=== PATIENT | male | born 1945 | race Caucasian/White ===

== ENCOUNTER 2021-07-03 04:23 | Inpatient (IN) | payer MEDICARE ==
--- NOTE | 2021-07-03 04:38 | ED ---
SOB HPI - General Chief Complaint: Shortness of Breath Stated Complaint: SOB Time Seen by Provider: 07/03/21 04:25 Source: patient, EMS, RN notes reviewed, old records reviewed Mode of arrival: EMS Limitations: no limitations - History of Present Illness Initial Comments: This is a 76-year-old male presenting is a poor historian on BiPAP, CPAP during transfer by EMS for hypoxia. Difficulty breathing. Patient remains in severe us for a stress here in the ER. Patient is able to answer about denying any chest pain or recent fevers states his symptoms worsened over the last 3 days MD Complaint: shortness of breath, cough, anxiety -: hour(s), days(s) (3) Radiation: back Severity: moderate Severity scale (1-10): 7 Quality: dull Consistency: intermittent Improves With: nothing Worsens With: exertion, movement, coughing, inspiration Context: recent URI, anxiety, recent illness Associated Symptoms: chest pain, cough Treatments Prior to Arrival: none - Related Data Home Medications Medication Instructions Recorded Confirmed Allopurinol [Zyloprim] 300 mg PO DAILY 07/03/21 07/03/21 Apixaban [Eliquis] 5 mg PO BID 07/03/21 07/03/21 Atorvastatin [Lipitor] 40 mg PO DAILY 07/03/21 07/03/21 Cyclobenzaprine [Flexeril] 10 mg PO BID PRN 07/03/21 07/03/21 DULoxetine HCL [Cymbalta] 60 mg PO DAILY 07/03/21 07/03/21 Gabapentin 300 mg PO TID 07/03/21 07/03/21 Metoprolol Tartrate 25 mg PO BID 07/03/21 07/03/21 Nitroglycerin Sl Tabs [Nitrostat] 0.4 mg SUBLINGUAL Q5M PRN 07/03/21 07/03/21 Omeprazole 20 mg PO DAILY 07/03/21 07/03/21 traMADol HCL 50 mg PO BID PRN 07/03/21 07/03/21 traZODone HCL [Desyrel] 50 mg PO HS 07/03/21 07/03/21 Previous Rx's Medication Instructions Recorded Furosemide [Lasix] 20 mg PO BID@0900,1600 #60 tab 07/06/21 Nicotine 21Mg/24Hr Patch [Habitrol] 1 patch TRANSDERM DAILY #30 patch 07/06/21 Allergies Allergy/AdvReac Type Severity Reaction Status Date / Time No Known Allergies Allergy Verified 07/03/21 08:45 Review of Systems ROS Statement: Those systems with pertinent positive or pertinent negative responses have been documented in the HPI. ROS Other: All systems not noted in ROS Statement are negative. Past Medical History Past Medical History: Atrial Fibrillation, COPD, Hypertension Additional Past Medical History / Comment(s): Pace maker, History of Any Multi-Drug Resistant Organisms: None Reported Past Surgical History: Pacemaker Past Psychological History: No Psychological Hx Reported Smoking Status: Current every day smoker Past Alcohol Use History: Occasional - Past Family History Father History Unknown: Yes Mother History Unknown: Yes General Exam Limitations: no limitations General appearance: alert, in no apparent distress, anxious, in distress Head exam: Present: atraumatic, normocephalic, normal inspection Eye exam: Present: normal appearance, PERRL, EOMI. Absent: scleral icterus, conjunctival injection, periorbital swelling ENT exam: Present: normal exam, mucous membranes moist Neck exam: Present: normal inspection. Absent: tenderness, meningismus, lymphadenopathy Respiratory exam: Present: respiratory distress, wheezes, rhonchi, decreased breath sounds, prolonged expiratory. Absent: rales, stridor Cardiovascular Exam: Present: regular rate, normal rhythm, normal heart sounds. Absent: systolic murmur, diastolic murmur, rubs, gallop, clicks GI/Abdominal exam: Present: soft, normal bowel sounds. Absent: distended, tenderness, guarding, rebound, rigid Extremities exam: Present: normal inspection, full ROM, normal capillary refill. Absent: tenderness, pedal edema, joint swelling, calf tenderness Back exam: Present: normal inspection Neurological exam: Present: alert, oriented X3, CN II-XII intact Psychiatric exam: Present: normal affect, normal mood Skin exam: Present: warm, dry, intact, normal color. Absent: rash Course Vital Signs 07/03/21 07/03/21 07/03/21 04:28 04:30 05:09 Temperature 97.8 F Pulse Rate 70 70 Pulse Rate [ 75 Punch Card Operator ] Respiratory 26 H 24 Rate Blood Pressure 147/66 138/74 O2 Sat by Pulse 100 100 Oximetry 07/03/21 07/03/21 07/03/21 05:45 05:46 05:54 Temperature Pulse Rate 78 79 Pulse Rate [ Punch Card Operator ] Respiratory 18 Rate Blood Pressure O2 Sat by Pulse 91 L Oximetry 07/03/21 07/03/21 07/03/21 06:13 07:01 07:12 Temperature 98.0 F Pulse Rate 69 70 70 Pulse Rate [ Punch Card Operator ] Respiratory 18 18 18 Rate Blood Pressure 130/64 143/66 O2 Sat by Pulse 95 98 94 L Oximetry 07/03/21 07/03/21 07/03/21 07:27 08:39 09:00 Temperature 98 F Pulse Rate 70 70 70 Pulse Rate [ Punch Card Operator ] Respiratory 18 18 18 Rate Blood Pressure 141/70 O2 Sat by Pulse 100 97 Oximetry 07/03/21 07/03/21 07/03/21 10:00 10:32 10:42 Temperature Pulse Rate 71 70 71 Pulse Rate [ Punch Card Operator ] Respiratory 18 18 18 Rate Blood Pressure O2 Sat by Pulse 98 Oximetry 07/03/21 07/03/21 07/03/21 11:00 12:00 14:16 Temperature 98 F Pulse Rate 71 71 71 Pulse Rate [ Punch Card Operator ] Respiratory 18 18 18 Rate Blood Pressure 147/63 147/63 O2 Sat by Pulse 98 98 98 Oximetry - Reevaluation(s) Reevaluation #1: 07/03/21 06:36 Medical record is reviewed Reevaluation #2: 07/03/21 06:36 he is maintaining her story status on BiPAP Reevaluation #3: 07/03/21 06:36 She is informed of results and questions answered - Consultations Consultation #1: spoke w [facility], agreed admit the patient Medical Decision Making - Medical Decision Making 76-year-old male to ER for evaluation multifactorial respiratory failure with pneumonia hypoxia COPD. - Lab Data Result diagrams: 07/05/21 07:57 07/06/21 06:56 Lab Results 07/03/21 07/03/21 07/03/21 Range/Units 04:35 04:35 04:35 WBC 15.5 H (3.8-10.6) k/uL RBC 4.38 (4.30-5.90) m/uL Hgb 10.3 L (13.0-17.5) gm/dL Hct 35.3 L (39.0-53.0) % MCV 80.6 (80.0-100.0) fL MCH 23.6 L (25.0-35.0) pg MCHC 29.3 L (31.0-37.0) g/dL RDW 19.0 H (11.5-15.5) % Plt Count 395 (150-450) k/uL MPV 7.3 Neutrophils % 92 % Lymphocytes % 3 % Monocytes % 3 % Eosinophils % 0 % Basophils % 0 % Neutrophils # 14.3 H (1.3-7.7) k/uL Lymphocytes # 0.5 L (1.0-4.8) k/uL Monocytes # 0.4 (0-1.0) k/uL Eosinophils # 0.1 (0-0.7) k/uL Basophils # 0.0 (0-0.2) k/uL Hypochromasia Marked Poikilocytosis Slight Anisocytosis Slight Microcytosis Slight PT 11.6 (9.0-12.0) sec INR 1.1 (<1.2) APTT 20.0 L (22.0-30.0) sec Sodium 136 L (137-145) mmol/L Potassium 4.7 (3.5-5.1) mmol/L Chloride 100 (98-107) mmol/L Carbon Dioxide 25 (22-30) mmol/L Anion Gap 11 mmol/L BUN 14 (9-20) mg/dL Creatinine 0.69 (0.66-1.25) mg/dL Est GFR (CKD-EPI)AfAm >90 (>60 ml/min/1.73 sqM) Est GFR (CKD-EPI)NonAf >90 (>60 ml/min/1.73 sqM) Glucose 190 H (74-99) mg/dL Lactic Ac Sepsis Rflx Plasma Lactic Acid Corwin (0.7-2.0) mmol/L Calcium 8.6 (8.4-10.2) mg/dL Magnesium 1.9 (1.6-2.3) mg/dL Total Bilirubin 0.4 (0.2-1.3) mg/dL AST 29 (17-59) U/L ALT 16 (4-49) U/L Alkaline Phosphatase 170 H (38-126) U/L Troponin I (0.000-0.034) ng/mL NT-Pro-B Natriuret Pep pg/mL Total Protein 6.3 (6.3-8.2) g/dL Albumin 3.1 L (3.5-5.0) g/dL Procalcitonin (0.02-0.09) ng/mL Coronavirus (PCR) (Not Detectd) 07/03/21 07/03/21 07/03/21 Range/Units 04:35 04:35 04:35 WBC (3.8-10.6) k/uL RBC (4.30-5.90) m/uL Hgb (13.0-17.5) gm/dL Hct (39.0-53.0) % MCV (80.0-100.0) fL MCH (25.0-35.0) pg MCHC (31.0-37.0) g/dL RDW (11.5-15.5) % Plt Count (150-450) k/uL MPV Neutrophils % % Lymphocytes % % Monocytes % % Eosinophils % % Basophils % % Neutrophils # (1.3-7.7) k/uL Lymphocytes # (1.0-4.8) k/uL Monocytes # (0-1.0) k/uL Eosinophils # (0-0.7) k/uL Basophils # (0-0.2) k/uL Hypochromasia Poikilocytosis Anisocytosis Microcytosis PT (9.0-12.0) sec INR (<1.2) APTT (22.0-30.0) sec Sodium (137-145) mmol/L Potassium (3.5-5.1) mmol/L Chloride (98-107) mmol/L Carbon Dioxide (22-30) mmol/L Anion Gap mmol/L BUN (9-20) mg/dL Creatinine (0.66-1.25) mg/dL Est GFR (CKD-EPI)AfAm (>60 ml/min/1.73 sqM) Est GFR (CKD-EPI)NonAf (>60 ml/min/1.73 sqM) Glucose (74-99) mg/dL Lactic Ac Sepsis Rflx Plasma Lactic Acid Corwin 2.4 H* (0.7-2.0) mmol/L Calcium (8.4-10.2) mg/dL Magnesium (1.6-2.3) mg/dL Total Bilirubin (0.2-1.3) mg/dL AST (17-59) U/L ALT (4-49) U/L Alkaline Phosphatase (38-126) U/L Troponin I 0.021 (0.000-0.034) ng/mL NT-Pro-B Natriuret Pep 2640 pg/mL Total Protein (6.3-8.2) g/dL Albumin (3.5-5.0) g/dL Procalcitonin (0.02-0.09) ng/mL Coronavirus (PCR) (Not Detectd) 07/03/21 07/03/21 07/03/21 Range/Units 04:35 05:02 05:45 WBC (3.8-10.6) k/uL RBC (4.30-5.90) m/uL Hgb (13.0-17.5) gm/dL Hct (39.0-53.0) % MCV (80.0-100.0) fL MCH (25.0-35.0) pg MCHC (31.0-37.0) g/dL RDW (11.5-15.5) % Plt Count (150-450) k/uL MPV Neutrophils % % Lymphocytes % % Monocytes % % Eosinophils % % Basophils % % Neutrophils # (1.3-7.7) k/uL Lymphocytes # (1.0-4.8) k/uL Monocytes # (0-1.0) k/uL Eosinophils # (0-0.7) k/uL Basophils # (0-0.2) k/uL Hypochromasia Poikilocytosis Anisocytosis Microcytosis PT (9.0-12.0) sec INR (<1.2) APTT (22.0-30.0) sec Sodium (137-145) mmol/L Potassium (3.5-5.1) mmol/L Chloride (98-107) mmol/L Carbon Dioxide (22-30) mmol/L Anion Gap mmol/L BUN (9-20) mg/dL Creatinine (0.66-1.25) mg/dL Est GFR (CKD-EPI)AfAm (>60 ml/min/1.73 sqM) Est GFR (CKD-EPI)NonAf (>60 ml/min/1.73 sqM) Glucose (74-99) mg/dL Lactic Ac Sepsis Rflx Y Plasma Lactic Acid Corwin (0.7-2.0) mmol/L Calcium (8.4-10.2) mg/dL Magnesium (1.6-2.3) mg/dL Total Bilirubin (0.2-1.3) mg/dL AST (17-59) U/L ALT (4-49) U/L Alkaline Phosphatase (38-126) U/L Troponin I (0.000-0.034) ng/mL NT-Pro-B Natriuret Pep pg/mL Total Protein (6.3-8.2) g/dL Albumin (3.5-5.0) g/dL Procalcitonin 0.06 (0.02-0.09) ng/mL Coronavirus (PCR) Not Detected (Not Detectd) - EKG Data -: EKG Interpreted by Me (EKG is a paced rhythm 70 QRS 158 QTc 505) - Radiology Data Radiology results: report reviewed (Chest x-rays CHF with bilateral pneumonia), image reviewed Critical Care Time Critical Care Time: Yes Total Critical Care Time: 31 Disposition Clinical Impression: Community acquired pneumonia, Acute exacerbation of chronic obstructive pulmonary disease, Acute pulmonary edema, Congestive heart failure, Acute respiratory failure Disposition: ADMITTED IP TO THIS HOSP Condition: Fair Is patient prescribed a controlled substance at d/c from ED?: No
--- NOTE | 2021-07-03 04:46 | XR ---
EXAMINATION TYPE: XR chest 1V portable DATE OF EXAM: 07/03/2021 COMPARISON: NONE HISTORY: Short of breath TECHNIQUE: Single view FINDINGS: Heart is enlarged. There is some pulmonary vascular congestion. There is blunting right cos tophrenic angle. There is airspace infiltrate in both lower lobes and more on the right side. There i s extensive airspace infiltrate in the right lung. There is left axillary pacemaker. IMPRESSION: Congestive heart failure. Bilateral lower lobe pneumonia that is worse on the right side
[2021-07-03 04:47] LABS: Anisocytosis Slight; Basophils % (A) 0 %; Eosinophils # (A) 0.1 k/uL (0-0.7); Eosinophils % (A) 0 %; HCT 35.3 % (39.0-53.0); HGB 10.3 gm/dL (13.0-17.5); Hypochromasia Marked; Lymphocytes # (A) 0.5 k/uL (1.0-4.8); Lymphocytes % (A) 3 %; MCH 23.6 pg (25.0-35.0); MCHC 29.3 g/dL (31.0-37.0); MCV 80.6 fL (80.0-100.0); Mean Platelet Volume 7.3; Microcytosis Slight; Monocytes # (A) 0.4 k/uL (0-1.0); Monocytes % (A) 3 %; Neutrophils # (A) 14.3 k/uL (1.3-7.7); Neutrophils % (A) 92 %; Platelet Count 395 k/uL (150-450); Poikilocytosis Slight; RBC 4.38 m/uL (4.30-5.90); WBC 15.5 k/uL (3.8-10.6)
[2021-07-03 04:58] LABS: ALT 16 U/L (4-49); AST 29 U/L (17-59); African American GFR (CKD) >90 (>60 ml/min/1.73 sqM); Albumin 3.1 g/dL (3.5-5.0); Alkaline Phosphatase 170 U/L (38-126); Anion Gap 11 mmol/L; Blood Urea Nitrogen 14 mg/dL (9-20); Calcium 8.6 mg/dL (8.4-10.2); Carbon Dioxide 25 mmol/L (22-30); Chloride 100 mmol/L (98-107); Glucose 190 mg/dL (74-99); Magnesium 1.9 mg/dL (1.6-2.3); Non-African American GFR(CKD) >90 (>60 ml/min/1.73 sqM); Potassium 4.7 mmol/L (3.5-5.1); Sodium 136 mmol/L (137-145); Total Bilirubin 0.4 mg/dL (0.2-1.3); Total Protein 6.3 g/dL (6.3-8.2)
[2021-07-03 05:04] LABS: INR 1.1 (<1.2); Prothrombin Time 11.6 sec (9.0-12.0)
[2021-07-03] MEDS ORDERED: DEXAMETHASONE SOD PHOSPHATE 10 MG/ML 1 ML VIAL IV STA (05:32)
[2021-07-03] MEDS ORDERED: IPRATROPIUM-ALBUTEROL 3 ML NEB INHALATION STA (05:32)
[2021-07-03] MEDS ORDERED: PNEUMONIA PROTOCOL UTILIZED 1 EACH MISC PO PRN (06:32)
[2021-07-03] MEDS ORDERED: AZITHROMYCIN 500 MG in SODIUM CHLORIDE 0.9% 250 ML IVPB STA (06:32)
[2021-07-03] MEDS ORDERED: FUROSEMIDE 10 MG/ML 4 ML VIAL IV SCH (06:45)
[2021-07-03] MEDS ORDERED: IPRATROPIUM-ALBUTEROL 3 ML NEB INHALATION PRN (07:48)
[2021-07-03] MEDS ORDERED: ALBUTEROL NEBULIZED 2.5 MG/3 ML INHALATION SCH (08:00)
[2021-07-03] MEDS: IPRATROPIUM-ALBUTEROL 3 ML NEB INHALATION SCH ×4 (09:08→20:12)
--- NOTE | 2021-07-03 09:40 | P.CNPUL ---
History of Present Illness Consult date: 07/03/21 Requesting physician: Jessica Melendez Reason for consult: dyspnea, cough, COPD, hypoxemia, abnormal CXR/CT Chief complaint: Shortness of breath, respiratory failure. History of present illness: Pulmonary/critical care consultation dated 07/03/2021. 76-year-old male, who presents to the emergency department, with complaints of shortness of breath. Family members are at the bedside. The patient was seen and brought in by EMS. They apparently applied CPAP in transport. Seemed to make things better. Here in the emergency room, he was initially on BiPAP with settings of 12/6 and 50% FiO2. Currently, he is on 5 L nasal cannula in the emergency room. He does use oxygen at home at 2-1/2 L/m. His chest x-ray shows diffuse bilateral infiltrates, the right lung than on the left, suggesting either asymmetric pulmonary edema and/or pneumonia. He's not really having much in the way of pneumonic symptoms such as fever, chills, cough, or phlegm production. The patient is not receiving any IV fluids. He did apparently sustain a fracture to his right shoulder. White count 15.5, hemoglobin 10.3, hematocrit 35.3, and platelet count 395,000. PT INR normal. PTT is normal. Sodium 136, potassium 4.7, chlorides 100, CO2 25, anion gap 11, BUN 14, creatinine 0.69. Initial lactic acid 2.4, repeat 1.4. Coronavirus testing was negative. N-terminal proBNP is 2640. Troponin was 0.021 and 0.031. Procalcitonin has been ordered but is currently pending. As mentioned, chest x- ray shows bilateral right greater than left infiltrates. Again, this could be consistent with fluid overload/CHF, and or pneumonia. Review of Systems REVIEW OF SYSTEMS: CONSTITUTIONAL: [Negative.] NEUROLOGIC: [ Negative.] HEENT: [ Negative.] CARDIAC: [Negative.] PULMONARY: Shortness of breath. GI: [Negative.] : [Negative.] RHEUMATOLOGIC: [ Negative.] IMMUNOLOGIC: [ Negative.] ENDOCRINE: [Negative. ] DERMATOLOGIC: [Negative.] Past Medical History Past Medical History: Atrial Fibrillation, COPD, Hypertension Additional Past Medical History / Comment(s): Pace maker, History of Any Multi-Drug Resistant Organisms: None Reported Past Surgical History: Pacemaker Past Psychological History: No Psychological Hx Reported Smoking Status: Current every day smoker Past Alcohol Use History: Occasional Medications and Allergies Home Medications Medication Instructions Recorded Confirmed Type Allopurinol [Zyloprim] 300 mg PO DAILY 07/03/21 07/03/21 History Apixaban [Eliquis] 5 mg PO BID 07/03/21 07/03/21 History Atorvastatin [Lipitor] 40 mg PO DAILY 07/03/21 07/03/21 History Cyclobenzaprine [Flexeril] 10 mg PO BID PRN 07/03/21 07/03/21 History DULoxetine HCL [Cymbalta] 60 mg PO DAILY 07/03/21 07/03/21 History Gabapentin 300 mg PO TID 07/03/21 07/03/21 History Metoprolol Tartrate 25 mg PO BID 07/03/21 07/03/21 History Nitroglycerin Sl Tabs [Nitrostat] 0.4 mg SUBLINGUAL Q5M PRN 07/03/21 07/03/21 History Omeprazole 20 mg PO DAILY 07/03/21 07/03/21 History traMADol HCL 50 mg PO BID PRN 07/03/21 07/03/21 History traZODone HCL [Desyrel] 50 mg PO HS 07/03/21 07/03/21 History Allergies Allergy/AdvReac Type Severity Reaction Status Date / Time No Known Allergies Allergy Verified 07/03/21 08:45 Physical Exam Osteopathic Statement: *. No significant issues noted on an osteopathic structural exam other than those noted in the History and Physical/Consult. Vitals: Vital Signs Temp Pulse Pulse Resp BP Pulse Ox 07/03/21 08:39 98 F 70 18 141/70 100 07/03/21 07:27 70 18 07/03/21 07:12 70 18 94 L 07/03/21 07:01 98.0 F 70 18 143/66 98 07/03/21 06:13 69 18 130/64 95 07/03/21 05:54 79 07/03/21 05:46 18 91 L 07/03/21 05:45 78 07/03/21 05:09 70 24 138/74 100 07/03/21 04:30 75 07/03/21 04:28 97.8 F 70 26 H 147/66 100 Intake and Output 0807/03/21 07/03/21 22:59 06:59 14:59 Other: Weight 86.183 kg No acute distress, oriented 3. Currently, patient on 5 L nasal cannula. No audible wheezing, or use of accessory muscles. HEENT examination is grossly unremarkable. Neck supple. Full range of motion. No adenopathy thyromegaly or neck vein distention. Cardiovascular examination reveals regular rhythm rate. S1-S2 normal. No S3 or S4. No discernible murmur noted. Heart rate 70 bpm. Heart sounds are very distant. Lungs reveal diffuse bilateral rhonchi and expiratory wheezes. Bibasilar crackles are noted noted. Breath sounds are equal bilaterally but diminished throughout. Abdomen soft bowel sounds are heard. No masses or tenderness. Extremities are intact. No cyanosis or clubbing or significant edema. Skin reveals chronic venous stasis changes to the lower extremities. Neurologic examination is brief but nonfocal. Results - Laboratory Findings CBC and BMP: 07/03/21 04:35 07/03/21 04:35 PT/INR, D-dimer PT 11.6 sec (9.0-12.0) 07/03/21 04:35 INR 1.1 (<1.2) 07/03/21 04:35 Abnormal lab findings: Abnormal Labs 07/03/21 07/03/21 07/03/21 04:35 04:35 04:35 WBC 15.5 H Hgb 10.3 L Hct 35.3 L MCH 23.6 L MCHC 29.3 L RDW 19.0 H Neutrophils # 14.3 H Lymphocytes # 0.5 L APTT 20.0 L Sodium 136 L Glucose 190 H Plasma Lactic Acid Corwin Alkaline Phosphatase 170 H Albumin 3.1 L 07/03/21 04:35 WBC Hgb Hct MCH MCHC RDW Neutrophils # Lymphocytes # APTT Sodium Glucose Plasma Lactic Acid Corwin 2.4 H* Alkaline Phosphatase Albumin - Diagnostic Findings Chest x-ray: image reviewed Assessment and Plan Assessment: Acute on chronic hypoxemic respiratory failure, likely multifactorial, in part related to underlying CHF/fluid overload, and possible pneumonia. Chronic hypoxemic respiratory failure, with home O2 at 2.5 L/m. History of chronic atrial fibrillation. History of hypertension. Status post pacemaker insertion. Ongoing tobacco use with nicotine addiction. History of hyperlipidemia. History of gout. Plan: Plan dated 07/03/2021. Currently, the patient's been placed on azithromycin, and Rocephin for possible pneumonia. In addition, the patient's getting updrafts 4 times a day and when necessary with albuterol sulfate and ipratropium bromide. Also, the patient's getting Lasix 40 mg IV push every 12 hours. The patient is doing much better now than when he first came in. BiPAP really seem to help. We will continue to follow the patient and make recommendations where appropriate. The patient is strongly counseled about the importance of smoking cessation. I say that to the patient in front of the patient's daughter. Time with Patient: Greater than 30
[2021-07-03] MEDS ORDERED: NITROGLYCERIN SL TABS 0.4 MG TAB SUBLINGUAL PRN (10:26)
--- NOTE | 2021-07-03 10:27 | P.HPIM ---
<Matt Bhatt - Last Filed: 07/03/21 12:48> History of Present Illness H&P Date: 07/03/21 History of Presenting Illness: Patient is a 76-year-old male with a past medical history of CAD with previous stents and pacemaker placement, hypertension, hyperlipidemia, paroxysmal atrial fibrillation on Eliquis, chronic systolic heart failure, COPD home oxygen dependent on 2-3 L at all times, long-standing history of having current use of tobacco products reportedly continuing to smoke one pack of cigarettes daily, and obstructive sleep apnea CPAP dependent nightly. Patient presented to the emergency department on 07/03/21 with a chief complaint of shortness of breath. Patient reportedly arrived to the emergency department on BiPAP via EMS secondary to hypoxia after being found at home reportedly with SpO2 of 74% per family at bedside. Patient states he has had progressively worsening shortness of breath over the past 3-5 days but denies having any changes in his cough or phlegm production. He was seen and fully evaluated in the emergency department initially requiring BiPAP and being weaned down to 5 L O2 via nasal cannula. Patient had chest x-ray completed which reportedly showed vascular congestion indicated of CHF as well as bilateral lower lobe infiltrates worse on the right. EKG showing a ventricular paced rhythm at 70 bpm. Lab work drawn revealing leukocytosis with WBC count of 15.5 with left shift, initial lactate 2.4 with repeat lactate of 1.4, elevated troponins at 0.021/0.031/0.032, and pro-BNP of 2640. Covid 19 PCR negative. Patient was admitted for acute respiratory failure with hypoxia secondary to acute on chronic systolic congestive heart failure exacerbation, COPD exacerbation, and bilateral lower lobe pneumonia. Patient admitted under our services with consultation to cardiology and pulmonology. Upon physical exam, patient resting comfortably on 5 L O2 via nasal cannula. Family at bedside. Patient reports feeling significantly better than he felt upon arrival and states he feels that it is much easier to breathe at this time. Patient denies any recent fevers or illnesses, chills, diaphoresis, headache, lightheadedness, dizziness, chest pain or shortness of breath, increases in her changes in cough or congestion, experiencing any nausea, vomiting, changes in or difficulties with urinary or bowel function, or experiencing any swelling in his lower extremities. Review of systems: Pertinent positives and negatives as discussed in HPI, a complete review of systems was performed and all other systems are negative. Physical exam: Vital signs reviewed and stable. General: Nontoxic, no distress and appears stated age. Derm: Skin warm and dry, normal coloration for ethnicity. Multiple bruises in different stages of healing on upper extremities. Head: Atraumatic, normocephalic and symmetric. Eyes: EOMs intact, no lid lag, and anicteric sclera Mouth: no lip lesions, mucus membranes moist Cardiovascular: regular rate and rhythm with normal S1S2, distant heart sounds, positive posterior tibial pulses bilaterally, and cap refill < 2 seconds. Lungs: Respirations even, regular, and unlabored on 5 L O2 via nasal cannula. Lungs with diffuse expiratory wheezes bilaterally. No rhonchi or rales noted. Increased respiratory effort with no accessory muscle usage. Abdominal: soft, nontender to palpation, no guarding, no appreciable organomegaly Ext: ROM intact. No gross muscle atrophy, no edema. Right arm in sling from previous injury in which she reportedly sustained a fracture to his right shoulder. Neuro: Speech clear, face symmetrical and CN II-XII grossly intact with no noted focal neuro deficits Psych: Alert and oriented to person, place, time, and situation. Appropriate and pleasant affect. Assessment and Plan of Care: Acute on chronic respiratory failure with hypoxia Acute on chronic systolic congestive heart failure COPD exacerbation Bilateral lower lobe pneumonia -Chest x-ray reporting pulmonary vascular congestion indicated of congestive heart failure as well as bilateral lower lobe infiltrates worse on the right. -Echocardiogram revealing a mildly impaired EF of 45-50% with basal inferiolateral hypokinesis, moderate pulmonary hypertension and moderate tricuspid regurgitation. -BNP 2640 -Oxygenation to be administered and titrated as needed to maintain SPO2 equal to or greater than 90%, attempts at weaning back towards baseline oxygenation level of 2-3 L. -Telemetry monitoring. -Duonebs as needed for SOB and/or wheezing -Incentive Spirometry -Antibiotics: Azithromycin and Rocephin -Lasix 20 mg IVP every 8 hours with close monitoring of electrolyte levels, renal function and urinary output -Consult cardiology, appreciate additional recommendations. -Consult to pulmonary, appreciate additional recommendations. Elevated troponins with history of CAD with previous stents and pacemaker placement -Elevated troponins at 0.021/0.031/0.032 likely secondary to acute on chronic systolic congestive heart failure -BNP 2640 -EKG showing a ventricular paced rhythm at 70 bpm. -Echocardiogram revealing a mildly impaired EF of 45-50% with basal inferiolateral hypokinesis, moderate pulmonary hypertension and moderate tricuspid regurgitation. -Treatment of underlying acute on chronic CHF exacerbation with Lasix 20 mg IVP every 8 hours with close monitoring of electrolyte levels, renal function and urinary output -Cardiology following, appreciate further recommendations. Hypertension -Monitor vital signs and continue daily medication regimen with metoprolol. Hyperlipidemia -Continue daily medication regimen with atorvastatin 40 mg daily. -Heart healthy diet. Paroxysmal atrial fibrillation on Eliquis -Continue anticoagulation with Eliquis. Long-standing history of having current use of tobacco products reportedly continuing to smoke one pack of cigarettes daily Patient to continue to receive encouragement and education on the benefits of smoking cessation and the risks associated with continued use. Nicotine patch. Obstructive sleep apnea CPAP dependent nightly. -Continue use of nightly CPAP/BiPAP -Encourage incentive spirometry use The patient is admitted with an anticipated greater than 2 midnight stay for evaluation of acute on chronic respiratory failure with hypoxia. CODE STATUS: Full code DVT prophylaxis: Eliquis Discussed with: Patient, daughter at bedside, and RN Anticipated discharge date: Clinical course to determine Anticipated discharge place: Home A total of 45 minutes was spent on the care of this complex patient more than 50% of the time was spent in counseling and care coordination. Past Medical History Past Medical History: Atrial Fibrillation, COPD, Hypertension Additional Past Medical History / Comment(s): Pace maker, History of Any Multi-Drug Resistant Organisms: None Reported Past Surgical History: Pacemaker Past Psychological History: No Psychological Hx Reported Smoking Status: Current every day smoker Past Alcohol Use History: Occasional Medications and Allergies Home Medications Medication Instructions Recorded Confirmed Type Allopurinol [Zyloprim] 300 mg PO DAILY 07/03/21 07/03/21 History Apixaban [Eliquis] 5 mg PO BID 07/03/21 07/03/21 History Atorvastatin [Lipitor] 40 mg PO DAILY 07/03/21 07/03/21 History Cyclobenzaprine [Flexeril] 10 mg PO BID PRN 07/03/21 07/03/21 History DULoxetine HCL [Cymbalta] 60 mg PO DAILY 07/03/21 07/03/21 History Gabapentin 300 mg PO TID 07/03/21 07/03/21 History Metoprolol Tartrate 25 mg PO BID 07/03/21 07/03/21 History Nitroglycerin Sl Tabs [Nitrostat] 0.4 mg SUBLINGUAL Q5M PRN 07/03/21 07/03/21 History Omeprazole 20 mg PO DAILY 07/03/21 07/03/21 History traMADol HCL 50 mg PO BID PRN 07/03/21 07/03/21 History traZODone HCL [Desyrel] 50 mg PO HS 07/03/21 07/03/21 History Allergies Allergy/AdvReac Type Severity Reaction Status Date / Time No Known Allergies Allergy Verified 07/03/21 08:45 Physical Exam Vitals: Vital Signs Temp Pulse Pulse Resp BP Pulse Ox 07/03/21 08:39 98 F 70 18 141/70 100 07/03/21 07:27 70 18 07/03/21 07:12 70 18 94 L 07/03/21 07:01 98.0 F 70 18 143/66 98 07/03/21 06:13 69 18 130/64 95 07/03/21 05:54 79 07/03/21 05:46 18 91 L 07/03/21 05:45 78 07/03/21 05:09 70 24 138/74 100 07/03/21 04:30 75 07/03/21 04:28 97.8 F 70 26 H 147/66 100 Intake and Output 07/02/21 07/03/21 07/03/21 22:59 06:59 14:59 Other: Weight 86.183 kg Results CBC & Chem 7: 07/03/21 04:35 07/03/21 04:35 Labs: Abnormal Lab Results - Last 24 Hours (Table) 07/03/21 07/03/21 07/03/21 Range/Units 04:35 04:35 04:35 WBC 15.5 H (3.8-10.6) k/uL Hgb 10.3 L (13.0-17.5) gm/dL Hct 35.3 L (39.0-53.0) % MCH 23.6 L (25.0-35.0) pg MCHC 29.3 L (31.0-37.0) g/dL RDW 19.0 H (11.5-15.5) % Neutrophils # 14.3 H (1.3-7.7) k/uL Lymphocytes # 0.5 L (1.0-4.8) k/uL APTT 20.0 L (22.0-30.0) sec Sodium 136 L (137-145) mmol/L Glucose 190 H (74-99) mg/dL Plasma Lactic Acid Corwin (0.7-2.0) mmol/L Alkaline Phosphatase 170 H (38-126) U/L Albumin 3.1 L (3.5-5.0) g/dL 07/03/21 Range/Units 04:35 WBC (3.8-10.6) k/uL Hgb (13.0-17.5) gm/dL Hct (39.0-53.0) % MCH (25.0-35.0) pg MCHC (31.0-37.0) g/dL RDW (11.5-15.5) % Neutrophils # (1.3-7.7) k/uL Lymphocytes # (1.0-4.8) k/uL APTT (22.0-30.0) sec Sodium (137-145) mmol/L Glucose (74-99) mg/dL Plasma Lactic Acid Corwin 2.4 H* (0.7-2.0) mmol/L Alkaline Phosphatase (38-126) U/L Albumin (3.5-5.0) g/dL <Jannette Martin - Last Filed: 07/03/21 15:25> Physical Exam Vitals: Vital Signs Temp Pulse Pulse Resp BP BP Pulse Ox 07/03/21 15:00 97.9 F 70 16 158/76 98 07/03/21 14:16 98 F 71 18 147/63 98 07/03/21 12:00 71 18 147/63 98 07/03/21 11:00 71 18 98 07/03/21 10:42 71 18 07/03/21 10:32 70 18 07/03/21 10:00 71 18 98 07/03/21 09:00 70 18 97 07/03/21 08:39 98 F 70 18 141/70 100 07/03/21 07:27 70 18 07/03/21 07:12 70 18 94 L 07/03/21 07:01 98.0 F 70 18 143/66 98 07/03/21 06:13 69 18 130/64 95 07/03/21 05:54 79 07/03/21 05:46 18 91 L 07/03/21 05:45 78 07/03/21 05:09 70 24 138/74 100 07/03/21 04:30 75 07/03/21 04:28 97.8 F 70 26 H 147/66 100 Intake and Output 07/03/21 07/03/21 07/03/21 06:59 14:59 22:59 Other: Voiding Method Urinal Weight 86.183 kg 86.183 kg 86.183 kg Results CBC & Chem 7: 07/03/21 04:35 07/03/21 04:35 Labs: Abnormal Lab Results - Last 24 Hours (Table) 07/03/21 07/03/21 07/03/21 Range/Units 04:35 04:35 04:35 WBC 15.5 H (3.8-10.6) k/uL Hgb 10.3 L (13.0-17.5) gm/dL Hct 35.3 L (39.0-53.0) % MCH 23.6 L (25.0-35.0) pg MCHC 29.3 L (31.0-37.0) g/dL RDW 19.0 H (11.5-15.5) % Neutrophils # 14.3 H (1.3-7.7) k/uL Lymphocytes # 0.5 L (1.0-4.8) k/uL APTT 20.0 L (22.0-30.0) sec Sodium 136 L (137-145) mmol/L Glucose 190 H (74-99) mg/dL Plasma Lactic Acid Corwin (0.7-2.0) mmol/L Alkaline Phosphatase 170 H (38-126) U/L Albumin 3.1 L (3.5-5.0) g/dL 07/03/21 Range/Units 04:35 WBC (3.8-10.6) k/uL Hgb (13.0-17.5) gm/dL Hct (39.0-53.0) % MCH (25.0-35.0) pg MCHC (31.0-37.0) g/dL RDW (11.5-15.5) % Neutrophils # (1.3-7.7) k/uL Lymphocytes # (1.0-4.8) k/uL APTT (22.0-30.0) sec Sodium (137-145) mmol/L Glucose (74-99) mg/dL Plasma Lactic Acid Corwin 2.4 H* (0.7-2.0) mmol/L Alkaline Phosphatase (38-126) U/L Albumin (3.5-5.0) g/dL Assessment and Plan Assessment: Patient was seen, evaluated, and examined by me in his room. He is feeling significantly better compared to when he first came into the hospital. He reports significant improvement in his shortness of breath. Patient is a 76-year-old male with complex past medical history noted above who presented to the emergency room with worsening shortness of breath. Patient was evaluated in the ER and was found to have acute hypoxic respiratory failure requiring BiPAP for a brief period of time. He was then transitioned to nasal cannula currently on 4 L. Patient told me that he wear 3 L at home. X-ray showed evidence of vascular congestion with slightly elevated BNP. Patient was seen and evaluated by cardiology. Echocardiogram showed EF of 45%. Patient was started on IV diuresis. He was also started on antibiotic for suspected pneumonia ending pro calcitonin. Patient has end-expiratory wheezing on exam that might be secondary to pulmonary edema versus COPD exacerbation. I would avoid steroids at this time in the setting of underlying heart failure and would monitor clinical status with diuresis. If not improving may consider steroids tomorrow. Continue duo nebs otherwise.
--- NOTE | 2021-07-03 10:59 | P.CRDCN ---
History of Present Illness Consult date: 07/03/21 History of present illness: HISTORY OF PRESENT ILLNESS: This is a 76-year-old male with a past medical history significant for nicotine dependence, chronic atrial fibrillation, history of permanent pacemaker insertion, and hyperlipidemia. Patient states he follows with a Dr. Marroquin in [place], [place]. We have been asked to see the patient in consultation for congestive heart failure. Patient examined at the bedside. Patient is somewhat of a poor h istorian. Patient states he presented to the hospital for chief complaint of shortness of breath. He denies any chest pain or pressure. Blood pressure 141/70. Telemetry reveals heart rate in the 70s. He is afebrile. He is on 5 L nasal cannula with oxygen saturations greater then 92%. EKG reveals ventricular paced rhythm Chest xray congestive heart failure. Bilateral lower lobe pneumonia that is worse on the right side. Laboratory data: WBC 15.5. Hemoglobin 10.3. Platelet count 395. Sodium 136. Potassium 4.7. BUN 14. Creatinine 0.69. Lactic acid 2.4. Repeat 1.4. Troponin 0.021. 0.031. ProBNP 2640. Current home cardiac medications include metoprolol tartrate 25 mg BID, Lipitor 40 mg daily, Eliquis 5 mg twice a day REVIEW OF SYSTEMS: At the time of my exam: CONSTITUTIONAL: Denies fever or chills. HEENT: Denies blurred vision, vision changes, or eye pain. Denies hemoptysis CARDIOVASCULAR: Denies chest pain. Denies orthopnea. Denies PND. Denies palpitations RESPIRATORY: Reports shortness of breath. GASTROINTESTINAL: Denies abdominal pain. Denies nausea or vomiting. HEMATOLOGIC: Denies bleeding disorders. GENITOURINARY: Denies any blood in urine. SKIN: Denies pruitis. Denies rash. PHYSICAL EXAM: VITAL SIGNS: Reviewed. GENERAL: Well-developed in no acute distress. HEENT: Head is normocephalic. Pupils are equal, round. Sclerae anicteric. Mucous membranes of the mouth are moist. Neck supple. No JVD or thyromegaly LUNGS: Respirations even and unlabored. Lungs diminished bilaterally. HEART: Regular rate and rhythm. S1 and S2 heard. ABDOMEN: Soft. Nondistended. Nontender. EXTREMITIES: Normal range of motion. No clubbing or cyanosis. Peripheral pulses intact. Minimal lower extremity edema with chronic discoloration noted. NEUROLOGIC: Awake and alert. Oriented x 3. ASSESSMENT: Possible bilateral pneumonia Acute on chronic hypoxic respiratory failure, patient wears home O2 Chronic atrial fibrillation, anticoagulated with Eliquis Acute congestive heart failure, type unknown, echo pending History of permanent pacemaker insertion Hyperlipidemia Nicotine dependence PLAN: Obtain 2-D echo to assess cardiac structure and function Continue IV Lasix. Change dosing to 20 mg every 8 hours Daily weights Accurate I&O Monitor kidney function Resume home cardiac medications Continue anticoagulation with Eliquis Further recommendations pending patient's course Nurse practitioner note has been reviewed by physician. Signing provider agrees with the documented findings, assessment, and plan of care. Past Medical History Past Medical History: Atrial Fibrillation, COPD, Hypertension Additional Past Medical History / Comment(s): Pace maker, History of Any Multi-Drug Resistant Organisms: None Reported Past Surgical History: Pacemaker Past Psychological History: No Psychological Hx Reported Smoking Status: Current every day smoker Past Alcohol Use History: Occasional Medications and Allergies Home Medications Medication Instructions Recorded Confirmed Type Allopurinol [Zyloprim] 300 mg PO DAILY 07/03/21 07/03/21 History Apixaban [Eliquis] 5 mg PO BID 07/03/21 07/03/21 History Atorvastatin [Lipitor] 40 mg PO DAILY 07/03/21 07/03/21 History Cyclobenzaprine [Flexeril] 10 mg PO BID PRN 07/03/21 07/03/21 History DULoxetine HCL [Cymbalta] 60 mg PO DAILY 07/03/21 07/03/21 History Gabapentin 300 mg PO TID 07/03/21 07/03/21 History Metoprolol Tartrate 25 mg PO BID 07/03/21 07/03/21 History Nitroglycerin Sl Tabs [Nitrostat] 0.4 mg SUBLINGUAL Q5M PRN 07/03/21 07/03/21 History Omeprazole 20 mg PO DAILY 07/03/21 07/03/21 History traMADol HCL 50 mg PO BID PRN 07/03/21 07/03/21 History traZODone HCL [Desyrel] 50 mg PO HS 07/03/21 07/03/21 History Allergies Allergy/AdvReac Type Severity Reaction Status Date / Time No Known Allergies Allergy Verified 07/03/21 08:45 Physical Exam Vitals: Vital Signs Temp Pulse Pulse Resp BP Pulse Ox 07/03/21 10:32 70 18 07/03/21 08:39 98 F 70 18 141/70 100 07/03/21 07:27 70 18 07/03/21 07:12 70 18 94 L 07/03/21 07:01 98.0 F 70 18 143/66 98 07/03/21 06:13 69 18 130/64 95 07/03/21 05:54 79 07/03/21 05:46 18 91 L 07/03/21 05:45 78 07/03/21 05:09 70 24 138/74 100 07/03/21 04:30 75 07/03/21 04:28 97.8 F 70 26 H 147/66 100 Intake and Output 07/02/21 07/03/21 07/03/21 22:59 06:59 14:59 Other: Weight 86.183 kg Results 07/03/21 04:35 07/03/21 04:35 Cardiac Enzymes 07/03/21 07/03/21 07/03/21 Range/Units 04:35 04:35 07:36 AST 29 (17-59) U/L Troponin I 0.021 0.031 (0.000-0.034) ng/mL Coagulation 07/03/21 Range/Units 04:35 PT 11.6 (9.0-12.0) sec APTT 20.0 L (22.0-30.0) sec CBC 07/03/21 Range/Units 04:35 WBC 15.5 H (3.8-10.6) k/uL RBC 4.38 (4.30-5.90) m/uL Hgb 10.3 L (13.0-17.5) gm/dL Hct 35.3 L (39.0-53.0) % Plt Count 395 (150-450) k/uL Comprehensive Metabolic Panel 07/03/21 Range/Units 04:35 Sodium 136 L (137-145) mmol/L Potassium 4.7 (3.5-5.1) mmol/L Chloride 100 (98-107) mmol/L Carbon Dioxide 25 (22-30) mmol/L BUN 14 (9-20) mg/dL Creatinine 0.69 (0.66-1.25) mg/dL Glucose 190 H (74-99) mg/dL Calcium 8.6 (8.4-10.2) mg/dL AST 29 (17-59) U/L ALT 16 (4-49) U/L Alkaline Phosphatase 170 H (38-126) U/L Total Protein 6.3 (6.3-8.2) g/dL Albumin 3.1 L (3.5-5.0) g/dL Current Medications Generic Name Dose Route Start Last Admin Trade Name Freq PRN Reason Stop Dose Admin Albuterol/Ipratropium 3 ml 07/03/21 08:00 07/03/21 10:32 Ipratropium-Albuterol 3 Ml Neb INHALATION 3 ml RT-QID EZIO Administration Albuterol/Ipratropium 3 ml 07/03/21 07:48 Ipratropium-Albuterol 3 Ml Neb INHALATION RT-Q2H PRN Shortness Of Breath Or Wheezing Apixaban 5 mg 07/03/21 10:30 Apixaban 5 Mg Tab PO BID [facility] Protocol Atorvastatin Calcium 40 mg 07/03/21 10:30 Atorvastatin 40 Mg Tab PO DAILY [facility] Azithromycin 500 mg 07/04/21 09:00 Azithromycin 500 Mg Tab PO 07/06/21 09:01 DAILY [facility] Furosemide 20 mg 07/03/21 16:00 Furosemide 10 Mg/Ml 2 Ml Vial IV Q8HR [facility] Ceftriaxone Sodium 2 gm/ 50 mls @ 100 mls/hr 07/04/21 09:00 Sodium Chloride IVPB 07/08/21 09:01 Q24HR [facility] Metoprolol Tartrate 25 mg 07/03/21 10:30 Metoprolol Tartrate 25 Mg Tab PO BID [facility] Miscellaneous Information 1 each 07/03/21 06:32 Pneumonia Protocol Utilized 1 Each Misc PO ONCE PRN Per Protocol Nitroglycerin 0.4 mg 07/03/21 10:26 Nitroglycerin Sl Tabs 0.4 Mg Tab SUBLINGUAL Q5M PRN Chest Pain Intake and Output 07/02/21 07/03/21 07/03/21 22:59 06:59 14:59 Other: Weight 86.183 kg 07/03/21 04:35 07/03/21 04:35
--- NOTE | 2021-07-03 11:45 | ECHOF ---
Referral Reason:CHF, LV FUNCTION MEASUREMENTS -------- HEIGHT: 172.7 cm WEIGHT: 86.2 kg BP: RVIDd: 3.7 cm (< 3.3) IVSd: 1.4 cm (0.6 - 1.1) LVIDd: 4.0 cm (3.9 - 5.3) LVPWd: 1.5 cm (0.6 - 1.1) IVSs: 1.7 cm LVIDs: 2.1 cm LVPWs: 1.9 cm Ao Diam: 3.3 cm (2.0 - 3.7) AV Cusp: 2.1 cm (1.5 - 2.6) LA Diam: 3.3 cm (2.7 - 3.8) MV EXCURSION: 20.130 mm (> 18.000) MV EF SLOPE: 117 mm/s (70 - 150) EPSS: 0.5 cm MV E Hao: 1.06 m/s MV DecT: 227 ms MV A Hao: 0.45 m/s MV E/A Ratio: 2.38 AR PHT: 760 ms RAP: 5.00 mmHg RVSP: 50.27 mmHg FINDINGS -------- Pacerwire seen in RV and RA. This was a technically difficult study with suboptimal views. The left ventricular size is normal. There is moderate concentric left ventricular hypertrophy. O verall left ventricular systolic function is mildly impaired with, an EF between 45 - 50 %. Basal i nferolateral hypokinesis. The right ventricle is mildly enlarged. The left atrial size is normal. The right atrial size is normal. Lumason used The aortic valve is trileaflet and appears structurally normal. Trace amount of aortic regurgitatio n. The mitral valve is normal. Mild mitral regurgitation is present. The tricuspid valve appears structurally normal. Moderate tricuspid regurgitation present. There is moderate pulmonary hypertension. The right ventricular systolic pressure, as measured by Doppler , is 50.27mmHg. There is no pulmonic regurgitation present. The aortic root size is normal. There is no pericardial effusion. CONCLUSIONS -------- 1. Pacerwire seen in RV and RA. 2. The left ventricular size is normal. 3. There is moderate concentric left ventricular hypertrophy. 4. Overall left ventricular systolic function is mildly impaired with, an EF between 45 - 50 %. 5. Basal inferolateral hypokinesis. 6. The right ventricle is mildly enlarged. 7. Trace amount of aortic regurgitation. 8. Mild mitral regurgitation is present. 9. Moderate tricuspid regurgitation present. 10. There is moderate pulmonary hypertension. 11. The right ventricular systolic pressure, as measured by Doppler, is 50.27mmHg. 12. There is no pericardial effusion. [employer] ADMINISTRATOR: Rebecca Dominguez RDCS
[2021-07-03] MEDS: METOPROLOL TARTRATE 25 MG TAB PO SCH ×2 (12:35→21:57)
[2021-07-03] MEDS: ATORVASTATIN 40 MG TAB PO SCH (12:35)
[2021-07-03] MEDS: APIXABAN 5 MG TAB PO SCH ×2 (12:35→21:57)
[2021-07-03] MEDS ORDERED: traMADol 50 MG TAB PO PRN (12:49)
[2021-07-03] MEDS: NICOTINE 21MG/24HR PATCH TRANSDERM SCH (14:08)
[2021-07-03] MEDS ORDERED: LORazepam 2 MG/ML INJ IV PRN ×3 (14:45)
[2021-07-03] MEDS: GABAPENTIN 300 MG CAP PO SCH ×2 (14:48→21:57)
[2021-07-03] MEDS: FUROSEMIDE 10 MG/ML 2 ML VIAL IV SCH ×2 (14:48→23:29)
[2021-07-03 15:06] VITALS: BMI 28.8
[2021-07-03] MEDS: CYCLOBENZAPRINE 10 MG TAB PO PRN (19:01)
[2021-07-03] MEDS: traZODone HCL 50 MG TAB PO SCH (21:57)
[2021-07-03] MEDS: HYDROcodone/APAP 5-325MG 1 EACH TAB PO PRN (21:57)
[2021-07-04] MEDS: HYDROcodone/APAP 5-325MG 1 EACH TAB PO PRN ×3 (06:48→22:31)
[2021-07-04] MEDS: PANTOPRAZOLE 40 MG TABLET PO SCH (06:48)
[2021-07-04] MEDS: IPRATROPIUM-ALBUTEROL 3 ML NEB INHALATION SCH ×4 (08:21→20:08)
[2021-07-04 08:38] LABS: African American GFR (CKD) >90 (>60 ml/min/1.73 sqM); Anion Gap 7 mmol/L; Blood Urea Nitrogen 19 mg/dL (9-20); Calcium 8.7 mg/dL (8.4-10.2); Carbon Dioxide 32 mmol/L (22-30); Chloride 97 mmol/L (98-107); Glucose 125 mg/dL (74-99); Non-African American GFR(CKD) >90 (>60 ml/min/1.73 sqM); Potassium 4.5 mmol/L (3.5-5.1); Sodium 136 mmol/L (137-145)
[2021-07-04] MEDS: METOPROLOL TARTRATE 25 MG TAB PO SCH ×2 (08:48→22:30)
[2021-07-04] MEDS: GABAPENTIN 300 MG CAP PO SCH ×3 (08:48→22:30)
[2021-07-04] MEDS: ATORVASTATIN 40 MG TAB PO SCH (08:48)
[2021-07-04] MEDS: allopurinoL 300 MG TAB PO SCH (08:48)
[2021-07-04] MEDS: NICOTINE 21MG/24HR PATCH TRANSDERM SCH ×2 (08:48→08:49)
[2021-07-04] MEDS: APIXABAN 5 MG TAB PO SCH ×2 (08:48→22:30)
[2021-07-04] MEDS: DULoxetine HCL 60 MG CAPSULE.DR PO SCH (08:48)
[2021-07-04] MEDS: FUROSEMIDE 10 MG/ML 2 ML VIAL IV SCH ×2 (08:49→22:31)
[2021-07-04] MEDS ORDERED: BENZONATATE 100 MG CAP PO PRN (08:57)
[2021-07-04] MEDS: guaiFENesin 600 MG TABLET.ER PO SCH ×2 (09:00→22:31)
[2021-07-04] MEDS ORDERED: AZITHROMYCIN 500 MG TAB PO SCH (09:00)
--- NOTE | 2021-07-04 10:00 | XR ---
EXAMINATION TYPE: XR chest 1V portable DATE OF EXAM: 07/04/2021 COMPARISON: 07/03/2021 HISTORY: Shortness of breath TECHNIQUE: Single frontal view of the chest is obtained. FINDINGS: Heart is enlarged and there is a right-sided infiltrate and pleural effusion. Peripheral l eft-sided upper lobe infiltrate noted and there is a cardiac device. Underlying COPD and chronic inte rstitial lung disease suspected. No significant interval change. IMPRESSION: 1. Diffuse pleural-parenchymal changes correlate for CHF versus diffuse pneumonia. Findings stable.
--- NOTE | 2021-07-04 10:46 | P.PN ---
Subjective Progress Note Date: 07/04/21 Patient reported that he shortness of breath is about the same or even worse compared to yesterday. He is complaining of more cough today. No acute events overnight reported by nursing staff. Objective - Vital Signs Vital signs: Vital Signs Temp 97.5 F L 07/04/21 08:00 Pulse 111 H 07/04/21 08:31 Resp 22 07/04/21 08:31 BP 148/64 07/04/21 08:00 Pulse Ox 95 07/04/21 08:21 Intake & Output 07/03/21 07/04/21 07/04/21 18:59 06:59 18:59 Intake Total 240 10 240 Output Total 225 800 Balance 15 -790 240 Weight 86.183 kg 85 kg Intake: IV 10 Invasive Line 1 10 Oral 240 240 Output: Urine 225 800 Other: Voiding Method Urinal Urinal Urinal # Bowel Movements 1 1 - Exam General: The patient is awake and alert, in no distress Eye: there is normal conjunctiva bilaterally. Neck: The neck is supple, there is no JVD. Cardiovascular: Normal S1-S2, no S3-S4, no murmurs. Respiratory: Lungs with diffuse rhonchi Gastrointestinal: Abdomen is soft, nontender Musculoskeletal: There is no pedal edema. Neurological:. Speech is normal. Skin: Skin is warm and dry - Labs CBC & Chem 7: 07/03/21 04:35 07/04/21 07:39 Labs: Abnormal Lab Results - Last 24 Hours (Table) 07/04/21 Range/Units 07:39 Sodium 136 L (137-145) mmol/L Chloride 97 L (98-107) mmol/L Carbon Dioxide 32 H (22-30) mmol/L Glucose 125 H (74-99) mg/dL Microbiology - Last 24 Hours (Table) 07/03/21 06:51 Blood Culture - Preliminary Blood No Growth after 24 hours 07/03/21 06:35 Blood Culture - Preliminary Blood No Growth after 24 hours Assessment and Plan Assessment: Patient was seen, evaluated, and examined by me in his room. He is feeling significantly better compared to when he first came into the hospital. He reports significant improvement in his shortness of breath. Patient is a 76-year-old male with complex past medical history noted above who presented to the emergency room with worsening shortness of breath. Patient was evaluated in the ER and was found to have acute hypoxic respiratory failure requiring BiPAP for a brief period of time. He was then transitioned to nasal cannula currently on 4 L. Patient told me that he wear 3 L at home. X-ray showed evidence of vascular congestion with slightly elevated BNP. Patient was seen and evaluated by cardiology. Echocardiogram showed EF of 45%. Patient was started on IV diuresis. He was also started on antibiotic for suspected pneumonia ending pro calcitonin. Patient has end-expiratory wheezing on exam that might be secondary to pulmonary edema versus COPD exacerbation. I would avoid steroids at this time in the setting of underlying heart failure and would monitor clinical status with diuresis. If not improving may consider steroids tomorrow. Continue duo nebs otherwise. Patient is a 76-year-old male with a past medical history noted below who presented to the emergency department on 07/03/21 with a chief complaint of shortness of breath. Patient was evaluated in the ER and admitted to the hospital for further management of his medical problems noted below. Acute on chronic respiratory failure with hypoxia Acute on chronic systolic congestive heart failure COPD exacerbation Pneumonia ruled out as procalcitonin is normal -Echocardiogram revealing a mildly impaired EF of 45-50% with basal inferiolateral hypokinesis, moderate pulmonary hypertension and moderate tricuspid regurgitation. -Duonebs as needed for SOB and/or wheezing -Started on ceftriaxone and azithromycin day #2 -Incentive Spirometry -Antibiotics: Azithromycin and Rocephin -Lasix 20 mg IVP every 8 hours with close monitoring of electrolyte levels, renal function and urinary output -Consulted cardiology and pulmonary, appreciate additional recommendations. Hypertension -Blood pressure within acceptable range Hyperlipidemia -On Lipitor -Heart healthy diet. Paroxysmal atrial fibrillation on Eliquis Long-standing history of having current use of tobacco products reportedly continuing to smoke one pack of cigarettes daily Patient to continue to receive encouragement and education on the benefits of smoking cessation and the risks associated with continued use. Nicotine patch. Obstructive sleep apnea CPAP dependent nightly. -Continue use of nightly CPAP/BiPAP -Encourage incentive spirometry use Today, I reviewed his medication list and lab work results. Add Mucinex twice daily. Tessalon Perles as needed. I would finish 3 days of antibiotic. COVID- 19 screen negative
--- NOTE | 2021-07-04 13:44 | P.PN ---
Subjective Progress Note Date: 07/04/21 Principal diagnosis: COPD exacerbation 76-year-old male, who presents to the emergency department, with complaints of shortness of breath. Family members are at the bedside. The patient was seen and brought in by EMS. They apparently applied CPAP in transport. Seemed to make things better. Here in the emergency room, he was initially on BiPAP with settings of 12/6 and 50% FiO2. Currently, he is on 5 L nasal cannula in the emergency room. He does use oxygen at home at 2-1/2 L/m. His chest x-ray shows diffuse bilateral infiltrates, the right lung than on the left, suggesting either asymmetric pulmonary edema and/or pneumonia. He's not really having much in the way of pneumonic symptoms such as fever, chills, cough, or phlegm production. The patient is not receiving any IV fluids. He did apparently sustain a fracture to his right shoulder. White count 15.5, hemoglobin 10.3, hematocrit 35.3, and platelet count 395,000. PT INR normal. PTT is normal. Sodium 136, potassium 4.7, chlorides 100, CO2 25, anion gap 11, BUN 14, creatinine 0.69. Initial lactic acid 2.4, repeat 1.4. Coronavirus testing was negative. N-terminal proBNP is 2640. Troponin was 0.021 and 0.031. Procalcitonin has been ordered but is currently pending. As mentioned, chest x-ray shows bilateral right greater than left infiltrates. Again, this could be consistent with fluid overload/CHF, and or pneumonia. The patient is seen today 07/04/2021 in follow-up on the selective care unit. He is currently maintaining O2 saturations in the 90s on 6 L/m per nasal cannula. He's been off the BiPAP. Chest x-ray today reveals diffuse pleural parenchymal changes suggestive of congestive heart failure. Echocardiogram revealed mildly impaired left ventricle tumor systolic function with ejection fraction 45-50%. Moderate pulmonary hypertension. Blood culture reveals no growth. Pro-calcitonin 0.06. Sodium 136. Potassium 4.5. Creatinine 0.73. He remains on bronchodilators, Tessalon Perles, antibiotics in the form of ceftriaxone and azithromycin. Continue IV diuretics. NicoDerm patch in place. Objective - Vital Signs Vital signs: Vital Signs Temp 97.8 F 07/04/21 12:00 Pulse 70 07/04/21 12:00 Resp 18 07/04/21 12:00 BP 126/63 07/04/21 12:00 Pulse Ox 96 07/04/21 12:00 Intake & Output 07/03/21 07/04/21 07/04/21 18:59 06:59 18:59 Intake Total 240 10 240 Output Total 225 800 Balance 15 -790 240 Weight 86.183 kg 85 kg Intake: IV 10 Invasive Line 1 10 Oral 240 240 Output: Urine 225 800 Other: Voiding Method Urinal Urinal Urinal # Bowel Movements 1 1 - Exam GENERAL EXAM: Alert, pleasant 76-year-old gentleman, on 6 L nasal cannula, fairly comfortable in no apparent distress. HEAD: Normocephalic. EYES: Normal reaction of pupils, equal size. NOSE: Clear with pink turbinates. THROAT: No erythema or exudates. NECK: No masses, no JVD. CHEST: No chest wall deformity. LUNGS: Equal air entry with crackles in the posterior bases. CVS: S1 and S2 normal with no audible murmur, regular rhythm. ABDOMEN: No hepatosplenomegaly, normal bowel sounds, no guarding or rigidity. SPINE: No scoliosis or deformity SKIN: No rashes CENTRAL NERVOUS SYSTEM: No focal deficits, tone is normal in all 4 extremities. EXTREMITIES: There is trace peripheral edema. No clubbing, no cyanosis. Peripheral pulses are intact. - Labs CBC & Chem 7: 07/03/21 04:35 07/04/21 07:39 Labs: Abnormal Lab Results - Last 24 Hours (Table) 07/04/21 Range/Units 07:39 Sodium 136 L (137-145) mmol/L Chloride 97 L (98-107) mmol/L Carbon Dioxide 32 H (22-30) mmol/L Glucose 125 H (74-99) mg/dL Microbiology - Last 24 Hours (Table) 07/03/21 06:51 Blood Culture - Preliminary Blood No Growth after 24 hours 07/03/21 06:35 Blood Culture - Preliminary Blood No Growth after 24 hours Assessment and Plan Assessment: 1 Acute on chronic hypoxemic respiratory failure related to underlying CHF/fluid overload, impaired left ventricular systolic function with ejection fraction 45- 50%. Pulmonary hypertension. 2 Chronic hypoxemic respiratory failure secondary to COPD, with home O2 at 2.5 L/m. 3 History of chronic atrial fibrillation. 4 History of hypertension. 5 Status post pacemaker insertion. 6 Ongoing tobacco use with nicotine addiction. 7 History of hyperlipidemia. 8 History of gout. Plan: The patient was seen and evaluated by Dr. Dominguez Chest x-ray and labs reviewed Prognosis tone and 0.06 Discontinue antibiotics Continue diuretics Titrate down the FiO2 as tolerated We will continue to follow I, the cosigning physician, performed a history & physical examination of the patient. Lungs sounds crackles in the bilateral bases. Maintaining good O2 saturations in the 90s on 6 L high flow nasal cannula. I discussed the assessment and plan of care with my nurse practitioner, Eloina Hummel. I attest to the above note as dictated by her.
--- NOTE | 2021-07-04 13:54 | P.PN ---
Subjective Progress Note Date: 07/04/21 HISTORY OF PRESENT ILLNESS: This is a 76-year-old male with a past medical history significant for nicotine dependence, chronic atrial fibrillation, history of permanent pacemaker in [facility], and hyperlipidemia. Patient states he follows with a Dr. Marroquin in [place], [place]. We have been asked to see the patient in consultation for congestive heart failure. Patient examined at the bedside. Patient is somewhat of a poor historian. Patient states he presented to the hospital for chief complaint of shortness of breath. He denies any chest pain or pressure. Blood pressure 141/70. Telemetry reveals heart rate in the 70s. He is afebrile. He is on 5 L nasal cannula with oxygen saturations greater then 92%. EKG reveals ventricular paced rhythm Chest xray congestive heart failure. Bilateral lower lobe pneumonia that is worse on the right side. Laboratory data: WBC 15.5. Hemoglobin 10.3. Platelet count 395. Sodium 136. Potassium 4.7. BUN 14. Creatinine 0.69. Lactic acid 2.4. Repeat 1.4. Troponin 0.021. 0.031. ProBNP 2640. Current home cardiac medications include metoprolol tartrate 25 mg BID, Lipitor 40 mg daily, Eliquis 5 mg twice a day 07/04/2021 Patient examined this morning at the bedside. Patient denies chest pain or pressure. He reports mild shortness of breath. Echocardiogram completed revealing ejection fraction 45-50%. Basal inferior lateral hypokinesis. Mild mitral regurgitation. Moderate tricuspid regurgitation. Moderate pulmonary hypertension. Chest x-ray completed this morning reveals diffuse pleural parenchymal changes correlate for CHF versus diffuse pneumonia. PHYSICAL EXAM: VITAL SIGNS: Reviewed. GENERAL: Well-developed in no acute distress. HEENT: Head is normocephalic. Pupils are equal, round. Sclerae anicteric. Mucous membranes of the mouth are moist. Neck supple. No JVD or thyromegaly LUNGS: Respirations even and unlabored. Lungs diminished bilaterally with expiratory wheezing. HEART: Regular rate and rhythm. S1 and S2 heard. ABDOMEN: Soft. Nondistended. Nontender. EXTREMITIES: Normal range of motion. No clubbing or cyanosis. Peripheral pulses intact. 1-2+ lower extremity edema with chronic discoloration noted. NEUROLOGIC: Awake and alert. Oriented x 3. ASSESSMENT: Possible bilateral pneumonia Acute on chronic hypoxic respiratory failure, patient wears home O2 Chronic atrial fibrillation, anticoagulated with Eliquis Acute congestive heart failure, diastolic, EF 45-50 History of permanent pacemaker insertion Hyperlipidemia Nicotine dependence PLAN: Dr. Conklin reviewed CXR and feels patients issues are mostly likely pulmonary related rather than CHF. Pulmonary is following. Continue IV Lasix. Change decreased dosing to every 12 hours instead of every 8 hours Daily weights Accurate I&O Monitor kidney function Continue anticoagulation with Eliquis Continue additional cardiac medications Further recommendations pending patient's course Nurse practitioner note has been reviewed by physician. Signing provider agrees with the documented findings, assessment, and plan of care. Objective - Vital Signs Vital signs: Vital Signs Temp 97.8 F 07/04/21 12:00 Pulse 70 07/04/21 12:00 Resp 18 07/04/21 12:00 BP 126/63 07/04/21 12:00 Pulse Ox 96 07/04/21 12:00 Intake & Output 07/03/21 07/04/21 07/04/21 18:59 06:59 18:59 Intake Total 240 10 240 Output Total 225 800 Balance 15 -790 240 Weight 86.183 kg 85 kg Intake: IV 10 Invasive Line 1 10 Oral 240 240 Output: Urine 225 800 Other: Voiding Method Urinal Urinal Urinal # Bowel Movements 1 1 - Labs CBC & Chem 7: 07/03/21 04:35 07/04/21 07:39 Labs: Abnormal Lab Results - Last 24 Hours (Table) 07/04/21 Range/Units 07:39 Sodium 136 L (137-145) mmol/L Chloride 97 L (98-107) mmol/L Carbon Dioxide 32 H (22-30) mmol/L Glucose 125 H (74-99) mg/dL Microbiology - Last 24 Hours (Table) 07/03/21 06:51 Blood Culture - Preliminary Blood No Growth after 24 hours 07/03/21 06:35 Blood Culture - Preliminary Blood No Growth after 24 hours
[2021-07-04] MEDS: CYCLOBENZAPRINE 10 MG TAB PO PRN (22:30)
[2021-07-04] MEDS: traZODone HCL 50 MG TAB PO SCH (22:31)
[2021-07-05] MEDS: HYDROcodone/APAP 5-325MG 1 EACH TAB PO PRN ×3 (06:50→21:48)
[2021-07-05] MEDS: PANTOPRAZOLE 40 MG TABLET PO SCH (06:51)
[2021-07-05] MEDS: DULoxetine HCL 60 MG CAPSULE.DR PO SCH (08:19)
[2021-07-05] MEDS: GABAPENTIN 300 MG CAP PO SCH ×3 (08:19→21:45)
[2021-07-05] MEDS: ATORVASTATIN 40 MG TAB PO SCH (08:19)
[2021-07-05] MEDS: guaiFENesin 600 MG TABLET.ER PO SCH ×2 (08:19→21:45)
[2021-07-05] MEDS: METOPROLOL TARTRATE 25 MG TAB PO SCH ×2 (08:20→21:45)
[2021-07-05] MEDS: APIXABAN 5 MG TAB PO SCH ×2 (08:20→21:45)
[2021-07-05] MEDS: allopurinoL 300 MG TAB PO SCH (08:20)
[2021-07-05] MEDS: NICOTINE 21MG/24HR PATCH TRANSDERM SCH (08:20)
[2021-07-05] MEDS: FUROSEMIDE 10 MG/ML 2 ML VIAL IV SCH (08:20)
[2021-07-05 08:27] LABS: African American GFR (CKD) >90 (>60 ml/min/1.73 sqM); Anion Gap 5 mmol/L; Blood Urea Nitrogen 25 mg/dL (9-20); Calcium 8.9 mg/dL (8.4-10.2); Carbon Dioxide 35 mmol/L (22-30); Chloride 97 mmol/L (98-107); Glucose 101 mg/dL (74-99); Non-African American GFR(CKD) >90 (>60 ml/min/1.73 sqM); Potassium 4.4 mmol/L (3.5-5.1); Sodium 137 mmol/L (137-145)
[2021-07-05] MEDS: IPRATROPIUM-ALBUTEROL 3 ML NEB INHALATION SCH ×4 (08:27→20:45)
[2021-07-05 08:36] LABS: Anisocytosis Slight; Basophils % (A) 0 %; Eosinophils # (A) 0.1 k/uL (0-0.7); Eosinophils % (A) 1 %; HCT 31.9 % (39.0-53.0); HGB 9.5 gm/dL (13.0-17.5); Hypochromasia Marked; Lymphocytes # (A) 0.9 k/uL (1.0-4.8); Lymphocytes % (A) 7 %; MCH 23.4 pg (25.0-35.0); MCHC 29.9 g/dL (31.0-37.0); MCV 78.3 fL (80.0-100.0); Mean Platelet Volume 7.7; Microcytosis Slight; Monocytes # (A) 0.8 k/uL (0-1.0); Monocytes % (A) 6 %; Neutrophils # (A) 10.6 k/uL (1.3-7.7); Neutrophils % (A) 84 %; Platelet Count 361 k/uL (150-450); Poikilocytosis Slight; RBC 4.07 m/uL (4.30-5.90); RDW 18.8 % (11.5-15.5); WBC 12.7 k/uL (3.8-10.6)
--- NOTE | 2021-07-05 10:58 | P.PN ---
Subjective Progress Note Date: 07/05/21 Principal diagnosis: COPD exacerbation 76-year-old male, who presents to the emergency department, with complaints of shortness of breath. Family members are at the bedside. The patient was seen and brought in by EMS. They apparently applied CPAP in transport. Seemed to make things better. Here in the emergency room, he was initially on BiPAP with settings of 12/6 and 50% FiO2. Currently, he is on 5 L nasal cannula in the emergency room. He does use oxygen at home at 2-1/2 L/m. His chest x-ray shows diffuse bilateral infiltrates, the right lung than on the left, suggesting either asymmetric pulmonary edema and/or pneumonia. He's not really having much in the way of pneumonic symptoms such as fever, chills, cough, or phlegm production. The patient is not receiving any IV fluids. He did apparently sustain a fracture to his right shoulder. White count 15.5, hemoglobin 10.3, hematocrit 35.3, and platelet count 395,000. PT INR normal. PTT is normal. Sodium 136, potassium 4.7, chlorides 100, CO2 25, anion gap 11, BUN 14, creatinine 0.69. Initial lactic acid 2.4, repeat 1.4. Coronavirus testing was negative. N-terminal proBNP is 2640. Troponin was 0.021 and 0.031. Procalcitonin has been ordered but is currently pending. As mentioned, chest x-ray shows bilateral right greater than left infiltrates. Again, this could be consistent with fluid overload/CHF, and or pneumonia. The patient is seen today 07/04/2021 in follow-up on the selective care unit. He is currently maintaining O2 saturations in the 90s on 6 L/m per nasal cannula. He's been off the BiPAP. Chest x-ray today reveals diffuse pleural parenchymal changes suggestive of congestive heart failure. Echocardiogram revealed mildly impaired left ventricle tumor systolic function with ejection fraction 45-50%. Moderate pulmonary hypertension. Blood culture reveals no growth. Pro-calcitonin 0.06. Sodium 136. Potassium 4.5. Creatinine 0.73. He remains on bronchodilators, Tessalon Perles, antibiotics in the form of ceftriaxone and azithromycin. Continue IV diuretics. NicoDerm patch in place. The patient is seen today 07/05/2021 in follow-up on the selective care unit. He denies any worsening shortness of breath, cough or congestion. He is maintaining good O2 saturations in the mid 90s on 3 L/m per nasal cannula. He's been afebrile. Hemodynamically stable. Blood cultures reveal no growth to date. White count 12.7. Hemoglobin 9.5. Sodium 137. Potassium 4.4. Creatinine 0.72. He remains on bronchodilators, Tessalon Perles, Mucinex. IV diuretics. Anticoagulated with Eliquis. NicoDerm patch in place. Objective - Vital Signs Vital signs: Vital Signs Temp 98.4 F 07/05/21 08:00 Pulse 76 07/05/21 08:41 Resp 18 07/05/21 08:00 BP 137/57 07/05/21 08:00 Pulse Ox 96 07/05/21 08:30 Intake & Output 07/04/21 07/05/21 07/05/21 18:59 06:59 18:59 Intake Total 720 20 10 Output Total 2000 2320 Balance -1280 -2300 10 Weight 83 kg Intake: IV 20 10 Invasive Line 1 20 10 Oral 720 Output: Urine 1999 2320 Straight 700 Other: Voiding Method Urinal External Catheter External Catheter # Voids 3 - Exam GENERAL EXAM: Alert, pleasant 76-year-old male patient, on 3 L nasal cannula, fairly comfortable in no apparent distress. HEAD: Normocephalic. EYES: Normal reaction of pupils, equal size. NOSE: Clear with pink turbinates. THROAT: No erythema or exudates. NECK: No masses, no JVD. CHEST: No chest wall deformity. LUNGS: Equal air entry with crackles in the posterior bases. CVS: S1 and S2 normal with no audible murmur, regular rhythm. ABDOMEN: No hepatosplenomegaly, normal bowel sounds, no guarding or rigidity. SPINE: No scoliosis or deformity SKIN: No rashes CENTRAL NERVOUS SYSTEM: No focal deficits, tone is normal in all 4 extremities. EXTREMITIES: There is trace peripheral edema. No clubbing, no cyanosis. Peripheral pulses are intact. - Labs CBC & Chem 7: 07/05/21 07:57 07/05/21 07:57 Labs: Abnormal Lab Results - Last 24 Hours (Table) 07/05/21 07/05/21 Range/Units 07:57 07:57 WBC 12.7 H (3.8-10.6) k/uL RBC 4.07 L (4.30-5.90) m/uL Hgb 9.5 L (13.0-17.5) gm/dL Hct 31.9 L (39.0-53.0) % MCV 78.3 L (80.0-100.0) fL MCH 23.4 L (25.0-35.0) pg MCHC 29.9 L (31.0-37.0) g/dL RDW 18.8 H (11.5-15.5) % Neutrophils # 10.6 H (1.3-7.7) k/uL Lymphocytes # 0.9 L (1.0-4.8) k/uL Chloride 97 L (98-107) mmol/L Carbon Dioxide 35 H (22-30) mmol/L BUN 25 H (9-20) mg/dL Glucose 101 H (74-99) mg/dL Microbiology - Last 24 Hours (Table) 07/03/21 06:51 Blood Culture - Preliminary Blood No Growth after 48 hours 07/03/21 06:35 Blood Culture - Preliminary Blood No Growth after 48 hours Assessment and Plan Assessment: 1 Acute on chronic hypoxemic respiratory failure related to underlying CHF/fluid overload, impaired left ventricular systolic function with ejection fraction 45- 50%. Pulmonary hypertension. 2 Chronic hypoxemic respiratory failure secondary to COPD, with home O2 at 2.5 L/m. 3 History of chronic atrial fibrillation. 4 History of hypertension. 5 Status post pacemaker insertion. 6 Ongoing tobacco use with nicotine addiction. 7 History of hyperlipidemia. 8 History of gout. Plan: The patient was seen and evaluated by Dr. Dominguez He is improving down to 3 L nasal cannula Titrate down the FiO2 as tolerated Continue diuretics Again educated regarding the importance of complete smoking cessation We will continue to follow I, the cosigning physician, performed a history & physical examination of the patient. Lungs sounds crackles in the bilateral bases. Maintaining good O2 saturations in the 90s on 3 L nasal cannula. I discussed the assessment and plan of care with my nurse practitioner, Eloina Hummel. I attest to the above note as dictated by her.
--- NOTE | 2021-07-05 15:36 | PN ---
PROGRESS NOTE Mr. Velázquez is a 76-year-old male, known history of chronic tobacco use, chronic obstructive lung disease, chronic persistent atrial fibrillation, anticoagulated and permanent pacemaker implantation, who presented with symptoms of dyspnea. He is feeling better today. His breathing is better. He is lying supine. He has no peripheral edema. He denies any dizziness or palpitation. He had an echocardiogram that revealed a mildly impaired left ventricular systolic function with moderate tricuspid and mild mitral regurgitation. He continues to be in atrial fibrillation with controlled ventricular response and paced rhythm. He feels that his breathing is better and his cough is better. He denies any dizziness or palpitation. He continues to be on Zyloprim, Eliquis 5 mg twice a day, Lipitor 40 mg daily, IV Lasix 20 mg twice a day, metoprolol tartrate 25 mg twice a day, and nicotine patch. PHYSICAL EXAMINATION: 76-year-old male, alert, oriented, in no apparent distress. Blood pressure 137/60 with a heart rate in 70s. Lungs with bilateral wheezes. HEART: Irregular irregular, S1, S2. No S3. No rub. No gallop appreciated with a systolic murmur. ABDOMEN: Soft, nontender. EXTREMITIES: No edema. LAB DATA: BUN and creatinine 25 and 0.72, potassium 4.4, hemoglobin 9.5, white blood cell of 12.7. IMPRESSION: 1. Progressive dyspnea with exacerbation of chronic obstructive pulmonary disease in a patient with known history of chronic obstructive lung disease with mild element of heart failure with preserved systolic function. At this time I do not believe that the patient is fluid overload. 2. Chronic persistent atrial fibrillation, anticoagulated. 3. Permanent pacemaker implantation. 4. History of chronic tobacco use. 5. Hyperlipidemia. RECOMMENDATION: I will switch him to oral diuretic, increase his level of activity and depending on his progress further recommendation will be made. MMODL / IJN: [id number] /
--- NOTE | 2021-07-05 15:39 | P.PN ---
Subjective Progress Note Date: 07/05/21 Patient is feeling better today. He is back on his home oxygen requirement. Objective - Vital Signs Vital signs: Vital Signs Temp 97.5 F L 07/05/21 12:00 Pulse 70 07/05/21 14:00 Resp 18 07/05/21 14:00 BP 147/72 07/05/21 12:00 Pulse Ox 97 07/05/21 12:00 Intake & Output 07/04/21 07/05/21 07/05/21 18:59 06:59 18:59 Intake Total 720 20 260 Output Total 1999 2320 Balance -1280 -2300 260 Weight 83 kg Intake: IV 20 20 Invasive Line 1 20 20 Oral 720 240 Output: Urine 19990 Straight 700 Other: Voiding Method Urinal External Catheter External Catheter # Voids 3 - Exam General: The patient is awake and alert, in no distress Eye: there is normal conjunctiva bilaterally. Neck: The neck is supple, there is no JVD. Cardiovascular: Normal S1-S2, no S3-S4, no murmurs. Respiratory: Lungs with diffuse rhonchi Gastrointestinal: Abdomen is soft, nontender Musculoskeletal: There is no pedal edema. Neurological:. Speech is normal. Skin: Skin is warm and dry - Labs CBC & Chem 7: 07/05/21 07:57 07/05/21 07:57 Labs: Abnormal Lab Results - Last 24 Hours (Table) 07/05/21 07/05/21 Range/Units 07:57 07:57 WBC 12.7 H (3.8-10.6) k/uL RBC 4.07 L (4.30-5.90) m/uL Hgb 9.5 L (13.0-17.5) gm/dL Hct 31.9 L (39.0-53.0) % MCV 78.3 L (80.0-100.0) fL MCH 23.4 L (25.0-35.0) pg MCHC 29.9 L (31.0-37.0) g/dL RDW 18.8 H (11.5-15.5) % Neutrophils # 10.6 H (1.3-7.7) k/uL Lymphocytes # 0.9 L (1.0-4.8) k/uL Chloride 97 L (98-107) mmol/L Carbon Dioxide 35 H (22-30) mmol/L BUN 25 H (9-20) mg/dL Glucose 101 H (74-99) mg/dL Microbiology - Last 24 Hours (Table) 07/03/21 06:51 Blood Culture - Preliminary Blood No Growth after 48 hours 07/03/21 06:35 Blood Culture - Preliminary Blood No Growth after 48 hours Assessment and Plan Assessment: Patient was seen, evaluated, and examined by me in his room. He is feeling significantly better compared to when he first came into the hospital. He reports significant improvement in his shortness of breath. Patient is a 76-year-old male with complex past medical history noted above who presented to the emergency room with worsening shortness of breath. Patient was evaluated in the ER and was found to have acute hypoxic respiratory failure requiring BiPAP for a brief period of time. He was then transitioned to nasal cannula currently on 4 L. Patient told me that he wear 3 L at home. X-ray showed evidence of vascular congestion with slightly elevated BNP. Patient was seen and evaluated by cardiology. Echocardiogram showed EF of 45%. Patient was started on IV diuresis. He was also started on antibiotic for suspected pneumonia ending pro calcitonin. Patient has end-expiratory wheezing on exam that might be secondary to pulmonary edema versus COPD exacerbation. I would avoid steroids at this time in the setting of underlying heart failure and would monitor clinical status with diuresis. If not improving may consider steroids tomorrow. Continue duo nebs otherwise. Patient is a 76-year-old male with a past medical history noted below who presented to the emergency department on 07/03/21 with a chief complaint of shortness of breath. Patient was evaluated in the ER and admitted to the hospital for further management of his medical problems noted below. Acute on chronic respiratory failure with hypoxia Acute on chronic systolic congestive heart failure COPD exacerbation Pneumonia ruled out as procalcitonin is normal -Echocardiogram revealing a mildly impaired EF of 45-50% with basal inferiolateral hypokinesis, moderate pulmonary hypertension and moderate tricuspid regurgitation. -Duonebs as needed for SOB and/or wheezing -Started on ceftriaxone and azithromycin day #3 of antibiotic discontinued as pro calcitonin is normal -Incentive Spirometry -Improved with IV Lasix now transitioned to oral -Consulted cardiology and pulmonary, appreciate additional recommendations. Hypertension -Blood pressure within acceptable range Hyperlipidemia -On Lipitor -Heart healthy diet. Paroxysmal atrial fibrillation on Eliquis Long-standing history of having current use of tobacco products reportedly continuing to smoke one pack of cigarettes daily Patient to continue to receive encouragement and education on the benefits of smoking cessation and the risks associated with continued use. Nicotine patch. Obstructive sleep apnea CPAP dependent nightly. -Continue use of nightly CPAP/BiPAP -Encourage incentive spirometry use Today, I reviewed his medication list and lab work results. COVID-19 screen negative Discharge planning possibly tomorrow
[2021-07-05] MEDS: FUROSEMIDE 20 MG TAB PO SCH (16:00)
[2021-07-05] MEDS: traZODone HCL 50 MG TAB PO SCH (21:45)
[2021-07-06] MEDS: HYDROcodone/APAP 5-325MG 1 EACH TAB PO PRN ×3 (04:34→13:25)
[2021-07-06] MEDS: PANTOPRAZOLE 40 MG TABLET PO SCH (06:52)
[2021-07-06 07:21] LABS: African American GFR (CKD) >90 (>60 ml/min/1.73 sqM); Anion Gap 4 mmol/L; Blood Urea Nitrogen 25 mg/dL (9-20); Calcium 8.7 mg/dL (8.4-10.2); Carbon Dioxide 35 mmol/L (22-30); Chloride 94 mmol/L (98-107); Glucose 104 mg/dL (74-99); Non-African American GFR(CKD) 86 (>60 ml/min/1.73 sqM); Potassium 4.4 mmol/L (3.5-5.1); Sodium 133 mmol/L (137-145)
[2021-07-06] MEDS: IPRATROPIUM-ALBUTEROL 3 ML NEB INHALATION SCH ×3 (08:23→16:28)
[2021-07-06 09:00] VITALS: TEMP 98
[2021-07-06] MEDS: guaiFENesin 600 MG TABLET.ER PO SCH (09:01)
[2021-07-06] MEDS: APIXABAN 5 MG TAB PO SCH (09:02)
[2021-07-06] MEDS: allopurinoL 300 MG TAB PO SCH (09:02)
[2021-07-06] MEDS: DULoxetine HCL 60 MG CAPSULE.DR PO SCH (09:02)
[2021-07-06] MEDS: GABAPENTIN 300 MG CAP PO SCH (09:02)
[2021-07-06] MEDS: METOPROLOL TARTRATE 25 MG TAB PO SCH (09:02)
[2021-07-06] MEDS: FUROSEMIDE 20 MG TAB PO SCH (09:02)
--- NOTE | 2021-07-06 11:41 | P.PN ---
Subjective Progress Note Date: 07/06/21 Principal diagnosis: COPD exacerbation 76-year-old male, who presents to the emergency department, with complaints of shortness of breath. Family members are at the bedside. The patient was seen and brought in by EMS. They apparently applied CPAP in transport. Seemed to make things better. Here in the emergency room, he was initially on BiPAP with settings of 12/6 and 50% FiO2. Currently, he is on 5 L nasal cannula in the emergency room. He does use oxygen at home at 2-1/2 L/m. His chest x-ray shows diffuse bilateral infiltrates, the right lung than on the left, suggesting either asymmetric pulmonary edema and/or pneumonia. He's not really having much in the way of pneumonic symptoms such as fever, chills, cough, or phlegm production. The patient is not receiving any IV fluids. He did apparently sustain a fracture to his right shoulder. White count 15.5, hemoglobin 10.3, hematocrit 35.3, and platelet count 395,000. PT INR normal. PTT is normal. Sodium 136, potassium 4.7, chlorides 100, CO2 25, anion gap 11, BUN 14, creatinine 0.69. Initial lactic acid 2.4, repeat 1.4. Coronavirus testing was negative. N-terminal proBNP is 2640. Troponin was 0.021 and 0.031. Procalcitonin has been ordered but is currently pending. As mentioned, chest x-ray shows bilateral right greater than left infiltrates. Again, this could be consistent with fluid overload/CHF, and or pneumonia. The patient is seen today 07/04/2021 in follow-up on the selective care unit. He is currently maintaining O2 saturations in the 90s on 6 L/m per nasal cannula. He's been off the BiPAP. Chest x-ray today reveals diffuse pleural parenchymal changes suggestive of congestive heart failure. Echocardiogram revealed mildly impaired left ventricle tumor systolic function with ejection fraction 45-50%. Moderate pulmonary hypertension. Blood culture reveals no growth. Pro-calcitonin 0.06. Sodium 136. Potassium 4.5. Creatinine 0.73. He remains on bronchodilators, Tessalon Perles, antibiotics in the form of ceftriaxone and azithromycin. Continue IV diuretics. NicoDerm patch in place. The patient is seen today 07/05/2021 in follow-up on the selective care unit. He denies any worsening shortness of breath, cough or congestion. He is maintaining good O2 saturations in the mid 90s on 3 L/m per nasal cannula. He's been afebrile. Hemodynamically stable. Blood cultures reveal no growth to date. White count 12.7. Hemoglobin 9.5. Sodium 137. Potassium 4.4. Creatinine 0.72. He remains on bronchodilators, Tessalon Perles, Mucinex. IV diuretics. Anticoagulated with Eliquis. NicoDerm patch in place. The patient is seen today 07/06/2021 in follow-up on the selective care unit. He is currently sitting up in bed. Awake and alert in no acute distress. Denies any worsening shortness of breath, cough or congestion. He is obtaining good O2 saturations in the upper 90s on 3 L/m per nasal cannula. Afebrile. Hemodynamically stable. Sodium 133. Potassium 4.4. Creatinine 0.84. Glucose 104. ProBNP 1520. He remains on DuoNeb inhalations, Mucinex, Tessalon Perles, NicoDerm patch. Transitioned to oral diuretics. Anticoagulated with Eliquis. Objective - Vital Signs Vital signs: Vital Signs Temp 98 F 07/06/21 08:10 Pulse 72 07/06/21 08:35 Resp 20 07/06/21 08:10 BP 125/51 07/06/21 08:10 Pulse Ox 97 07/06/21 08:10 Intake & Output 07/05/21 07/06/21 07/06/21 18:59 06:59 18:59 Intake Total 1040 600 Output Total 400 1845 300 Balance 640 -1845 300 Weight 83.5 kg Intake: IV 20 Invasive Line 1 20 Oral 1020 600 Output: Urine 400 1845 300 Other: Voiding Method External Catheter Urinal # Voids 2 1 # Bowel Movements 1 1 - Exam GENERAL EXAM: Alert, pleasant 76-year-old male patient, on 3 L nasal cannula, fairly comfortable in no apparent distress. HEAD: Normocephalic. EYES: Normal reaction of pupils, equal size. NOSE: Clear with pink turbinates. THROAT: No erythema or exudates. NECK: No masses, no JVD. CHEST: No chest wall deformity. LUNGS: Equal air entry with crackles in the posterior bases. CVS: S1 and S2 normal with no audible murmur, regular rhythm. ABDOMEN: No hepatosplenomegaly, normal bowel sounds, no guarding or rigidity. SPINE: No scoliosis or deformity SKIN: No rashes CENTRAL NERVOUS SYSTEM: No focal deficits, tone is normal in all 4 extremities. EXTREMITIES: There is trace peripheral edema. No clubbing, no cyanosis. P eripheral pulses are intact. - Labs CBC & Chem 7: 07/05/21 07:57 07/06/21 06:56 Labs: Abnormal Lab Results - Last 24 Hours (Table) 07/06/21 Range/Units 06:56 Sodium 133 L (137-145) mmol/L Chloride 94 L (98-107) mmol/L Carbon Dioxide 35 H (22-30) mmol/L BUN 25 H (9-20) mg/dL Glucose 104 H (74-99) mg/dL Microbiology - Last 24 Hours (Table) 07/03/21 06:51 Blood Culture - Preliminary Blood No Growth after 72 hours 07/03/21 06:35 Blood Culture - Preliminary Blood No Growth after 72 hours Assessment and Plan Assessment: 1 Acute on chronic hypoxemic respiratory failure related to underlying CHF/fluid overload, impaired left ventricular systolic function with ejection fraction 45- 50%. Pulmonary hypertension. 2 Chronic hypoxemic respiratory failure secondary to COPD, with home O2 at 2.5 L/m. 3 History of chronic atrial fibrillation. 4 History of hypertension. 5 Status post pacemaker insertion. 6 Ongoing tobacco use with nicotine addiction. 7 History of hyperlipidemia. 8 History of gout. Plan: The patient was seen and evaluated by Dr. Angelica Neves for discharge from the pulmonary standpoint Again educated regarding the importance of complete smoking cessation I, the cosigning physician, performed a history & physical examination of the patient. Lungs sounds crackles in the bilateral bases. Maintaining good O2 saturations in the 90s on 3 L nasal cannula. I discussed the assessment and plan of care with my nurse practitioner, Eloina Hummel. I attest to the above note as dictated by her.
[2021-07-06 12:20] VITALS: BP 127/66; PULSE 67; RESP 18
--- NOTE | 2021-07-06 12:58 | PN ---
PROGRESS NOTE Mr. Velázquez is a 76-year-old male who presented with symptoms of progressive dyspnea. He has a history of chronic tobacco use, history of permanent pacemaker implantation, chronic persistent atrial fibrillation. He is feeling better today. He is continuing to have wheezing. He had an echocardiogram that revealed mildly impaired systolic function with moderate tricuspid and mild mitral regurgitation. On the monitor, his rate is controlled. He denies any dizziness. No palpitation. No chest pain. His cough is better. His energy is better. He continues to be at this time on Eliquis 5 mg twice a day, Lipitor 40 mg daily, furosemide 20 mg twice a day, metoprolol tartrate 25 mg twice a day, Protonix. PHYSICAL EXAMINATION: Blood pressure 125/50 with a heart rate in the 70s. LUNGS: Scattered end-expiratory wheezes bilaterally. HEART: Irregularly irregular. S1, S2. No S3, with systolic murmur. No diastolic murmur. ABDOMEN: Soft, nontender. EXTREMITIES: No edema. LAB DATA: Lab data revealed BUN and creatinine of 25 and 0.84, potassium 4.4, hemoglobin of 9.5. His NT-proBNP is 1520. IMPRESSION: 1. Symptoms of progressive dyspnea on exertion, probably combination of exacerbation of chronic obstructive pulmonary disease and congestive heart failure with preserved systolic function. 2. Chronic persistent atrial fibrillation, anticoagulated. 3. Permanent pacemaker implantation. 4. Chronic tobacco use. 5. Hyperlipidemia. RECOMMENDATIONS: From the cardiac standpoint, he is stable. I would expect he should be able to be discharged home soon and follow up with his primary animal cruelty investigator. MMODL / IJN: [id number] /
--- NOTE | 2021-07-06 12:59 | P.DS ---
Providers Date of admission: 07/03/21 06:35 Expected date of discharge: 07/06/21 Attending physician: Jannette Martin Consults: 07/03/21 06:32 Consult Physician Routine Consulting Provider: Bunny Rhodes Consult Reason/Comments: copd Do you want consulting provider notified?: Yes Consult Physician Routine Consulting Provider: Tamanna Jorgensen Consult Reason/Comments: chf Do you want consulting provider notified?: Yes Primary care physician: [facility] Course: Patient is a 76-year-old male with a past medical history noted below who presented to the emergency department on 07/03/21 with a chief complaint of shortness of breath. Patient was evaluated in the ER and admitted to the hospital for further management of his medical problems noted below. Acute on chronic respiratory failure with hypoxia Acute on chronic systolic congestive heart failure COPD exacerbation Pneumonia ruled out as procalcitonin is normal -Echocardiogram revealing a mildly impaired EF of 45-50% with basal inferiolateral hypokinesis, moderate pulmonary hypertension and moderate tricuspid regurgitation. -Started on ceftriaxone and azithromycin day #3 of antibiotic discontinued as pro calcitonin is normal -Incentive Spirometry -Improved with IV Lasix now transitioned to oral 20 mg twice daily -Consulted cardiology and pulmonary, appreciate additional recommendations. Hypertension -Blood pressure within acceptable range Hyperlipidemia -On Lipitor -Heart healthy diet. Paroxysmal atrial fibrillation on Eliquis Long-standing history of having current use of tobacco products reportedly continuing to smoke one pack of cigarettes daily Patient to continue to receive encouragement and education on the benefits of smoking cessation and the risks associated with continued use. Nicotine patch. Obstructive sleep apnea CPAP dependent nightly. -Continue use of nightly CPAP/BiPAP -Encourage incentive spirometry use Patient was seen and evaluated by me on the day of discharge. He was counseled extensively regarding tobacco cessation. Prescription for nicotine patch sent to his pharmacy. He was seen by PT/OT as well. He would be discharged home with home care. His daughter was updated by nursing staff. Patient Condition at Discharge: Fair Plan - Discharge Summary Discharge Rx Participant: No New Discharge Prescriptions: New Nicotine 21Mg/24Hr Patch [Habitrol] 1 patch TRANSDERM DAILY #30 patch Furosemide [Lasix] 20 mg PO BID@0900,1600 #60 tab Continue Allopurinol [Zyloprim] 300 mg PO DAILY Apixaban [Eliquis] 5 mg PO BID Atorvastatin [Lipitor] 40 mg PO DAILY traMADol HCL 50 mg PO BID PRN PRN Reason: Pain Cyclobenzaprine [Flexeril] 10 mg PO BID PRN PRN Reason: Muscle Spasm DULoxetine HCL [Cymbalta] 60 mg PO DAILY Gabapentin 300 mg PO TID Metoprolol Tartrate 25 mg PO BID Nitroglycerin Sl Tabs [Nitrostat] 0.4 mg SUBLINGUAL Q5M PRN PRN Reason: Chest Pain Omeprazole 20 mg PO DAILY traZODone HCL [Desyrel] 50 mg PO HS Discharge Medication List Allopurinol [Zyloprim] 300 mg PO DAILY 07/03/21 [History] Apixaban [Eliquis] 5 mg PO BID 07/03/21 [History] Atorvastatin [Lipitor] 40 mg PO DAILY 07/03/21 [History] Cyclobenzaprine [Flexeril] 10 mg PO BID PRN 07/03/21 [History] DULoxetine HCL [Cymbalta] 60 mg PO DAILY 07/03/21 [History] Gabapentin 300 mg PO TID 07/03/21 [History] Metoprolol Tartrate 25 mg PO BID 07/03/21 [History] Nitroglycerin Sl Tabs [Nitrostat] 0.4 mg SUBLINGUAL Q5M PRN 07/03/21 [History] Omeprazole 20 mg PO DAILY 07/03/21 [History] traMADol HCL 50 mg PO BID PRN 07/03/21 [History] traZODone HCL [Desyrel] 50 mg PO HS 07/03/21 [History] Furosemide [Lasix] 20 mg PO BID@0900,1600 #60 tab 07/06/21 [Rx] Nicotine 21Mg/24Hr Patch [Habitrol] 1 patch TRANSDERM DAILY #30 patch 07/06/21 [Rx] Follow up Appointment(s)/Referral(s): Catalino Yanes MD [Primary Care Provider] - 1-2 days [facility], [NON-STAFF] - Discharge Disposition: HOME WITH HOME HEALTH SERVICES
== END 2021-07-06 16:30 | disposition home health service (06) | DRG 291 ==
LOC: EC 04:23 → 3SCARD 06:35
PROVIDERS: ADMIT Internal Medicine; ATTEND Internal Medicine
DX: I11.0 Hypertensive heart disease with heart failure (principal); J96.21 Acute and chronic respiratory failure with hypoxia; I48.19 Other persistent atrial fibrillation; J44.1 Chronic obstructive pulmonary disease with (acute) exacerbation; J44.0 Chronic obstructive pulmonary disease with (acute) lower respiratory infection; I50.23 Acute on chronic systolic (congestive) heart failure; F17.210 Nicotine dependence, cigarettes, uncomplicated; Z20.822 Contact with and (suspected) exposure to COVID-19; E78.5 Hyperlipidemia, unspecified; Z79.01 Long term (current) use of anticoagulants; Z99.81 Dependence on supplemental oxygen; I27.20 Pulmonary hypertension, unspecified; M10.9 Gout, unspecified; Z95.0 Presence of cardiac pacemaker; G47.33 Obstructive sleep apnea (adult) (pediatric); I08.1 Rheumatic disorders of both mitral and tricuspid valves; Z95.5 Presence of coronary angioplasty implant and graft; Z79.899 Other long term (current) drug therapy; I25.10 Atherosclerotic heart disease of native coronary artery without angina pectoris; F41.9 Anxiety disorder, unspecified
CPT/HCPCS: 36415; 71045; 80048; 80053; 83605; 83735; 83880; 84145; 84484; 85025; 85610; 85730; 87040; 87635; 93005; 93306; 94640; 94660; 94760; 96374; 99291

== ENCOUNTER 2021-08-12 15:22 | Inpatient (IN) | payer MEDICARE ==
--- NOTE | 2021-08-12 15:56 | ED ---
General Adult HPI - General Chief complaint: Extremity Problem,Nontraumatic Stated complaint: toe infection Time Seen by Provider: 08/12/21 15:55 Source: patient, family Mode of arrival: ambulatory Limitations: no limitations - History of Present Illness Initial comments: Patient presents to the ED with his daughter for evaluation. Per daughter, the patient has had discoloration of his right first toe for the past month or so, and it has been worsening. Daughter also states that the patient has developed discoloration and pain to his right third toe over the past week or so, and it has also been worsening. Daughter states that the patient was referred to see a vascular surgeon, but his appointment is not until next week. Daughter states that the patient has had a right leg vascular bypass surgery performed in the past. Patient is currently only complaining of having right third toe pain. Patient denies any known trauma or injury, fever or chills, headache, chest pain, dyspnea, dizziness, abdominal pain, nausea or vomiting, thigh or calf pain, or any other symptoms or complaints. - Related Data Home Medications Medication Instructions Recorded Confirmed Allopurinol [Zyloprim] 300 mg PO DAILY 07/03/21 08/12/21 Apixaban [Eliquis] 5 mg PO BID 07/03/21 08/12/21 Atorvastatin [Lipitor] 40 mg PO DAILY 07/03/21 08/12/21 Cyclobenzaprine [Flexeril] 10 mg PO BID PRN 07/03/21 08/12/21 DULoxetine HCL [Cymbalta] 60 mg PO DAILY 07/03/21 08/12/21 Gabapentin 300 mg PO TID 07/03/21 08/12/21 Metoprolol Tartrate 25 mg PO BID 07/03/21 08/12/21 Nitroglycerin Sl Tabs [Nitrostat] 0.4 mg SL Q5M PRN 07/03/21 08/12/21 Omeprazole 20 mg PO DAILY 07/03/21 08/12/21 traMADol HCL 50 mg PO BID PRN 07/03/21 08/12/21 traZODone HCL [Desyrel] 50 mg PO HS 07/03/21 08/12/21 Albuterol Nebulized [Ventolin 2.5 mg INHALATION RT-QID PRN 08/12/21 08/12/21 Nebulized] Furosemide [Lasix] 20 mg PO BID PRN 08/12/21 08/12/21 HYDROcodone/APAP 5-325MG [[place] 1 tab PO QID PRN 08/12/21 08/12/21 5-325] Allergies Allergy/AdvReac Type Severity Reaction Status Date / Time iron Allergy Rash/Hives Verified 08/12/21 18:04 varenicline [From Chantix] Allergy Hallucinati Verified 08/12/21 18:04 ons Review of Systems ROS Statement: Those systems with pertinent positive or pertinent negative responses have been documented in the HPI. ROS Other: All systems not noted in ROS Statement are negative. Past Medical History Past Medical History: Atrial Fibrillation, COPD, Hypertension Additional Past Medical History / Comment(s): Pace maker, History of Any Multi-Drug Resistant Organisms: None Reported Past Surgical History: Pacemaker Additional Past Surgical History / Comment(s): FEM POP, ORTHO SURGERY ON ANKLE, EYE SURGERY Past Anesthesia/Blood Transfusion Reactions: No Reported Reaction Type of Cardiac Device: Permanent Pacemaker Device Placement Date:: UNK Past Psychological History: No Psychological Hx Reported Smoking Status: Current every day smoker Past Alcohol Use History: Daily Past Drug Use History: None Reported - Past Family History Father History Unknown: Yes Mother History Unknown: Yes General Exam Limitations: no limitations General appearance: alert, in no apparent distress Head exam: Present: atraumatic, normocephalic Eye exam: Present: normal appearance, EOMI ENT exam: Present: mucous membranes moist Neck exam: Present: other (Trachea is in midline) Respiratory exam: Present: normal lung sounds bilaterally. Absent: respiratory distress, wheezes, rales, rhonchi, stridor Cardiovascular Exam: Present: regular rate, normal rhythm, normal heart sounds, other (Weak but palpable right dorsalis pedis pulse) GI/Abdominal exam: Present: soft. Absent: distended, tenderness, guarding Extremities exam: Present: other (Purpleish discoloration is noted to the patient's right first toe without any tenderness appreciated; purpleish discoloration is also noted the patient's right middle toe with ventral skin desquamation and mild bleeding noted distally; right third toe is tender with palpation). Absent: pedal edema, calf tenderness Neurological exam: Present: alert, oriented X3. Absent: motor sensory deficit Psychiatric exam: Present: normal affect, normal mood Skin exam: Present: warm, dry Course Vital Signs 08/12/21 08/12/21 15:38 18:47 Temperature 97.7 F Pulse Rate 70 70 Respiratory 20 18 Rate Blood Pressure 131/73 145/70 O2 Sat by Pulse 97 93 L Oximetry - Reevaluation(s) Reevaluation #1: 08/12/21 19:12 Case, H&P, test results thus far and ED management thus far were discussed with Dr. Reyes. She accepts hospital admission. She agrees with vascular surgery consultation. She has no further recommendations at this time. EKG Findings - EKG Comments: EKG Findings:: Ventricular paced rhythm, ventricular rate of 70 bpm, QRS durat ion of 166 ms Medical Decision Making - Lab Data Result diagrams: 08/12/21 16:36 08/12/21 16:36 Lab Results 08/12/21 08/12/21 08/12/21 Range/Units 16:36 16:36 16:36 WBC 10.2 (3.8-10.6) k/uL RBC 4.44 (4.30-5.90) m/uL Hgb 10.4 L (13.0-17.5) gm/dL Hct 34.2 L (39.0-53.0) % MCV 77.1 L (80.0-100.0) fL MCH 23.5 L (25.0-35.0) pg MCHC 30.5 L (31.0-37.0) g/dL RDW 18.3 H (11.5-15.5) % Plt Count 347 (150-450) k/uL MPV 7.7 Neutrophils % 80 % Lymphocytes % 8 % Monocytes % 7 % Eosinophils % 1 % Basophils % 0 % Neutrophils # 8.1 H (1.3-7.7) k/uL Lymphocytes # 0.8 L (1.0-4.8) k/uL Monocytes # 0.8 (0-1.0) k/uL Eosinophils # 0.1 (0-0.7) k/uL Basophils # 0.0 (0-0.2) k/uL Hypochromasia Marked Poikilocytosis Slight Anisocytosis Slight Microcytosis Slight PT 12.0 (9.0-12.0) sec INR 1.1 (<1.2) APTT 26.1 (22.0-30.0) sec Sodium 133 L (137-145) mmol/L Potassium 4.4 (3.5-5.1) mmol/L Chloride 101 (98-107) mmol/L Carbon Dioxide 27 (22-30) mmol/L Anion Gap 5 mmol/L BUN 12 (9-20) mg/dL Creatinine 0.68 (0.66-1.25) mg/dL Est GFR (CKD-EPI)AfAm >90 (>60 ml/min/1.73 sqM) Est GFR (CKD-EPI)NonAf >90 (>60 ml/min/1.73 sqM) Glucose 96 (74-99) mg/dL Plasma Lactic Acid [place] (0.7-2.0) mmol/L Calcium 8.7 (8.4-10.2) mg/dL Total Bilirubin 0.6 (0.2-1.3) mg/dL AST 20 (17-59) U/L ALT 8 (4-49) U/L Alkaline Phosphatase 155 H (38-126) U/L Total Protein 6.1 L (6.3-8.2) g/dL Albumin 3.2 L (3.5-5.0) g/dL 08/12/21 Range/Units 16:36 WBC (3.8-10.6) k/uL RBC (4.30-5.90) m/uL Hgb (13.0-17.5) gm/dL Hct (39.0-53.0) % MCV (80.0-100.0) fL MCH (25.0-35.0) pg MCHC (31.0-37.0) g/dL RDW (11.5-15.5) % Plt Count (150-450) k/uL MPV Neutrophils % % Lymphocytes % % Monocytes % % Eosinophils % % Basophils % % Neutrophils # (1.3-7.7) k/uL Lymphocytes # (1.0-4.8) k/uL Monocytes # (0-1.0) k/uL Eosinophils # (0-0.7) k/uL Basophils # (0-0.2) k/uL Hypochromasia Poikilocytosis Anisocytosis Microcytosis PT (9.0-12.0) sec INR (<1.2) APTT (22.0-30.0) sec Sodium (137-145) mmol/L Potassium (3.5-5.1) mmol/L Chloride (98-107) mmol/L Carbon Dioxide (22-30) mmol/L Anion Gap mmol/L BUN (9-20) mg/dL Creatinine (0.66-1.25) mg/dL Est GFR (CKD-EPI)AfAm (>60 ml/min/1.73 sqM) Est GFR (CKD-EPI)NonAf (>60 ml/min/1.73 sqM) Glucose (74-99) mg/dL Plasma Lactic Acid [place] 1.4 (0.7-2.0) mmol/L Calcium (8.4-10.2) mg/dL Total Bilirubin (0.2-1.3) mg/dL AST (17-59) U/L ALT (4-49) U/L Alkaline Phosphatase (38-126) U/L Total Protein (6.3-8.2) g/dL Albumin (3.5-5.0) g/dL - Radiology Data Radiology results: report reviewed (Right foot x-ray: Old healed fractures. No evidence of osteomyelitis. The third toe shows no definite destruction.) Disposition Clinical Impression: Cellulitis of third toe, right Disposition: ADMITTED IP TO THIS [facility] Condition: Stable Is patient prescribed a controlled substance at d/c from ED?: No Time of Disposition: 19:12
[2021-08-12] MEDS ORDERED: RX INFO: IV CONTRAST WAS GIVEN 1 EACH MISC MISCELLANE PRN (16:03)
[2021-08-12] MEDS ORDERED: SODIUM CHLORIDE 0.9% 500 ML 500 ML IV ONE (16:06)
[2021-08-12] MEDS ORDERED: VANCOMYCIN IV PER PHARMACY 1 EACH MISC MISCELLANE PRN (16:10)
[2021-08-12] MEDS ORDERED: MORPHINE SULFATE 4 MG/ML SYRINGE IVP STA (16:10)
[2021-08-12] MEDS ORDERED: VANCOMYCIN 1,500 MG in SODIUM CHLORIDE 0.9% 250 ML IVPB ONE (16:45)
[2021-08-12 16:46] LABS: Anisocytosis Slight; Basophils % (A) 0 %; Eosinophils # (A) 0.1 k/uL (0-0.7); Eosinophils % (A) 1 %; HCT 34.2 % (39.0-53.0); HGB 10.4 gm/dL (13.0-17.5); Hypochromasia Marked; Lymphocytes # (A) 0.8 k/uL (1.0-4.8); Lymphocytes % (A) 8 %; MCH 23.5 pg (25.0-35.0); MCHC 30.5 g/dL (31.0-37.0); MCV 77.1 fL (80.0-100.0); Mean Platelet Volume 7.7; Microcytosis Slight; Monocytes # (A) 0.8 k/uL (0-1.0); Monocytes % (A) 7 %; Neutrophils # (A) 8.1 k/uL (1.3-7.7); Neutrophils % (A) 80 %; Platelet Count 347 k/uL (150-450); Poikilocytosis Slight; RBC 4.44 m/uL (4.30-5.90); RDW 18.3 % (11.5-15.5); WBC 10.2 k/uL (3.8-10.6)
[2021-08-12 17:06] LABS: ALT 8 U/L (4-49); AST 20 U/L (17-59); African American GFR (CKD) >90 (>60 ml/min/1.73 sqM); Albumin 3.2 g/dL (3.5-5.0); Alkaline Phosphatase 155 U/L (38-126); Anion Gap 5 mmol/L; Blood Urea Nitrogen 12 mg/dL (9-20); Calcium 8.7 mg/dL (8.4-10.2); Carbon Dioxide 27 mmol/L (22-30); Chloride 101 mmol/L (98-107); Glucose 96 mg/dL (74-99); Non-African American GFR(CKD) >90 (>60 ml/min/1.73 sqM); Potassium 4.4 mmol/L (3.5-5.1); Sodium 133 mmol/L (137-145); Total Bilirubin 0.6 mg/dL (0.2-1.3); Total Protein 6.1 g/dL (6.3-8.2)
[2021-08-12 17:07] LABS: INR 1.1 (<1.2); Partial Thromboplastin Time 26.1 sec (22.0-30.0)
--- NOTE | 2021-08-12 17:32 | XR ---
EXAMINATION TYPE: XR foot complete RT DATE OF EXAM: 08/12/2021 COMPARISON: NONE HISTORY: Infection right foot TECHNIQUE: 3 views FINDINGS: There is evidence of old fracture of the distal fifth metatarsal. There is thickening of th e mid shaft second metatarsal consistent with old healed fracture. I see no acute fracture nor disloc ation. There is no evidence of focal bone destruction. The toes appear intact. IMPRESSION: Old healed fractures. No evidence of osteomyelitis. The third toe shows no definite destr uction.
[2021-08-12] MEDS ORDERED: FUROSEMIDE 20 MG TAB PO PRN (19:27)
[2021-08-12] MEDS ORDERED: HYDROcodone/APAP 5-325MG 1 EACH TAB PO PRN (20:11)
[2021-08-12] MEDS ORDERED: ALPRAZolam 0.25 MG TAB PO PRN (20:11)
[2021-08-12] MEDS ORDERED: LORazepam 2 MG/ML INJ IV PRN ×3 (20:11)
[2021-08-12] MEDS ORDERED: THIAMINE 100 MG/ML 2 ML VIAL IM STA (20:11)
[2021-08-12] MEDS ORDERED: CYCLOBENZAPRINE 10 MG TAB PO PRN (20:12)
[2021-08-12] MEDS ORDERED: traMADol 50 MG TAB PO PRN (20:12)
--- NOTE | 2021-08-12 21:11 | CT ---
EXAMINATION TYPE: CT angio lower extremity RT DATE OF EXAM: 08/12/2021 COMPARISON: None HISTORY: right foot infection CT DLP: 1571 mGycm Automated exposure control for dose reduction was used. CONTRAST: Performed with IV Contrast, patient injected with 100 mL of Isovue 370. Images obtained from the level of the heart to the bottom of the right foot with IV contrast. There a re 3-D post processed images. There is some right pleural effusion with patchy infiltrate at both lung bases and more on the right side. Heart appears slightly enlarged. There is no pericardial effusion. There is contrast opacificat ion of the abdominal aorta. There is arterial flow in the celiac artery and superior mesenteric arter y. There is arterial flow in both renal arteries. There is variable plaque formation and up to 50% st enosis of the branches of the abdominal aorta. There is arterial flow in the iliac and femoral arteri es. There is probably more than 50% stenosis in the external iliac arteries bilaterally. There is fem oral popliteal bypass graft on the right side noted. There is arterial flow in the graft. There is th rombosis of the right jamul femoral artery. There is arterial flow in the popliteal artery and the tibial artery. There is patency of the tibial artery trifurcation. There is multisegmental stenosis of the right posterior tibial artery in the mid calf. There appears to be complete occlusion at the ankle. There is arterial flow in the anterior tib ial artery and the dorsalis pedis artery. There is opacification of the arcuate arteries of the foref oot. There is poorly marginated 2 cm hypodense area in the inferior right lobe of the liver. Spleen is int act. Stomach is intact. There is no pancreatic mass. Gallbladder appears normal. The bile ducts are n ot dilated. Kidneys show satisfactory contrast opacification. There is no hydronephrosis. There is br oad-based large abdominal ventral hernia containing bowel. Bladder distends smoothly. There is no franco e fluid in the pelvis. Lumbar spine is intact. Bony pelvis appears intact. Sacroiliac joints are inta ct. IMPRESSION: Atherosclerotic vascular disease. There is patency of the femoral popliteal bypass graft of the right leg. There is occlusion of the right posterior tibial artery. There is diminished arterial opacifica tion of the anterior tibial artery at the foot consistent with occlusive disease. There is no complet e thrombosis. There is also significant variable stenosis of the left posterior tibial artery and the lower leg. There is evidence for hemodynamic stenosis of the external iliac arteries bilaterally pro bably more than 70% narrowing. Right pleural effusion and patchy lower lobe pneumonia that is more on the right side.
[2021-08-12] MEDS: METOPROLOL TARTRATE 25 MG TAB PO SCH (21:13)
[2021-08-12] MEDS: GABAPENTIN 300 MG CAP PO SCH (21:13)
[2021-08-12] MEDS: traZODone HCL 50 MG TAB PO SCH (21:14)
[2021-08-12] MEDS: APIXABAN 5 MG TAB PO SCH (21:14)
[2021-08-12] MEDS: NICOTINE 14MG/24HR PATCH TRANSDERM SCH (21:14)
[2021-08-12] MEDS: MORPHINE SULFATE 4 MG/ML SYRINGE IV PRN (21:18)
--- NOTE | 2021-08-12 21:57 | HP ---
HISTORY AND PHYSICAL DATE OF SERVICE: 08/12/2021 CHIEF COMPLAINTS: Significant cellulitis of the right foot and right toe. HISTORY OF PRESENT ILLNESS: This 76-year-old gentleman with a past medical history of atrial fibrillation, COPD, hypertension, history of pacemaker, was noted to have pain and swelling of the right foot for the last several days. Patient has some discoloration also. The symptoms have been ongoing for a month or so. Because of increasing difficulties and pain and difficulty, the daughter was concerned and the patient was referred to a vascular surgeon, but the appointment is not until next week with Dr. Zee. Because of concerns, the patient had a right leg vascular surgery performed in the past, so the patient came to [facility] and was admitted for further evaluation. There is no history of fever, rigors, no history of headache loss of consciousness, seizures. PAST MEDICAL HISTORY: Atrial fibrillation, COPD, hypertension, pacemaker. MEDICATIONS: Home medications: Desyrel, Ultram, Nitrostat, [place]. Lasix, Flexeril, Ventolin, omeprazole, metoprolol, gabapentin, Cymbalta, Lipitor Eliquis, and Zyloprim. Doses are reviewed. ALLERGIES: IRON AND CHANTIX. FAMILY HISTORY: No history of heart disease or strokes in the family. SOCIAL HISTORY: History of smoking, continued smoking, history of 6 beers a day. REVIEW OF SYSTEMS: ENT: Diminished hearing, diminished vision. CARDIOVASCULAR: No angina, no palpitations. RESPIRATION: No cough, hemoptysis. GI no nausea or vomiting or diarrhea. : No dysuria. NERVOUS SYSTEM: No numbness, weakness. ALLERGY/IMMUNOLOGY: No asthma or hayfever. MUSCULOSKELETAL: As mentioned earlier. HEMATOLOGY/ONCOLOGY: No history of anemia. ENDOCRINE: As mentioned earlier. CONSTITUTIONAL: As mentioned earlier. DERMATOLOGY: Negative. RHEUMATOLOGY: Negative. PSYCHIATRY as mentioned earlier. PHYSICAL EXAMINATION: Alert and oriented x two. Pulse 70. Blood pressure 145/70, respiration 18, temperature 97.4, pulse ox 93% on room air. HEENT: Conjunctivae normal. Oral mucosa moist. NECK is no jugular venous distention. No carotid bruit. No lymph node enlargement. CARDIOVASCULAR systems: S1, S2 muffled. RESPIRATION: Breath sounds diminished in the bases. No rhonchi. No crackles. ABDOMEN: Soft, nontender. No mass palpable. LEGS: Right leg pulses diminished bilaterally and some discoloration bilateral, right more the left. Right third toe is tender, erythematous also. SKIN as mentioned earlier. JOINTS: No active deforming arthropathy. LYMPHATICS: No lymph nodes palpable in the neck, axillae or groin. NERVOUS SYSTEM: No focal motor or sensory deficits. LAB STUDIES: WBC 10.2, hemoglobin 10.2. ASSESSMENT: 1. Pain and swelling and cellulitis of the right 3rd foot. 2. Possible ischemic toe. 3. Hyponatremia. 4. Peripheral artery disease. 5. Anemia microcytic. 6. History atrial fibrillation. 7. On anticoagulation. 8. Chronic obstructive pulmonary disease. 9. Hypertension. 10.History of pacemaker. 11.History of femoral-popliteal surgery. 12.History of permanent pacemaker. 13.History of continued ongoing nicotine dependence. 14.History of ETOH. 15.FULL CODE. RECOMMENDATIONS AND DISCUSSION: This 76-year-old male presented with multiple complex medical issues, we will monitor the patient closely, continue the current management and symptomatic treatment. Otherwise, I would recommend empiric antibiotics. Vascular surgery consultation and I would also recommend resume the home medications and otherwise [place] protocol. Smoking cessation advised. Prognosis guarded because of multiple complex medical issues. Further recommendations to follow. MMODL / IJN: [id number] /
[2021-08-13] MEDS: VANCOMYCIN 1,500 MG in SODIUM CHLORIDE 0.9% 250 ML IVPB SCH ×2 (04:49→17:14)
[2021-08-13] MEDS: MORPHINE SULFATE 4 MG/ML SYRINGE IV PRN ×3 (04:57→20:28)
[2021-08-13] MEDS: NICOTINE 14MG/24HR PATCH TRANSDERM SCH (09:01)
[2021-08-13] MEDS: ATORVASTATIN 40 MG TAB PO SCH (09:11)
[2021-08-13] MEDS: PANTOPRAZOLE 40 MG TABLET PO SCH (09:11)
[2021-08-13] MEDS: allopurinoL 300 MG TAB PO SCH (09:11)
[2021-08-13] MEDS: METOPROLOL TARTRATE 25 MG TAB PO SCH ×2 (09:11→20:27)
[2021-08-13] MEDS: THIAMINE 100 MG TAB PO SCH ×2 (09:11→16:23)
[2021-08-13] MEDS: DULoxetine HCL 60 MG CAPSULE.DR PO SCH (09:11)
[2021-08-13] MEDS: GABAPENTIN 300 MG CAP PO SCH ×3 (09:11→22:53)
[2021-08-13] MEDS: APIXABAN 5 MG TAB PO SCH (09:11)
[2021-08-13 09:25] LABS: Basophils # (A) 0.06 X 10*3/uL (0.00-0.10); Basophils % (A) 0.7 %; Eosinophils # (A) 0.24 X 10*3/uL (0.04-0.35); Eosinophils % (A) 2.6 %; HCT 34.7 % (39.6-50.0); Lymphocytes # (A) 0.64 X 10*3/uL (0.90-5.00); MCH 22.3 pg (27.0-32.0); MCHC 28.8 g/dL (32.0-37.0); MCV 77.5 fL (80.0-97.0); Mean Platelet Volume 10.1 fL (9.5-12.2); Monocytes # (A) 0.89 X 10*3/uL (0.20-1.00); Monocytes % (A) 9.8 %; Platelet Count 323 X 10*3/uL (140-440); RBC 4.48 X 10*6/uL (4.40-5.60); RDW 19.8 % (11.5-14.5); WBC 9.11 X 10*3/uL (4.50-10.00)
[2021-08-13 09:42] LABS: African American GFR (CKD) 101.3 (60.0-200.0); Albumin 3.3 g/dL (3.80-4.90); Albumin/Globulin Ratio 1.38 (1.60-3.17); Anion Gap 6.2 mmol/L (4.00-12.00); BUN/Creat Ratio 12.5 Ratio (12.00-20.00); Calcium 8.1 mg/dL (8.7-10.3); Carbon Dioxide 29.8 mmol/L (21.6-31.8); Globulin 2.4 g/dL (1.6-3.3); Non-African American GFR(CKD) 87.4 (60.0-200.0); Total Bilirubin 0.3 mg/dL (0.3-1.2); Total Protein 5.7 g/dL (6.2-8.2)
[2021-08-13] MEDS: MULTIVITAMINS, THERA 1 EACH TAB PO SCH (12:23)
--- NOTE | 2021-08-13 14:07 | XR ---
EXAMINATION TYPE: XR chest 1V portable DATE OF EXAM: 08/13/2021 Comparison: 07/04/2021 Clinical History: 76-year-old male CHF and cough Findings: Left anterior chest wall pacemaker generator with right ventricular lead. Heart remains enlarged. Hyp erinflation with relative upper lung lucencies. Moderate right effusion with patchy right mid and low er lung opacity and diffuse interstitial density bilaterally. Overall appearance is relatively simila r, possibly slightly improved from 07/04/2021. Impression: 1. Continued cardiomegaly diffuse interstitial changes. Correlate for CHF with pulmonary vascular con gestion. 2. Continued small to moderate right pleural effusion with right mid and lower lung atelectasis and o r consolidation. 3. Overall findings are stable to slightly improved from 07/04/2021.
--- NOTE | 2021-08-13 15:50 | PN ---
PROGRESS NOTE DATE OF SERVICE: 08/13/2021 This 75-year-old gentleman admitted with cellulitis and some ischemic leg also has significant peripheral vascular disease. Vascular surgery following the patient closely. No chest pain. No palpitations. No fever. Pleural effusion was noted in the chest x-ray. PHYSICAL EXAMINATION: Alert and oriented times three. Pulse is 70. Blood pressure 150/73. Respirations 18. Temperature 97.9, pulse ox 88 percent on 2 L. HEENT: Conjunctivae normal. NECK: No JVD. CARDIOVASCULAR: S1, S2. RESPIRATIONS: Breath sounds diminished in the bases. A few scattered rhonchi. ABDOMEN: Soft, nontender. LEGS: Right toe 3rd toe ulcer and cellulitis. LABS: WBC 9, hemoglobin 10.1, alkaline phosphatase 145. ASSESSMENT: 1. Pain and swelling and cellulitis of the right 3rd toe, possibly ischemic ulcer. 2. Hyponatremia. 3. Peripheral artery disease. 4. Anemia, microcytic. 5. History of atrial fibrillation. 6. On anticoagulation. 7. Chronic obstructive pulmonary disease. 8. Hypertension. 9. History of pacemaker. 10.History of surgery history. 11.History of permanent pacemaker. 12.History of continued ongoing nicotine dependence. 13.History of EtOH. 14.FULL CODE. RECOMMENDATIONS AND DISCUSSION: Recommend to continue current medications, symptomatic treatment. Otherwise at this time I recommend continue with current medications. Continue the empiric antibiotics. Vascular Surgery evaluation. Guarded prognosis. Further recommendations to follow. MMBRADL / JAYLEENN: [id number] / MTDD
[2021-08-13] MEDS: traZODone HCL 50 MG TAB PO SCH (20:27)
[2021-08-14] MEDS: VANCOMYCIN 1,500 MG in SODIUM CHLORIDE 0.9% 250 ML IVPB SCH (05:16)
[2021-08-14] MEDS: MORPHINE SULFATE 4 MG/ML SYRINGE IV PRN ×4 (06:07→22:21)
[2021-08-14] MEDS: PANTOPRAZOLE 40 MG TABLET PO SCH (09:02)
[2021-08-14] MEDS: METOPROLOL TARTRATE 25 MG TAB PO SCH ×2 (09:02→21:09)
[2021-08-14] MEDS: allopurinoL 300 MG TAB PO SCH (09:02)
[2021-08-14] MEDS: DULoxetine HCL 60 MG CAPSULE.DR PO SCH (09:02)
[2021-08-14] MEDS: MULTIVITAMINS, THERA 1 EACH TAB PO SCH (09:03)
[2021-08-14] MEDS: ATORVASTATIN 40 MG TAB PO SCH (09:03)
[2021-08-14] MEDS: THIAMINE 100 MG TAB PO SCH ×2 (09:03→16:11)
[2021-08-14] MEDS: GABAPENTIN 300 MG CAP PO SCH ×3 (09:03→21:09)
[2021-08-14] MEDS: NICOTINE 14MG/24HR PATCH TRANSDERM SCH (09:03)
--- NOTE | 2021-08-14 09:08 | P.GSCN ---
History of Present Illness Consult date: 08/13/21 Reason for Consult: Right foot cellulitis, peripheral arterial disease History of present illness: This a 76-year-old male who presented to the emergency department yesterday with complaints of increased right foot pain and discoloration of his first and third toes. Patient states his right foot and toe had been sore for approximately one month but started turning black and discolored 1-2 weeks ago, then the right third toe opened up with drainage. He denies any fevers or chills. He does have shortness of breath but has a history of COPD and is a current one pack per day smoker of 60 years. He also has a past medical history of peripheral arterial disease with the previous right fem-pop bypass graft approximately 4-5 years ago, atrial fibrillation on Eliquis, COPD, hypertension, pacemaker and alcoholism. An x-ray of the right foot that showed old healed fracture, no osteomyelitis, third toe with no definite destruction. He did have a CT angiogram of the right lower extremity that showed patency of the right fem-pop bypass graft, occlusion of the right posterior tibial artery, stenosis of the left posterior tibial artery. Stenosis of external iliac arteries bilaterally likely greater than 70% narrowing. Review of Systems A 14 point review systems was completed and all pertinent positives and negatives as stated in HPI Past Medical History Past Medical History: Atrial Fibrillation, COPD, Hypertension Additional Past Medical History / Comment(s): Pace maker, History of Any Multi-Drug Resistant Organisms: None Reported Past Surgical History: Pacemaker Additional Past Surgical History / Comment(s): FEM POP, ORTHO SURGERY ON ANKLE, EYE SURGERY Past Anesthesia/Blood Transfusion Reactions: No Reported Reaction Type of Cardiac Device: Permanent Pacemaker Device Placement Date:: UNK Past Psychological History: No Psychological Hx Reported Smoking Status: Current every day smoker Past Alcohol Use History: Daily Additional Past Alcohol Use History / Comment(s): 6 BEERS A DAY Past Drug Use History: None Reported - Past Family History Father History Unknown: Yes Mother History Unknown: Yes Medications and Allergies Home Medications Medication Instructions Recorded Confirmed Type Allopurinol [Zyloprim] 300 mg PO DAILY 07/03/21 08/12/21 History Apixaban [Eliquis] 5 mg PO BID 07/03/21 08/12/21 History Atorvastatin [Lipitor] 40 mg PO DAILY 07/03/21 08/12/21 History Cyclobenzaprine [Flexeril] 10 mg PO BID PRN 07/03/21 08/12/21 History DULoxetine HCL [Cymbalta] 60 mg PO DAILY 07/03/21 08/12/21 History Gabapentin 300 mg PO TID 07/03/21 08/12/21 History Metoprolol Tartrate 25 mg PO BID 07/03/21 08/12/21 History Nitroglycerin Sl Tabs [Nitrostat] 0.4 mg SL Q5M PRN 07/03/21 08/12/21 History Omeprazole 20 mg PO DAILY 07/03/21 08/12/21 History traMADol HCL 50 mg PO BID PRN 07/03/21 08/12/21 History traZODone HCL [Desyrel] 50 mg PO HS 07/03/21 08/12/21 History Albuterol Nebulized [Ventolin 2.5 mg INHALATION RT-QID PRN 08/12/21 08/12/21 History Nebulized] Furosemide [Lasix] 20 mg PO BID PRN 08/12/21 08/12/21 History HYDROcodone/APAP 5-325MG [[place] 1 tab PO QID PRN 08/12/21 08/12/21 History 5-325] Allergies Allergy/AdvReac Type Severity Reaction Status Date / Time iron Allergy Rash/Hives Verified 08/12/21 18:04 varenicline [From Chantix] Allergy Hallucinati Verified 08/12/21 18:04 ons Surgical - Exam Vital Signs Temp Pulse Resp BP Pulse Ox 97.7 F 70 20 131/73 97 08/12/21 15:38 08/12/21 15:38 08/12/21 15:38 08/12/21 15:38 08/12/21 15:38 General appearance: The patient is alert, oriented, in no acute distress. HET: Head is normocephalic and atraumatic.. Neck: Supple without lymphadenopathy. Trachea midline. Heart: S1 S2. Regular rate and rhythm. Lungs: Bilateral rhonchi and wheezing. Abdomen: Soft, nontender, nondistended. Extremities: Right lower extremity with swelling and redness to dorsal aspect of foot, warm to the touch. Right great toe with discoloration at distal tip, right 3rd toe with necrosis and swelling to the distal tip. Right lower extremity with femoral, popliteal, PT and DP doppler signal. Left lower extremity with femoral, popliteal and DP doppler signal, no edema, cool to the touch. Neurological: No focal deficits. Strength and sensation are grossly intact. Results - Labs 08/13/21 05:25 08/13/21 05:25 Abnormal Lab Results - Last 24 Hours (Table) 08/12/21 08/12/21 Range/Units 16:36 16:36 Hgb 10.4 L (13.0-17.5) gm/dL Hct 34.2 L (39.0-53.0) % MCV 77.1 L (80.0-100.0) fL MCH 23.5 L (25.0-35.0) pg MCHC 30.5 L (31.0-37.0) g/dL RDW 18.3 H (11.5-15.5) % Neutrophils # 8.1 H (1.3-7.7) k/uL Lymphocytes # 0.8 L (1.0-4.8) k/uL Sodium 133 L (137-145) mmol/L Alkaline Phosphatase 155 H (38-126) U/L Total Protein 6.1 L (6.3-8.2) g/dL Albumin 3.2 L (3.5-5.0) g/dL Microbiology - Last 24 Hours (Table) 08/12/21 16:36 Wound Culture - Preliminary Toe - Right Third Diabetes panel 08/12/21 Range/Units 16:36 Sodium 133 L (137-145) mmol/L Potassium 4.4 (3.5-5.1) mmol/L Chloride 101 (98-107) mmol/L Carbon Dioxide 27 (22-30) mmol/L BUN 12 (9-20) mg/dL Creatinine 0.68 (0.66-1.25) mg/dL Glucose 96 (74-99) mg/dL Calcium 8.7 (8.4-10.2) mg/dL AST 20 (17-59) U/L ALT 8 (4-49) U/L Alkaline Phosphatase 155 H (38-126) U/L Total Protein 6.1 L (6.3-8.2) g/dL Albumin 3.2 L (3.5-5.0) g/dL Calcium panel 08/12/21 Range/Units 16:36 Calcium 8.7 (8.4-10.2) mg/dL Albumin 3.2 L (3.5-5.0) g/dL Pituitary panel 08/12/21 Range/Units 16:36 Sodium 133 L (137-145) mmol/L Potassium 4.4 (3.5-5.1) mmol/L Chloride 101 (98-107) mmol/L Carbon Dioxide 27 (22-30) mmol/L BUN 12 (9-20) mg/dL Creatinine 0.68 (0.66-1.25) mg/dL Glucose 96 (74-99) mg/dL Calcium 8.7 (8.4-10.2) mg/dL Adrenal panel 08/12/21 Range/Units 16:36 Sodium 133 L (137-145) mmol/L Potassium 4.4 (3.5-5.1) mmol/L Chloride 101 (98-107) mmol/L Carbon Dioxide 27 (22-30) mmol/L BUN 12 (9-20) mg/dL Creatinine 0.68 (0.66-1.25) mg/dL Glucose 96 (74-99) mg/dL Calcium 8.7 (8.4-10.2) mg/dL Total Bilirubin 0.6 (0.2-1.3) mg/dL AST 20 (17-59) U/L ALT 8 (4-49) U/L Alkaline Phosphatase 155 H (38-126) U/L Total Protein 6.1 L (6.3-8.2) g/dL Albumin 3.2 L (3.5-5.0) g/dL - Imaging Comments: CT angiogram of the right lower extremity shows arthrosclerotic vascular disease. There is patency of the femoral-popliteal bypass graft to the right leg. There is occlusion of the right posterior tibial artery. There is dim inished arterial opacification of the anterior tibial artery at the foot consistent with occlusive disease. There is no complete thrombosis. There is also significant. Bilateral stenosis of the left posterior tibial artery and the lower leg. There is evidence of hemodynamic stenosis of the external iliac arteries bilaterally probably more than 70% narrowing. Right pleural effusion and patchy lower lobe pneumonia that is more on the right side. Assessment and Plan Assessment: 1. History of peripheral arterial disease, status post right fem-pop bypass graft 2. Ischemia right first and third toe 3. Rest pain 4. History of atrial fibrillation on 5. History of COPD 6. History of Pacemaker 7. Tobacco abuse 8. Alcohol abuse Plan: 1. Arterial US of lower extremities ordered 2. CTA of right lower extremity reviewed 3. HOLD ELIQUIS 4. Patient scheduled for right lower extremity angiogram with possible athrectomy on Friday with Dr. Jaeger 5. Tobacco Cessation 6. Alcohol cessation Thank you for this consultation and allowing us take part in the plan of care of your patient during his hospital stay The impression and plan of care has been dictated as directed. Dr. Tolbert I performed a history and examination of this patient, discussed the same with the dictator. I agree with the dictator's note ,documented as a scribe. Any additional findings or plans will be noted.
--- NOTE | 2021-08-14 15:23 | P.PN ---
Subjective Progress Note Date: 08/14/21 She was seen and examined without any acute changes through the night. Still states he has some pain to the right lower extremity as well as the left. Arterial study of the lower extremity showed an SUZANNE on the right of 0.4 and left 0.48. Patient is scheduled for right lower extremity angiogram and possible atherectomy tomorrow with Dr. Jaeger. Chest x-ray yesterday showed continued cardiomegaly diffuse interstitial changes. Correlate for CHF with pulmonary vascular congestion. Continued small to moderate right pleural effusion with right mid and lower lung atelectasis and/or consolidation. Overall findings are stable to slightly improved from 07/04/2021. Objective - Vital Signs Vital signs: Vital Signs Temp 97.8 F 08/14/21 07:00 Pulse 69 08/14/21 07:00 Resp 18 08/14/21 07:00 BP 156/64 08/14/21 07:00 Pulse Ox 91 L 08/14/21 07:00 Intake & Output 08/13/21 08/14/21 08/14/21 18:59 06:59 18:59 Intake Total 100 180 Output Total 300 300 Balance -200 -300 180 Weight 86.183 kg Intake: Oral 100 180 Output: Urine 300 300 Other: Voiding Method Urinal # Voids 0 1 - Exam General appearance: The patient is alert, oriented, appears in no acute distress. HET: Head is normocephalic and atraumatic. . Neck: Supple without lymphadenopathy. Trachea midline. Heart: S1 S2. Regular rate and rhythm. Lungs: Diminished with scattered rhonchi. Extremities: Right lower extremity with ischemic changes to the right third toe as well as some discoloration to the distal aspect of the great toe. Mild erythema, swelling with Good capillary refill and warm to touch. Left lower extremity without any edema, slightly cool to the touch. Neurological: No focal deficits. Alert and oriented 3. - Labs CBC & Chem 7: 08/13/21 05:25 08/13/21 05:25 Labs: Abnormal Lab Results - Last 24 Hours (Table) 08/13/21 08/13/21 Range/Units 05:25 05:25 Hgb 10.0 L (13.0-17.0) g/dL Hct 34.7 L (39.6-50.0) % MCV 77.5 L (80.0-97.0) fL MCH 22.3 L (27.0-32.0) pg MCHC 28.8 L (32.0-37.0) g/dL RDW 19.8 H (11.5-14.5) % Immature Gran # 0.08 H (0.00-0.04) X 10*3/uL Lymphocytes # 0.64 L (0.90-5.00) X 10*3/uL Calcium 8.1 L (8.7-10.3) mg/dL ALT 9 L (10-49) U/L Alkaline Phosphatase 145 H (41-126) U/L Total Protein 5.7 L (6.2-8.2) g/dL Albumin 3.30 L (3.80-4.90) g/dL Albumin/Globulin Ratio 1.38 L (1.60-3.17) g/dL Microbiology - Last 24 Hours (Table) 08/12/21 16:36 Gram Stain - Preliminary Toe - Right Third Wound Culture - Preliminary Presumptive Staph aureus 08/12/21 16:15 Blood Culture - Preliminary Blood No Growth after 24 hours Assessment and Plan Assessment: 1. History of peripheral arterial disease, status post right fem-pop bypass graft 2. Ischemia right first and third toe 3. Rest pain 4. History of atrial fibrillation on Eliquis 5. History of COPD 6. History of Pacemaker 7. Tobacco abuse 8. Alcohol abuse Plan: 1. Arterial US of lower extremities ordered and reviewed 2. CTA of right lower extremity reviewed 3. HOLD ELIQUIS 4. Patient scheduled for right lower extremity angiogram with possible athrectomy on Friday with Dr. Jaeger 5. Tobacco Cessation 6. Alcohol cessation 7. Nothing by mouth after midnight Thank you for this consultation and allowing us take part in the plan of care of your patient during his hospital stay The impression and plan of care has been dictated as directed. Dr. Zee I performed a history and examination of this patient, discussed the same with the dictator. I agree with the dictator's note ,documented as a scribe. Any additional findings or plans will be noted.
[2021-08-14] MEDS: ALBUTEROL NEBULIZED 2.5 MG/3 ML INHALATION PRN ×2 (16:21→19:30)
--- NOTE | 2021-08-14 17:03 | PN ---
PROGRESS NOTE DATE OF SERVICE: 08/14/2021 This 76-year-old gentleman who was admitted with pain and swelling and cellulitis of the right third toe had a possibly ischemic toe ulcer. Vascular Surgery is following the patient closely. Right lower extremity angiogram and possible arthrectomy on Friday by Dr. Jaeger. No chest pain. No palpitations. No fever. PHYSICAL EXAMINATION: Alert and oriented x3. Pulse 72, blood pressure 119/64, respiration 18, temperature 98 degrees, pulse ox 93% on 5 L. HEENT: Conjunctivae normal. NECK: No jugular venous distention. CARDIOVASCULAR: S1, S2 muffled. RESPIRATION: Breath sounds diminished at the bases. A few scattered rhonchi. ABDOMEN: Soft, nontender. LEGS: Right leg third toe ulcer present. LABS: WBC 9.1, hemoglobin 10. The culture showed presumptive Staph aureus. ASSESSMENT: 1. Pain and swelling with acute cellulitis of the right third toe with possible ischemic ulcer with presumptive Staph. 2. Severe peripheral arterial disease. 3. Hyponatremia. 4. Anemia, microcytic. 5. History of atrial fibrillation, on anticoagulation. 6. Chronic obstructive pulmonary disease. 7. Hypertension. 8. History of pacemaker. 9. History of permanent pacemaker. 10.History of ongoing continued nicotine dependence. 11.History of ETOH. 12.FULL CODE. RECOMMENDATIONS AND DISCUSSION: I recommend to continue current medications, continue with symptomatic treatment. Otherwise at this time I recommend continued antibiotics. I would also recommend following with Vascular Surgery for possible angiogram runoff as well as arthrectomy. Prognosis guarded. Further recommendations to follow. MMODL / IJN: [id number] /
[2021-08-14] MEDS: traZODone HCL 50 MG TAB PO SCH (21:09)
[2021-08-15] MEDS: ALBUTEROL NEBULIZED 2.5 MG/3 ML INHALATION PRN ×3 (07:16→15:17)
[2021-08-15] MEDS: DULoxetine HCL 60 MG CAPSULE.DR PO SCH (07:56)
[2021-08-15] MEDS: GABAPENTIN 300 MG CAP PO SCH ×3 (07:56→20:18)
[2021-08-15] MEDS: MULTIVITAMINS, THERA 1 EACH TAB PO SCH (07:56)
[2021-08-15] MEDS: THIAMINE 100 MG TAB PO SCH ×2 (07:56→15:56)
[2021-08-15] MEDS: PANTOPRAZOLE 40 MG TABLET PO SCH (07:56)
[2021-08-15] MEDS: allopurinoL 300 MG TAB PO SCH (07:57)
[2021-08-15] MEDS: MORPHINE SULFATE 4 MG/ML SYRINGE IV PRN ×2 (07:57→15:56)
[2021-08-15] MEDS: ATORVASTATIN 40 MG TAB PO SCH (07:57)
[2021-08-15] MEDS: METOPROLOL TARTRATE 25 MG TAB PO SCH ×2 (07:57→20:18)
[2021-08-15] MEDS: NICOTINE 14MG/24HR PATCH TRANSDERM SCH (09:19)
--- NOTE | 2021-08-15 09:56 | P.ARTDOP ---
Arterial Doppler LOWER EXTREMITY ARTERIAL DOPPLER: DATE OF SERVICE: 08/13/2021 Reason for study: Ulcer right third toe and the left calf claudication. Doppler waveforms: Atypical bilaterally throughout except the right posterior tibial and both digitals which are monophasic. Pulse volume recording: []. Pressure gradients: Significant above the ankle gradients. Ankle-brachial indices: 0.4 on the right and 0.48 on the left. Toe brachial indices: [] on the right, [] on the left Impression: Moderate to severe bilateral femoral popliteal occlusive disease cannot rule out iliac component.
[2021-08-15] MEDS ORDERED: fentaNYL (PF) 50 MCG/ML 2 ML AMP ONE (12:30)
[2021-08-15] MEDS ORDERED: LIDOCAINE 1% INJ 10MG/ML (20 ML MDV) ONE (12:36)
[2021-08-15] MEDS: fentaNYL (PF) 50 MCG/ML 2 ML AMP IV ONE ×2 (12:40→13:19)
[2021-08-15] MEDS ORDERED: HEPARIN SODIUM 1,000 UN/ML (10ML VL) ONE (12:41)
[2021-08-15] MEDS ORDERED: LIDOCAINE 1% INJ 10MG/ML (20 ML MDV) SQ ONE (12:45)
[2021-08-15] MEDS ORDERED: IV FLUID CONTINUATION 800 ML IV ONE (12:50)
[2021-08-15] MEDS ORDERED: IOPAMIDOL-250 100ML BTL INTRAARTER ONE ×2 (13:36→13:37)
--- NOTE | 2021-08-15 14:34 | P.OP ---
Date of Procedure: 08/15/21 Description of Procedure: Preoperative diagnosis: [Right toe wound, peripheral arterial disease, abnormal ABIs Postoperative diagnosis: Same left external iliac artery occlusion. Diffuse atherosclerotic disease Procedure: [#1 ultrasound guided left common femoral artery access #2 left iliofemoral angiogram #3 aortogram with runoffs #4 left external iliac artery percutaneous transluminal balloon angioplasty 5 x 60, 6 x 60 balloon #5 moderate sedation 52 minutes] Surgeon: Bria Jaeger D.O. EBL: [Less than 10 mL] IV fluids: [See records] Urine output: [See records] Drains: [None] Complications: [None immediately apparent] Condition: [Stable to recovery] Operative indication and findings: [Patient is a 76-year-old male with ischemic changes to his right toe. ABIs are performed and found to be 0.4 bilaterally with infrapopliteal disease. Risks and benefits of going forward with an angiogram were discussed. He seemingly understood and was willing to proceed as such] Procedure in detail: [The patient was taken to the special suite and placed in supine position. The bilateral groins are prepped and draped in usual sterile fashion. A preprocedure timeout was performed, all parties were in agreement. The ultrasound was utilized in the left common femoral artery was identified. The skin overlying was anesthetized with 1% lidocaine plain. Using a micropuncture needle the artery was accessed. 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 Wires were placed and a 6-Moroccan sheath was placed. Catheters and wires then used to cross the area of occlusion. A catheter was then placed into the aorta and an aortogram performed. Is brought down to the level of bifurcation and lower extremity stations were performed. Upon removal of the catheter and wire the left exter nal iliac artery was balloon angioplastied with a 5 x 60 and 6 x 60 balloon improving the area of stenosis approximately 50% from 100%. Patient transferred to recovery in stable condition after the sheath was held and hemostasis was adequate. There is significant atherosclerotic diffuse disease with calcium lining the aorta and iliacs. No obvious areas of stenosis. On the right side there is t ortuosity the common, external and internal iliac arteries appear relatively patent with areas of diffuse disease. The valenzuela of the bypass graft appears patent the profunda is patent. Flow clears the iliac and femoral system well. The course of the graft appears patent. There is good flow into the popliteal artery. The anterior tibial appears patent with diffuse disease. There is a very long appearance the TP trunk with bifurcation at the mid calf however there is a more medial structures that is occluded looks like calcific in nature, question of the proper posterior tibial artery. Regardless it is occluded at its takeoff. This is as far distal as the image would allow given the patient height and table therefore no good visualization at the proper ankle mortise or foot. On the left initially there is no significant disease to the common or internal iliac arteries. The external iliac was occluded but then balloon angioplastied to allow for approximately 50-60% residual stenosis. The common femoral, superficial femoral and profunda appeared patent without significant disease. There is diffuse calcific disease throughout without any overt flow-limiting stenosis. The popliteal artery appears patent there is visualization of the anterior tibial and TP trunk below the knee. Due to motion artifact further visualization below the knee is unreliable on that side]
[2021-08-15] MEDS: traZODone HCL 50 MG TAB PO SCH (20:18)
[2021-08-16] MEDS: MORPHINE SULFATE 4 MG/ML SYRINGE IV PRN ×3 (01:14→20:14)
--- NOTE | 2021-08-16 03:34 | P.PN ---
Subjective Progress Note Date: 08/15/21 This is a 76-year-old male who was recently admitted with pain and swelling and found to have surrounding cellulitis of the right third toe and possible ischemic toe ulcer. Vascular surgery following and plans are for angiogram with the possibility of arterectomy with Dr. Jaeger. Will await report. Patient has history of COPD with some occasional mild shortness of breath although denies any worsening at this time. Patient denies any chest pain. Eliquis on hold for the procedure. Review of systems: Constitutional: No reports of fatigue, fever, or chills Cardiovascular: No reports of chest pain or palpitations Respiratory: No reports of shortness of breath or cough GI: No reports of nausea, vomiting, or diarrhea : No reports of dysuria or retention Neurovascular: No reports of weakness or numbness All medications have been reviewed Active Medications Hydrocodone Bitart/Acetaminophen (Hydrocodone/Apap 5-325mg 1 Each Tab) 1 each PO Q6HR PRN PRN Reason: Pain Albuterol Sulfate (Albuterol Nebulized 2.5 Mg/3 Ml) 2.5 mg INHALATION RT-QID PRN PRN Reason: Shortness Of Breath Last Admin: 08/15/21 15:17 Dose: 2.5 mg Documented by: Allopurinol (Allopurinol 300 Mg Tab) 300 mg PO DAILY [facility] Last Admin: 08/15/21 07:57 Dose: 300 mg Documented by: Alprazolam (Alprazolam 0.25 Mg Tab) 0.25 mg PO TID PRN PRN Reason: Anxiety Atorvastatin Calcium (Atorvastatin 40 Mg Tab) 40 mg PO DAILY [facility] Last Admin: 08/15/21 07:57 Dose: 40 mg Documented by: Cyclobenzaprine HCl (Cyclobenzaprine 10 Mg Tab) 10 mg PO BID PRN PRN Reason: Muscle Spasm Duloxetine HCl (Duloxetine Hcl 60 Mg Capsule.Dr) 60 mg PO DAILY [facility] Last Admin: 08/15/21 07:56 Dose: 60 mg Documented by: Furosemide (Furosemide 20 Mg Tab) 20 mg PO BID PRN PRN Reason: Edema Last Admin: 08/14/21 16:19 Dose: 20 mg Documented by: Gabapentin (Gabapentin 300 Mg Cap) 300 mg PO TID [facility] Last Admin: 08/15/21 15:56 Dose: 300 mg Documented by: Cefazolin Sodium 2 gm/ Sodium (Chloride) 50 mls @ 100 mls/hr IVPB Q8HR [facility] Last Admin: 08/15/21 09:19 Dose: 100 mls/hr Documented by: Lorazepam (Lorazepam 2 Mg/Ml Inj) 1 mg IV Q2HR PRN PRN Reason: CIWA 8 or 9 Lorazepam (Lorazepam 2 Mg/Ml Inj) 1 mg IV Q1HR PRN PRN Reason: CIWA 10 to 15 Metoprolol Tartrate (Metoprolol Tartrate 25 Mg Tab) 25 mg PO BID [facility] Last Admin: 08/15/21 07:57 Dose: 25 mg Documented by: Morphine Sulfate (Morphine Sulfate 4 Mg/Ml Syringe) 4 mg IV Q4HR PRN PRN Reason: Severe Pain Last Admin: 08/15/21 15:56 Dose: 4 mg Documented by: Multivitamins (Multivitamins, Thera 1 Each Tab) 1 each PO DAILY@1200 [facility] Last Admin: 08/15/21 07:56 Dose: 1 each Documented by: Nicotine (Nicotine 14mg/24hr Patch) 1 patch TRANSDERM DAILY [facility] Last Admin: 08/15/21 09:19 Dose: Not Given Documented by: Pantoprazole Sodium (Pantoprazole 40 Mg Tablet) 40 mg PO AC-BRKFST [facility] Last Admin: 08/15/21 07:56 Dose: 40 mg Documented by: Thiamine HCl (Thiamine 100 Mg Tab) 100 mg PO BID-W/MEALS [facility] Last Admin: 08/15/21 15:56 Dose: 100 mg Documented by: Tramadol HCl (Tramadol 50 Mg Tab) 50 mg PO BID PRN PRN Reason: Pain Trazodone HCl (Trazodone Hcl 50 Mg Tab) 50 mg PO HS [facility] Last Admin: 08/14/21 21:09 Dose: 50 mg Documented by: Physical exam: Gen: This is a 76-year-old male awake, alert and oriented 3, well-developed, well-nourished. HEENT: Head is atraumatic, normocephalic. Pupils equal, round. Sclerae is anicteric. NECK: Supple. No JVD. No lymphadenopathy. No thyromegaly. LUNGS: diminished breath sounds bilaterally with some scattered rhonchi noted. No intercostal retractions. HEART: Regular rate and rhythm. No murmur. ABDOMEN: Soft. Bowel sounds are present. No masses. No tenderness. EXTREMITIES: No pedal edema. No calf tenderness. NEUROLOGICAL: Patient is awake, alert and oriented x3. Cranial nerves 2 through 12 are grossly intact. SKIN: right foot third toe with discoloration and drainage noted and extremely tender Assessment: Pain and swelling with acute cellulitis of the right third toe with possible ischemic ulcer with presumptive staph Severe peripheral artery disease Hyponatremia Anemia, microcytic History of atrial fibrillation on anticoagulation Chronic obstructive pulmonary disease, not in acute exacerbation Hypertension History of ongoing nicotine dependence next line history of EtOH Full code Plan: Recommend to continue with current medications and pain management. Patient is on 3 L of oxygen via NC with history of COPD and states he does not normally w ear oxygen but has breathing treatments at home. Will repeat chest xray in the am. Patient denies any worsening shortness of breath. Continue IV antibiotics. Patient has lasix oral as needed and will give a dose of IV lasix and wean FI02 as tolerated. Will order incentive spirometer. Will discuss with vascular when appropriate to resume Eliquis. Repeat am labs. Objective - Vital Signs Vital signs: Vital Signs Temp 98.1 F 08/15/21 07:00 Pulse 70 08/15/21 07:30 Resp 16 08/15/21 07:00 BP 149/75 08/15/21 07:00 Pulse Ox 86 L 08/15/21 07:00 Intake & Output 08/14/21 08/15/21 08/15/21 18:59 06:59 18:59 Intake Total 960 Output Total 650 1000 Balance 310 -1000 Intake: Oral 960 Output: Urine 650 1000 Other: Voiding Method Urinal Urinal # Voids 1 3 - Labs CBC & Chem 7: 08/13/21 05:25 08/13/21 05:25 Labs: Microbiology - Last 24 Hours (Table) 08/12/21 16:36 Gram Stain - Final Toe - Right Third Wound Culture - Final Staphylococcus aureus 08/12/21 16:15 Blood Culture - Preliminary Blood No Growth after 48 hours
--- NOTE | 2021-08-16 06:35 | XR ---
EXAMINATION TYPE: XR chest 1V portable DATE OF EXAM: 08/16/2021 COMPARISON: 08/13/2021 HISTORY: Short of breath TECHNIQUE: FINDINGS: There is extensive airspace consolidation in the right lung. Heart and mediastinum are jaja ated to the right side. Heart is enlarged. There is some mild pulmonary vascular congestion. There is left axillary pacemaker. There is minimal infiltrate in the left lung. IMPRESSION: There is increased pulmonary consolidation and atelectasis in the right lung compared to recent exam. No obvious heart failure.
[2021-08-16 06:52] LABS: Anisocytosis Slight; Basophils % (A) 0 %; Eosinophils # (A) 0.2 k/uL (0-0.7); Eosinophils % (A) 2 %; HCT 34.3 % (39.0-53.0); HGB 9.8 gm/dL (13.0-17.5); Hypochromasia Marked; Lymphocytes # (A) 0.6 k/uL (1.0-4.8); Lymphocytes % (A) 6 %; MCH 22.7 pg (25.0-35.0); MCHC 28.5 g/dL (31.0-37.0); MCV 79.7 fL (80.0-100.0); Mean Platelet Volume 7.6; Microcytosis Slight; Monocytes # (A) 0.6 k/uL (0-1.0); Monocytes % (A) 7 %; Neutrophils # (A) 7.3 k/uL (1.3-7.7); Neutrophils % (A) 81 %; Platelet Count 298 k/uL (150-450); Poikilocytosis Slight; RDW 17.9 % (11.5-15.5); WBC 9.1 k/uL (3.8-10.6)
[2021-08-16 06:59] LABS: African American GFR (CKD) >90 (>60 ml/min/1.73 sqM); Anion Gap 5 mmol/L; Blood Urea Nitrogen 14 mg/dL (9-20); Calcium 8.4 mg/dL (8.4-10.2); Carbon Dioxide 30 mmol/L (22-30); Chloride 99 mmol/L (98-107); Glucose 124 mg/dL (74-99); Non-African American GFR(CKD) 89 (>60 ml/min/1.73 sqM); Potassium 4.2 mmol/L (3.5-5.1); Sodium 134 mmol/L (137-145)
[2021-08-16] MEDS: allopurinoL 300 MG TAB PO SCH (08:17)
[2021-08-16] MEDS: PANTOPRAZOLE 40 MG TABLET PO SCH (08:17)
[2021-08-16] MEDS: THIAMINE 100 MG TAB PO SCH ×2 (08:17→16:42)
[2021-08-16] MEDS: ATORVASTATIN 40 MG TAB PO SCH (08:18)
[2021-08-16] MEDS: METOPROLOL TARTRATE 25 MG TAB PO SCH ×2 (08:18→20:06)
[2021-08-16] MEDS: GABAPENTIN 300 MG CAP PO SCH ×3 (08:18→20:06)
[2021-08-16] MEDS: DULoxetine HCL 60 MG CAPSULE.DR PO SCH (08:18)
[2021-08-16] MEDS: NICOTINE 14MG/24HR PATCH TRANSDERM SCH (08:22)
[2021-08-16] MEDS ORDERED: FUROSEMIDE 10 MG/ML 4 ML VIAL IV STA (08:42)
[2021-08-16] MEDS: ALBUTEROL NEBULIZED 2.5 MG/3 ML INHALATION PRN (11:22)
[2021-08-16] MEDS: MULTIVITAMINS, THERA 1 EACH TAB PO SCH (11:47)
[2021-08-16] MEDS: APIXABAN 5 MG TAB PO SCH ×2 (11:47→20:06)
--- NOTE | 2021-08-16 14:27 | P.PN ---
Subjective Progress Note Date: 08/16/21 This is a 76-year-old male who was recently admitted with pain and swelling and found to have surrounding cellulitis of the right third toe and possible ischemic toe ulcer. Vascular surgery following and plans are for angiogram with the possibility of arterectomy with Dr. Jaeger. Will await report. Patient has history of COPD with some occasional mild shortness of breath although denies any worsening at this time. Patient denies any chest pain. Eliquis on hold for the procedure. 08/16/2021 Patient is seen and evaluated and follow-up status post angiogram with angioplasty to the left common femoral artery as there was found to be external iliac artery occlusion as there was found to be significant stenosis. Right third toe continues to be red and extremely painful with no drainage noted. Pa shaunna is maintained on IV cefazolin as well as wound cultures finalized showing Staphylococcus aureus and blood cultures remain negative. Patient continues on 3 L via nasal cannula which he states he wears at night and as needed with shortness of breath secondary to his COPD. Clinically patient is most likely experiencing acute exacerbation of COPD and will continue on breathing inhalational treatments and was given a dose of IV Lasix and will continue with his oral dose scheduled. Discussed with vascular surgery about resuming Eliquis and will resume today. Will discuss with Dr. Jaeger about treatment plans moving forward and any other possible surgical interventions and close outpatient follow-up. White blood count is normal at 9.1 and hemoglobin is 9.8, sodium is 134 with a potassium of 4.2 and current creatinine is 0.76. Patient denies any worsening shortness of breath or chest pains. Review of systems: Constitutional: No reports of fatigue, fever, or chills Cardiovascular: No reports of chest pain or palpitations Respiratory: No reports of shortness of breath or cough GI: No reports of nausea, vomiting, or diarrhea : No reports of dysuria or retention Neurovascular: No reports of weakness or numbness All medications have been reviewed Active Medications Hydrocodone Bitart/Acetaminophen (Hydrocodone/Apap 5-325mg 1 Each Tab) 1 each PO Q6HR PRN PRN Reason: Pain Albuterol Sulfate (Albuterol Nebulized 2.5 Mg/3 Ml) 2.5 mg INHALATION RT-QID PRN PRN Reason: Shortness Of Breath Last Admin: 08/16/21 11:22 Dose: 2.5 mg Documented by: Allopurinol (Allopurinol 300 Mg Tab) 300 mg PO DAILY [facility] Last Admin: 08/16/21 08:17 Dose: 300 mg Documented by: Alprazolam (Alprazolam 0.25 Mg Tab) 0.25 mg PO TID PRN PRN Reason: Anxiety Apixaban (Apixaban 5 Mg Tab) 5 mg PO BID [facility]; Protocol Last Admin: 08/16/21 11:47 Dose: 5 mg Documented by: Atorvastatin Calcium (Atorvastatin 40 Mg Tab) 40 mg PO DAILY [facility] Last Admin: 08/16/21 08:18 Dose: 40 mg Documented by: Cyclobenzaprine HCl (Cyclobenzaprine 10 Mg Tab) 10 mg PO BID PRN PRN Reason: Muscle Spasm Duloxetine HCl (Duloxetine Hcl 60 Mg Capsule.Dr) 60 mg PO DAILY [facility] Last Admin: 08/16/21 08:18 Dose: 60 mg Documented by: Furosemide (Furosemide 20 Mg Tab) 20 mg PO BID PRN PRN Reason: Edema Last Admin: 08/14/21 16:19 Dose: 20 mg Documented by: Gabapentin (Gabapentin 300 Mg Cap) 300 mg PO TID [facility] Last Admin: 08/16/21 08:18 Dose: 300 mg Documented by: Cefazolin Sodium 2 gm/ Sodium (Chloride) 50 mls @ 100 mls/hr IVPB Q8HR [facility] Last Admin: 08/16/21 08:55 Dose: 100 mls/hr Documented by: Lorazepam (Lorazepam 2 Mg/Ml Inj) 1 mg IV Q2HR PRN PRN Reason: CIWA 8 or 9 Lorazepam (Lorazepam 2 Mg/Ml Inj) 1 mg IV Q1HR PRN PRN Reason: CIWA 10 to 15 Metoprolol Tartrate (Metoprolol Tartrate 25 Mg Tab) 25 mg PO BID [facility] Last Admin: 08/16/21 08:18 Dose: 25 mg Documented by: Morphine Sulfate (Morphine Sulfate 4 Mg/Ml Syringe) 4 mg IV Q4HR PRN PRN Reason: Severe Pain Last Admin: 08/16/21 08:27 Dose: 4 mg Documented by: Multivitamins (Multivitamins, Thera 1 Each Tab) 1 each PO DAILY@1200 [facility] Last Admin: 08/16/21 11:47 Dose: 1 each Documented by: Nicotine (Nicotine 14mg/24hr Patch) 1 patch TRANSDERM DAILY [facility] Last Admin: 08/16/21 08:22 Dose: Not Given Documented by: Pantoprazole Sodium (Pantoprazole 40 Mg Tablet) 40 mg PO AC-BRKFST [facility] Last Admin: 08/16/21 08:17 Dose: 40 mg Documented by: Thiamine HCl (Thiamine 100 Mg Tab) 100 mg PO BID-W/MEALS [facility] Last Admin: 08/16/21 08:17 Dose: 100 mg Documented by: Tramadol HCl (Tramadol 50 Mg Tab) 50 mg PO BID PRN PRN Reason: Pain Trazodone HCl (Trazodone Hcl 50 Mg Tab) 50 mg PO HS [facility] Last Admin: 08/15/21 20:18 Dose: 50 mg Documented by: Physical exam: Gen: This is a 76-year-old male awake, alert and oriented 3, well-developed, well-nourished. HEENT: Head is atraumatic, normocephalic. Pupils equal, round. Sclerae is anicteric. NECK: Supple. No JVD. No lymphadenopathy. No thyromegaly. LUNGS: diminished breath sounds bilaterally with some scattered rhonchi noted. No wheezing noted. No intercostal retractions. HEART: Regular rate and rhythm. No murmur. ABDOMEN: Soft. Bowel sounds are present. No masses. No tenderness. EXTREMITIES: No pedal edema. No calf tenderness. NEUROLOGICAL: Patient is awake, alert and oriented x3. Cranial nerves 2 through 12 are grossly intact. SKIN: right foot third toe with discoloration and surrounding redness noted Assessment: Pain and swelling with acute cellulitis of the right third toe with possible ischemic ulcer With staphylococcus aureus Severe peripheral artery disease Hyponatremia Anemia, microcytic History of atrial fibrillation on anticoagulation Chronic obstructive pulmonary disease, acute exacerbation Hypertension History of ongoing nicotine dependence history of EtOH Full code Plan: Recommend to continue with current medications and pain management. Monitor closely for any signs of alcohol withdrawal and may continue CIWA protocol as needed. Patient is on 3 L of oxygen via [place] with history of COPD and states he does have oxygen as needed at night for shortness of breath. repeat chest xray reviewed and shows increased pulmonary consolidation and atelectasis in the right lung compared to recent exam with no overt heart failure noted. Patient denies any worsening shortness of breath. Patient was given a dose of IV Lasix this morning and will continue with Lasix 20 mg twice daily and he was using this as needed in the outpatient setting and will have it scheduled for now. Will also continue with albuterol treatments scheduled and as needed. Continue IV antibiotics. Patient being resumed on Eliquis after discussing with vascular surgery and will discuss further about treatment plan and any other further interventions and possible close outpatient follow-up. Ordered incentive spirom eter and instructed the patient to use at least 10 times every hour while awake and continuing with coughing and deep breathing. Encouraged increased activity as tolerated. Objective - Vital Signs Vital signs: Vital Signs Temp 98.7 F 08/16/21 07:36 Pulse 70 08/16/21 07:36 Resp 20 08/16/21 07:36 BP 116/54 08/16/21 07:36 Pulse Ox 91 L 08/16/21 07:36 Intake & Output 08/15/21 08/16/21 08/16/21 18:59 06:59 18:59 Intake Total 200 Output Total 850 1000 Balance -650 -1000 Intake: IV 200 Output: Urine 850 1000 Other: Voiding Method Urinal External Catheter - Labs CBC & Chem 7: 08/16/21 06:22 08/16/21 06:22 Labs: Abnormal Lab Results - Last 24 Hours (Table) 08/16/21 08/16/21 Range/Units 06:22 06:22 Hgb 9.8 L (13.0-17.5) gm/dL Hct 34.3 L (39.0-53.0) % MCV 79.7 L (80.0-100.0) fL MCH 22.7 L (25.0-35.0) pg MCHC 28.5 L (31.0-37.0) g/dL RDW 17.9 H (11.5-15.5) % Lymphocytes # 0.6 L (1.0-4.8) k/uL Sodium 134 L (137-145) mmol/L Glucose 124 H (74-99) mg/dL Microbiology - Last 24 Hours (Table) 08/12/21 16:15 Blood Culture - Preliminary Blood No Growth after 72 hours
[2021-08-16] MEDS: ALBUTEROL NEBULIZED 2.5 MG/3 ML INHALATION SCH ×2 (16:29→20:10)
[2021-08-16] MEDS: traZODone HCL 50 MG TAB PO SCH (20:06)
[2021-08-16] MEDS: FUROSEMIDE 20 MG TAB PO SCH (20:07)
[2021-08-17] MEDS: MORPHINE SULFATE 4 MG/ML SYRINGE IV PRN (05:39)
[2021-08-17] MEDS: PANTOPRAZOLE 40 MG TABLET PO SCH (07:28)
[2021-08-17] MEDS: allopurinoL 300 MG TAB PO SCH (07:28)
[2021-08-17] MEDS: ATORVASTATIN 40 MG TAB PO SCH (07:29)
[2021-08-17] MEDS: FUROSEMIDE 20 MG TAB PO SCH (07:29)
[2021-08-17] MEDS: GABAPENTIN 300 MG CAP PO SCH (07:29)
[2021-08-17] MEDS: METOPROLOL TARTRATE 25 MG TAB PO SCH (07:29)
[2021-08-17] MEDS: APIXABAN 5 MG TAB PO SCH (07:29)
[2021-08-17] MEDS: THIAMINE 100 MG TAB PO SCH (07:29)
[2021-08-17] MEDS: DULoxetine HCL 60 MG CAPSULE.DR PO SCH (07:29)
[2021-08-17] MEDS: ALBUTEROL NEBULIZED 2.5 MG/3 ML INHALATION SCH ×2 (07:33→11:20)
--- NOTE | 2021-08-17 08:08 | P.PN ---
Subjective Progress Note Date: 08/16/21 She was seen and examined without any acute changes through the night. Still states he has some pain to the right lower extremity as well as the left. Arterial study of the lower extremity showed an SUZANNE on the right of 0.4 and left 0.48. Patient underwent angiogram with aortogram with runoff yesterday with left external iliac artery angioplasty. Patient is seen and examined lying in bed. He states that pain has improved in his left lower extremity. Still has some pain in the right lower extremity. Denies any bleeding from puncture site. No acute changes through the night. He has been afebrile. Objective - Vital Signs Vital signs: Vital Signs Temp 98.7 F 08/16/21 07:36 Pulse 70 08/16/21 07:36 Resp 20 08/16/21 07:36 BP 116/54 08/16/21 07:36 Pulse Ox 91 L 08/16/21 07:36 Intake & Output 08/15/21 08/16/21 08/16/21 18:59 06:59 18:59 Intake Total 200 180 Output Total 850 1000 Balance -650 -1000 180 Intake: IV 200 Oral 180 Output: Urine 850 1000 Other: Voiding Method Urinal External Catheter External Catheter - Exam General appearance: The patient is alert, oriented, appears in no acute distress. HET: Head is normocephalic and atraumatic. . Neck: Supple without lymphadenopathy. Trachea midline. Heart: S1 S2. Regular rate and rhythm. Lungs: Diminished with scattered rhonchi. Extremities: Right lower extremity with ischemic changes to the right third toe as well as some discoloration to the distal aspect of the great toe. Mild erythema, swelling with Good capillary refill and warm to touch. Left lower extremity without any edema, warm to the touch with good capillary refill. Patient has positive bilateral femoral, popliteal, posterior tibialis, and dorsalis pedis Doppler signals. Neurological: No focal deficits. Alert and oriented 3. - Labs CBC & Chem 7: 08/16/21 06:22 08/16/21 06:22 Labs: Abnormal Lab Results - Last 24 Hours (Table) 08/16/21 08/16/21 Range/Units 06:22 06:22 Hgb 9.8 L (13.0-17.5) gm/dL Hct 34.3 L (39.0-53.0) % MCV 79.7 L (80.0-100.0) fL MCH 22.7 L (25.0-35.0) pg MCHC 28.5 L (31.0-37.0) g/dL RDW 17.9 H (11.5-15.5) % Lymphocytes # 0.6 L (1.0-4.8) k/uL Sodium 134 L (137-145) mmol/L Glucose 124 H (74-99) mg/dL Microbiology - Last 24 Hours (Table) 08/12/21 16:15 Blood Culture - Preliminary Blood No Growth after 72 hours Assessment and Plan Assessment: 1. History of peripheral arterial disease, status post right fem-pop bypass graft 2. Right toe wound 3. Rest pain 4. 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 History of atrial fibrillation on Eliquis 6. History of COPD 7. History of Pacemaker 8. Tobacco abuse 9. Alcohol abuse Plan: 1. Diet as tolerated 2. Patient is status post angiogram, aortogram with runoff and left external iliac artery angioplasty 3. Patient may resume Eliquis 4. Tobacco Cessation 5. Alcohol cessation 6. Will allow for further demarcation of the right third toe, patient to follow up outpatient with vascular surgery. Patient is clear from vascular surgery for discharge once otherwise medically stable. Thank you for this consultation and allowing us take part in the plan of care of your patient during his hospital stay The impression and plan of care has been dictated as directed. Dr. Jaeger I performed a history and examination of this patient, discussed the same with the dictator. I agree with the dictator's note ,documented as a scribe. Any additional findings or plans will be noted.
[2021-08-17 08:30] VITALS: BP 137/65; RESP 21; TEMP 98
[2021-08-17] MEDS: NICOTINE 14MG/24HR PATCH TRANSDERM SCH (08:40)
--- NOTE | 2021-08-17 09:06 | IR ---
Fluoroscopy HISTORY: Pain in right foot 9.7 minutes fluoroscopy time supplied to the referring clinician. 428 intraoperative C-arm images do cument the procedure. See dictated report from vascular surgery.
[2021-08-17 09:13] VITALS: BMI 28.8
[2021-08-17] MEDS ORDERED: ASPIRIN 81 MG PO SCH (09:15)
--- NOTE | 2021-08-17 10:50 | P.PN ---
Subjective Progress Note Date: 08/17/21 She was seen and examined without any acute changes through the night. Still states he has some pain to the right lower extremity as well as the left. Arterial study of the lower extremity showed an SUZANNE on the right of 0.4 and left 0.48. Patient underwent angiogram with aortogram with runoff yesterday with left external iliac artery angioplasty. Patient is seen and examined lying in bed. He states that pain has improved in his left lower extremity. Still has some pain in the right lower extremity. No acute changes through the night. He has been afebrile. Objective - Vital Signs Vital signs: Vital Signs Temp 98.0 F 08/17/21 08:00 Pulse 65 08/17/21 08:00 Resp 21 08/17/21 08:00 BP 137/65 08/17/21 08:00 Pulse Ox 98 08/17/21 08:00 Intake & Output 08/16/21 08/17/21 08/17/21 18:59 06:59 18:59 Intake Total 420 240 Output Total 2000 1200 Balance -1580 -1200 240 Intake: Oral 420 240 Output: Urine 1999 1200 Other: Voiding Method External Catheter External Catheter External Catheter # Voids 1 - Exam General appearance: The patient is alert, oriented, appears in no acute distress. HET: Head is normocephalic and atraumatic. . Neck: Supple without lymphadenopathy. Trachea midline. Heart: S1 S2. Regular rate and rhythm. Lungs: Diminished with scattered rhonchi. Extremities: Right lower extremity with ischemic changes to the right third toe as well as some discoloration to the distal aspect of the great toe. Mild erythema, swelling with Good capillary refill and warm to touch. Left lower extremity without any edema, warm to the touch with good capillary refill. Patient has positive bilateral femoral, popliteal, posterior tibialis, and dorsalis pedis Doppler signals. Neurological: No focal deficits. Alert and oriented 3. - Labs CBC & Chem 7: 08/16/21 06:22 08/16/21 06:22 Labs: Microbiology - Last 24 Hours (Table) 08/12/21 16:15 Blood Culture - Preliminary Blood No Growth after 96 hours Assessment and Plan Assessment: 1. History of peripheral arterial disease, status post right fem-pop bypass graft 2. Right toe wound 3. Rest pain 4. 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 History of atrial fibrillation on Eliquis 6. History of COPD 7. History of Pacemaker 8. Tobacco abuse 9. Alcohol abuse Plan: 1. Diet as tolerated 2. Patient is status post angiogram, aortogram with runoff and left external iliac artery angioplasty 3. Patient may resume Eliquis 4. Tobacco Cessation 5. Alcohol cessation 6. Will allow for further demarcation of the right third toe, patient to follow up outpatient with vascular surgery. Patient is clear from vascular surgery for discharge once otherwise medically stable. Thank you for this consultation and allowing us take part in the plan of care of your patient during his hospital stay The impression and plan of care has been dictated as directed. Dr. Zee I performed a history and examination of this patient, discussed the same with the dictator. I agree with the dictator's note ,documented as a scribe. Any additional findings or plans will be noted.
[2021-08-17 11:22] VITALS: PULSE 68
[2021-08-17] MEDS: MULTIVITAMINS, THERA 1 EACH TAB PO SCH (12:32)
--- NOTE | 2021-08-20 14:48 | CDI ---
Documentation Clarification Form Date: 08/20/2021 01:23:11 PM From: Todd Bell Admit Date: 08/14/2021 01:40:00 PM Patient Name: Stas Velázquez Visit Number: [id number] Discharge Date: 08/17/2021 01:38:00 PM ATTENTION: The Clinical Documentation Specialists (CDI) and [facility] Coding Staff appreciate your assistance in clarifying documentation. Please respond to the clarification below the line at the bottom and electronically sign. The CDI & [facility] Coding staff will review the response and follow-up if needed. Please note: Queries are made part of the Legal Health Record. If you have any questions, please contact the author of this message via ITS. Dr. Jessica Melendez Pneumonia is documented in the consult 08/13 and in the ED notes. PNA is not mentioned in the progress notes. [place] to determine if [place] ruled [place] [place] History/Risk Factors: Clinical Indicators: WBC/Left shift: X-ray: RLL PNA Treatment: Antibiotics: IV Vancomycin Please clarify the status of the pneumonia: [ ] POA.Pneumonia [ ] Pneumonia not POA [ ] Pneumonia ruled out [ ] Other, please specify [ ] Unable to determine POA.Pneumonia MTDD
--- NOTE | 2021-08-21 09:48 | P.DS ---
Providers Date of admission: 08/14/21 13:40 Expected date of discharge: 08/17/21 Attending physician: Lew Reyes MD Consults: 08/12/21 19:25 Consult Physician Urgent Consulting Provider: Bria Jaeger Consult Reason/Comments: Right foot cellulitis; right leg vascular evaluation Do you want consulting provider notified?: Yes Primary care physician: Catalino Trinh Hospital Course: Final diagnosis Pain and swelling with acute cellulitis of the right third toe with possible ischemic ulcer With staphylococcus aureus Severe peripheral artery disease Right lower lobe pneumonia ruled out Hyponatremia Anemia, microcytic History of atrial fibrillation on anticoagulation Chronic obstructive pulmonary disease, acute exacerbation Hypertension History of ongoing nicotine dependence history of EtOH Full code Discharge disposition Patient is being discharged in a stable condition with guarded prognosis to home. Patient will follow-up with Dr. Catalino trihn in the outpatient setting upon discharge. Patient is to continue with Eliquis which has been resumed and aspirin as scheduled. Patient will follow-up with Dr. Jaeger in the outpatient setting in 1 week. Total time taken is greater than 35 minutes. Hospital course This is a 76-year-old male who was recently admitted with pain and swelling and found to have surrounding cellulitis of the right third toe and possible ischemic toe ulcer. Vascular surgery following and plans are for angiogram with the possibility of arterectomy with Dr. Jaeger. Will await report. Patient has history of COPD with some occasional mild shortness of breath although denies any worsening at this time. Patient denies any chest pain. Eliquis on hold for the procedure. 08/16/2021 Patient is seen and evaluated and follow-up status post angiogram with angioplasty to the left common femoral artery as there was found to be external iliac artery occlusion as there was found to be significant stenosis. Right third toe continues to be red and extremely painful with no drainage noted. Patient is maintained on IV cefazolin as well as wound cultures finalized showing Staphylococcus aureus and blood cultures remain negative. Patient continues on 3 L via nasal cannula which he states he wears at night and as needed with shortness of breath secondary to his COPD. Clinically patient is most likely experiencing acute exacerbation of COPD and will continue on breathing inhalational treatments and was given a dose of IV Lasix and will continue with his oral dose scheduled. Discussed with vascular surgery about resuming Eliquis and will resume today. Will discuss with Dr. Jaeger about treatment plans moving forward and any other possible surgical interventions and close outpatient follow-up. White blood count is normal at 9.1 and hemoglobin is 9.8, sodium is 134 with a potassium of 4.2 and current creatinine is 0.76. Patient denies any worsening shortness of breath or chest pains. 08/17/2021 Patient has been seen and evaluated by vascular surgery recommending continuing anticoagulant and aspirin and close outpatient follow-up in one week with Dr. Jaeger. Patient encouraged to use incentive spirometer and continue coughing and deep breathing and use as needed oxygen and continued inhalers. Patient will continue on oral Keflex 500 mg 4 times daily to complete the course and recommend outpatient follow-up with primary care provider on discharge. Patient encouraged to avoid tobacco and alcohol use. Patient was evaluated by physical therapy and states he already has physical therapy and home care in the home setting and lives with his daughter. Patient is asking when he can go home. Currently no reports of chest pain, shortness of breath, or palpitations. Patient is afebrile. No reports of nausea or vomiting and patient is tolerating diet. Patient will be discharged home today. Gen: This is a 76-year-old male awake, alert and oriented 3, well-developed, well-nourished. HEENT: Head is atraumatic, normocephalic. Pupils equal, round. Sclerae is anicteric. NECK: Supple. No JVD. No lymphadenopathy. No thyromegaly. LUNGS: diminished breath sounds bilaterally with some scattered rhonchi noted. No wheezing noted. No intercostal retractions. HEART: Regular rate and rhythm. No murmur. ABDOMEN: Soft. Bowel sounds are present. No masses. No tenderness. EXTREMITIES: No pedal edema. No calf tenderness. NEUROLOGICAL: Patient is awake, alert and oriented x3. Cranial nerves 2 through 12 are grossly intact. SKIN: right foot third toe with discoloration and surrounding redness noted Please refer to medication reconciliation sheet for a list of medications. Patient Condition at Discharge: Stable Plan - Discharge Summary Discharge Rx Participant: No New Discharge Prescriptions: New Aspirin 81 mg PO DAILY 30 Days #30 tab Nicotine 14Mg/24Hr Patch [Habitrol] 1 patch TRANSDERM DAILY #30 patch Multivitamins, Thera [Multivitamin (formulary)] 1 each PO DAILY@1200 #30 tab Thiamine [Vitamin B-1] 100 mg PO BID-W/MEALS #60 tab Cephalexin [Keflex] 500 mg PO Q6HR 10 Days #40 cap Continue Allopurinol [Zyloprim] 300 mg PO DAILY Apixaban [Eliquis] 5 mg PO BID Atorvastatin [Lipitor] 40 mg PO DAILY traMADol HCL 50 mg PO BID PRN PRN Reason: Pain Albuterol Nebulized [Ventolin Nebulized] 2.5 mg INHALATION RT-QID PRN PRN Reason: Shortness Of Breath Furosemide [Lasix] 20 mg PO BID PRN PRN Reason: Edema Cyclobenzaprine [Flexeril] 10 mg PO BID PRN PRN Reason: Muscle Spasm DULoxetine HCL [Cymbalta] 60 mg PO DAILY Gabapentin 300 mg PO TID Metoprolol Tartrate 25 mg PO BID Nitroglycerin Sl Tabs [Nitrostat] 0.4 mg SL Q5M PRN PRN Reason: Chest Pain Omeprazole 20 mg PO DAILY traZODone HCL [Desyrel] 50 mg PO HS HYDROcodone/APAP 5-325MG [[place] 5-325] 1 tab PO QID PRN #12 tab PRN Reason: Pain Discharge Medication List Allopurinol [Zyloprim] 300 mg PO DAILY 07/03/21 [History] Apixaban [Eliquis] 5 mg PO BID 07/03/21 [History] Atorvastatin [Lipitor] 40 mg PO DAILY 07/03/21 [History] Cyclobenzaprine [Flexeril] 10 mg PO BID PRN 07/03/21 [History] DULoxetine HCL [Cymbalta] 60 mg PO DAILY 07/03/21 [History] Gabapentin 300 mg PO TID 07/03/21 [History] Metoprolol Tartrate 25 mg PO BID 07/03/21 [History] Nitroglycerin Sl Tabs [Nitrostat] 0.4 mg SL Q5M PRN 07/03/21 [History] Omeprazole 20 mg PO DAILY 07/03/21 [History] traMADol HCL 50 mg PO BID PRN 07/03/21 [History] traZODone HCL [Desyrel] 50 mg PO HS 07/03/21 [History] Albuterol Nebulized [Ventolin Nebulized] 2.5 mg INHALATION RT-QID PRN 08/12/21 [History] Furosemide [Lasix] 20 mg PO BID PRN 08/12/21 [History] Aspirin 81 mg PO DAILY 30 Days #30 tab 08/17/21 [Rx] Cephalexin [Keflex] 500 mg PO Q6HR 10 Days #40 cap 08/17/21 [Rx] HYDROcodone/APAP 5-325MG [[place] 5-325] 1 tab PO QID PRN #12 tab 08/17/21 [Rx] Multivitamins, Thera [Multivitamin (formulary)] 1 each PO DAILY@1200 #30 tab 08/17/21 [Rx] Nicotine 14Mg/24Hr Patch [Habitrol] 1 patch TRANSDERM DAILY #30 patch 08/17/21 [Rx] Thiamine [Vitamin B-1] 100 mg PO BID-W/MEALS #60 tab 08/17/21 [Rx] Follow up Appointment(s)/Referral(s): Catalino Trinh MD [Primary Care Provider] - 1-2 days Bria Jaeger DO [STAFF PHYSICIAN] - 1 Week Patient Instructions/Handouts: Community Acquired Pneumonia (DC) Activity/Diet/Wound Care/Special Instructions: Activity Limited until follow-up Take medications as prescribed Continue with antibiotics for 10 days until finished Follow-up with primary care provider on discharge Follow-up with vascular surgery outpatient in one week Continue using incentive spirometer at least 10 times every hour while awake Avoid tobacco use and alcohol use Discharge Disposition: HOME WITH HOME HEALTH SERVICES
== END 2021-08-17 13:38 | disposition home health service (06) | DRG 252 ==
LOC: EC 15:22 → 6NMEDSUR 19:24 → OBSVTOIN 08-14 13:40
PROVIDERS: ADMIT Internal Medicine; ATTEND Internal Medicine
PROC: 047J3ZZ Dilation of Left External Iliac Artery, Percutaneous Approach (ICD-10-PCS; principal; 2021-08-15 12:30)
PROC: B41G1ZZ Fluoroscopy of Left Lower Extremity Arteries using Low Osmolar Contrast (ICD-10-PCS; 2021-08-15 12:30)
PROC: B4101ZZ Fluoroscopy of Abdominal Aorta using Low Osmolar Contrast (ICD-10-PCS; 2021-08-15 12:30)
DX: I74.5 Embolism and thrombosis of iliac artery (principal); J18.9 Pneumonia, unspecified organism; E87.1 Hypo-osmolality and hyponatremia; J44.1 Chronic obstructive pulmonary disease with (acute) exacerbation; L03.115 Cellulitis of right lower limb; L03.031 Cellulitis of right toe; D50.9 Iron deficiency anemia, unspecified; F10.10 Alcohol abuse, uncomplicated; F17.210 Nicotine dependence, cigarettes, uncomplicated; I48.91 Unspecified atrial fibrillation; I70.203 Unspecified atherosclerosis of native arteries of extremities, bilateral legs; Z79.01 Long term (current) use of anticoagulants; Z79.899 Other long term (current) drug therapy; Z95.0 Presence of cardiac pacemaker; I11.9 Hypertensive heart disease without heart failure; Z20.822 Contact with and (suspected) exposure to COVID-19
CPT/HCPCS: 36415; 37220; 71045; 75625; 75716; 80048; 80053; 83605; 85025; 85610; 85730; 87040; 87070; 87077; 87186; 87205; 87635; 93005; 93923; 94640; 96365; 96366; 96375; 99284

== ENCOUNTER 2021-08-28 10:34 | Day surgery (SDC) | payer MEDICARE ==
[2021-08-27 10:48] VITALS: BMI 29.0
[~2021-08-28 10:34] MED LIST: ALPRAZolam 0.25 MG TAB PO PRN; ASPIRIN 325 MG TAB PO PRN; SODIUM CHLORIDE 0.9% 1,000 ML in EMPTY BAG 1 BAG IV ONE
[2021-08-28] MEDS ORDERED: SODIUM CHLORIDE 0.9% 1,000 ML IV ONE (10:58)
[2021-08-28 11:16] VITALS: TEMP 98.2
[2021-08-28] MEDS: MIDAZOLAM 2 MG/2 ML VIAL IV ONE ×2 (11:56→12:05)
[2021-08-28] MEDS ORDERED: LIDOCAINE 1% INJ 10MG/ML (20 ML MDV) ONE (11:58)
[2021-08-28] MEDS ORDERED: fentaNYL (PF) 50 MCG/ML 2 ML AMP IV ONE (11:59)
[2021-08-28] MEDS ORDERED: fentaNYL (PF) 50 MCG/ML 2 ML AMP ONE (12:00)
[2021-08-28] MEDS ORDERED: LIDOCAINE 1% INJ 10MG/ML (20 ML MDV) SQ ONE (12:02)
[2021-08-28] MEDS ORDERED: HEPARIN SODIUM 1,000 UN/ML (10ML VL) ONE (12:16)
[2021-08-28] MEDS ORDERED: IOPAMIDOL-250 100ML BTL INTRAARTER ONE (13:00)
--- NOTE | 2021-08-28 13:32 | P.OP ---
Date of Procedure: 08/28/21 Description of Procedure: Preoperative diagnosis: Left hip claudication, right second toe distal chronic wound, [place] classification 5 Postop diagnosis: Same, left external iliac artery stenosis greater than 60%, right anterior tibial artery occlusion just proximal to the ankle with reconstitution at the ankle Procedure: Selective right lower extremity angiogram third order. Ultrasound- guided access of the left common femoral artery. Percutaneous transluminal balloon angioplasty of the left external iliac artery. Percutaneous stenting of the external iliac artery. Surgeon: Yayo Anesthesia: Moderate sedation times 66 minutes Estimated blood loss: 5 mL Complications: None Condition: Stable Findings: 60% stenosis of the left external iliac artery at previous site of balloon angioplasty and occlusion. Iliacs, femoral and tibial vessels demonstrates significant calcific disease atherosclerotic disease with without significant stenosis at the iliac, femoral, popliteal arteries. There is occlusion noted at the right anterior tibial artery just proximal to the ankle with reconstitution distally filling of the foot. Operative narrative: After written informed consent was obtained the patient all risks benefits competitions were described the patient is brought to the Claim Adjuster and laid in a supine position. The area of the left groin was prepped and draped in the usual sterile fashion. Local anesthesia with moderate sedation was performed with continuous pulse ox monitoring and EKG monitoring. Utilizing ultrasound the left common femoral artery was visualized and shown to be patent without any significant plaque. Utilizing a multipurpose needle under ultrasound guidance the artery was accessed. Guidewire was placed followed by 6-[place] sheath. Patient was administered heparin. Retrograde angiogram was then obtained demonstrating significant stenosis of the external iliac artery just after the bifurcation. 035 Glidewire was then placed followed by an RBI catheter and attempt to go up and over was performed. Wire was able to be placed into the common femoral artery on the right but the catheter was unable to be passed. Attempt to pass a quick cross catheter was also performed and due to the angle was unable to be passed across this area. Attempt at balloon angioplasty of the right common iliac artery was performed with a 5 x 40 mm balloon but the balloon was unable to cross into the external iliac artery. At that time 018 wire was then placed down in the common femoral bypass followed by an 018 crossing catheter. Selective angiograms of the right lower extremity were then obtained demonstrating brisk flow through the bypass without any significant stenosis at the anastomosis distally or proximally. There was three-vessel takeoff anterior tibial posterior tibial and peroneal artery but the anterior tibial artery occluded just proximal to the ankle. There was reconstitution and filling of the foot. There was some filling of the toes but this was not brisk. Attention was then placed back to the left external iliac artery. 035 wire was then placed across the lesion and balloon angioplasty was performed with a 5 x 40 mm balloon followed by a 8 x 80 mm ever Flex self- expanding stent. Postdilatation was then performed with 5 x 40 mm balloon. Retrograde angiogram was obtained demonstrating brisk flow through the area with complete resolution of the stenosis. All guidewires and catheters were removed and left common femoral artery was closed with a Vascade device. Patient tolerated procedure well was sent to PACU for recovery. Patient will likely require a distal amputation of the second toe which would likely heal due to the blood flow visualized in the foot. If this does not heal he may need a retrograde or antegrade access to treat the anterior tibial artery occlusion. Plan - Discharge Summary Discharge Rx Participant: No New Discharge Prescriptions: No Action Allopurinol [Zyloprim] 300 mg PO DAILY Apixaban [Eliquis] 5 mg PO BID Atorvastatin [Lipitor] 40 mg PO DAILY traMADol HCL 50 mg PO BID PRN PRN Reason: Pain Albuterol Nebulized [Ventolin Nebulized] 2.5 mg INHALATION RT-QID PRN PRN Reason: Shortness Of Breath Furosemide [Lasix] 20 mg PO BID Aspirin 81 mg PO DAILY 30 Days #30 tab Multivitamins, Thera [Multivitamin (formulary)] 1 each PO DAILY@1200 #30 tab Cyclobenzaprine [Flexeril] 10 mg PO BID PRN PRN Reason: Muscle Spasm DULoxetine HCL [Cymbalta] 60 mg PO DAILY Gabapentin 300 mg PO TID Metoprolol Tartrate 25 mg PO BID Nitroglycerin Sl Tabs [Nitrostat] 0.4 mg SL Q5M PRN PRN Reason: Chest Pain Omeprazole 20 mg PO DAILY traZODone HCL [Desyrel] 50 mg PO HS Thiamine [Vitamin B-1] 100 mg PO BID-W/MEALS #60 tab HYDROcodone/APAP 5-325MG [[place] 5-325] 1 tab PO QID PRN #12 tab PRN Reason: Pain Cephalexin [Keflex] 500 mg PO Q6HR 10 Days #40 cap Discharge Medication List Allopurinol [Zyloprim] 300 mg PO DAILY 07/03/21 [History] Apixaban [Eliquis] 5 mg PO BID 07/03/21 [History] Atorvastatin [Lipitor] 40 mg PO DAILY 07/03/21 [History] Cyclobenzaprine [Flexeril] 10 mg PO BID PRN 07/03/21 [History] DULoxetine HCL [Cymbalta] 60 mg PO DAILY 07/03/21 [History] Gabapentin 300 mg PO TID 07/03/21 [History] Metoprolol Tartrate 25 mg PO BID 07/03/21 [History] Nitroglycerin Sl Tabs [Nitrostat] 0.4 mg SL Q5M PRN 07/03/21 [History] Omeprazole 20 mg PO DAILY 07/03/21 [History] traMADol HCL 50 mg PO BID PRN 07/03/21 [History] traZODone HCL [Desyrel] 50 mg PO HS 07/03/21 [History] Albuterol Nebulized [Ventolin Nebulized] 2.5 mg INHALATION RT-QID PRN 08/12/21 [History] Furosemide [Lasix] 20 mg PO BID 08/12/21 [History] Aspirin 81 mg PO DAILY 30 Days #30 tab 08/17/21 [Rx] Cephalexin [Keflex] 500 mg PO Q6HR 10 Days #40 cap 08/17/21 [Rx] HYDROcodone/APAP 5-325MG [[place] 5-325] 1 tab PO QID PRN #12 tab 08/17/21 [Rx] Multivitamins, Thera [Multivitamin (formulary)] 1 each PO DAILY@1200 #30 tab 08/17/21 [Rx] Thiamine [Vitamin B-1] 100 mg PO BID-W/MEALS #60 tab 08/17/21 [Rx] Follow up Appointment(s)/Referral(s): Suleman Zee DO [STAFF PHYSICIAN] - 1 Week (Sep 04 at 2:45 PM is follo w up appt.) Patient Instructions/Handouts: Angiogram (GEN), Procedural Sedation (ED) Activity/Diet/Wound Care/Special Instructions: no driving for two days.
--- NOTE | 2021-08-28 15:03 | IR ---
Fluoroscopy HISTORY: Pain in bilateral feet 18.1 minutes fluoroscopy time supplied to the referring clinician. 164 intraoperative C-arm images d ocument the procedure. See dictated report from vascular surgery.
[2021-08-28 17:08] VITALS: PULSE 69; RESP 18
[2021-08-28 17:45] VITALS: BP 160/75
== END 2021-08-28 18:49 | disposition home or self-care (01) ==
LOC: CATHCVL 10:34
PROVIDERS: ATTEND Surgery
DX: T82.858A Stenosis of other vascular prosthetic devices, implants and grafts, initial encounter (principal); Z79.01 Long term (current) use of anticoagulants; Z79.82 Long term (current) use of aspirin; Z79.899 Other long term (current) drug therapy
CPT/HCPCS: 37221; 75710; 87635; C1769 ×5; C1894; C1725; C1887; C1876; C1760; J2250; J2001; J3010; J1644; Q9966

== ENCOUNTER 2021-09-12 09:00 | Day surgery (SDC) | payer MEDICARE ==
[2021-09-10 16:18] VITALS: BMI 26.6
[~2021-09-12 09:00] MED LIST changes: -ALPRAZolam 0.25 MG TAB PO PRN; -ASPIRIN 325 MG TAB PO PRN; +LACTATED RINGERS 1,000 ML IV SCH; +LIDOCAINE 1% (10MG/ML) FOR IV START INTRADERMA PRN; -SODIUM CHLORIDE 0.9% 1,000 ML in EMPTY BAG 1 BAG IV ONE
[2021-09-12 09:54] VITALS: TEMP 96.8
[2021-09-12] MEDS ORDERED: ONDANSETRON 4 MG/2 ML VIAL ONE (09:59)
[2021-09-12] MEDS ORDERED: KETAMINE 10 MG/ML 20 ML VIAL ONE (10:14)
[2021-09-12] MEDS ORDERED: MIDAZOLAM 2 MG/2 ML VIAL ONE (10:14)
[2021-09-12] MEDS ORDERED: PROPOFOL 10 MG/ML 20 ML VIAL IV ONE (10:14)
[2021-09-12] MEDS ORDERED: fentaNYL (PF) 50 MCG/ML 2 ML AMP ONE (10:14)
[2021-09-12] MEDS ORDERED: PHENYLEPHRINE-0.9% NACL SYG 1,000 MCG/10 ML SYRINGE ONE (10:14)
[2021-09-12] MEDS ORDERED: LIDOCAINE 1% INJ 10MG/ML (20 ML MDV) SQ ONE (10:37)
--- NOTE | 2021-09-12 10:56 | P.OP ---
Date of Procedure: 09/12/21 Preoperative Diagnosis: Gangrene third toe right foot Postoperative Diagnosis: Same. Procedure(s) Performed: Amputation third toe right foot first tarsal level Implants: None. Anesthesia: MAC (With 1% Xylocaine for local anesthesia.) Surgeon: Stas Tolbert Estimated Blood Loss (ml): 1 Urine output (ml): 0 Pathology: other (Dictated portion third toe right foot) Condition: stable Disposition: PACU Indications for Procedure: Patient is a 76-year-old male with history of gangrenous changes of the tip of the right foot. This is associated with pain. Because the gangrenous changes the patient is offered toe amputation. The amputation wound is expected to heal as the patient has relatively normal perfusion of the right foot. Description of Procedure: Patient was brought the upper and placed in the supine position and attended anesthesia delivered by the department anesthesiology. The patient received 2 g of Ancef intravenously in the perioperative phase for prophylactic antibiotic t herapy. The right foot was sterilely prepped and draped in usual manner. A circular type incision was made proximal to the gangrenous changes at a healthy tissue level. Incision was deepened through the subcutaneous tissues. Tendons were transected. The bone was transected with a bone cutter and the specimen sent to pathology. A bone rongeur was utilized to take the bone back first laryngeal level. The wound was irrigated. The wound was then closed with 4-0 nylon suture. Proper dressing was applied. Patient tolerated the procedure well and was taken to the recovery area in satisfactory and stable condition.
[2021-09-12 11:37] LABS: Glucose,Whole Blood 98 mg/dL (75-99)
[2021-09-12 12:09] VITALS: RESP 16
[2021-09-12 13:00] VITALS: BP 123/64; PULSE 70
--- NOTE | 2021-09-17 09:00 | CDI ---
Outpatient Documentation Clarification Form Date: 09/17/21 CDS/Head Baker Name: Alize Serna Phone: If any questions, call Tika Lopez Parts Classifier at [phone] Patient Name: Stas Velázquez Admit Date: 09/12/21 Discharge Date: 09/12/21 ATTENTION: The [facility] Coding Staff appreciate your assistance in clarifying documentation. Please respond to the clarification below the line at the bottom and electronically sign. The [facility] Coding staff will review the response and follow-up if needed. Please note: Queries are made part of the Legal Health Record. If you have any questions, please contact the Parts Classifier. Dear Dr. Tolbert, Please provide clarification as to the exact point of amputation. In order to support medical necessity, the greatest specificity is needed. Please provide how much of the toe was amputated. Please specify the bone level that was included in the specimen. Metatarsal Tarsal. metatarsal MTDD
== END 2021-09-12 13:21 | disposition home or self-care (01) ==
LOC: OR 09:00
PROVIDERS: ATTEND Surgery
DX: L97.516 Non-pressure chronic ulcer of other part of right foot with bone involvement without evidence of necrosis (principal); I77.1 Stricture of artery; Z95.820 Peripheral vascular angioplasty status with implants and grafts; I48.91 Unspecified atrial fibrillation; I25.10 Atherosclerotic heart disease of native coronary artery without angina pectoris; J44.9 Chronic obstructive pulmonary disease, unspecified; I82.409 Acute embolism and thrombosis of unspecified deep veins of unspecified lower extremity; I10 Essential (primary) hypertension; N40.0 Benign prostatic hyperplasia without lower urinary tract symptoms; E11.40 Type 2 diabetes mellitus with diabetic neuropathy, unspecified; I27.20 Pulmonary hypertension, unspecified; G47.30 Sleep apnea, unspecified; Z95.0 Presence of cardiac pacemaker; Z97.2 Presence of dental prosthetic device (complete) (partial); F17.200 Nicotine dependence, unspecified, uncomplicated; Z85.118 Personal history of other malignant neoplasm of bronchus and lung; I25.2 Old myocardial infarction; Z99.81 Dependence on supplemental oxygen; E78.5 Hyperlipidemia, unspecified; Z79.02 Long term (current) use of antithrombotics/antiplatelets; Z79.891 Long term (current) use of opiate analgesic; Z79.01 Long term (current) use of anticoagulants; Z79.899 Other long term (current) drug therapy; Z88.1 Allergy status to other antibiotic agents; Z91.048 Other nonmedicinal substance allergy status
CPT/HCPCS: 88305; 88311; 28810; J2250; J0690; J2405; J2001; J3010; J2370; J2704

== ENCOUNTER 2021-12-14 11:59 | Inpatient (IN) | payer MEDICARE ==
--- NOTE | 2021-12-14 12:12 | ED ---
SOB HPI - General Stated Complaint: Altered Mental Time Seen by Provider: 12/14/21 12:03 - History of Present Illness Initial Comments: Patient presents with shortness of breath for a few days. His symptoms are worse with exertion. He has no chest pain or pressure or tightness. He has no nausea or vomiting. He is tolerating oral intake. He has no back pain. He has generalized weakness which is nonfocal and nonradiating. He has no paresthesias. He has no lightheadedness or dizziness. - Related Data Home Medications Medication Instructions Recorded Confirmed Allopurinol [Zyloprim] 300 mg PO HS 07/03/21 12/14/21 Apixaban [Eliquis] 5 mg PO BID 07/03/21 12/14/21 Atorvastatin [Lipitor] 40 mg PO HS 07/03/21 12/14/21 Cyclobenzaprine [Flexeril] 10 mg PO BID PRN 07/03/21 12/14/21 DULoxetine HCL [Cymbalta] 60 mg PO DAILY@1200 07/03/21 12/14/21 Gabapentin 300 mg PO TID 07/03/21 12/14/21 Metoprolol Tartrate 25 mg PO BID 07/03/21 12/14/21 Nitroglycerin Sl Tabs [Nitrostat] 0.4 mg SL Q5M PRN 07/03/21 12/14/21 Omeprazole 20 mg PO DAILY@1200 07/03/21 12/14/21 traMADol HCL 50 mg PO BID PRN 07/03/21 12/14/21 traZODone HCL [Desyrel] 50 mg PO HS 07/03/21 12/14/21 Albuterol Nebulized [Ventolin 2.5 mg INHALATION RT-QID PRN 08/12/21 12/14/21 Nebulized] Furosemide [Lasix] 20 mg PO DAILY 08/12/21 12/14/21 Ipratropium/Albuterol Sulfate 1 puff INHALATION RT-QID 12/14/21 12/14/21 [Combivent Respimat Inhaler] lisinopriL [Zestril] 5 mg PO DAILY 12/14/21 12/14/21 predniSONE 50 mg PO DAILY@1200 12/14/21 12/14/21 Allergies Allergy/AdvReac Type Severity Reaction Status Date / Time iron Allergy Rash/Hives Verified 12/14/21 12:04 varenicline [From Chantix] Allergy Hallucinati Verified 12/14/21 12:04 ons Review of Systems ROS Statement: Those systems with pertinent positive or pertinent negative responses have been documented in the HPI. ROS Other: All systems not noted in ROS Statement are negative. Past Medical History Past Medical History: Atrial Fibrillation, Cancer, COPD, Hypertension, Myocardial Infarction ([place]), Prostate Disorder, Vascular Disorder Additional Past Medical History / Comment(s): Varicose veins. Pacemaker. Hx lung cancer approx 2007. PAD. Enlarged Prostate. 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 Still healing from broken right shoulder(May 2021), limited mobility. Uses O2 @ 3L most of the time. Last Myocardial Infarction Date:: 2005 History of Any Multi-Drug Resistant Organisms: None Reported Past Surgical History: Bowel Resection, Orthopedic Surgery, Pacemaker Additional Past Surgical History / Comment(s): Femoral Popliteal Procedure, ankle surgery, bilateral cataract surgery, lobectomy, colostomy with reversal. Left upper leg stent 08/27/21. Past Anesthesia/Blood Transfusion Reactions: No Reported Reaction Additional Past Anesthesia/Blood Transfusion Reaction / Comment(s): Received blood without reaction X1. Vertigo. Type of Cardiac Device: Permanent Pacemaker Device Placement Date:: UNK Past Psychological History: No Psychological Hx Reported Smoking Status: Current every day smoker Past Alcohol Use History: Daily Additional Past Alcohol Use History / Comment(s): "Has been smoking most of his life, 1/2 -1 PPD". 6 BEERS A DAY. Past Drug Use History: None Reported - Past Family History Father History Unknown: Yes Family Medical History: Unable to Obtain Mother History Unknown: Yes Family Medical History: Unable to Obtain Sister(s) History Unknown: Yes Family Medical History: Unable to Obtain Brother(s) History Unknown: Yes Family Medical History: Unable to Obtain General Exam General appearance: alert, in no apparent distress Head exam: Present: atraumatic, normocephalic, normal inspection Eye exam: Present: normal appearance, PERRL, EOMI. Absent: scleral icterus, conjunctival injection, periorbital swelling ENT exam: Present: normal exam, mucous membranes moist Neck exam: Present: normal inspection. Absent: tenderness, meningismus, lymphadenopathy Respiratory exam: Present: rales, rhonchi. Absent: wheezes, stridor Cardiovascular Exam: Present: regular rate, normal rhythm, normal heart sounds. Absent: systolic murmur, diastolic murmur, rubs, gallop, clicks GI/Abdominal exam: Present: soft, normal bowel sounds. Absent: distended, tenderness, guarding, rebound, rigid Extremities exam: Present: normal inspection, full ROM, normal capillary refill. Absent: tenderness, pedal edema, joint swelling, calf tenderness Back exam: Present: normal inspection Neurological exam: Present: alert, oriented X3, CN II-XII intact Psychiatric exam: Present: normal affect, normal mood Skin exam: Present: warm, dry, intact, normal color. Absent: rash Course Vital Signs 12/14/21 12/14/21 12/14/21 12:01 13:39 14:15 Temperature 98.7 F Pulse Rate 70 70 Respiratory Rate Blood Pressure 104/61 109/54 O2 Sat by Pulse 93 L 98 Oximetry Medical Decision Making - Medical Decision Making Patient presents with shortness of breath. He hasn't elevated white count, elevated lactate, slight increase in the troponin. Chest x-ray is very concerning for pneumonia. I ordered blood cultures and antibiotics for healthcare associated pneumonia. I consult the pulmonology and cardiology as well. Patient will be admitted to the hospital. - Lab Data Result diagrams: 12/14/21 12:52 12/14/21 12:52 Lab Results 12/14/21 12/14/21 12/14/21 Range/Units 12:19 12:52 12:52 WBC 18.2 H (3.8-10.6) k/uL RBC 4.52 (4.30-5.90) m/uL Hgb 9.8 L (13.0-17.5) gm/dL Hct 35.4 L (39.0-53.0) % MCV 78.4 L (80.0-100.0) fL MCH 21.6 L (25.0-35.0) pg MCHC 27.6 L (31.0-37.0) g/dL RDW 19.1 H (11.5-15.5) % Plt Count 431 (150-450) k/uL MPV 6.9 Neutrophils % 89 % Lymphocytes % 3 % Monocytes % 6 % Eosinophils % 0 % Basophils % 0 % Neutrophils # 16.2 H (1.3-7.7) k/uL Lymphocytes # 0.6 L (1.0-4.8) k/uL Monocytes # 1.0 (0-1.0) k/uL Eosinophils # 0.1 (0-0.7) k/uL Basophils # 0.0 (0-0.2) k/uL Hypochromasia Marked Poikilocytosis Slight Anisocytosis Slight Microcytosis Slight PT 12.4 H (9.0-12.0) sec INR 1.2 H (<1.2) APTT 23.3 (22.0-30.0) sec Sodium (137-145) mmol/L Potassium (3.5-5.1) mmol/L Chloride (98-107) mmol/L Carbon Dioxide (22-30) mmol/L Anion Gap mmol/L BUN (9-20) mg/dL Creatinine (0.66-1.25) mg/dL Est GFR (CKD-EPI)AfAm (>60 ml/min/1.73 sqM) Est GFR (CKD-EPI)NonAf (>60 ml/min/1.73 sqM) Glucose (74-99) mg/dL Plasma Lactic Acid Corwin (0.7-2.0) mmol/L Calcium (8.4-10.2) mg/dL Magnesium (1.6-2.3) mg/dL Total Bilirubin (0.2-1.3) mg/dL AST (17-59) U/L ALT (4-49) U/L Alkaline Phosphatase (38-126) U/L Troponin I (0.000-0.034) ng/mL NT-Pro-B Natriuret Pep pg/mL Total Protein (6.3-8.2) g/dL Albumin (3.5-5.0) g/dL Coronavirus (PCR) Not Detected (Not Detectd) 12/14/21 12/14/21 12/14/21 Range/Units 12:52 12:52 12:52 WBC (3.8-10.6) k/uL RBC (4.30-5.90) m/uL Hgb (13.0-17.5) gm/dL Hct (39.0-53.0) % MCV (80.0-100.0) fL MCH (25.0-35.0) pg MCHC (31.0-37.0) g/dL RDW (11.5-15.5) % Plt Count (150-450) k/uL MPV Neutrophils % % Lymphocytes % % Monocytes % % Eosinophils % % Basophils % % Neutrophils # (1.3-7.7) k/uL Lymphocytes # (1.0-4.8) k/uL Monocytes # (0-1.0) k/uL Eosinophils # (0-0.7) k/uL Basophils # (0-0.2) k/uL Hypochromasia Poikilocytosis Anisocytosis Microcytosis PT (9.0-12.0) sec INR (<1.2) APTT (22.0-30.0) sec Sodium 134 L (137-145) mmol/L Potassium 4.9 (3.5-5.1) mmol/L Chloride 95 L (98-107) mmol/L Carbon Dioxide 33 H (22-30) mmol/L Anion Gap 6 mmol/L BUN 43 H (9-20) mg/dL Creatinine 1.09 (0.66-1.25) mg/dL Est GFR (CKD-EPI)AfAm 76 (>60 ml/min/1.73 sqM) Est GFR (CKD-EPI)NonAf 66 (>60 ml/min/1.73 sqM) Glucose 87 (74-99) mg/dL Plasma Lactic Acid Corwin 3.1 H* (0.7-2.0) mmol/L Calcium 8.6 (8.4-10.2) mg/dL Magnesium 2.2 (1.6-2.3) mg/dL Total Bilirubin 0.7 (0.2-1.3) mg/dL AST 31 (17-59) U/L ALT 29 (4-49) U/L Alkaline Phosphatase 76 (38-126) U/L Troponin I 0.036 H* (0.000-0.034) ng/mL NT-Pro-B Natriuret Pep pg/mL Total Protein 6.3 (6.3-8.2) g/dL Albumin 3.1 L (3.5-5.0) g/dL Coronavirus (PCR) (Not Detectd) 12/14/21 Range/Units 12:52 WBC (3.8-10.6) k/uL RBC (4.30-5.90) m/uL Hgb (13.0-17.5) gm/dL Hct (39.0-53.0) % MCV (80.0-100.0) fL MCH (25.0-35.0) pg MCHC (31.0-37.0) g/dL RDW (11.5-15.5) % Plt Count (150-450) k/uL MPV Neutrophils % % Lymphocytes % % Monocytes % % Eosinophils % % Basophils % % Neutrophils # (1.3-7.7) k/uL Lymphocytes # (1.0-4.8) k/uL Monocytes # (0-1.0) k/uL Eosinophils # (0-0.7) k/uL Basophils # (0-0.2) k/uL Hypochromasia Poikilocytosis Anisocytosis Microcytosis PT (9.0-12.0) sec INR (<1.2) APTT (22.0-30.0) sec Sodium (137-145) mmol/L Potassium (3.5-5.1) mmol/L Chloride (98-107) mmol/L Carbon Dioxide (22-30) mmol/L Anion Gap mmol/L BUN (9-20) mg/dL Creatinine (0.66-1.25) mg/dL Est GFR (CKD-EPI)AfAm (>60 ml/min/1.73 sqM) Est GFR (CKD-EPI)NonAf (>60 ml/min/1.73 sqM) Glucose (74-99) mg/dL Plasma Lactic Acid Corwin (0.7-2.0) mmol/L Calcium (8.4-10.2) mg/dL Magnesium (1.6-2.3) mg/dL Total Bilirubin (0.2-1.3) mg/dL AST (17-59) U/L ALT (4-49) U/L Alkaline Phosphatase (38-126) U/L Troponin I (0.000-0.034) ng/mL NT-Pro-B Natriuret Pep 7560 pg/mL Total Protein (6.3-8.2) g/dL Albumin (3.5-5.0) g/dL Coronavirus (PCR) (Not Detectd) 12/14/21 15:48 Twelve-lead EKG shows ventricular rate 70 bpm, there are no P waves present, the QRS complexes are wide, there is no ST elevation or depression, interpreted by me as ventricular paced rhythm. Disposition Clinical Impression: Pneumonia Disposition: ADMITTED IP TO THIS HOSP Condition: Fair Is patient prescribed a controlled substance at d/c from ED?: No Referrals: Catalino Yanes MD [Primary Care Provider] - 1-2 days
[2021-12-14 13:33] LABS: Anisocytosis Slight; Basophils % (A) 0 %; Eosinophils # (A) 0.1 k/uL (0-0.7); Eosinophils % (A) 0 %; HCT 35.4 % (39.0-53.0); HGB 9.8 gm/dL (13.0-17.5); Hypochromasia Marked; Lymphocytes # (A) 0.6 k/uL (1.0-4.8); Lymphocytes % (A) 3 %; MCH 21.6 pg (25.0-35.0); MCHC 27.6 g/dL (31.0-37.0); MCV 78.4 fL (80.0-100.0); Mean Platelet Volume 6.9; Microcytosis Slight; Monocytes % (A) 6 %; Neutrophils # (A) 16.2 k/uL (1.3-7.7); Neutrophils % (A) 89 %; Platelet Count 431 k/uL (150-450); Poikilocytosis Slight; RBC 4.52 m/uL (4.30-5.90); RDW 19.1 % (11.5-15.5); WBC 18.2 k/uL (3.8-10.6)
[2021-12-14 13:44] LABS: Albumin 3.1 g/dL (3.5-5.0); Calcium 8.6 mg/dL (8.4-10.2); Magnesium 2.2 mg/dL (1.6-2.3); Potassium 4.9 mmol/L (3.5-5.1); Total Bilirubin 0.7 mg/dL (0.2-1.3); Total Protein 6.3 g/dL (6.3-8.2)
[2021-12-14 13:47] LABS: INR 1.2 (<1.2); Partial Thromboplastin Time 23.3 sec (22.0-30.0); Prothrombin Time 12.4 sec (9.0-12.0)
--- NOTE | 2021-12-14 14:13 | XR ---
EXAMINATION TYPE: XR chest 1V portable DATE OF EXAM: 12/14/2021 COMPARISON: Chest x-ray August 16, 2021 and older studies to July 03, 2021 HISTORY: Dyspnea. TECHNIQUE: Single frontal view of the chest is obtained. FINDINGS: The osseous structures remain demineralized. Persisting cardiomegaly with single lead pace maker and atherosclerotic thoracic aorta. Background chronic painful changes bilaterally redemonstrat ed. Persistent right hilar surgical clips with small to moderate right pleural effusion or fluid joanne ection extending to the right lung apex. There is right mid to lower lung opacity redemonstrated coul d reflect new acute infiltrate and/or atelectasis. IMPRESSION: Chronic changes and cardiomegaly with persistent [id number] right pleural effusio n and right mid to lower lung acute infiltrate and/or atelectasis. Findings are improved from most re cent chest x-ray, similar findings noted on the July 03, 2021 x-ray. Correlate clinically.
[2021-12-14] MEDS ORDERED: CEFEPIME 1 GM in SODIUM CHLORIDE 0.9% 50 ML IVPB STA (15:41)
[2021-12-14] MEDS ORDERED: VANCOMYCIN IV PER PHARMACY 1 EACH MISC MISCELLANE PRN ×2 (15:47→16:00)
[2021-12-14] MEDS ORDERED: VANCOMYCIN 1,500 MG in SODIUM CHLORIDE 0.9% 250 ML IVPB STA (15:47)
[2021-12-14] MEDS ORDERED: NALOXONE 0.4 MG/ML 1 ML VIAL IV PRN ×2 (15:51→15:58)
[2021-12-14] MEDS ORDERED: SODIUM CHLORIDE 0.9% 1,000 ML IV ONE (15:51)
[2021-12-14] MEDS ORDERED: MAG HYDROX/AL HYDROX/SIMETH 30 ML CUP PO PRN (15:51)
[2021-12-14] MEDS ORDERED: ONDANSETRON 4 MG/2 ML VIAL IVP PRN (15:51)
[2021-12-14] MEDS ORDERED: ALBUTEROL NEBULIZED 2.5 MG/3 ML INHALATION PRN (15:57)
[2021-12-14] MEDS ORDERED: LOPERAMIDE 2 MG CAP PO PRN (15:58)
[2021-12-14] MEDS ORDERED: IPRATROPIUM-ALBUTEROL 3 ML NEB INHALATION STA (16:04)
--- NOTE | 2021-12-14 16:09 | P.HPIM ---
History of Present Illness H&P Date: 12/14/21 77-year-old male with multiple medical problems including COPD likely chronic diastolic congestive heart failure hypertension likely at fibrillation admitted to the hospital for shortness of breath that has been going for the last few days has been getting worse and the patient has not been feeling well Is not complaining of chest pain at this time Review of systems and systems has been reviewed all negative and positive findings as per history of present illness Constitutional: No acute distress, conversant, pleasant Eyes: Anicteric sclerae, moist conjunctiva, no lid-lag PERRLA ENMT: NC/AT Oropharynx clear, no erythema, exudates Neck: Supple, FROM, no masses, or JVD No carotid bruits No thyromegaly Lungs: crackly Normal respiratory effort, no accessory muscle use Cardiovascular: Heart regular in rate and rhythm, No murmurs, gallops, or rubs No peripheral edema Abdominal: Soft Nontender, no guarding, rebound or rigidity Abdomen moving with respiration Normoactive bowel sounds No hepatomegaly, No splenomegaly No palpable mass No abdominal wall hernia noted Skin: Normal temperature, tone, texture, turgor No induration No subcutaneous nodules No rash, lesions No ulcers Extremities: No digital cyanosis No clubbing Pedal pulses intact and symmetrical Radial pulses intact and symmetrical Normal gait and station No calf tenderness Psychiatric:Alert and oriented to person, place and time Appropriate affect Intact judgement Neuro: Muscles Strength 5/5 in all 4 extremities Sensation to light touch grossly present throughout Cranial nerves II-XII grossly intact No focal sensory deficits Pneumonia we'll continue patient on vancomycin and cefepime likely hospital-a cquired we'll also consult pulmonology Pleural effusion will start the patient on IV Lasix and consult pulmonology Minimal elevation in troponins cardiology has been consulted COPD exacerbations of the patient on IV steroids A. fib resume eliquis Generalized weakness Multiple medical problems Past Medical History Past Medical History: Atrial Fibrillation, Cancer, COPD, Hypertension, Myocardial Infarction ([place]), Prostate Disorder, Vascular Disorder Additional Past Medical History / Comment(s): Varicose veins. Pacemaker. Hx lung cancer approx 2007. PAD. Enlarged Prostate. 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 Still healing from broken right shoulder(May 2021), limited mobility. Uses O2 @ 3L most of the time. Last Myocardial Infarction Date:: 2005 History of Any Multi-Drug Resistant Organisms: None Reported Past Surgical History: Bowel Resection, Orthopedic Surgery, Pacemaker Additional Past Surgical History / Comment(s): Femoral Popliteal Procedure, ankle surgery, bilateral cataract surgery, lobectomy, colostomy with reversal. Left upper leg stent 08/27/21. Past Anesthesia/Blood Transfusion Reactions: No Reported Reaction Additional Past Anesthesia/Blood Transfusion Reaction / Comment(s): Received blood without reaction X1. Vertigo. Type of Cardiac Device: Permanent Pacemaker Device Placement Date:: UNK Past Psychological History: No Psychological Hx Reported Smoking Status: Current every day smoker Past Alcohol Use History: Daily Additional Past Alcohol Use History / Comment(s): "Has been smoking most of his life, 1/2 - PPD". 6 BEERS A DAY. Past Drug Use History: None Reported - Past Family History Father History Unknown: Yes Family Medical History: Unable to Obtain Mother History Unknown: Yes Family Medical History: Unable to Obtain Sister(s) History Unknown: Yes Family Medical History: Unable to Obtain Brother(s) History Unknown: Yes Family Medical History: Unable to Obtain Medications and Allergies Home Medications Medication Instructions Recorded Confirmed Type Allopurinol [Zyloprim] 300 mg PO HS 07/03/21 12/14/21 History Apixaban [Eliquis] 5 mg PO BID 07/03/21 12/14/21 History Atorvastatin [Lipitor] 40 mg PO HS 07/03/21 12/14/21 History Cyclobenzaprine [Flexeril] 10 mg PO BID PRN 07/03/21 12/14/21 History DULoxetine HCL [Cymbalta] 60 mg PO DAILY@1200 07/03/21 12/14/21 History Gabapentin 300 mg PO TID 07/03/21 12/14/21 History Metoprolol Tartrate 25 mg PO BID 07/03/21 12/14/21 History Nitroglycerin Sl Tabs [Nitrostat] 0.4 mg SL Q5M PRN 07/03/21 12/14/21 History Omeprazole 20 mg PO DAILY@1200 07/03/21 12/14/21 History traMADol HCL 50 mg PO BID PRN 07/03/21 12/14/21 History traZODone HCL [Desyrel] 50 mg PO HS 07/03/21 12/14/21 History Albuterol Nebulized [Ventolin 2.5 mg INHALATION RT-QID PRN 08/12/21 12/14/21 History Nebulized] Furosemide [Lasix] 20 mg PO DAILY 08/12/21 12/14/21 History Ipratropium/Albuterol Sulfate 1 puff INHALATION RT-QID 12/14/21 12/14/21 History [Combivent Respimat Inhaler] lisinopriL [Zestril] 5 mg PO DAILY 12/14/21 12/14/21 History predniSONE 50 mg PO DAILY@1200 12/14/21 12/14/21 History Allergies Allergy/AdvReac Type Severity Reaction Status Date / Time iron Allergy Rash/Hives Verified 12/14/21 12:04 [email or web address] [From Chantix] Allergy Hallucinati Verified 12/14/21 12:04 ons Physical Exam Vitals: Vital Signs Temp Pulse Resp BP Pulse Ox 12/14/21 14:15 70 22 109/54 98 12/14/21 13:39 22 12/14/21 12:01 98.7 F 70 22 104/61 93 L Intake and Output 12/14/21 12/14/21 12/14/21 06:59 14:59 22:59 Other: Weight 81.647 kg Results CBC & Chem 7: 12/14/21 12:52 12/14/21 12:52 Labs: Abnormal Lab Results - Last 24 Hours (Table) 12/14/21 12/14/21 12/14/21 Range/Units 12:52 12:52 12:52 WBC 18.2 H (3.8-10.6) k/uL Hgb 9.8 L (13.0-17.5) gm/dL Hct 35.4 L (39.0-53.0) % MCV 78.4 L (80.0-100.0) fL MCH 21.6 L (25.0-35.0) pg MCHC 27.6 L (31.0-37.0) g/dL RDW 19.1 H (11.5-15.5) % Neutrophils # 16.2 H (1.3-7.7) k/uL Lymphocytes # 0.6 L (1.0-4.8) k/uL PT 12.4 H (9.0-12.0) sec INR 1.2 H (<1.2) Sodium 134 L (137-145) mmol/L Chloride 95 L (98-107) mmol/L Carbon Dioxide 33 H (22-30) mmol/L BUN 43 H (9-20) mg/dL Plasma Lactic Acid Corwin (0.7-2.0) mmol/L Troponin I (0.000-0.034) ng/mL Albumin 3.1 L (3.5-5.0) g/dL 12/14/21 12/14/21 Range/Units 12:52 12:52 WBC (3.8-10.6) k/uL Hgb (13.0-17.5) gm/dL Hct (39.0-53.0) % MCV (80.0-100.0) fL MCH (25.0-35.0) pg MCHC (31.0-37.0) g/dL RDW (11.5-15.5) % Neutrophils # (1.3-7.7) k/uL Lymphocytes # (1.0-4.8) k/uL PT (9.0-12.0) sec INR (<1.2) Sodium (137-145) mmol/L Chloride (98-107) mmol/L Carbon Dioxide (22-30) mmol/L BUN (9-20) mg/dL Plasma Lactic Acid Corwin 3.1 H* (0.7-2.0) mmol/L Troponin I 0.036 H* (0.000-0.034) ng/mL Albumin (3.5-5.0) g/dL
[2021-12-14] MEDS: GABAPENTIN 300 MG CAP PO SCH ×2 (17:52→21:23)
[2021-12-14] MEDS: methylPREDNISolone SOD SUCCI 40 MG/ML 1 ML VIAL IV SCH (17:52)
[2021-12-14] MEDS: CYCLOBENZAPRINE 10 MG TAB PO PRN (17:52)
[2021-12-14] MEDS: IPRATROPIUM-ALBUTEROL 3 ML NEB INHALATION SCH (20:58)
[2021-12-14] MEDS ORDERED: FUROSEMIDE 10 MG/ML 2 ML VIAL IV SCH (21:00)
[2021-12-14] MEDS: ATORVASTATIN 40 MG TAB PO SCH (21:23)
[2021-12-14] MEDS: APIXABAN 5 MG TAB PO SCH (21:23)
[2021-12-14] MEDS: METOPROLOL TARTRATE 25 MG TAB PO SCH (21:24)
[2021-12-14] MEDS: FUROSEMIDE 10 MG/ML 4 ML VIAL IV SCH (21:25)
[2021-12-14] MEDS: traMADol 50 MG TAB PO PRN (22:42)
[2021-12-14] MEDS: traZODone HCL 50 MG TAB PO SCH (22:42)
[2021-12-14] MEDS: CEFEPIME 1 GM in SODIUM CHLORIDE 0.9% 50 ML IVPB SCH (22:43)
[2021-12-14] MEDS: allopurinoL 300 MG TAB PO SCH (22:43)
[2021-12-15] MEDS ORDERED: CEFEPIME 1 GM in SODIUM CHLORIDE 0.9% 100 ML IVPB SCH ×2
[2021-12-15] MEDS: methylPREDNISolone SOD SUCCI 40 MG/ML 1 ML VIAL IV SCH ×3 (00:58→15:45)
[2021-12-15 02:24] LABS: Anisocytosis Slight; Basophils % (A) 0 %; Eosinophils % (A) 0 %; HCT 32.4 % (39.0-53.0); HGB 9.1 gm/dL (13.0-17.5); Hypochromasia Marked; Lymphocytes # (A) 0.2 k/uL (1.0-4.8); Lymphocytes % (A) 2 %; MCH 22.3 pg (25.0-35.0); MCV 79.9 fL (80.0-100.0); Mean Platelet Volume 7.5; Microcytosis Slight; Monocytes # (A) 0.3 k/uL (0-1.0); Monocytes % (A) 3 %; Neutrophils # (A) 10.2 k/uL (1.3-7.7); Neutrophils % (A) 95 %; Platelet Count 312 k/uL (150-450); Poikilocytosis Slight; RBC 4.06 m/uL (4.30-5.90); RDW 19.1 % (11.5-15.5); WBC 10.7 k/uL (3.8-10.6)
[2021-12-15 03:03] LABS: Albumin 2.9 g/dL (3.5-5.0); Calcium 8.2 mg/dL (8.4-10.2); Potassium 5.5 mmol/L (3.5-5.1); Total Bilirubin 0.7 mg/dL (0.2-1.3); Total Protein 5.8 g/dL (6.3-8.2)
[2021-12-15] MEDS: VANCOMYCIN 1,500 MG in SODIUM CHLORIDE 0.9% 250 ML IVPB SCH ×2 (06:12→17:47)
[2021-12-15] MEDS: IPRATROPIUM-ALBUTEROL 3 ML NEB INHALATION SCH ×4 (08:56→19:51)
--- NOTE | 2021-12-15 09:14 | P.PN ---
Subjective Progress Note Date: 12/15/21 Principal diagnosis: Patient appears to be more sleepy today 100% on her breather 77-year-old male with multiple medical problems including COPD likely chronic diastolic congestive heart failure hypertension likely at fibrillation admitted to the hospital for shortness of breath that has been going for the last few days has been getting worse and the patient has not been feeling well Is not complaining of chest pain at this time Review of systems and systems has been reviewed all negative and positive findings as per history of present illness Constitutional: No acute distress, conversant, pleasant Eyes: Anicteric sclerae, moist conjunctiva, no lid-lag PERRLA ENMT: NC/AT Oropharynx clear, no erythema, exudates Neck: Supple, FROM, no masses, or JVD No carotid bruits No thyromegaly Lungs: crackly Normal respiratory effort, no accessory muscle use Cardiovascular: Heart regular in rate and rhythm, No murmurs, gallops, or rubs No peripheral edema Abdominal: Soft Nontender, no guarding, rebound or rigidity Abdomen moving with respiration Normoactive bowel sounds No hepatomegaly, No splenomegaly No palpable mass No abdominal wall hernia noted Skin: Normal temperature, tone, texture, turgor No induration No subcutaneous nodules No rash, lesions No ulcers Extremities: No digital cyanosis No clubbing Pedal pulses intact and symmetrical Radial pulses intact and symmetrical Normal gait and station No calf tenderness Psychiatric:Alert and oriented to person, place and time Appropriate affect Intact judgement Neuro: Muscles Strength 5/5 in all 4 extremities Sensation to light touch grossly present throughout Cranial nerves II-XII grossly intact No focal sensory deficits Pneumonia we'll continue patient on vancomycin and cefepime likely hospital- acquired we'll also consult pulmonology Pleural effusion will start the patient on IV Lasix and consult pulmonology Minimal elevation in troponins cardiology has been consulted COPD exacerbations of the patient on IV steroids A. fib resume eliquis Generalized weakness Multiple medical problems We'll check ABGs on monitor closely consider starting the patient on BiPAP Objective - Vital Signs Vital signs: Vital Signs Temp 97 F L 12/15/21 08:58 Pulse 72 12/15/21 08:58 Resp 26 H 12/15/21 08:58 BP 134/53 12/15/21 08:58 Pulse Ox 97 12/15/21 08:58 Intake & Output 12/14/21 12/15/2112/15/22 18:59 06:59 18:59 Intake Total 1455 Balance 1455 Weight 81.647 kg 81.647 kg Intake: Oral 1455 Other: Voiding Method External Catheter - Labs CBC & Chem 7: 12/15/21 02:05 12/15/21 02:05 Labs: Abnormal Lab Results - Last 24 Hours (Table) 12/14/21 12/14/21 12/14/21 Range/Units 12:52 12:52 12:52 WBC 18.2 H (3.8-10.6) k/uL RBC (4.30-5.90) m/uL Hgb 9.8 L (13.0-17.5) gm/dL Hct 35.4 L (39.0-53.0) % MCV 78.4 L (80.0-100.0) fL MCH 21.6 L (25.0-35.0) pg MCHC 27.6 L (31.0-37.0) g/dL RDW 19.1 H (11.5-15.5) % Neutrophils # 16.2 H (1.3-7.7) k/uL Lymphocytes # 0.6 L (1.0-4.8) k/uL PT 12.4 H (9.0-12.0) sec INR 1.2 H (<1.2) Sodium 134 L (137-145) mmol/L Potassium (3.5-5.1) mmol/L Chloride 95 L (98-107) mmol/L Carbon Dioxide 33 H (22-30) mmol/L BUN 43 H (9-20) mg/dL Glucose (74-99) mg/dL Plasma Lactic Acid Corwin (0.7-2.0) mmol/L Calcium (8.4-10.2) mg/dL Troponin I (0.000-0.034) ng/mL Total Protein (6.3-8.2) g/dL Albumin 3.1 L (3.5-5.0) g/dL 12/14/21 12/14/21 12/14/21 Range/Units 12:52 12:52 16:29 WBC (3.8-10.6) k/uL RBC (4.30-5.90) m/uL Hgb (13.0-17.5) gm/dL Hct (39.0-53.0) % MCV (80.0-100.0) fL MCH (25.0-35.0) pg MCHC (31.0-37.0) g/dL RDW (11.5-15.5) % Neutrophils # (1.3-7.7) k/uL Lymphocytes # (1.0-4.8) k/uL PT (9.0-12.0) sec INR (<1.2) Sodium (137-145) mmol/L Potassium (3.5-5.1) mmol/L Chloride (98-107) mmol/L Carbon Dioxide (22-30) mmol/L BUN (9-20) mg/dL Glucose (74-99) mg/dL Plasma Lactic Acid Corwin 3.1 H* (0.7-2.0) mmol/L Calcium (8.4-10.2) mg/dL Troponin I 0.036 H* 0.042 H* (0.000-0.034) ng/mL Total Protein (6.3-8.2) g/dL Albumin (3.5-5.0) g/dL 12/14/21 12/14/21 12/14/21 Range/Units 16:29 19:42 19:42 WBC (3.8-10.6) k/uL RBC (4.30-5.90) m/uL Hgb (13.0-17.5) gm/dL Hct (39.0-53.0) % MCV (80.0-100.0) fL MCH (25.0-35.0) pg MCHC (31.0-37.0) g/dL RDW (11.5-15.5) % Neutrophils # (1.3-7.7) k/uL Lymphocytes # (1.0-4.8) k/uL PT (9.0-12.0) sec INR (<1.2) Sodium (137-145) mmol/L Potassium (3.5-5.1) mmol/L Chloride (98-107) mmol/L Carbon Dioxide (22-30) mmol/L BUN (9-20) mg/dL Glucose (74-99) mg/dL Plasma Lactic Acid Corwin 6.7 H* 3.0 H* (0.7-2.0) mmol/L Calcium (8.4-10.2) mg/dL Troponin I 0.038 H* (0.000-0.034) ng/mL Total Protein (6.3-8.2) g/dL Albumin (3.5-5.0) g/dL 12/14/21 12/15/21 12/15/21 Range/Units 22:54 02:05 02:05 WBC 10.7 H (3.8-10.6) k/uL RBC 4.06 L (4.30-5.90) m/uL Hgb 9.1 L (13.0-17.5) gm/dL Hct 32.4 L (39.0-53.0) % MCV 79.9 L (80.0-100.0) fL MCH 22.3 L (25.0-35.0) pg MCHC 28.0 L (31.0-37.0) g/dL RDW 19.1 H (11.5-15.5) % Neutrophils # 10.2 H (1.3-7.7) k/uL Lymphocytes # 0.2 L (1.0-4.8) k/uL PT (9.0-12.0) sec INR (<1.2) Sodium 131 L (137-145) mmol/L Potassium 5.5 H (3.5-5.1) mmol/L Chloride 93 L (98-107) mmol/L Carbon Dioxide 32 H (22-30) mmol/L BUN 47 H (9-20) mg/dL Glucose 163 H (74-99) mg/dL Plasma Lactic Acid Corwin 3.1 H* (0.7-2.0) mmol/L Calcium 8.2 L (8.4-10.2) mg/dL Troponin I (0.000-0.034) ng/mL Total Protein 5.8 L (6.3-8.2) g/dL Albumin 2.9 L (3.5-5.0) g/dL 12/15/21 12/15/21 Range/Units 02:05 05:47 WBC (3.8-10.6) k/uL RBC (4.30-5.90) m/uL Hgb (13.0-17.5) gm/dL Hct (39.0-53.0) % MCV (80.0-100.0) fL MCH (25.0-35.0) pg MCHC (31.0-37.0) g/dL RDW (11.5-15.5) % Neutrophils # (1.3-7.7) k/uL Lymphocytes # (1.0-4.8) k/uL PT (9.0-12.0) sec INR (<1.2) Sodium (137-145) mmol/L Potassium (3.5-5.1) mmol/L Chloride (98-107) mmol/L Carbon Dioxide (22-30) mmol/L BUN (9-20) mg/dL Glucose (74-99) mg/dL Plasma Lactic Acid [place] 3.9 H* 2.8 H* (0.7-2.0) mmol/L Calcium (8.4-10.2) mg/dL Troponin I (0.000-0.034) ng/mL Total Protein (6.3-8.2) g/dL Albumin (3.5-5.0) g/dL
[2021-12-15] MEDS: FUROSEMIDE 10 MG/ML 4 ML VIAL IV SCH ×2 (10:17→20:29)
--- NOTE | 2021-12-15 10:21 | P.CRDCN ---
History of Present Illness Consult date: 12/15/21 Reason for Consult (text): Elevated troponin Consult reason: non-Q-wave [place] History of present illness: Known case of COPD hypertension atrial fibrillation sick sinus syndrome status post permanent pacemaker presented to hospital with progressively worsening shortness of breath and developed severe hypoxemia and is currently on a nonrebreather. Ambien consulted because of elevated troponin. Patient appears confused and is not responding precautions. Patient has history of atrial fibrillation and has had a permanent pacemaker There is no prior history of coronary artery disease. It as a pressure with history of chronic diastolic heart failure. Review of Systems Unable to obtain from the patient was confused Significant for shortness of breath Past Medical History Past Medical History: Atrial Fibrillation, Cancer, COPD, Hypertension, [place] cardial Infarction ([place]), Prostate Disorder, Vascular Disorder Additional Past Medical History / Comment(s): Varicose veins. Pacemaker. Hx lung cancer approx 2007. PAD. Enlarged Prostate. 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 Still healing from broken right shoulder(May 2021), limited mobility. Uses O2 @ 3L most of the time. Last Myocardial Infarction Date:: 2005 History of Any Multi-Drug Resistant Organisms: None Reported Past Surgical History: Bowel Resection, Orthopedic Surgery, Pacemaker Additional Past Surgical History / Comment(s): Femoral Popliteal Procedure, ankle surgery, bilateral cataract surgery, lobectomy, colostomy with reversal. Left upper leg stent 08/27/21. Past Anesthesia/Blood Transfusion Reactions: No Reported Reaction Additional Past Anesthesia/Blood Transfusion Reaction / Comment(s): Received blood without reaction X1. Vertigo. Type of Cardiac Device: Permanent Pacemaker Device Placement Date:: UNK Past Psychological History: No Psychological Hx Reported Smoking Status: Smoker, current status unknown Past Alcohol Use History: Daily Additional Past Alcohol Use History / Comment(s): "Has been smoking most of his life, 1/2 -1 PPD". 6 BEERS A DAY. States he used to be a smoker; when questioned when he quit says a couple days ago Past Drug Use History: None Reported - Past Family History Father History Unknown: Yes Family Medical History: Unable to Obtain Mother History Unknown: Yes Family Medical History: Unable to Obtain Sister(s) History Unknown: Yes Family Medical History: Unable to Obtain Brother(s) History Unknown: Yes Family Medical History: Unable to Obtain Medications and Allergies Home Medications Medication Instructions Recorded Confirmed Type Allopurinol [Zyloprim] 300 mg PO HS 07/03/21 12/14/21 History Apixaban [Eliquis] 5 mg PO BID 07/03/21 12/14/21 History Atorvastatin [Lipitor] 40 mg PO HS 07/03/21 12/14/21 History Cyclobenzaprine [Flexeril] 10 mg PO BID PRN 07/03/21 12/14/21 History DULoxetine HCL [Cymbalta] 60 mg PO DAILY@1200 07/03/21 12/14/21 History Gabapentin 300 mg PO TID 07/03/21 12/14/21 History Metoprolol Tartrate 25 mg PO BID 07/03/21 12/14/21 History Nitroglycerin Sl Tabs [Nitrostat] 0.4 mg SL Q5M PRN 07/03/21 12/14/21 History Omeprazole 20 mg PO DAILY@1200 07/03/21 12/14/21 History traMADol HCL 50 mg PO BID PRN 07/03/21 12/14/21 History traZODone HCL [Desyrel] 50 mg PO HS 07/03/21 12/14/21 History Albuterol Nebulized [Ventolin 2.5 mg INHALATION RT-QID PRN 08/12/21 12/14/21 History Nebulized] Furosemide [Lasix] 20 mg PO DAILY 08/12/21 12/14/21 History Ipratropium/Albuterol Sulfate 1 puff INHALATION RT-QID 12/14/21 12/14/21 History [Combivent Respimat Inhaler] lisinopriL [Zestril] 5 mg PO DAILY 12/14/21 12/14/21 History predniSONE 50 mg PO DAILY@1200 12/14/21 12/14/21 History Allergies Allergy/AdvReac Type Severity Reaction Status Date / Time iron Allergy Rash/Hives Verified 12/14/21 12:04 [email or web address] [From Chantix] Allergy Hallucinati Verified 12/14/21 12:04 ons Physical Exam Vitals: Vital Signs Temp Pulse Pulse Resp BP BP Pulse Ox 12/15/21 08:58 97 F L 72 26 H 134/53 97 12/15/21 04:10 22 95 12/15/21 04:00 67 22 120/57 83 L 12/15/21 00:00 99 01/21/22 22:30 97.7 F 70 18 110/56 93 L 12/14/21 21:10 70 12/14/21 20:58 70 12/14/21 20:28 70 18 110/77 92 L 12/14/21 17:11 78 12/14/21 17:04 70 12/14/21 16:50 70 22 115/52 92 L 12/14/21 14:15 70 22 109/54 98 12/14/21 13:39 22 12/14/21 12:01 98.7 F 70 22 104/61 93 L Intake and Output 12/14/21 12/15/21 12/15/21 22:59 06:59 14:59 Intake Total 970 485 Balance 970 485 Intake: Oral 970 485 Other: Voiding Method External Catheter External Catheter Weight 81.647 kg General: The patient is awake and alert, in no distress, and does not appear acutely ill. Skin: Skin is warm and dry and no rashes or lesions are noted. Eye: Pupils are equal, round and reactive to light, extra-ocular movements are intact; there is normal conjunctiva bilaterally. Ears, nose, mouth and throat: There are moist mucous membranes and no oral lesions. Neck: The neck is supple, there is no tenderness or JVD. Cardiovascular: There is a regular rate and rhythm. No murmur, rub or gallop is appreciated. Respiratory: Decreased air entry bilaterally Gastrointestinal: Soft, non-distended, non-tender abdomen without masses or organomegaly noted. There is no rebound or guarding present. Bowel sounds are unremarkable. Back: There is no tenderness to palpation in the midline. There is no obvious deformity. Musculoskeletal: Normal ROM, no tenderness, There is no pedal edema. There is no calf tenderness or swelling. Extremities: Mild edema bilaterally Vascular: Femoral pulse is normal. Posterior tibial pulses are normal .Dorsalis pedis is palpable. Neurological: No focal neurological deficits the patient is confused Psychiatric: Confused Results 12/15/21 02:05 12/15/21 02:05 Cardiac Enzymes 12/14/21 12/14/21 12/14/21 Range/Units 12:52 12:52 16:29 AST 31 (17-59) U/L Troponin I 0.036 H* 0.042 H* (0.000-0.034) ng/mL 12/14/21 12/15/21 Range/Units 19:42 02:05 AST 33 (17-59) U/L Troponin I 0.038 H* (0.000-0.034) ng/mL Coagulation 12/14/21 Range/Units 12:52 PT 12.4 H (9.0-12.0) sec APTT 23.3 (22.0-30.0) sec CBC 12/14/21 12/15/21 Range/Units 12:52 02:05 WBC 18.2 H 10.7 H (3.8-10.6) k/uL RBC 4.52 4.06 L (4.30-5.90) m/uL Hgb 9.8 L 9.1 L (13.0-17.5) gm/dL Hct 35.4 L 32.4 L (39.0-53.0) % Plt Count 431 312 (150-450) k/uL Comprehensive Metabolic Panel 12/14/21 12/15/21 Range/Units 12:52 02:05 Sodium 134 L 131 L (137-145) mmol/L Potassium 4.9 5.5 H (3.5-5.1) mmol/L Chloride 95 L 93 L (98-107) mmol/L Carbon Dioxide 33 H 32 H (22-30) mmol/L BUN 43 H 47 H (9-20) mg/dL Creatinine 1.09 1.05 (0.66-1.25) mg/dL Glucose 87 163 H (74-99) mg/dL Calcium 8.6 8.2 L (8.4-10.2) mg/dL AST 31 33 (17-59) U/L ALT 29 27 (4-49) U/L Alkaline Phosphatase 76 65 (38-126) U/L Total Protein 6.3 5.8 L (6.3-8.2) g/dL Albumin 3.1 L 2.9 L (3.5-5.0) g/dL Current Medications Generic Name Dose Route Start Last Admin Trade Name Freq PRN Reason Stop Dose Admin Acetaminophen 650 mg 12/14/21 15:58 Acetaminophen Tab 325 Mg Tab PO Q6HR PRN Mild Pain or Fever > 100.5 Al Hydroxide/Mg Hydroxide 15 ml 12/14/21 15:51 Mag Hydrox/Al Hydrox/Simeth 30 Ml Cup PO Q6HR PRN Indigestion Albuterol Sulfate 2.5 mg 12/14/21 15:57 Albuterol Nebulized 2.5 Mg/3 Ml INHALATION RT-QID PRN Shortness Of Breath Albuterol/Ipratropium 3 ml 12/14/21 20:00 12/15/21 08:56 Ipratropium-Albuterol 3 Ml Neb INHALATION Not Given RT-QID EZIO Allopurinol 300 mg 12/14/21 21:00 12/14/21 22:43 Allopurinol 300 Mg Tab PO 300 mg HS EZIO Administration Apixaban 5 mg 12/14/21 21:00 12/14/21 21:23 Apixaban 5 Mg Tab PO 5 mg BID EZIO Administration Protocol Atorvastatin Calcium 40 mg 12/14/21 21:00 12/14/21 21:23 Atorvastatin 40 Mg Tab PO 40 mg HS EZIO Administration Cyclobenzaprine HCl 10 mg 12/14/21 16:06 12/14/21 17:52 Cyclobenzaprine 10 Mg Tab PO 10 mg BID PRN Administration Muscle Spasm Duloxetine HCl 60 mg 12/15/21 12:00 Duloxetine Hcl 60 Mg Capsule.Dr PO DAILY@1200 [facility] Furosemide 40 mg 12/14/21 21:00 12/14/21 21:25 Furosemide 10 Mg/Ml 4 Ml Vial IV Not Given BID EZIO Gabapentin 300 mg 12/14/21 16:00 12/14/21 21:23 Gabapentin 300 Mg Cap PO 300 mg TID EZIO Administration Vancomycin HCl 1,500 mg/ 250 mls @ 125 mls/hr 12/15/21 06:00 12/15/21 06:12 Sodium Chloride IVPB 125 mls/hr Q12H EZIO Administration Cefepime HCl 1 gm/ Sodium 50 mls @ 12.5 mls/hr 12/15/21 00:00 12/14/21 22:43 Chloride IVPB 12.5 mls/hr Q8HR EZIO Administration Lisinopril 5 mg 12/15/21 09:00 Lisinopril 5 Mg Tab PO DAILY EZIO Loperamide HCl 2 mg 12/14/21 15:58 Loperamide 2 Mg Cap PO Q2HR PRN Loose Stool Methylprednisolone Sodium Succinate 40 mg 12/14/21 17:15 12/15/21 00:58 Methylprednisolone Sod Succi 40 Mg/Ml 1 Ml Vial IV 40 mg Q8HR EZIO Administration Metoprolol Tartrate 25 mg 12/14/21 21:00 12/14/21 21:24 Metoprolol Tartrate 25 Mg Tab PO Not Given BID EZIO Naloxone HCl 0.2 mg 12/14/21 15:51 Naloxone 0.4 Mg/Ml 1 Ml Vial IV Q2M PRN Opioid Reversal Ondansetron HCl 4 mg 12/14/21 15:51 Ondansetron 4 Mg/2 Ml Vial IVP Q8HR PRN Nausea And Vomiting Pantoprazole Sodium 40 mg 12/15/21 12:00 Pantoprazole 40 Mg Tablet PO DAILY@1200 EZIO Tramadol HCl 50 mg 12/14/21 16:06 12/14/21 22:42 Tramadol 50 Mg Tab PO 50 mg BID PRN Administration Moderate Pain Trazodone HCl 50 mg 12/14/21 21:00 12/14/21 22:42 Trazodone Hcl 50 Mg Tab PO 50 mg HS EZIO Administration Intake and Output 12/14/21 12/15/21 12/15/21 22:59 06:59 14:59 Intake Total 970 485 Balance 970 485 Intake: Oral 970 485 Other: Voiding Method External Catheter External Catheter Weight 81.647 kg 12/15/21 02:05 12/15/21 02:05 EKG Interpretations (text) Paced rhythm with underlying atrial fibrillation Assessment and Plan Assessment: COPD exacerbation Respiratory failure Troponin elevation secondary to hypoxia supply demand mismatch type II myocardial infarction Permanent atrial fibrillation 6 sinus syndrome status post permanent pacemaker Plan: I will continue the patient on current medications obtain a 2-D echo to assess LV function patient's primary problem is COPD exacerbation possible pneumonia which is currently being managed by the admitting physician Does not need invasive procedures and is not a candidate for them at this time
[2021-12-15] MEDS: CEFEPIME 1 GM in SODIUM CHLORIDE 0.9% 50 ML IVPB SCH ×2 (10:27→15:45)
[2021-12-15] MEDS: PANTOPRAZOLE 40 MG TABLET PO SCH (10:30)
[2021-12-15] MEDS: lisinopriL 5 MG TAB PO SCH (10:30)
[2021-12-15] MEDS: DULoxetine HCL 60 MG CAPSULE.DR PO SCH (10:30)
[2021-12-15] MEDS: GABAPENTIN 300 MG CAP PO SCH ×3 (10:30→20:28)
[2021-12-15] MEDS: METOPROLOL TARTRATE 25 MG TAB PO SCH ×2 (10:31→20:28)
[2021-12-15 10:36] LABS: ABG Base Excess 7.6 mmol/L; ABG HCO3 33 mmol/L (21-25); ABG Oxygen Saturation 99.8 % (94-97); ABG PCO2 60 mmHg (35-45); ABG PH 7.35 (7.35-7.45); ABG PO2 276 mmHg (83-108); ABG TCO2 35 mmol/L (19-24); Allen Test Performed? Yes
[2021-12-15 11:42] LABS: Glucose,Whole Blood 125 mg/dL (75-99)
[2021-12-15 11:46] LABS: Albumin 3.1 g/dL (3.5-5.0); Calcium 8.6 mg/dL (8.4-10.2); Potassium 5.4 mmol/L (3.5-5.1); Total Bilirubin 0.7 mg/dL (0.2-1.3); Total Protein 6.3 g/dL (6.3-8.2)
--- NOTE | 2021-12-15 12:02 | US ---
EXAMINATION TYPE: US chest DATE OF EXAM: 12/15/2021 COMPARISON: None CLINICAL HISTORY: Pleural effusion. Patient unable to sit up by himself. Limited exam. TECHNIQUE: Targeted ultrasound of the posterior lower bilateral hemithoraces EXAM MEASUREMENTS: Right side NOT marked for possible thoracentesis outside the dept due to small fluid pocket visualize d. Left side NOT marked for possible thoracentesis outside the dept due to small fluid pocket visualized . Pulmonologists are able to review the images in the patient?s EMR. IMPRESSIONS: Small bilateral pleural effusions
[2021-12-15] MEDS: INSULIN ASPART (NovoLOG) 100 UNIT/ML VIAL SQ SCH ×3 (12:11→20:57)
--- NOTE | 2021-12-15 13:03 | P.CNPUL ---
History of Present Illness Consult date: 12/15/21 Requesting physician: Minnie Prater Reason for consult: dyspnea, pleural effusion, abnormal CXR/CT Chief complaint: Shortness of breath History of present illness: This is a 76-year-old male patient with a known history of chronic obstructive pulmonary disease, chronic congestive heart failure with an ejection fraction of 45-50%, hypertension, hyperlipidemia, atrial fibrillation anticoagulated with Eliquis, single-chamber pacemaker, depression. He presented here to the emergency room yesterday after developing a 2-3 day history of increasing shortness of breath. Chest x-ray reveals evidence of cardiac chronic changes with cardiomegaly and persistent small to moderate right-sided pleural effusion and right mid and lower lung acute infiltrate/atelectasis. The patient had a similar presentation back in June 2021. EKG reveals evidence of atrial fibrillation with ventricular pacing. White count 10.7. Hemoglobin 9.1. Platelets 312. INR 1.2. Sodium 134. Potassium 5.4. Chloride 94. I curb 31. Creatinine 1.11. Glucose 144. Lactic acid 3.5. Troponin 0.038. ProBNP 7560. Pro-calcitonin 0.07. Coronavirus by PCR not detected. He's been initiated and DuoNeb inhalations, IV Solu-Medrol, IV diuretics. He is seen today in consultation on the selective care unit. He has somewhat obtunded. Arousable. Able to state he is in the hospital. He is quite dyspneic with conversation. He has quickly progressed from 4 L to 15 L high flow nasal cannula. Stat blood gases revealed a pO2 of 276, pCO2 of 60 and a pH of 7.35. He was placed on BiPAP 12/6 and 40% FiO2. He was given IV Lasix. He is currently more comfortable. Ultrasound of the chest revealed no significant pleural effusions. He's been initiated on vancomycin and cefepime. Review of Systems REVIEW OF SYSTEMS: CONSTITUTIONAL: Denies any recent significant weight loss or weight gain. EYES: Denies change in vision. EARS, NOSE, MOUTH, THROAT: Denies headaches, denies sore throat. CARDIOVASCULAR: Denies chest pain, palpitations or syncopal episodes. RESPIRATORY: Positive for shortness of breath, cough, congestion no hemoptysis. GASTROINTESTINAL: Denies change in appetite, denies abdominal pain GENITOURINARY: Denies hematuria, denies infections. MUSKULOSKELETAL: Denies pain, denies swelling. INTEGUMENTARY: Denies rash, denies eczema. NEUROLOGICAL: Denies recent memory loss, no recent seizure activity. PSYCHIATRIC: Denies anxiety, denies depression. HEMATOLOGIC/LYMPHATIC: Denies anemia, denies enlarged lymph nodes. Past Medical History Past Medical History: Atrial Fibrillation, Cancer, COPD, Hypertension, Myocardial Infarction ([place]), Prostate Disorder, Vascular Disorder Additional Past Medical History / Comment(s): Varicose veins. Pacemaker. Hx lung cancer approx 2007. PAD. Enlarged Prostate. 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 Still healing from broken right shoulder(May 2021), limited mobility. Uses O2 @ 3L most of the time. Last Myocardial Infarction Date:: 2005 History of Any Multi-Drug Resistant Organisms: None Reported Past Surgical History: Bowel Resection, Orthopedic Surgery, Pacemaker Additional Past Surgical History / Comment(s): Femoral Popliteal Procedure, ankle surgery, bilateral cataract surgery, lobectomy, colostomy with reversal. Left upper leg stent 08/27/21. Past Anesthesia/Blood Transfusion Reactions: No Reported Reaction Additional Past Anesthesia/Blood Transfusion Reaction / Comment(s): Received blood without reaction X1. Vertigo. Type of Cardiac Device: Permanent Pacemaker Device Placement Date:: UNK Past Psychological History: No Psychological Hx Reported Smoking Status: Smoker, current status unknown Past Alcohol Use History: Daily Additional Past Alcohol Use History / Comment(s): "Has been smoking most of his life, 1/2 -1 PPD". 6 BEERS A DAY. States he used to be a smoker; when questioned when he quit says a couple days ago Past Drug Use History: None Reported - Past Family History Father History Unknown: Yes Family Medical History: Unable to Obtain Mother History Unknown: Yes Family Medical History: Unable to Obtain Sister(s) History Unknown: Yes Family Medical History: Unable to Obtain Brother(s) History Unknown: Yes Family Medical History: Unable to Obtain Medications and Allergies Home Medications Medication Instructions Recorded Confirmed Type Allopurinol [Zyloprim] 300 mg PO HS 07/03/21 12/14/21 History Apixaban [Eliquis] 5 mg PO BID 07/03/21 12/14/21 History Atorvastatin [Lipitor] 40 mg PO HS 07/03/21 12/14/21 History Cyclobenzaprine [Flexeril] 10 mg PO BID PRN 07/03/21 12/14/21 History DULoxetine HCL [Cymbalta] 60 mg PO DAILY@1200 07/03/21 12/14/21 History Gabapentin 300 mg PO TID 07/03/21 12/14/21 History Metoprolol Tartrate 25 mg PO BID 07/03/21 12/14/21 History Nitroglycerin Sl Tabs [Nitrostat] 0.4 mg SL Q5M PRN 07/03/21 12/14/21 History Omeprazole 20 mg PO DAILY@1200 07/03/21 12/14/21 History traMADol HCL 50 mg PO BID PRN 07/03/21 12/14/21 History traZODone HCL [Desyrel] 50 mg PO HS 07/03/21 12/14/21 History Albuterol Nebulized [Ventolin 2.5 mg INHALATION RT-QID PRN 08/12/21 12/14/21 History Nebulized] Furosemide [Lasix] 20 mg PO DAILY 08/12/21 12/14/21 History Ipratropium/Albuterol Sulfate 1 puff INHALATION RT-QID 12/14/21 12/14/21 History [Combivent Respimat Inhaler] lisinopriL [Zestril] 5 mg PO DAILY 12/14/21 12/14/21 History predniSONE 50 mg PO DAILY@1200 12/14/21 12/14/21 History Allergies Allergy/AdvReac Type Severity Reaction Status Date / Time iron Allergy Rash/Hives Verified 12/14/21 12:04 [email or web address] [From Chantix] Allergy Hallucinati Verified 12/14/21 12:04 ons Physical Exam Vitals: Vital Signs Temp Pulse Pulse Resp BP BP Pulse Ox 12/15/21 10:57 60 12/15/21 08:58 97 F L 72 26 H 134/53 97 12/15/21 04:10 22 95 12/15/21 04:00 67 22 120/57 83 L 12/15/21 00:00 99 12/14/21 22:30 97.7 F 70 18 110/56 93 L 12/14/21 21:10 70 12/14/21 20:58 70 12/14/21 20:28 70 18 110/77 92 L 12/14/21 17:11 78 12/14/21 17:04 70 12/14/21 16:50 70 22 115/52 92 L 12/14/21 14:15 70 22 109/54 98 12/14/21 13:39 22 Intake and Output 12/14/21 12/15/21 12/15/21 22:59 06:59 14:59 Intake Total 970 485 Balance 970 485 Intake: Oral 970 485 Other: Voiding Method External Catheter External Catheter External Catheter Weight 81.647 kg GENERAL EXAM: Arousable, somewhat obtunded, 76-year-old male patient, placed on BiPAP 12/6 and 40% FiO2, in mild respiratory distress . HEAD: Normocephalic. EYES: Normal reaction of pupils, equal size. NOSE: Clear with pink turbinates. THROAT: No erythema or exudates. NECK: No masses, no JVD. CHEST: No chest wall deformity. LUNGS: Equal air entry with bilateral crackles and diminished more so on the right lung. CVS: S1 and S2 normal with no audible murmur, regular rhythm. ABDOMEN: No hepatosplenomegaly, normal bowel sounds, no guarding or rigidity. SPINE: No scoliosis or deformity SKIN: No rashes CENTRAL NERVOUS SYSTEM: No focal deficits, tone is normal in all 4 extremities. EXTREMITIES: There is trace peripheral edema. No clubbing, no cyanosis. Peripheral pulses are intact. Results - Laboratory Findings CBC and BMP: 12/15/21 02:05 12/15/21 05:47 ABG ABG pH 7.35 (7.35-7.45) 12/15/21 10:34 ABG pCO2 60 mmHg (35-45) H 12/15/21 10:34 ABG pO2 276 mmHg (83-108) H 12/15/21 10:34 ABG O2 Saturation 99.8 % (94-97) H 12/15/21 10:34 PT/INR, D-dimer PT 12.4 sec (9.0-12.0) H 12/14/21 12:52 INR 1.2 (<1.2) H 12/14/21 12:52 Abnormal lab findings: Abnormal Labs 12/14/21 12/14/21 12/14/21 12:52 12:52 12:52 WBC 18.2 H RBC Hgb 9.8 L Hct 35.4 L MCV 78.4 L MCH 21.6 L MCHC 27.6 L RDW 19.1 H Neutrophils # 16.2 H Lymphocytes # 0.6 L PT 12.4 H INR 1.2 H ABG pCO2 ABG pO2 ABG HCO3 ABG Total CO2 ABG O2 Saturation Sodium 134 L Potassium Chloride 95 L Carbon Dioxide 33 H BUN 43 H Glucose POC Glucose (mg/dL) Plasma Lactic Acid [place] Calcium Troponin I Total Protein Albumin 3.1 L 12/14/21 12/14/21 12/14/21 12:52 12:52 16:29 WBC RBC Hgb Hct MCV MCH MCHC RDW Neutrophils # Lymphocytes # PT INR ABG pCO2 ABG pO2 ABG HCO3 ABG Total CO2 ABG O2 Saturation Sodium Potassium Chloride Carbon Dioxide BUN Glucose POC Glucose (mg/dL) Plasma Lactic Acid [place] 3.1 H* Calcium Troponin I 0.036 H* 0.042 H* Total Protein Albumin 12/14/21 12/14/21 12/14/21 16:29 19:42 19:42 WBC RBC Hgb Hct MCV MCH MCHC RDW Neutrophils # Lymphocytes # PT INR ABG pCO2 ABG pO2 ABG HCO3 ABG Total CO2 ABG O2 Saturation Sodium Potassium Chloride Carbon Dioxide BUN Glucose POC Glucose (mg/dL) Plasma Lactic Acid [place] 6.7 H* 3.0 H* Calcium Troponin I 0.038 H* Total Protein Albumin 12/14/21 12/15/21 12/15/21 22:54 02:05 02:05 WBC 10.7 H RBC 4.06 L Hgb 9.1 L Hct 32.4 L MCV 79.9 L MCH 22.3 L MCHC 28.0 L RDW 19.1 H Neutrophils # 10.2 H Lymphocytes # 0.2 L PT INR ABG pCO2 ABG pO2 ABG HCO3 ABG Total CO2 ABG O2 Saturation Sodium 131 L Potassium 5.5 H Chloride 93 L Carbon Dioxide 32 H BUN 47 H Glucose 163 H POC Glucose (mg/dL) Plasma Lactic Acid [place] 3.1 H* Calcium 8.2 L Troponin I Total Protein 5.8 L Albumin 2.9 L 12/15/21 12/15/21 12/15/21 02:05 05:47 05:47 WBC RBC Hgb Hct MCV MCH MCHC RDW Neutrophils # Lymphocytes # PT INR ABG pCO2 ABG pO2 ABG HCO3 ABG Total CO2 ABG O2 Saturation Sodium 134 L Potassium 5.4 H Chloride 94 L Carbon Dioxide 31 H BUN 43 H Glucose 144 H POC Glucose (mg/dL) Plasma Lactic Acid [place] 3.9 H* 2.8 H* Calcium Troponin I Total Protein Albumin 3.1 L 12/15/21 12/15/21 12/15/21 09:08 10:34 11:40 WBC RBC Hgb Hct MCV MCH MCHC RDW Neutrophils # Lymphocytes # PT INR ABG pCO2 60 H ABG pO2 276 H ABG HCO3 33 H ABG Total CO2 35 H ABG O2 Saturation 99.8 H Sodium Potassium Chloride Carbon Dioxide BUN Glucose POC Glucose (mg/dL) 125 H Plasma Lactic Acid [place] 3.5 H* Calcium Troponin I Total Protein Albumin - Diagnostic Findings Chest x-ray: image reviewed Assessment and Plan Assessment: 1 Acute on chronic hypoxemic respiratory failure secondary to suspected multilobar pneumonia, though pro calcitonin 0.07, ultrasound of the chest revealed minimal pleural effusion. Initiated on vancomycin and cefepime. 2 Lactic acidosis secondary to above, peak lactic acid 6.7 3 Acute exacerbation of systolic congestive heart failure 4 Acute exacerbation of chronic obstructive pulmonary disease, oxygen dependent 5 Chronic tobacco dependence 6 Chronic atrial fibrillation anticoagulated with Eliquis, status post permanent pacemaker implantation 7 Hypertension 8 Hyperlipidemia 9 History of gout Plan: The patient was seen and evaluated Chest x-ray, ultrasound of the chest and labs reviewed No significant effusion for thoracentesis Continue vancomycin and cefepime for now Continue IV diuretics Continue IV Solu-Medrol, bronchodilators Anticoagulated with Eliquis Titrate the FiO2 as tolerated Prognosis is guarded We will continue to follow and make further recommendations based on his clinical status I, the cosigning physician, performed a history & physical examination of the patient. Lungs sounds with bibasilar crackles more so on the right, diminished. Maintaining good O2 saturations in the 90s on BiPAP 12/6 and 40% FiO2. I discussed the assessment and plan of care with my nurse practitioner, Eloina Hummel. I attest to the above consultation as dictated by her. Time with Patient: Greater than 30
[2021-12-15] MEDS: APIXABAN 5 MG TAB PO SCH ×2 (13:06→20:28)
--- NOTE | 2021-12-15 14:00 | ECHOF ---
Referral Reason:nstemi MEASUREMENTS -------- HEIGHT: 175.3 cm WEIGHT: 86.2 kg BP: RVIDd: 3.3 cm (< 3.3) IVSd: 1.2 cm (0.6 - 1.1) LVIDd: 5.2 cm (3.9 - 5.3) LVPWd: 0.9 cm (0.6 - 1.1) IVSs: 1.6 cm LVIDs: 3.7 cm LVPWs: 1.5 cm Ao Diam: 3.0 cm (2.0 - 3.7) AV Cusp: 1.6 cm (1.5 - 2.6) LA Diam: 4.6 cm (2.7 - 3.8) MV EXCURSION: 18.742 mm (> 18.000) MV EF SLOPE: 148 mm/s (70 - 150) EPSS: 0.1 cm MV E Hao: 0.92 m/s MV DecT: 164 ms MV A Hao: 0.34 m/s MV E/A Ratio: 2.72 RAP: 5.00 mmHg RVSP: 48.01 mmHg FINDINGS -------- Undetermined rhythm. This was a technically good study. The left ventricular size is normal. There is mild concentric left ventricular hypertrophy. Overa ll left ventricular systolic function is mildly impaired with, an EF between 45 - 50 %. Basal infer ior LV wall motion is hypokinetic. The right ventricle is normal in size. The right atrial size is normal. There is mild aortic regurgitation. Can not exclude possible calcifaction vs vegetation/tumor of ao v. Moderate mitral regurgitation is present. Mild tricuspid regurgitation present. There is moderate pulmonary hypertension. The right ventric ular systolic pressure, as measured by Doppler, is 48.01mmHg. Trace/mild (physiologic) pulmonic regurgitation. Echo free space indicative of a pericardial fat pad. CONCLUSIONS -------- 1. The left ventricular size is normal. 2. There is mild concentric left ventricular hypertrophy. 3. Overall left ventricular systolic function is mildly impaired with, an EF between 45 - 50 %. 4. Basal inferior LV wall motion is hypokinetic. 5. The right ventricle is normal in size. 6. The right atrial size is normal. 7. There is mild aortic regurgitation. 8. Can not exclude possible calcifaction vs vegetation/tumor of aov. 9. Moderate mitral regurgitation is present. 10. Mild tricuspid regurgitation present. 11. There is moderate pulmonary hypertension. 12. The right ventricular systolic pressure, as measured by Doppler, is 48.01mmHg. 13. Trace/mild (physiologic) pulmonic regurgitation. 14. Echo free space indicative of a pericardial fat pad. EMBOSSER APPRENTICE: Karissa Philippe RDCS
[2021-12-15 16:57] LABS: Glucose,Whole Blood 153 mg/dL (75-99)
[2021-12-15] MEDS: allopurinoL 300 MG TAB PO SCH (20:28)
[2021-12-15] MEDS: traZODone HCL 50 MG TAB PO SCH (20:28)
[2021-12-15] MEDS: ATORVASTATIN 40 MG TAB PO SCH (20:28)
[2021-12-15 21:10] LABS: Glucose,Whole Blood 115 mg/dL (75-99)
[2021-12-15] MEDS: traMADol 50 MG TAB PO PRN (22:20)
[2021-12-16] MEDS: CEFEPIME 1 GM in SODIUM CHLORIDE 0.9% 50 ML IVPB SCH ×4 (00:30→23:51)
[2021-12-16] MEDS: methylPREDNISolone SOD SUCCI 40 MG/ML 1 ML VIAL IV SCH ×4 (00:30→23:52)
[2021-12-16] MEDS: INSULIN ASPART (NovoLOG) 100 UNIT/ML VIAL SQ SCH ×4 (06:26→20:58)
[2021-12-16] MEDS: VANCOMYCIN 1,500 MG in SODIUM CHLORIDE 0.9% 250 ML IVPB SCH ×2 (06:28→18:52)
[2021-12-16 06:48] LABS: Glucose,Whole Blood 113 mg/dL (75-99)
[2021-12-16] MEDS: IPRATROPIUM-ALBUTEROL 3 ML NEB INHALATION SCH ×5 (08:27→20:28)
[2021-12-16 08:37] LABS: Anisocytosis Slight; Basophils % (A) 0 %; Eosinophils % (A) 0 %; HCT 35.7 % (39.0-53.0); HGB 9.7 gm/dL (13.0-17.5); Hypochromasia Marked; Lymphocytes # (A) 0.3 k/uL (1.0-4.8); Lymphocytes % (A) 2 %; MCH 22.1 pg (25.0-35.0); MCHC 27.3 g/dL (31.0-37.0); MCV 80.9 fL (80.0-100.0); Mean Platelet Volume 7.8; Microcytosis Slight; Monocytes # (A) 0.4 k/uL (0-1.0); Monocytes % (A) 3 %; Neutrophils % (A) 94 %; Platelet Count 333 k/uL (150-450); Poikilocytosis Slight; RBC 4.42 m/uL (4.30-5.90); RDW 18.8 % (11.5-15.5); WBC 12.8 k/uL (3.8-10.6)
--- NOTE | 2021-12-16 08:38 | XR ---
EXAMINATION TYPE: XR chest 1V portable DATE OF EXAM: 12/16/2021 COMPARISON: Chest x-ray 12/14/2021, chest x-ray 07/03/2021 HISTORY: Pneumonia, congestive heart failure TECHNIQUE: Single frontal view of the chest is obtained. FINDINGS: Apical pleural thickening on the right is again seen. Generator in the left pectoral regio n with leads in the right ventricle is stable. Aorta is dense. There is no evident pneumothorax. Abno rmal attenuation spheres right hemidiaphragm, there is pleural thickening. Heart remains enlarged. Pa tient is rotated, there are overlying leads. IMPRESSION: Similar to prior exam. Cardiomegaly. Possible right pleural effusion and associated atel ectasis, correlate to exclude pneumonia, underlying mass, findings are chronic
[2021-12-16 09:07] LABS: Calcium 8.6 mg/dL (8.4-10.2); Magnesium 2.2 mg/dL (1.6-2.3); Potassium 5.3 mmol/L (3.5-5.1); Total Bilirubin 0.7 mg/dL (0.2-1.3); Total Protein 6.1 g/dL (6.3-8.2)
[2021-12-16] MEDS: PANTOPRAZOLE 40 MG TABLET PO SCH (10:07)
[2021-12-16] MEDS: APIXABAN 5 MG TAB PO SCH ×2 (10:07→21:07)
[2021-12-16] MEDS: FUROSEMIDE 10 MG/ML 4 ML VIAL IV SCH ×2 (10:07→23:52)
[2021-12-16] MEDS: GABAPENTIN 300 MG CAP PO SCH ×3 (10:08→21:07)
[2021-12-16] MEDS: traMADol 50 MG TAB PO PRN ×3 (10:08→21:07)
[2021-12-16] MEDS: METOPROLOL TARTRATE 25 MG TAB PO SCH ×2 (10:08→23:52)
[2021-12-16] MEDS: DULoxetine HCL 60 MG CAPSULE.DR PO SCH (10:08)
[2021-12-16] MEDS: CYCLOBENZAPRINE 10 MG TAB PO PRN ×2 (10:09→21:08)
[2021-12-16] MEDS: lisinopriL 5 MG TAB PO SCH (10:09)
[2021-12-16] MEDS ORDERED: IPRATROPIUM-ALBUTEROL 3 ML NEB INHALATION PRN (11:12)
--- NOTE | 2021-12-16 11:25 | P.PN ---
Subjective Progress Note Date: 12/16/21 This is a 76-year-old male patient with a known history of chronic obstructive pulmonary disease, chronic congestive heart failure with an ejection fraction of 45-50%, hypertension, hyperlipidemia, atrial fibrillation anticoagulated with Eliquis, single-chamber pacemaker, depression. He presented here to the emergency room yesterday after developing a 2-3 day history of increasing shortness of breath. Chest x-ray reveals evidence of cardiac chronic changes with cardiomegaly and persistent small to moderate right-sided pleural effusion and right mid and lower lung acute infiltrate/atelectasis. The patient had a similar presentation back in June 2021. EKG reveals evidence of atrial fibrillation with ventricular pacing. White count 10.7. Hemoglobin 9.1. Platelets 312. INR 1.2. Sodium 134. Potassium 5.4. Chloride 94. I curb 31. Creatinine 1.11. Glucose 144. Lactic acid 3.5. Troponin 0.038. ProBNP 7560. Pro-calcitonin 0.07. Coronavirus by PCR not detected. He's been initiated and DuoNeb inhalations, IV Solu-Medrol, IV diuretics. He is seen today in consultation on the selective care unit. He has somewhat obtunded. Arousable. Able to state he is in the hospital. He is quite dyspneic with conversation. He has quickly progressed from 4 L to 15 L high flow nasal cannula. Stat blood gases revealed a pO2 of 276, pCO2 of 60 and a pH of 7.35. He was placed on BiPAP 12/6 and 40% FiO2. He was given IV Lasix. He is currently more comfortable. Ultrasound of the chest revealed no significant pleural effusions. He's been initiated on vancomycin and cefepime. On 12/16/2021 patient is seen in follow-up on selective care unit, patient is awake and alert, in no acute distress, currently on 6 L of oxygen his pulse ox is 92%, she did wear BiPAP support overnight. He states his breathing more comfortably since admission, lung sounds reveal diffuse wheezes, and patient has been coughing and bringing up some whitish to yellowish colored phlegm, no hemoptysis. Patient is on a combination of cefepime and vancomycin for possibility of pneumonia, he is also on IV Lasix at 40 mg every 12 hours, he is down 2.6 kg since admission, clinically does not look fluid overloaded, however his elevated proBNP level and his chest x-ray findings were suggestive of acute exacerbation of CHF. His ultrasound and the chest did not find a sizable pocket for thoracentesis, patient continues on medical treatment, in addition his COPD is active, patient has chronic and ongoing history of smoking, currently smoking about a pack a day, he wears oxygen at home at 3 L. He remains on IV Solu- Medrol at 40 mg every 8 hours, clinically seems to be improving, follow-up chest x-ray today has been reviewed showing cardiomegaly, possible right pleural effusion and associated atelectasis. Objective - Vital Signs Vital signs: Vital Signs Temp 97.8 F 12/16/21 07:45 Pulse 70 12/16/21 07:45 Resp 16 12/16/21 07:45 BP 103/56 12/16/21 07:45 Pulse Ox 92 L 12/16/21 07:45 Intake & Output 12/15/21 12/16/21 12/16/21 18:59 06:59 18:59 Intake Total 1455 240 Output Total 600 800 Balance -600 655 240 Weight 79 kg Intake: Oral 1455 240 Output: Urine 600 800 Other: Voiding Method External Catheter External Catheter External Catheter - Exam GENERAL EXAM: Alert, very pleasant, 76-year-old white male on 6 L of oxygen wit h a pulse ox of 92% comfortable in no apparent distress. HEAD: Normocephalic/atraumatic. EYES: Normal reaction of pupils, equal size. Conjunctiva pink, sclera white. NOSE: Clear with pink turbinates. THROAT: No erythema or exudates. NECK: No masses, no JVD, no thyroid enlargement, no adenopathy. CHEST: No chest wall deformity. Symmetrical expansion. LUNGS: Equal air entry with diffuse wheezes, and rhonchi CVS: Regular rate and rhythm, normal S1 and S2, no gallops, no murmurs, no rubs ABDOMEN: Soft, nontender. No hepatosplenomegaly, normal bowel sounds, no guarding or rigidity. EXTREMITIES: No clubbing, no edema, no cyanosis, 2+ pulses and upper and lower extremities. MUSCULOSKELETAL: Muscle strength and tone normal. SPINE: No scoliosis or deformity SKIN: No rashes CENTRAL NERVOUS SYSTEM: Alert and oriented -3. No focal deficits, tone is normal in all 4 extremities. PSYCHIATRIC: Alert and oriented -3. Appropriate affect. Intact judgment and insight. - Labs CBC & Chem 7: 12/16/21 07:45 12/16/21 07:45 Labs: Abnormal Lab Results - Last 24 Hours (Table) 12/15/21 12/15/21 12/15/21 Range/Units 05:47 11:40 16:56 WBC (3.8-10.6) k/uL Hgb (13.0-17.5) gm/dL Hct (39.0-53.0) % MCH (25.0-35.0) pg MCHC (31.0-37.0) g/dL RDW (11.5-15.5) % Neutrophils # (1.3-7.7) k/uL Lymphocytes # (1.0-4.8) k/uL Sodium 134 L (137-145) mmol/L Potassium 5.4 H (3.5-5.1) mmol/L Chloride 94 L (98-107) mmol/L Carbon Dioxide 31 H (22-30) mmol/L BUN 43 H (9-20) mg/dL Creatinine (0.66-1.25) mg/dL Glucose 144 H (74-99) mg/dL POC Glucose (mg/dL) 125 H 153 H (75-99) mg/dL Total Protein (6.3-8.2) g/dL Albumin 3.1 L (3.5-5.0) g/dL 12/15/21 12/16/21 12/16/21 Range/Units 20:54 06:25 07:45 WBC 12.8 H (3.8-10.6) k/uL Hgb 9.7 L (13.0-17.5) gm/dL Hct 35.7 L (39.0-53.0) % MCH 22.1 L (25.0-35.0) pg MCHC 27.3 L (31.0-37.0) g/dL RDW 18.8 H (11.5-15.5) % Neutrophils # 12.0 H (1.3-7.7) k/uL Lymphocytes # 0.3 L (1.0-4.8) k/uL Sodium (137-145) mmol/L Potassium (3.5-5.1) mmol/L Chloride (98-107) mmol/L Carbon Dioxide (22-30) mmol/L BUN (9-20) mg/dL Creatinine (0.66-1.25) mg/dL Glucose (74-99) mg/dL POC Glucose (mg/dL) 115 H 113 H (75-99) mg/dL Total Protein (6.3-8.2) g/dL Albumin (3.5-5.0) g/dL 12/16/21 Range/Units 07:45 WBC (3.8-10.6) k/uL Hgb (13.0-17.5) gm/dL Hct (39.0-53.0) % MCH (25.0-35.0) pg MCHC (31.0-37.0) g/dL RDW (11.5-15.5) % Neutrophils # (1.3-7.7) k/uL Lymphocytes # (1.0-4.8) k/uL Sodium 136 L (137-145) mmol/L Potassium 5.3 H (3.5-5.1) mmol/L Chloride (98-107) mmol/L Carbon Dioxide (22-30) mmol/L BUN 54 H (9-20) mg/dL Creatinine 1.32 H (0.66-1.25) mg/dL Glucose (74-99) mg/dL POC Glucose (mg/dL) (75-99) mg/dL Total Protein 6.1 L (6.3-8.2) g/dL Albumin 3.0 L (3.5-5.0) g/dL Microbiology - Last 24 Hours (Table) 12/14/21 13:20 Blood Culture - Preliminary Blood No Growth after 24 hours 12/14/21 12:52 Blood Culture - Preliminary Blood No Growth after 24 hours Assessment and Plan Plan: Assessment: #1. Acute on chronic hypoxic respiratory failure related to acute exacerbation of CHF, with systolic dysfunction, acute exacerbation of COPD, chest x-ray findings were also suggestive of multilobar pneumonia Patient is Currently Covered with a Combination of Cefepime and Vancomycin. COVID-19 PCR was negative #2. Small bilateral pleural effusions, ultrasound of the chest did not show sizable pleural fluid pocket for thoracentesis #3. Acute exacerbation of COPD #4. Chronic COPD on home oxygen with chronic hypoxic respiratory failure patient normally wears 3 L of oxygen on a regular basis #5. Chronic and ongoing history of smoking, currently smokes one pack a day #6. Lactic acidosis possibly related to underlying pneumonia #7. Chronic A. fib on Eliquis, status post permanent pacemaker implantation #8. Hypertension #9. Hyperlipidemia #10. Gout Plan: Send a sputum culture Continue current antibiotics Patient is feeling better breathing easier Weaning FiO2 down to 3 L if possible to maintain O2 saturations at 88-90% BiPAP support as needed Continue IV Lasix Ultrasound of the chest did not show sizable pleural effusion pocket for d rainage We'll continue medical management Continue IV steroids and will add nebulized bronchodilators We'll continue to follow his clinical course I performed a history & physical examination of the patient and discussed their management with my nurse practitioner, Jennifer Tariq. I reviewed the nurse practitioner's note and agree with the documented findings and plan of care. Lung sounds are positive for dim breath sounds throughout the lung rm. The findings and the impression was discussed with the patient. I attest to the documentation by the nurse practitioner. Time with Patient: Less than 30
--- NOTE | 2021-12-16 11:34 | P.PN ---
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 Objective - Vital Signs Vital signs: Vital Signs Temp 97.8 F 12/16/21 07:45 Pulse 70 12/16/21 07:45 Resp 16 12/16/21 07:45 BP 103/56 12/16/21 07:45 Pulse Ox 92 L 12/16/21 07:45 Intake & Output 12/15/21 12/16/21 12/16/21 18:59 06:59 18:59 Intake Total 1455 240 Output Total 600 800 Balance -600 655 240 Weight 79 kg Intake: Oral 1455 240 Output: Urine 600 800 Other: Voiding Method External Catheter External Catheter External Catheter - Exam Gen: awake, alert HEENT: normocephalic, atraumatic, good hearing acuity, moist mucous membranes Resp: good air exchange, breathing comfortably with no accessory muscle use CVS: good distal perfusion x 4, GI: soft, NTTP, ND : no SPT, no CVAT, horn catheter is present MSK: no pitting edema, no clubbing, cyanotic right first toe, amputated right third toe Neuro: non-focal, moving all extremities Psych: cooperative, euthymic mood - Labs CBC & Chem 7: 12/16/21 07:45 12/16/21 07:45 Labs: Abnormal Lab Results - Last 24 Hours (Table) 12/15/21 12/15/21 12/15/21 Range/Units 05:47 11:40 16:56 WBC (3.8-10.6) k/uL Hgb (13.0-17.5) gm/dL Hct (39.0-53.0) % MCH (25.0-35.0) pg MCHC (31.0-37.0) g/dL RDW (11.5-15.5) % Neutrophils # (1.3-7.7) k/uL Lymphocytes # (1.0-4.8) k/uL Sodium 134 L (137-145) mmol/L Potassium 5.4 H (3.5-5.1) mmol/L Chloride 94 L (98-107) mmol/L Carbon Dioxide 31 H (22-30) mmol/L BUN 43 H (9-20) mg/dL Creatinine (0.66-1.25) mg/dL Glucose 144 H (74-99) mg/dL POC Glucose (mg/dL) 125 H 153 H (75-99) mg/dL Total Protein (6.3-8.2) g/dL Albumin 3.1 L (3.5-5.0) g/dL 12/15/21 12/16/21 12/16/21 Range/Units 20:54 06:25 07:45 WBC 12.8 H (3.8-10.6) k/uL Hgb 9.7 L (13.0-17.5) gm/dL Hct 35.7 L (39.0-53.0) % MCH 22.1 L (25.0-35.0) pg MCHC 27.3 L (31.0-37.0) g/dL RDW 18.8 H (11.5-15.5) % Neutrophils # 12.0 H (1.3-7.7) k/uL Lymphocytes # 0.3 L (1.0-4.8) k/uL Sodium (137-145) mmol/L Potassium (3.5-5.1) mmol/L Chloride (98-107) mmol/L Carbon Dioxide (22-30) mmol/L BUN (9-20) mg/dL Creatinine (0.66-1.25) mg/dL Glucose (74-99) mg/dL POC Glucose (mg/dL) 115 H 113 H (75-99) mg/dL Total Protein (6.3-8.2) g/dL Albumin (3.5-5.0) g/dL 12/16/21 Range/Units 07:45 WBC (3.8-10.6) k/uL Hgb (13.0-17.5) gm/dL Hct (39.0-53.0) % MCH (25.0-35.0) pg MCHC (31.0-37.0) g/dL RDW (11.5-15.5) % Neutrophils # (1.3-7.7) k/uL Lymphocytes # (1.0-4.8) k/uL Sodium 136 L (137-145) mmol/L Potassium 5.3 H (3.5-5.1) mmol/L Chloride (98-107) mmol/L Carbon Dioxide (22-30) mmol/L BUN 54 H (9-20) mg/dL Creatinine 1.32 H (0.66-1.25) mg/dL Glucose (74-99) mg/dL POC Glucose (mg/dL) (75-99) mg/dL Total Protein 6.1 L (6.3-8.2) g/dL Albumin 3.0 L (3.5-5.0) g/dL Microbiology - Last 24 Hours (Table) 12/14/21 13:20 Blood Culture - Preliminary Blood No Growth after 24 hours 12/14/21 12:52 Blood Culture - Preliminary Blood No Growth after 24 hours Assessment and Plan Assessment: Sepsis with Acute on chronic hypoxemic respiratory failure, home oxygen of 3 L Community acquired pneumonia COPD exacerbation Acute on chronic combined systolic and diastolic heart failure exacerbation, EF 45-50% -Admit to inpatient, telemetry -Pulmonary consult -Oxygen as needed -Vancomycin, cefepime -Follow up blood cultures -DuoNeb 4 times a day, and when necessary -Solu-Medrol 40 mg every 8 -Lasix 40 mg IV twice a day -Strict ins and outs, daily weights Chronic right lower extremity ischemia History of right fem-pop bypass Peripheral arterial disease -Vascular surgery consult -Patient does not appear to be on an antiplatelet here or at home, will address between cardiology and vascular surgery -Continue Lipitor -Continue gabapentin, Flexeril, Cymbalta, tramadol, Tylenol for pain History of atrial fibrillation on Apixiban History of sick sinus syndrome status post permanent pacemaker, V paced -Continue metoprolol -Monitor on telemetry -Continue Apixiban Coronary artery disease Hypertension Hyperlipidemia Gout -Home medications were reviewed and reconciled, changes noted above Patient is full code DVT prophylaxis is covered with Apixiban
[2021-12-16 11:42] LABS: Glucose,Whole Blood 172 mg/dL (75-99)
--- NOTE | 2021-12-16 15:21 | P.PN ---
Subjective Progress Note Date: 12/16/21 Known case of COPD hypertension atrial fibrillation sick sinus syndrome status post permanent pacemaker presented to hospital with progressively worsening shortness of breath and developed severe hypoxemia and is currently on a nonrebreather. We have been consulted for elevated troponin. Patient appears confused and is not responding precautions. Patient has history of atrial fibrillation and has had a permanent pacemaker There is no prior history of coronary artery disease. It as a pressure with h istory of chronic diastolic heart failure. Patient is doing much better today, sitting in bed alert and orientated able to answer questions. He denies chest pain palpitations dizziness dyspnea edema. Patient remains in atrial fibrillation sometimes he is V paced on the monitor. Continue with eliquis anticoagulation. Patient is on oxygen nasal cannula he does not wear oxygen at. Will continue on IV Lasix. Patient's echocardiogram showed normal LV function with an ejection fraction of 45-50% mild aortic regurgitation, mild mitral valve regurgitation and mild tricuspid regurgitation along with moderate pulmonary hypertension Objective - Vital Signs Vital signs: Vital Signs Temp 98 F 12/16/21 12:23 Pulse 84 12/16/21 12:23 Resp 16 12/16/21 12:23 BP 94/41 12/16/21 12:23 Pulse Ox 93 L 12/16/21 12:23 Intake & Output 12/15/21 12/16/21 12/16/21 18:59 06:59 18:59 Intake Total 1455 240 Output Total 600 800 600 Balance -600 655 -360 Weight 79 kg Intake: Oral 1455 240 Output: Urine 600 800 600 Other: Voiding Method External Catheter External Catheter External Catheter - Exam PHYSICAL EXAM: VITAL SIGNS: Reviewed. GENERAL: Well-developed in no acute distress. HEENT: Head is normocephalic. Pupils are equal, round. Sclerae anicteric. Mucous membranes of the mouth are moist. NECK: Supple. No JVD or thyromegaly RESPIRATORY: Respirations even and unlabored. Lungs diminished to auscultation bilaterally. CARDIO: IRRegular rate and rhythm. S1 and S2 heard. No or gallops. Ejection systolic murmur EXTREMITIES: Normal range of motion. No clubbing or cyanosis. Peripheral pulses intact. Negative for bilateral lower extremity edema NEURO: Orientated to person, time, mood is appropriate - Labs CBC & Chem 7: 12/16/21 07:45 12/16/21 07:45 Labs: Abnormal Lab Results - Last 24 Hours (Table) 12/15/21 12/15/21 12/16/21 Range/Units 16:56 20:54 06:25 WBC (3.8-10.6) k/uL Hgb (13.0-17.5) gm/dL Hct (39.0-53.0) % MCH (25.0-35.0) pg MCHC (31.0-37.0) g/dL RDW (11.5-15.5) % Neutrophils # (1.3-7.7) k/uL Lymphocytes # (1.0-4.8) k/uL Sodium (137-145) mmol/L Potassium (3.5-5.1) mmol/L BUN (9-20) mg/dL Creatinine (0.66-1.25) mg/dL POC Glucose (mg/dL) 153 H 115 H 113 H (75-99) mg/dL Total Protein (6.3-8.2) g/dL Albumin (3.5-5.0) g/dL 12/16/21 12/16/21 12/16/21 Range/Units 07:45 07:45 11:41 WBC 12.8 H (3.8-10.6) k/uL Hgb 9.7 L (13.0-17.5) gm/dL Hct 35.7 L (39.0-53.0) % MCH 22.1 L (25.0-35.0) pg MCHC 27.3 L (31.0-37.0) g/dL RDW 18.8 H (11.5-15.5) % Neutrophils # 12.0 H (1.3-7.7) k/uL Lymphocytes # 0.3 L (1.0-4.8) k/uL Sodium 136 L (137-145) mmol/L Potassium 5.3 H (3.5-5.1) mmol/L BUN 54 H (9-20) mg/dL Creatinine 1.32 H (0.66-1.25) mg/dL POC Glucose (mg/dL) 172 H (75-99) mg/dL Total Protein 6.1 L (6.3-8.2) g/dL Albumin 3.0 L (3.5-5.0) g/dL Microbiology - Last 24 Hours (Table) 12/14/21 13:20 Blood Culture - Preliminary Blood No Growth after 24 hours 12/14/21 12:52 Blood Culture - Preliminary Blood No Growth after 24 hours Assessment and Plan Assessment: COPD exacerbation Non-arrhythmic aortic insufficiency Respiratory failure Troponin elevation secondary to hypoxia supply demand mismatch type II myocardial infarction Permanent atrial fibrillation Sick sinus syndrome status post permanent pacemaker Plan: Continue with all current cardiac medications Continue with Eliquis Continue on IV Lasix
[2021-12-16 17:05] LABS: Glucose,Whole Blood 109 mg/dL (75-99)
[2021-12-16 20:55] LABS: Glucose,Whole Blood 117 mg/dL (75-99)
[2021-12-16] MEDS: ATORVASTATIN 40 MG TAB PO SCH (21:07)
[2021-12-16] MEDS: traZODone HCL 50 MG TAB PO SCH (21:08)
[2021-12-16] MEDS: allopurinoL 300 MG TAB PO SCH (21:08)
[2021-12-17] MEDS ORDERED: VANCOMYCIN TROUGH DUE 1 EACH MISC MISCELLANE ONE (05:00)
[2021-12-17] MEDS: traMADol 50 MG TAB PO PRN (06:03)
[2021-12-17 06:13] LABS: Glucose,Whole Blood 142 mg/dL (75-99)
[2021-12-17] MEDS: INSULIN ASPART (NovoLOG) 100 UNIT/ML VIAL SQ SCH ×4 (06:33→20:39)
[2021-12-17 07:28] LABS: Anisocytosis Slight; Basophils % (A) 0 %; Eosinophils % (A) 0 %; HCT 32.1 % (39.0-53.0); Hypochromasia Marked; Lymphocytes # (A) 0.2 k/uL (1.0-4.8); Lymphocytes % (A) 2 %; MCH 22.2 pg (25.0-35.0); MCHC 28.1 g/dL (31.0-37.0); MCV 79.2 fL (80.0-100.0); Mean Platelet Volume 7.9; Microcytosis Slight; Monocytes # (A) 0.4 k/uL (0-1.0); Monocytes % (A) 3 %; Neutrophils # (A) 11.2 k/uL (1.3-7.7); Neutrophils % (A) 95 %; Platelet Count 284 k/uL (150-450); Poikilocytosis Slight; RBC 4.06 m/uL (4.30-5.90); RDW 18.6 % (11.5-15.5); WBC 11.8 k/uL (3.8-10.6)
[2021-12-17 07:48] LABS: Calcium 8.3 mg/dL (8.4-10.2); Magnesium 2.1 mg/dL (1.6-2.3); Potassium 5.2 mmol/L (3.5-5.1)
[2021-12-17] MEDS: IPRATROPIUM-ALBUTEROL 3 ML NEB INHALATION SCH ×4 (08:51→20:48)
--- NOTE | 2021-12-17 09:46 | P.PN ---
Subjective Progress Note Date: 12/17/21 Pt has worsening hypoxia, kidney function is worse today. Vanc trough was 39. Vascular sx assessment pending. Objective - Vital Signs Vital signs: Vital Signs Temp 97.6 F 12/17/21 09:05 Pulse 71 12/17/21 09:05 Resp 21 12/17/21 09:05 BP 107/41 12/17/21 09:05 Pulse Ox 95 12/17/21 09:05 Intake & Output 12/16/21 12/17/21 12/17/21 18:59 06:59 18:59 Intake Total 240 Output Total 1050 600 Balance -810 -600 Intake: Oral 240 Output: Urine 1050 600 Other: Voiding Method External Catheter External Catheter External Catheter - Exam Gen: awake, alert HEENT: normocephalic, atraumatic, good hearing acuity, moist mucous membranes Resp: good air exchange, breathing comfortably with no accessory muscle use CVS: good distal perfusion x 4, GI: soft, NTTP, ND : no SPT, no CVAT, horn catheter is present MSK: no pitting edema, no clubbing, cyanotic right first toe, amputated right third toe Neuro: non-focal, moving all extremities Psych: cooperative, euthymic mood - Labs CBC & Chem 7: 12/17/21 06:36 12/17/21 06:36 Labs: Abnormal Lab Results - Last 24 Hours (Table) 12/16/21 12/16/21 12/16/21 Range/Units 11:41 17:04 20:25 WBC (3.8-10.6) k/uL RBC (4.30-5.90) m/uL Hgb (13.0-17.5) gm/dL Hct (39.0-53.0) % MCV (80.0-100.0) fL MCH (25.0-35.0) pg MCHC (31.0-37.0) g/dL RDW (11.5-15.5) % Neutrophils # (1.3-7.7) k/uL Lymphocytes # (1.0-4.8) k/uL Sodium (137-145) mmol/L Potassium (3.5-5.1) mmol/L Chloride (98-107) mmol/L BUN (9-20) mg/dL Creatinine (0.66-1.25) mg/dL Glucose (74-99) mg/dL POC Glucose (mg/dL) 172 H 109 H 117 H (75-99) mg/dL Calcium (8.4-10.2) mg/dL Vancomycin Trough ug/mL 12/17/21 12/17/21 12/17/21 Range/Units 05:22 06:36 06:36 WBC 11.8 H (3.8-10.6) k/uL RBC 4.06 L (4.30-5.90) m/uL Hgb 9.0 L (13.0-17.5) gm/dL Hct 32.1 L (39.0-53.0) % MCV 79.2 L (80.0-100.0) fL MCH 22.2 L (25.0-35.0) pg MCHC 28.1 L (31.0-37.0) g/dL RDW 18.6 H (11.5-15.5) % Neutrophils # 11.2 H (1.3-7.7) k/uL Lymphocytes # 0.2 L (1.0-4.8) k/uL Sodium (137-145) mmol/L Potassium (3.5-5.1) mmol/L Chloride (98-107) mmol/L BUN (9-20) mg/dL Creatinine (0.66-1.25) mg/dL Glucose (74-99) mg/dL POC Glucose (mg/dL) 142 H (75-99) mg/dL Calcium (8.4-10.2) mg/dL Vancomycin Trough 39.0 H* ug/mL 12/17/21 Range/Units 06:36 WBC (3.8-10.6) k/uL RBC (4.30-5.90) m/uL Hgb (13.0-17.5) gm/dL Hct (39.0-53.0) % MCV (80.0-100.0) fL MCH (25.0-35.0) pg MCHC (31.0-37.0) g/dL RDW (11.5-15.5) % Neutrophils # (1.3-7.7) k/uL Lymphocytes # (1.0-4.8) k/uL Sodium 133 L (137-145) mmol/L Potassium 5.2 H (3.5-5.1) mmol/L Chloride 97 L (98-107) mmol/L BUN 77 H (9-20) mg/dL Creatinine 1.91 H (0.66-1.25) mg/dL Glucose 126 H (74-99) mg/dL POC Glucose (mg/dL) (75-99) mg/dL Calcium 8.3 L (8.4-10.2) mg/dL Vancomycin Trough ug/mL Microbiology - Last 24 Hours (Table) 12/15/21 21:53 Blood Culture - Preliminary Blood No Growth after 24 hours 12/15/21 15:04 Blood Culture - Preliminary Blood No Growth after 24 hours 12/14/21 13:20 Blood Culture - Preliminary Blood No Growth after 48 hours 12/14/21 12:52 Blood Culture - Preliminary Blood No Growth after 48 hours Assessment and Plan Assessment: Sepsis with Acute on chronic hypoxemic respiratory failure, home oxygen of 3 L Community acquired pneumonia COPD exacerbation Acute on chronic combined systolic and diastolic heart failure exacerbation, EF 45-50% -Admit to inpatient, telemetry -Pulmonary consult -Oxygen as needed -cefepime continued, vancomycin discontinued 12/17, random vanc level tomorrow AM -Follow up blood cultures -DuoNeb 4 times a day, and when necessary -Solu-Medrol 40 mg every 8 -Lasix 40 mg IV twice a day, 12/17 PM dose to be held -Strict ins and outs, daily weights Acute Kidney Injury -daily BMP, Mg -avoid nephrotoxins as able, renally dose medications -lasix as above Chronic right lower extremity ischemia History of right fem-pop bypass Peripheral arterial disease -Vascular surgery consult -Patient does not appear to be on an antiplatelet here or at home, will address between cardiology and vascular surgery -will initiate plavix if no intervention planned by vascular surgery during this hospitalization -Continue Lipitor -Continue gabapentin, Flexeril, Cymbalta, tramadol, Tylenol for pain History of atrial fibrillation on Apixiban History of sick sinus syndrome status post permanent pacemaker, V paced -Continue metoprolol -Monitor on telemetry -Continue Apixiban Coronary artery disease Hypertension Hyperlipidemia Gout -Home medications were reviewed and reconciled, changes noted above Patient is full code DVT prophylaxis is covered with Apixiban
[2021-12-17] MEDS: CEFEPIME 1 GM in SODIUM CHLORIDE 0.9% 50 ML IVPB SCH ×2 (11:16→16:17)
[2021-12-17] MEDS: methylPREDNISolone SOD SUCCI 40 MG/ML 1 ML VIAL IV SCH ×2 (11:17→16:17)
[2021-12-17] MEDS: METOPROLOL TARTRATE 25 MG TAB PO SCH (11:18)
[2021-12-17] MEDS: PANTOPRAZOLE 40 MG TABLET PO SCH (11:18)
[2021-12-17] MEDS: APIXABAN 5 MG TAB PO SCH ×2 (11:18→21:46)
[2021-12-17] MEDS: FUROSEMIDE 10 MG/ML 4 ML VIAL IV SCH (11:18)
[2021-12-17] MEDS: DULoxetine HCL 60 MG CAPSULE.DR PO SCH (11:18)
[2021-12-17] MEDS: lisinopriL 5 MG TAB PO SCH (11:19)
[2021-12-17] MEDS: CYCLOBENZAPRINE 10 MG TAB PO PRN ×2 (11:19→21:47)
[2021-12-17] MEDS: GABAPENTIN 300 MG CAP PO SCH ×3 (11:19→21:12)
[2021-12-17] MEDS: VANCOMYCIN 1,500 MG in SODIUM CHLORIDE 0.9% 250 ML IVPB SCH (11:39)
[2021-12-17 11:52] LABS: Glucose,Whole Blood 206 mg/dL (75-99)
--- NOTE | 2021-12-17 12:18 | P.PN ---
Subjective Progress Note Date: 12/17/21 HISTORY OF PRESENT ILLNESS: 12/16/2021 Known case of COPD hypertension atrial fibrillation sick sinus syndrome status post permanent pacemaker presented to hospital with progressively worsening shortness of breath and developed severe hypoxemia and is currently on a nonrebreather. We have been consulted for elevated troponin. Patient appears confused and is not responding precautions. Patient has history of atrial fibrillation and has had a permanent pacemaker There is no prior history of coronary artery disease. It as a pressure with history of chronic diastolic heart failure. Patient is doing much better today, sitting in bed alert and orientated able to answer questions. He denies chest pain palpitations dizziness dyspnea edema. Patient remains in atrial fibrillation sometimes he is V paced on the monitor. Continue with eliquis anticoagulation. Patient is on oxygen nasal cannula he does not wear oxygen at. Will continue on IV Lasix. Patient's echocardiogram showed normal LV function with an ejection fraction of 45-50% mild aortic regurgitation, mild mitral valve regurgitation and mild tricuspid regurgitation along with moderate pulmonary hypertension 12/17/2021 Patient examined this morning at the bedside. Patient denies chest pain or press ure. He reports shortness of breath. He is on 6L NC with oxygen saturations greater than 92%. Patient is receiving IV lasix 40mg BID. Creatinine 1.91 today. Telemetry reveals paced rhythm with underlying atrial fibrillation. He remains on Eliquis. PHYSICAL EXAM: VITAL SIGNS: Reviewed. GENERAL: Well-developed in no acute distress. NECK: Supple. No JVD or thyromegaly LUNGS: Respirations even and unlabored. Lungs diminished to auscultation bilaterally. HEART: Irregular rate and rhythm. S1 and S2 heard. Systolic murmur. EXTREMITIES: Normal range of motion. Trace bilateral lower extremity edema ASSESSMENT: Sepsis Pneumonia COPD exacerbation Acute on chronic hypoxic respiratory failure Acute on chronic diastolic congestive heart failure, EF 45-50% Troponin elevation secondary to hypoxia supply demand mismatch type II myocardial infarction Chronic persistent atrial fibrillation Sick sinus syndrome status post permanent pacemaker Peripheral vascular disease with previous fem-pop bypass Hypertension Hyperlipidemia Acute kidney injury PLAN: Continue current cardiac medications Case discussed with Dr. Tinoco. Will hold tonights Lasix due to JULIANE. Repeat BMP in AM Pulmonary following. No plans for thoracentesis. Further recommendations pending patient course Nurse practitioner note has been reviewed by physician. Signing provider agrees with the documented findings, assessment, and plan of care. Objective - Vital Signs Vital signs: Vital Signs Temp 97.5 F L 12/17/21 12:09 Pulse 72 12/17/21 12:09 Resp 20 12/17/21 12:09 BP 94/50 12/17/21 12:09 Pulse Ox 98 12/17/21 12:09 Intake & Output 12/16/21 12/17/21 12/17/21 18:59 06:59 18:59 Intake Total 240 Output Total 1050 600 Balance -810 -600 Intake: Oral 240 Output: Urine 1050 600 Other: Voiding Method External Catheter External Catheter External Catheter - Labs CBC & Chem 7: 12/17/21 06:36 12/17/21 06:36 Labs: Abnormal Lab Results - Last 24 Hours (Table) 12/16/21 12/16/21 12/17/21 Range/Units 17:04 20:25 05:22 WBC (3.8-10.6) k/uL RBC (4.30-5.90) m/uL Hgb (13.0-17.5) gm/dL Hct (39.0-53.0) % MCV (80.0-100.0) fL MCH (25.0-35.0) pg MCHC (31.0-37.0) g/dL RDW (11.5-15.5) % Neutrophils # (1.3-7.7) k/uL Lymphocytes # (1.0-4.8) k/uL Sodium (137-145) mmol/L Potassium (3.5-5.1) mmol/L Chloride (98-107) mmol/L BUN (9-20) mg/dL Creatinine (0.66-1.25) mg/dL Glucose (74-99) mg/dL POC Glucose (mg/dL) 109 H 117 H 142 H (75-99) mg/dL Calcium (8.4-10.2) mg/dL Vancomycin Trough ug/mL 12/17/21 12/17/21 12/17/21 Range/Units 06:36 06:36 06:36 WBC 11.8 H (3.8-10.6) k/uL RBC 4.06 L (4.30-5.90) m/uL Hgb 9.0 L (13.0-17.5) gm/dL Hct 32.1 L (39.0-53.0) % MCV 79.2 L (80.0-100.0) fL MCH 22.2 L (25.0-35.0) pg MCHC 28.1 L (31.0-37.0) g/dL RDW 18.6 H (11.5-15.5) % Neutrophils # 11.2 H (1.3-7.7) k/uL Lymphocytes # 0.2 L (1.0-4.8) k/uL Sodium 133 L (137-145) mmol/L Potassium 5.2 H (3.5-5.1) mmol/L Chloride 97 L (98-107) mmol/L BUN 77 H (9-20) mg/dL Creatinine 1.91 H (0.66-1.25) mg/dL Glucose 126 H (74-99) mg/dL POC Glucose (mg/dL) (75-99) mg/dL Calcium 8.3 L (8.4-10.2) mg/dL Vancomycin Trough 39.0 H* ug/mL 12/17/21 Range/Units 11:50 WBC (3.8-10.6) k/uL RBC (4.30-5.90) m/uL Hgb (13.0-17.5) gm/dL Hct (39.0-53.0) % MCV (80.0-100.0) fL MCH (25.0-35.0) pg MCHC (31.0-37.0) g/dL RDW (11.5-15.5) % Neutrophils # (1.3-7.7) k/uL Lymphocytes # (1.0-4.8) k/uL Sodium (137-145) mmol/L Potassium (3.5-5.1) mmol/L Chloride (98-107) mmol/L BUN (9-20) mg/dL Creatinine (0.66-1.25) mg/dL Glucose (74-99) mg/dL POC Glucose (mg/dL) 206 H (75-99) mg/dL Calcium (8.4-10.2) mg/dL Vancomycin Trough ug/mL Microbiology - Last 24 Hours (Table) 12/15/21 21:53 Blood Culture - Preliminary Blood No Growth after 24 hours 12/15/21 15:04 Blood Culture - Preliminary Blood No Growth after 24 hours 12/14/21 13:20 Blood Culture - Preliminary Blood No Growth after 48 hours 12/14/21 12:52 Blood Culture - Preliminary Blood No Growth after 48 hours
--- NOTE | 2021-12-17 13:00 | P.GSCN ---
History of Present Illness Consult date: 12/17/21 Reason for Consult: Dusky toe Requesting physician: Albino Tinoco History of present illness: This is 76-year-old male with a past medical history of COPD, chronic congestive heart failure, hypertension, hyperlipidemia, atrial fibrillation on Eliquis coronary artery disease with pacemaker, and peripheral arterial disease. He presented to the emergency department 3 days ago with complaints of shortness of breath. Patient was diagnosed with pneumonia and is currently on IV antibiotics. As well as elevated troponins of being followed by cardiology for NSTEMI. Vascular surgery was consulted to evaluate patient for a right great toe with some dusky appearance. He has a history of peripheral arterial disease and was recently admitted to the hospital in July and August of this year. On 08/15/2021 he underwent left iliofemoral angiogram with aortogram with runoffs, left external iliac artery percutaneous transluminal balloon angioplasty. On 08/28/2021 he underwent selective right lower extremity angiogram third order with a percutaneous transluminal balloon angioplasty of the left external iliac artery. Percutaneous stenting of the external iliac artery by Dr. Zee. On 09/12/2021 patient had required a right third toe amputation which was done by Dr. Doyle. The amputation site has healed well. He does complain of pain down bilateral lower extremities she states is chronic. He currently denies any chest pain, shortness of breath has improved, no abdominal pain, nausea, or vomiting. 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 Pacemaker. Hx lung cancer approx 2007. PAD. Enlarged Prostate. 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 Still healing from broken right shoulder(May 2021), limited mobility. Uses O2 @ 3L most of the time. Last Myocardial Infarction Date:: 2005 History of Any Multi-Drug Resistant Organisms: None Reported Past Surgical History: Bowel Resection, Orthopedic Surgery, Pacemaker Additional Past Surgical History / Comment(s): Femoral Popliteal Procedure, ankle surgery, bilateral cataract surgery, lobectomy, colostomy with reversal. Left upper leg stent 08/27/21. Past Anesthesia/Blood Transfusion Reactions: No Reported Reaction Additional Past Anesthesia/Blood Transfusion Reaction / Comm: Received blood without reaction X1. Vertigo. Type of Cardiac Device: Permanent Pacemaker Device Placement Date:: UNK Past Psychological History: No Psychological Hx Reported Smoking Status: Smoker, current status unknown Past Alcohol Use History: Daily Additional Past Alcohol Use History / Comment(s): "Has been smoking most of his life, 1/2 -1 PPD". 6 BEERS A DAY. States he used to be a smoker; when questioned when he quit says a couple days ago Past Drug Use History: None Reported - Past Family History Father History Unknown: Yes Family Medical History: Unable to Obtain Mother History Unknown: Yes Family Medical History: Unable to Obtain Sister(s) History Unknown: Yes Family Medical History: Unable to Obtain Brother(s) History Unknown: Yes Family Medical History: Unable to Obtain Medications and Allergies Home Medications Medication Instructions Recorded Confirmed Type Allopurinol [Zyloprim] 300 mg PO HS 07/03/21 12/14/21 History Apixaban [Eliquis] 5 mg PO BID 07/03/21 12/14/21 History Atorvastatin [Lipitor] 40 mg PO HS 07/03/21 12/14/21 History Cyclobenzaprine [Flexeril] 10 mg PO BID PRN 07/03/21 12/14/21 History DULoxetine HCL [Cymbalta] 60 mg PO DAILY@1200 07/03/21 12/14/21 History Gabapentin 300 mg PO TID 07/03/21 12/14/21 History Metoprolol Tartrate 25 mg PO BID 07/03/21 12/14/21 History Nitroglycerin Sl Tabs [Nitrostat] 0.4 mg SL Q5M PRN 07/03/21 12/14/21 History Omeprazole 20 mg PO DAILY@1200 07/03/21 12/14/21 History traMADol HCL 50 mg PO BID PRN 07/03/21 12/14/21 History traZODone HCL [Desyrel] 50 mg PO HS 07/03/21 12/14/21 History Albuterol Nebulized [Ventolin 2.5 mg INHALATION RT-QID PRN 08/12/21 12/14/21 History Nebulized] Furosemide [Lasix] 20 mg PO DAILY 08/12/21 12/14/21 History Ipratropium/Albuterol Sulfate 1 puff INHALATION RT-QID 12/14/21 12/14/21 History [Combivent Respimat Inhaler] lisinopriL [Zestril] 5 mg PO DAILY 12/14/21 12/14/21 History predniSONE 50 mg PO DAILY@1200 12/14/21 12/14/21 History Aspirin 81 mg PO DAILY #30 tab 12/17/21 Rx Allergies Allergy/AdvReac Type Severity Reaction Status Date / Time iron Allergy Rash/Hives Verified 12/14/21 12:04 varenicline [From Chantix] Allergy Hallucinati Verified 12/14/21 12:04 ons Surgical - Exam Vital Signs Temp Pulse Resp BP Pulse Ox 98.7 F 70 22 104/61 93 L 12/14/21 12:01 12/14/21 12:01 12/14/21 12:01 12/14/21 12:01 12/14/21 12:01 General appearance: The patient is alert, oriented, appears in no acute distress. HET: Head is normocephalic and atraumatic. Neck: Supple without lymphadenopathy. Trachea midline. Heart: S1 S2. Regular rate and rhythm. Lungs: Bilateral wheezes and rhonchi. Abdomen: Soft, obese, nontender, nondistended. Extremities: No lower extremity edema. Nonpalpable pulses. Has multiphasic femoral, popliteal signal. Monophasic posterior tibialis signal and unable to obtain Doppler signal of the bilateral dorsalis pedis. Right third toe amputation site well healed. Right great toe distal aspect with some mild ischemic changes. Neurological: Alert and oriented 3. Results - Labs 12/17/21 06:36 12/17/21 06:36 Abnormal Lab Results - Last 24 Hours (Table) 12/16/21 12/16/21 12/16/21 Range/Units 07:45 11:41 17:04 WBC (3.8-10.6) k/uL RBC (4.30-5.90) m/uL Hgb (13.0-17.5) gm/dL Hct (39.0-53.0) % MCV (80.0-100.0) fL MCH (25.0-35.0) pg MCHC (31.0-37.0) g/dL RDW (11.5-15.5) % Neutrophils # (1.3-7.7) k/uL Lymphocytes # (1.0-4.8) k/uL Sodium 136 L (137-145) mmol/L Potassium 5.3 H (3.5-5.1) mmol/L Chloride (98-107) mmol/L BUN 54 H (9-20) mg/dL Creatinine 1.32 H (0.66-1.25) mg/dL Glucose (74-99) mg/dL POC Glucose (mg/dL) 172 H 109 H (75-99) mg/dL Calcium (8.4-10.2) mg/dL Total Protein 6.1 L (6.3-8.2) g/dL Albumin 3.0 L (3.5-5.0) g/dL 12/16/21 12/17/21 12/17/21 Range/Units 20:25 05:22 06:36 WBC 11.8 H (3.8-10.6) k/uL RBC 4.06 L (4.30-5.90) m/uL Hgb 9.0 L (13.0-17.5) gm/dL Hct 32.1 L (39.0-53.0) % MCV 79.2 L (80.0-100.0) fL MCH 22.2 L (25.0-35.0) pg MCHC 28.1 L (31.0-37.0) g/dL RDW 18.6 H (11.5-15.5) % Neutrophils # 11.2 H (1.3-7.7) k/uL Lymphocytes # 0.2 L (1.0-4.8) k/uL Sodium (137-145) mmol/L Potassium (3.5-5.1) mmol/L Chloride (98-107) mmol/L BUN (9-20) mg/dL Creatinine (0.66-1.25) mg/dL Glucose (74-99) mg/dL POC Glucose (mg/dL) 117 H 142 H (75-99) mg/dL Calcium (8.4-10.2) mg/dL Total Protein (6.3-8.2) g/dL Albumin (3.5-5.0) g/dL 12/17/21 Range/Units 06:36 WBC (3.8-10.6) k/uL RBC (4.30-5.90) m/uL Hgb (13.0-17.5) gm/dL Hct (39.0-53.0) % MCV (80.0-100.0) fL MCH (25.0-35.0) pg MCHC (31.0-37.0) g/dL RDW (11.5-15.5) % Neutrophils # (1.3-7.7) k/uL Lymphocytes # (1.0-4.8) k/uL Sodium 133 L (137-145) mmol/L Potassium 5.2 H (3.5-5.1) mmol/L Chloride 97 L (98-107) mmol/L BUN 77 H (9-20) mg/dL Creatinine 1.91 H (0.66-1.25) mg/dL Glucose 126 H (74-99) mg/dL POC Glucose (mg/dL) (75-99) mg/dL Calcium 8.3 L (8.4-10.2) mg/dL Total Protein (6.3-8.2) g/dL Albumin (3.5-5.0) g/dL Microbiology - Last 24 Hours (Table) 12/15/21 21:53 Blood Culture - Preliminary Blood No Growth after 24 hours 12/15/21 15:04 Blood Culture - Preliminary Blood No Growth after 24 hours 12/14/21 13:20 Blood Culture - Preliminary Blood No Growth after 48 hours 12/14/21 12:52 Blood Culture - Preliminary Blood No Growth after 48 hours Diabetes panel 12/16/21 12/17/21 Range/Units 07:45 06:36 Sodium 136 L 133 L (137-145) mmol/L Potassium 5.3 H 5.2 H (3.5-5.1) mmol/L Chloride 98 97 L (98-107) mmol/L Carbon Dioxide 28 30 (22-30) mmol/L BUN 54 H 77 H (9-20) mg/dL Creatinine 1.32 H 1.91 H (0.66-1.25) mg/dL Glucose 95 126 H (74-99) mg/dL Calcium 8.6 8.3 L (8.4-10.2) mg/dL AST 25 (17-59) U/L ALT 26 (4-49) U/L Alkaline Phosphatase 68 (38-126) U/L Total Protein 6.1 L (6.3-8.2) g/dL Albumin 3.0 L (3.5-5.0) g/dL Calcium panel 12/16/21 12/17/21 Range/Units 07:45 06:36 Calcium 8.6 8.3 L (8.4-10.2) mg/dL Albumin 3.0 L (3.5-5.0) g/dL Pituitary panel 12/16/21 12/17/21 Range/Units 07:45 06:36 Sodium 136 L 133 L (137-145) mmol/L Potassium 5.3 H 5.2 H (3.5-5.1) mmol/L Chloride 98 97 L (98-107) mmol/L Carbon Dioxide 28 30 (22-30) mmol/L BUN 54 H 77 H (9-20) mg/dL Creatinine 1.32 H 1.91 H (0.66-1.25) mg/dL Glucose 95 126 H (74-99) mg/dL Calcium 8.6 8.3 L (8.4-10.2) mg/dL Adrenal panel 12/16/21 12/17/21 Range/Units 07:45 06:36 Sodium 136 L 133 L (137-145) mmol/L Potassium 5.3 H 5.2 H (3.5-5.1) mmol/L Chloride 98 97 L (98-107) mmol/L Carbon Dioxide 28 30 (22-30) mmol/L BUN 54 H 77 H (9-20) mg/dL Creatinine 1.32 H 1.91 H (0.66-1.25) mg/dL Glucose 95 126 H (74-99) mg/dL Calcium 8.6 8.3 L (8.4-10.2) mg/dL Total Bilirubin 0.7 (0.2-1.3) mg/dL AST 25 (17-59) U/L ALT 26 (4-49) U/L Alkaline Phosphatase 68 (38-126) U/L Total Protein 6.1 L (6.3-8.2) g/dL Albumin 3.0 L (3.5-5.0) g/dL Assessment and Plan Assessment: 1. Peripheral arterial disease, [place] classification 5 with ischemic changes to right great toe 2. Status post lower extremity revascularization 3. Acute on chronic COPD 4. History of coronary artery disease Plan: 1. Continue Eliquis, will add aspirin 81 mg daily, continue statin 2. No plans on any vascular surgical intervention at this time 3. Recommend outpatient follow-up Thank you for this consultation, the patient is cleared for discharge from v ascular surgery. The impression and plan of care has been dictated as directed. Dr. Doyle I performed a history and examination of this patient, discussed the same with the dictator. I agree with the dictator's note ,documented as a scribe. Any additional findings or plans will be noted.
[2021-12-17 16:33] LABS: Glucose,Whole Blood 147 mg/dL (75-99)
--- NOTE | 2021-12-17 16:50 | P.PN ---
Subjective Progress Note Date: 12/17/21 This is a 76-year-old male patient with a known history of chronic obstructive pulmonary disease, chronic congestive heart failure with an ejection fraction of 45-50%, hypertension, hyperlipidemia, atrial fibrillation anticoagulated with Eliquis, single-chamber pacemaker, depression. He presented here to the emergency room yesterday after developing a 2-3 day history of increasing shortness of breath. Chest x-ray reveals evidence of cardiac chronic changes with cardiomegaly and persistent small to moderate right-sided pleural effusion and right mid and lower lung acute infiltrate/atelectasis. The patient had a similar presentation back in June 2021. EKG reveals evidence of atrial fibrillation with ventricular pacing. White count 10.7. Hemoglobin 9.1. Platelets 312. INR 1.2. Sodium 134. Potassium 5.4. Chloride 94. I curb 31. Creatinine 1.11. Glucose 144. Lactic acid 3.5. Troponin 0.038. ProBNP 7560. Pro-calcitonin 0.07. Coronavirus by PCR not detected. He's been initiated and DuoNeb inhalations, IV Solu-Medrol, IV diuretics. He is seen today in consultation on the selective care unit. He has somewhat obtunded. Arousable. Able to state he is in the hospital. He is quite dyspneic with conversation. He has quickly progressed from 4 L to 15 L high flow nasal cannula. Stat blood gases revealed a pO2 of 276, pCO2 of 60 and a pH of 7.35. He was placed on BiPAP 12/6 and 40% FiO2. He was given IV Lasix. He is currently more comfortable. Ultrasound of the chest revealed no significant pleural effusions. He's been initiated on vancomycin and cefepime. On 12/16/2021 patient is seen in follow-up on selective care unit, patient is awake and alert, in no acute distress, currently on 6 L of oxygen his pulse ox is 92%, she did wear BiPAP support overnight. He states his breathing more comfortably since admission, lung sounds reveal diffuse wheezes, and patient has been coughing and bringing up some whitish to yellowish colored phlegm, no hemoptysis. Patient is on a combination of cefepime and vancomycin for possibility of pneumonia, he is also on IV Lasix at 40 mg every 12 hours, he is down 2.6 kg since admission, clinically does not look fluid overloaded, however his elevated proBNP level and his chest x-ray findings were suggestive of acute exacerbation of CHF. His ultrasound and the chest did not find a sizable pocket for thoracentesis, patient continues on medical treatment, in addition his COPD is active, patient has chronic and ongoing history of smoking, currently smoking about a pack a day, he wears oxygen at home at 3 L. He remains on IV Solu- Medrol at 40 mg every 8 hours, clinically seems to be improving, follow-up chest x-ray today has been reviewed showing cardiomegaly, possible right pleural effusion and associated atelectasis. On 12/17/2021 patient seen in follow-up on selective care unit, he is breathing comfortably, is currently on 6 L of oxygen his pulse ox of 98%, FiO2 has been dropped down to 4 L, he normally wears 2 L at home at bedtime only. He is awake and alert, no altered mentation, answering questions appropriately. He did wear BiPAP last night with FiO2 of 50%. Lung sounds reveal diminished breath sounds with some scattered rhonchi, he remains on Lasix at 40 mg twice daily, he remains on empiric antibiotics for possibility of pneumonia. He remains on IV steroids with Solu-Medrol 40 mg every 8 hours and breathing treatments. His blood cultures have shown no growth thus far. Vital signs have been stable, clinically he is breathing easier, denies any worsening dyspnea or cough, no complaints of chest pain. Today's labs have been reviewed white count is improving and is down to 11.8, hemoglobin is 9.0, sodium is 133. Potassium is 5.2, chloride is 97, BUN 77 creatinine is 1.91. There has been worsening in his renal function, and for that reason Lasix will be cut back to once daily. O therwise he is breathing comfortably, is currently eating lunch, his appetite is fair. Objective - Vital Signs Vital signs: Vital Signs Temp 97.5 F L 12/17/21 12:09 Pulse 72 12/17/21 12:09 Resp 20 12/17/21 12:09 BP 94/50 12/17/21 12:09 Pulse Ox 98 12/17/21 12:09 Intake & Output 12/16/21 12/17/21 12/17/21 18:59 06:59 18:59 Intake Total 240 240 Output Total 1050 600 Balance -810 -600 240 Intake: Oral 240 240 Output: Urine 1050 600 Other: Voiding Method External Catheter External Catheter External Catheter - Exam GENERAL EXAM: Alert, very pleasant, 76-year-old white male on 8 L of oxygen with a pulse ox of 95% comfortable in no apparent distress. HEAD: Normocephalic/atraumatic. EYES: Normal reaction of pupils, equal size. Conjunctiva pink, sclera white. NOSE: Clear with pink turbinates. THROAT: No erythema or exudates. NECK: No masses, no JVD, no thyroid enlargement, no adenopathy. CHEST: No chest wall deformity. Symmetrical expansion. LUNGS: Equal air entry with diffuse wheezes, and rhonchi CVS: Regular rate and rhythm, normal S1 and S2, no gallops, no murmurs, no rubs ABDOMEN: Soft, nontender. No hepatosplenomegaly, normal bowel sounds, no guarding or rigidity. EXTREMITIES: No clubbing, no edema, no cyanosis, 2+ pulses and upper and lower extremities. MUSCULOSKELETAL: Muscle strength and tone normal. SPINE: No scoliosis or deformity SKIN: No rashes CENTRAL NERVOUS SYSTEM: Alert and oriented -3. No focal deficits, tone is normal in all 4 extremities. PSYCHIATRIC: Alert and oriented -3. Appropriate affect. Intact judgment and insight. - Labs CBC & Chem 7: 12/17/21 06:36 12/17/21 06:36 Labs: Abnormal Lab Results - Last 24 Hours (Table) 12/16/21 12/16/21 12/17/21 Range/Units 17:04 20:25 05:22 WBC (3.8-10.6) k/uL RBC (4.30-5.90) m/uL Hgb (13.0-17.5) gm/dL Hct (39.0-53.0) % MCV (80.0-100.0) fL MCH (25.0-35.0) pg MCHC (31.0-37.0) g/dL RDW (11.5-15.5) % Neutrophils # (1.3-7.7) k/uL Lymphocytes # (1.0-4.8) k/uL Sodium (137-145) mmol/L Potassium (3.5-5.1) mmol/L Chloride (98-107) mmol/L BUN (9-20) mg/dL Creatinine (0.66-1.25) mg/dL Glucose (74-99) mg/dL POC Glucose (mg/dL) 109 H 117 H 142 H (75-99) mg/dL Calcium (8.4-10.2) mg/dL Vancomycin Trough ug/mL 12/17/21 12/17/21 12/17/21 Range/Units 06:36 06:36 06:36 WBC 11.8 H (3.8-10.6) k/uL RBC 4.06 L (4.30-5.90) m/uL Hgb 9.0 L (13.0-17.5) gm/dL Hct 32.1 L (39.0-53.0) % MCV 79.2 L (80.0-100.0) fL MCH 22.2 L (25.0-35.0) pg MCHC 28.1 L (31.0-37.0) g/dL RDW 18.6 H (11.5-15.5) % Neutrophils # 11.2 H (1.3-7.7) k/uL Lymphocytes # 0.2 L (1.0-4.8) k/uL Sodium 133 L (137-145) mmol/L Potassium 5.2 H (3.5-5.1) mmol/L Chloride 97 L (98-107) mmol/L BUN 77 H (9-20) mg/dL Creatinine 1.91 H (0.66-1.25) mg/dL Glucose 126 H (74-99) mg/dL POC Glucose (mg/dL) (75-99) mg/dL Calcium 8.3 L (8.4-10.2) mg/dL Vancomycin Trough 39.0 H* ug/mL 12/17/21 12/17/21 Range/Units 11:50 16:31 WBC (3.8-10.6) k/uL RBC (4.30-5.90) m/uL Hgb (13.0-17.5) gm/dL Hct (39.0-53.0) % MCV (80.0-100.0) fL MCH (25.0-35.0) pg MCHC (31.0-37.0) g/dL RDW (11.5-15.5) % Neutrophils # (1.3-7.7) k/uL Lymphocytes # (1.0-4.8) k/uL Sodium (137-145) mmol/L Potassium (3.5-5.1) mmol/L Chloride (98-107) mmol/L BUN (9-20) mg/dL Creatinine (0.66-1.25) mg/dL Glucose (74-99) mg/dL POC Glucose (mg/dL) 206 H 147 H (75-99) mg/dL Calcium (8.4-10.2) mg/dL Vancomycin Trough ug/mL Microbiology - Last 24 Hours (Table) 12/14/21 13:20 Blood Culture - Preliminary Blood No Growth after 72 hours 12/14/21 12:52 Blood Culture - Preliminary Blood No Growth after 72 hours 12/15/21 21:53 Blood Culture - Preliminary Blood No Growth after 24 hours 12/15/21 15:04 Blood Culture - Preliminary Blood No Growth after 24 hours Assessment and Plan Plan: Assessment: #1. Acute on chronic hypoxic respiratory failure related to acute exacerbation of CHF, with systolic dysfunction, acute exacerbation of COPD, chest x-ray findings were also suggestive of multilobar pneumonia Patient is Currently Covered with a Combination of Cefepime and Vancomycin. COVID-19 PCR was negative #2. Small bilateral pleural effusions, ultrasound of the chest did not show sizable pleural fluid pocket for thoracentesis #3. Acute exacerbation of COPD #4. Chronic COPD on home oxygen with chronic hypoxic respiratory failure patient normally wears 3 L of oxygen on a regular basis #5. Chronic and ongoing history of smoking, currently smokes one pack a day #6. Lactic acidosis possibly related to underlying pneumonia #7. Chronic A. fib on Eliquis, status post permanent pacemaker implantation #8. Hypertension #9. Hyperlipidemia #10. Gout Plan: Continue current antibiotics Patient is feeling better breathing easier FiO2 is currently back to 4 L Continue weaning FiO2 to keep O2 sats at or above 88-90% Breathing comfortably No worsening dyspnea or cough We'll cut back Lasix to once daily Continue steroids and antibiotics continue breathing treatments We'll continue to follow his clinical course Follow-up labs including BMP tomorrow I performed a history & physical examination of the patient and discussed their management with my nurse practitioner, Jennifer Tariq. I reviewed the nurse practitioner's note and agree with the documented findings and plan of care. Lung sounds are positive for dim breath sounds throughout the lung rm. The findings and the impression was discussed with the patient. I attest to the documentation by the nurse practitioner. Time with Patient: Less than 30
[2021-12-17 20:19] LABS: Glucose,Whole Blood 118 mg/dL (75-99)
[2021-12-17] MEDS: allopurinoL 300 MG TAB PO SCH (21:46)
[2021-12-17] MEDS: ATORVASTATIN 40 MG TAB PO SCH (21:47)
[2021-12-17] MEDS: traZODone HCL 50 MG TAB PO SCH (21:47)
[2021-12-17] MEDS: ACETAMINOPHEN TAB 325 MG TAB PO PRN (21:55)
[2021-12-18] MEDS: methylPREDNISolone SOD SUCCI 40 MG/ML 1 ML VIAL IV SCH ×3 (00:08→17:47)
[2021-12-18] MEDS: CEFEPIME 1 GM in SODIUM CHLORIDE 0.9% 50 ML IVPB SCH ×3 (00:09→17:47)
[2021-12-18] MEDS: METOPROLOL TARTRATE 25 MG TAB PO SCH ×3 (00:14→20:15)
[2021-12-18] MEDS: traMADol 50 MG TAB PO PRN (04:07)
[2021-12-18 06:07] LABS: Glucose,Whole Blood 119 mg/dL (75-99)
[2021-12-18] MEDS: INSULIN ASPART (NovoLOG) 100 UNIT/ML VIAL SQ SCH ×4 (06:13→20:11)
[2021-12-18 08:12] LABS: Calcium 8.5 mg/dL (8.4-10.2); Magnesium 2.1 mg/dL (1.6-2.3); Potassium 5.6 mmol/L (3.5-5.1)
[2021-12-18] MEDS: IPRATROPIUM-ALBUTEROL 3 ML NEB INHALATION SCH ×4 (08:38→19:24)
[2021-12-18] MEDS ORDERED: ASPIRIN 81 MG PO SCH (09:00)
[2021-12-18] MEDS ORDERED: FUROSEMIDE 10 MG/ML 4 ML VIAL IV SCH (09:00)
[2021-12-18] MEDS: APIXABAN 5 MG TAB PO SCH ×2 (09:10→20:16)
[2021-12-18] MEDS: GABAPENTIN 300 MG CAP PO SCH ×3 (09:10→20:15)
[2021-12-18] MEDS: lisinopriL 5 MG TAB PO SCH (09:10)
[2021-12-18] MEDS: ACETAMINOPHEN TAB 325 MG TAB PO PRN (09:19)
[2021-12-18] MEDS: CYCLOBENZAPRINE 10 MG TAB PO PRN (09:19)
--- NOTE | 2021-12-18 09:50 | P.PN ---
Subjective Progress Note Date: 12/18/21 Pt is stable today with only complaint being pain. His Cr is rising, vanco random level today was 30. K is high as well. Lasix cut back to daily dosing. Objective - Vital Signs Vital signs: Vital Signs Temp 97.4 F L 12/18/21 03:52 Pulse 71 12/18/21 03:52 Resp 16 12/18/21 03:52 BP 104/46 12/18/21 03:52 Pulse Ox 95 12/18/21 03:52 Intake & Output 12/17/21 12/18/21 12/18/21 18:59 06:59 18:59 Intake Total 240 Output Total 400 675 Balance -160 -675 Weight 83.5 kg Intake: Oral 240 Output: Urine 400 675 Other: Voiding Method External Catheter External Catheter - Exam Gen: awake, alert HEENT: normocephalic, atraumatic, good hearing acuity, moist mucous membranes Resp: good air exchange, breathing comfortably with no accessory muscle use CVS: good distal perfusion x 4, GI: soft, NTTP, ND : no SPT, no CVAT, horn catheter is present MSK: no pitting edema, no clubbing, cyanotic right first toe, amputated right third toe Neuro: non-focal, moving all extremities Psych: cooperative, euthymic mood - Labs CBC & Chem 7: 12/17/21 06:36 12/18/21 06:38 Labs: Abnormal Lab Results - Last 24 Hours (Table) 12/17/21 12/17/21 12/17/21 Range/Units 11:50 16:31 20:18 Sodium (137-145) mmol/L Potassium (3.5-5.1) mmol/L BUN (9-20) mg/dL Creatinine (0.66-1.25) mg/dL Glucose (74-99) mg/dL POC Glucose (mg/dL) 206 H 147 H 118 H (75-99) mg/dL 12/18/21 12/18/21 Range/Units 06:06 06:38 Sodium 130 L (137-145) mmol/L Potassium 5.6 H (3.5-5.1) mmol/L BUN 95 H (9-20) mg/dL Creatinine 2.27 H (0.66-1.25) mg/dL Glucose 104 H (74-99) mg/dL POC Glucose (mg/dL) 119 H (75-99) mg/dL Microbiology - Last 24 Hours (Table) 12/15/21 21:53 Blood Culture - Preliminary Blood No Growth after 48 hours 12/15/21 15:04 Blood Culture - Preliminary Blood No Growth after 48 hours 12/14/21 13:20 Blood Culture - Preliminary Blood No Growth after 72 hours 12/14/21 12:52 Blood Culture - Preliminary Blood No Growth after 72 hours Assessment and Plan Assessment: Sepsis with Acute on chronic hypoxemic respiratory failure, home oxygen of 3 L Community acquired pneumonia COPD exacerbation Acute on chronic combined systolic and diastolic heart failure exacerbation, EF 45-50% -Admit to inpatient, telemetry -Pulmonary consult -Oxygen as needed -cefepime continued, vancomycin discontinued 12/17, random vanc level tomorrow AM -Follow up blood cultures -DuoNeb 4 times a day, and when necessary -Solu-Medrol 40 mg every 8 -Lasix 40 mg IV daily -Strict ins and outs, daily weights Acute Kidney Injury with Hyperkalemia -daily BMP, Mg -avoid nephrotoxins as able, renally dose medications -lasix as above -nephrology consulted -daily random vanco level until back under 20 Chronic right lower extremity ischemia History of right fem-pop bypass Peripheral arterial disease -Vascular surgery consult -Patient does not appear to be on an antiplatelet here or at home, will address between cardiology and vascular surgery -will initiate plavix if no intervention planned by vascular surgery during this hospitalization -Continue Lipitor -Continue gabapentin, Flexeril, Cymbalta, tramadol, Tylenol for pain History of atrial fibrillation on Apixiban History of sick sinus syndrome status post permanent pacemaker, V paced -Continue metoprolol -Monitor on telemetry -Continue Apixiban Coronary artery disease Hypertension Hyperlipidemia Gout -Home medications were reviewed and reconciled, changes noted above Patient is full code DVT prophylaxis is covered with Apixiban
[2021-12-18 10:24] LABS: Anisocytosis Slight; Basophils # (A) 0.1 k/uL (0-0.2); Basophils % (A) 1 %; Eosinophils % (A) 0 %; HCT 35.1 % (39.0-53.0); HGB 9.1 gm/dL (13.0-17.5); Hypochromasia Marked; Lymphocytes # (A) 0.1 k/uL (1.0-4.8); Lymphocytes % (A) 1 %; MCHC 25.8 g/dL (31.0-37.0); Mean Platelet Volume 9.9; Monocytes # (A) 0.3 k/uL (0-1.0); Monocytes % (A) 3 %; Neutrophils # (A) 11.9 k/uL (1.3-7.7); Neutrophils % (A) 95 %; Platelet Count 282 k/uL (150-450); RBC 4.12 m/uL (4.30-5.90); RDW 18.9 % (11.5-15.5); WBC 12.6 k/uL (3.8-10.6)
[2021-12-18 10:25] LABS: MCV 85.2 fL (80.0-100.0)
--- NOTE | 2021-12-18 11:05 | P.PN ---
Subjective Progress Note Date: 12/18/21 HISTORY OF PRESENT ILLNESS: 12/16/2021 Known case of COPD hypertension atrial fibrillation sick sinus syndrome status post permanent pacemaker presented to hospital with progressively worsening shortness of breath and developed severe hypoxemia and is currently on a nonrebreather. We have been consulted for elevated troponin. Patient appears confused and is not responding precautions. Patient has history of atrial fibrillation and has had a permanent pacemaker There is no prior history of coronary artery disease. It as a pressure with history of chronic diastolic heart failure. Patient is doing much better today, sitting in bed alert and orientated able to answer questions. He denies chest pain palpitations dizziness dyspnea edema. Patient remains in atrial fibrillation sometimes he is V paced on the monitor. Continue with eliquis anticoagulation. Patient is on oxygen nasal cannula he does not wear oxygen at. Will continue on IV Lasix. Patient's echocardiogram showed normal LV function with an ejection fraction of 45-50% mild aortic regurgitation, mild mitral valve regurgitation and mild tricuspid regurgitation along with moderate pulmonary hypertension 12/17/2021 Patient examined this morning at the bedside. Patient denies chest pain or press ure. He reports shortness of breath. He is on 6L NC with oxygen saturations greater than 92%. Patient is receiving IV lasix 40mg BID. Creatinine 1.91 today. Telemetry reveals paced rhythm with underlying atrial fibrillation. He remains on Eliquis. 12/18/2021 Patient examined this morning at the bedside. He is currently wearing a bipap. He denies chest pain or pressure. States his breathing is "so-so". His creatinine increased today to 2.27. Potassium 5.7. PHYSICAL EXAM: VITAL SIGNS: Reviewed. GENERAL: Well-developed in no acute distress. NECK: Supple. No JVD or thyromegaly LUNGS: Respirations even and unlabored. Lungs diminished to auscultation bilaterally. HEART: Irregular rate and rhythm. S1 and S2 heard. Systolic murmur. EXTREMITIES: Normal range of motion. Trace bilateral lower extremity edema ASSESSMENT: Sepsis Pneumonia COPD exacerbation Acute on chronic hypoxic respiratory failure Acute on chronic diastolic congestive heart failure, EF 45-50% Troponin elevation secondary to hypoxia supply demand mismatch type II myocardial infarction Chronic persistent atrial fibrillation Sick sinus syndrome status post permanent pacemaker Peripheral vascular disease with previous fem-pop bypass Hypertension Hyperlipidemia Acute kidney injury Hyperkalemia PLAN: Continue current cardiac medications Monitor kidney function. Lasix decreased to daily dosing. Nephro consulted. Pulmonary following Further recommendations pending patient course Nurse practitioner note has been reviewed by physician. Signing provider agrees with the documented findings, assessment, and plan of care. Objective - Vital Signs Vital signs: Vital Signs Temp 97.4 F L 12/18/21 03:52 Pulse 71 12/18/21 03:52 Resp 16 12/18/21 03:52 BP 104/46 12/18/21 03:52 Pulse Ox 95 12/18/21 03:52 Intake & Output 12/17/21 12/18/21 12/18/21 18:59 06:59 18:59 Intake Total 240 118 Output Total 400 675 Balance -160 -675 118 Weight 83.5 kg Intake: Oral 240 118 Output: Urine 400 675 Other: Voiding Method External Catheter External Catheter - Labs CBC & Chem 7: 12/18/21 06:38 12/18/21 06:38 Labs: Abnormal Lab Results - Last 24 Hours (Table) 12/17/21 12/17/21 12/17/21 Range/Units 11:50 16:31 20:18 WBC (3.8-10.6) k/uL RBC (4.30-5.90) m/uL Hgb (13.0-17.5) gm/dL Hct (39.0-53.0) % MCH (25.0-35.0) pg MCHC (31.0-37.0) g/dL RDW (11.5-15.5) % Neutrophils # (1.3-7.7) k/uL Lymphocytes # (1.0-4.8) k/uL Sodium (137-145) mmol/L Potassium (3.5-5.1) mmol/L BUN (9-20) mg/dL Creatinine (0.66-1.25) mg/dL Glucose (74-99) mg/dL POC Glucose (mg/dL) 206 H 147 H 118 H (75-99) mg/dL 12/18/21 12/18/21 12/18/21 Range/Units 06:06 06:38 06:38 WBC 12.6 H (3.8-10.6) k/uL RBC 4.12 L (4.30-5.90) m/uL Hgb 9.1 L (13.0-17.5) gm/dL Hct 35.1 L (39.0-53.0) % MCH 22.0 L (25.0-35.0) pg MCHC 25.8 L (31.0-37.0) g/dL RDW 18.9 H (11.5-15.5) % Neutrophils # 11.9 H (1.3-7.7) k/uL Lymphocytes # 0.1 L (1.0-4.8) k/uL Sodium 130 L (137-145) mmol/L Potassium 5.6 H (3.5-5.1) mmol/L BUN 95 H (9-20) mg/dL Creatinine 2.27 H (0.66-1.25) mg/dL Glucose 104 H (74-99) mg/dL POC Glucose (mg/dL) 119 H (75-99) mg/dL Microbiology - Last 24 Hours (Table) 12/15/21 21:53 Blood Culture - Preliminary Blood No Growth after 48 hours 12/15/21 15:04 Blood Culture - Preliminary Blood No Growth after 48 hours 12/14/21 13:20 Blood Culture - Preliminary Blood No Growth after 72 hours 12/14/21 12:52 Blood Culture - Preliminary Blood No Growth after 72 hours
--- NOTE | 2021-12-18 11:26 | P.PN ---
Subjective Progress Note Date: 12/18/21 She was seen and examined sitting up in bed. He states her bilateral lower extremities are still painful. No other acute changes through the night. Objective - Vital Signs Vital signs: Vital Signs Temp 97.4 F L 12/18/21 03:52 Pulse 71 12/18/21 03:52 Resp 16 12/18/21 03:52 BP 104/46 12/18/21 03:52 Pulse Ox 95 12/18/21 03:52 Intake & Output 12/17/21 12/18/21 12/18/21 18:59 06:59 18:59 Intake Total 240 Output Total 400 675 Balance -160 -675 Weight 83.5 kg Intake: Oral 240 Output: Urine 400 675 Other: Voiding Method External Catheter External Catheter - Exam General appearance: The patient is alert, oriented, appears in no acute distress. HET: Head is normocephalic and atraumatic. Neck: Supple without lymphadenopathy. Trachea midline. Extremities: No lower extremity edema. Nonpalpable pulses. Doppler signals obtained bilateral femoral, popliteal, and posterior tibialis. Right third toe amputation site well healed. Right great toe distal aspect with some mild ischemic changes. Neurological: Alert and oriented 3. - Labs CBC & Chem 7: 12/18/21 06:38 12/18/21 06:38 Labs: Abnormal Lab Results - Last 24 Hours (Table) 12/17/21 12/17/21 12/17/21 Range/Units 11:50 16:31 20:18 Sodium (137-145) mmol/L Potassium (3.5-5.1) mmol/L BUN (9-20) mg/dL Creatinine (0.66-1.25) mg/dL Glucose (74-99) mg/dL POC Glucose (mg/dL) 206 H 147 H 118 H (75-99) mg/dL 12/18/21 12/18/21 Range/Units 06:06 06:38 Sodium 130 L (137-145) mmol/L Potassium 5.6 H (3.5-5.1) mmol/L BUN 95 H (9-20) mg/dL Creatinine 2.27 H (0.66-1.25) mg/dL Glucose 104 H (74-99) mg/dL POC Glucose (mg/dL) 119 H (75-99) mg/dL Microbiology - Last 24 Hours (Table) 12/15/21 21:53 Blood Culture - Preliminary Blood No Growth after 48 hours 12/15/21 15:04 Blood Culture - Preliminary Blood No Growth after 48 hours 12/14/21 13:20 Blood Culture - Preliminary Blood No Growth after 72 hours 12/14/21 12:52 Blood Culture - Preliminary Blood No Growth after 72 hours Assessment and Plan Assessment: 1. Peripheral arterial disease, Nael classification 5 with ischemic changes to right great toe 2. Status post lower extremity revascularization 3. Acute on chronic COPD 4. History of coronary artery disease Plan: 1. Continue Eliquis and statin, and your medicine team prescribed Plavix. 2. No plans on any vascular surgical intervention at this time 3. Recommend outpatient follow-up 4. Continue with gabapentin and Ultram for pain Thank you for this consultation, the patient is cleared for discharge from vascular surgery. We will sign off at this time. The impression and plan of care has been dictated as directed. Dr. Zee I performed a history and examination of this patient, discussed the same with the dictator. I agree with the dictator's note ,documented as a scribe. Any additional findings or plans will be noted.
[2021-12-18 11:44] LABS: Glucose,Whole Blood 115 mg/dL (75-99)
[2021-12-18] MEDS: PANTOPRAZOLE 40 MG TABLET PO SCH (12:22)
[2021-12-18] MEDS: DULoxetine HCL 60 MG CAPSULE.DR PO SCH (12:22)
--- NOTE | 2021-12-18 12:48 | P.PN ---
Subjective Progress Note Date: 12/18/21 This is a 76-year-old male patient with a known history of chronic obstructive pulmonary disease, chronic congestive heart failure with an ejection fraction of 45-50%, hypertension, hyperlipidemia, atrial fibrillation anticoagulated with Eliquis, single-chamber pacemaker, depression. He presented here to the emergency room yesterday after developing a 2-3 day history of increasing shortness of breath. Chest x-ray reveals evidence of cardiac chronic changes with cardiomegaly and persistent small to moderate right-sided pleural effusion and right mid and lower lung acute infiltrate/atelectasis. The patient had a similar presentation back in June 2021. EKG reveals evidence of atrial fibrillation with ventricular pacing. White count 10.7. Hemoglobin 9.1. Platelets 312. INR 1.2. Sodium 134. Potassium 5.4. Chloride 94. I curb 31. Creatinine 1.11. Glucose 144. Lactic acid 3.5. Troponin 0.038. ProBNP 7560. Pro-calcitonin 0.07. Coronavirus by PCR not detected. He's been initiated and DuoNeb inhalations, IV Solu-Medrol, IV diuretics. He is seen today in consultation on the selective care unit. He has somewhat obtunded. Arousable. Able to state he is in the hospital. He is quite dyspneic with conversation. He has quickly progressed from 4 L to 15 L high flow nasal cannula. Stat blood gases revealed a pO2 of 276, pCO2 of 60 and a pH of 7.35. He was placed on BiPAP 12/6 and 40% FiO2. He was given IV Lasix. He is currently more comfortable. Ultrasound of the chest revealed no significant pleural effusions. He's been initiated on vancomycin and cefepime. On 12/16/2021 patient is seen in follow-up on selective care unit, patient is awake and alert, in no acute distress, currently on 6 L of oxygen his pulse ox is 92%, she did wear BiPAP support overnight. He states his breathing more comfortably since admission, lung sounds reveal diffuse wheezes, and patient has been coughing and bringing up some whitish to yellowish colored phlegm, no hemoptysis. Patient is on a combination of cefepime and vancomycin for possibility of pneumonia, he is also on IV Lasix at 40 mg every 12 hours, he is down 2.6 kg since admission, clinically does not look fluid overloaded, however his elevated proBNP level and his chest x-ray findings were suggestive of acute exacerbation of CHF. His ultrasound and the chest did not find a sizable pocket for thoracentesis, patient continues on medical treatment, in addition his COPD is active, patient has chronic and ongoing history of smoking, currently smoking about a pack a day, he wears oxygen at home at 3 L. He remains on IV Solu- Medrol at 40 mg every 8 hours, clinically seems to be improving, follow-up chest x-ray today has been reviewed showing cardiomegaly, possible right pleural effusion and associated atelectasis. On 12/17/2021 patient seen in follow-up on selective care unit, he is breathing comfortably, is currently on 6 L of oxygen his pulse ox of 98%, FiO2 has been dropped down to 4 L, he normally wears 2 L at home at bedtime only. He is awake and alert, no altered mentation, answering questions appropriately. He did wear BiPAP last night with FiO2 of 50%. Lung sounds reveal diminished breath sounds with some scattered rhonchi, he remains on Lasix at 40 mg twice daily, he remains on empiric antibiotics for possibility of pneumonia. He remains on IV steroids with Solu-Medrol 40 mg every 8 hours and breathing treatments. His blood cultures have shown no growth thus far. Vital signs have been stable, clinically he is breathing easier, denies any worsening dyspnea or cough, no complaints of chest pain. Today's labs have been reviewed white count is improving and is down to 11.8, hemoglobin is 9.0, sodium is 133. Potassium is 5.2, chloride is 97, BUN 77 creatinine is 1.91. There has been worsening in his renal function, and for that reason Lasix will be cut back to once daily. Otherwise he is breathing comfortably, is currently eating lunch, his appetite is fair. The patient is seen today 05/18/2022 in follow-up on the selective care unit. He is currently sitting up in bed. He is awake and alert. He is on BiPAP 12/6 and 50% FiO2. He's been alternating with 8 L high flow nasal cannula. All cultures revealed no growth. White count 12.6. Hemoglobin 9.1. Lymphocytes 0.1. Sodium 1:30. Potassium 5.6. BUN 95. Creatinine 2.27. Glucose 104. He is continued on bronchodilators, IV Solu-Medrol, antibiotics in the form of cefepime. Anticoagulated with Eliquis. Objective - Vital Signs Vital signs: Vital Signs Temp 97.4 F L 12/18/21 08:00 Pulse 81 12/18/21 12:27 Resp 16 12/18/21 08:00 BP 101/59 12/18/21 08:00 Pulse Ox 98 12/18/21 08:00 Intake & Output 12/17/21 12/18/21 12/18/21 18:59 06:59 18:59 Intake Total 240 118 Output Total 400 675 Balance -160 -675 118 Weight 83.5 kg Intake: Oral 240 118 Output: Urine 400 675 Other: Voiding Method External Catheter External Catheter - Exam GENERAL EXAM: Alert, very pleasant, 76-year-old male patient, on BiPAP 12/6 and 50% FiO2 alternating with 8 L of oxygen, fairly comfortable in no apparent distress. HEAD: Normocephalic/atraumatic. EYES: Normal reaction of pupils, equal size. Conjunctiva pink, sclera white. NOSE: Clear with pink turbinates. THROAT: No erythema or exudates. NECK: No masses, no JVD, no thyroid enlargement, no adenopathy. CHEST: No chest wall deformity. Symmetrical expansion. LUNGS: Equal air entry with crackles in the bases right greater than left CVS: Regular rate and rhythm, normal S1 and S2, no gallops, no murmurs, no rubs ABDOMEN: Soft, nontender. No hepatosplenomegaly, normal bowel sounds, no guarding or rigidity. EXTREMITIES: No clubbing, no edema, no cyanosis, 2+ pulses and upper and lower extremities. MUSCULOSKELETAL: Muscle strength and tone normal. SPINE: No scoliosis or deformity SKIN: No rashes CENTRAL NERVOUS SYSTEM: No focal deficits, tone is normal in all 4 extremities. PSYCHIATRIC: Alert and oriented -3. Appropriate affect. Intact judgment and insight. - Labs CBC & Chem 7: 12/18/21 06:38 12/18/21 06:38 Labs: Abnormal Lab Results - Last 24 Hours (Table) 12/17/21 12/17/21 12/18/21 Range/Units 16:31 20:18 06:06 WBC (3.8-10.6) k/uL RBC (4.30-5.90) m/uL Hgb (13.0-17.5) gm/dL Hct (39.0-53.0) % MCH (25.0-35.0) pg MCHC (31.0-37.0) g/dL RDW (11.5-15.5) % Neutrophils # (1.3-7.7) k/uL Lymphocytes # (1.0-4.8) k/uL Sodium (137-145) mmol/L Potassium (3.5-5.1) mmol/L BUN (9-20) mg/dL Creatinine (0.66-1.25) mg/dL Glucose (74-99) mg/dL POC Glucose (mg/dL) 147 H 118 H 119 H (75-99) mg/dL 12/18/21 12/18/21 12/18/21 Range/Units 06:38 06:38 11:43 WBC 12.6 H (3.8-10.6) k/uL RBC 4.12 L (4.30-5.90) m/uL Hgb 9.1 L (13.0-17.5) gm/dL Hct 35.1 L (39.0-53.0) % MCH 22.0 L (25.0-35.0) pg MCHC 25.8 L (31.0-37.0) g/dL RDW 18.9 H (11.5-15.5) % Neutrophils # 11.9 H (1.3-7.7) k/uL Lymphocytes # 0.1 L (1.0-4.8) k/uL Sodium 130 L (137-145) mmol/L Potassium 5.6 H (3.5-5.1) mmol/L BUN 95 H (9-20) mg/dL Creatinine 2.27 H (0.66-1.25) mg/dL Glucose 104 H (74-99) mg/dL POC Glucose (mg/dL) 115 H (75-99) mg/dL Microbiology - Last 24 Hours (Table) 12/15/21 21:53 Blood Culture - Preliminary Blood No Growth after 48 hours 12/15/21 15:04 Blood Culture - Preliminary Blood No Growth after 48 hours 12/14/21 13:20 Blood Culture - Preliminary Blood No Growth after 72 hours 12/14/21 12:52 Blood Culture - Preliminary Blood No Growth after 72 hours Assessment and Plan Assessment: 1 Acute on chronic hypoxemic respiratory failure secondary to suspected multilobar pneumonia, though pro calcitonin 0.07, ultrasound of the chest revealed minimal pleural effusion. Currently remains on cefepime. Requiring BiPAP support alternating with 8 L high flow nasal cannula 2 Lactic acidosis secondary to above, peak lactic acid 6.7 3 Acute exacerbation of systolic congestive heart failure 4 Acute exacerbation of chronic obstructive pulmonary disease, oxygen dependent 5 Chronic tobacco dependence 6 Chronic atrial fibrillation anticoagulated with Eliquis, status post permanent pacemaker implantation 7 Hypertension 8 Hyperlipidemia 9 History of gout 10 Acute renal failure possibly secondary to vancomycin Plan: The patient was seen and evaluated Continue cefepime for now Continue IV diuretics Continue IV Solu-Medrol, bronchodilators Anticoagulated with Eliquis Titrate the FiO2 as tolerated Prognosis is guarded Follow-up chest x-ray in a.m. We will continue to follow I, the cosigning physician, performed a history & physical examination of the patient. Lungs sounds with bibasilar crackles more so on the right, diminished. Maintaining good O2 saturations in the 90s on BiPAP 12/6 and 50% FiO2 alternating with 8 L high flow nasal cannula. I discussed the assessment and plan of care with my nurse practitioner, Eloina Hummel. I attest to the above note as dictated by her.
[2021-12-18] MEDS ORDERED: SODIUM ZIRCONIUM CYCLOSILICATE 10 GM PACKET PO ONE (13:15)
--- NOTE | 2021-12-18 13:15 | P.NPCON ---
History of Present Illness - Reason for Consult acute renal failure - History of Present Illness Patient is a 76 year-old male who was admitted to the hospital on 12/14/2021 for shortness of breath. COVID-19 PCR was negative. Patient has a history of COPD diastolic CHF and hypertension. He denies any previous history of kidney diseases. Creatinine was 1.0 on initial admission. It increased to 1.9 yesterday and to date is at 2.27., And potassium was 5.6 Patient has an external catheter. 24 hour urine output documented at 1.6 L. Patient has been on vancomycin his vancomycin level was 39 on 12/17/2021. To date is at 30 Currently maintained on IV Lasix 40 mg daily. Patient is also on small dose of RAISA inhibitor's at 5 mg daily. Blood pressure has been low with systolic 92 mmHg today. No IV contrast administration this visit. Currently maintained on BiPAP FiO2 at 50% Chest x-ray on 12/16/2021 shows right pleural effusion associated atelectasis Review of Systems As per HPI other systems negative no active bleeding noted. Patient remains short of breath. No chest pains. Past Medical History Past Medical History: Atrial Fibrillation, Cancer, COPD, Hypertension, Myocardial Infarction ([place]), Prostate Disorder, Vascular Disorder Additional Past Medical History / Comment(s): Varicose veins. Pacemaker. Hx lung cancer approx 2007. PAD. Enlarged Prostate. 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 Still healing from broken right shoulder(May 2021), limited mobility. Uses O2 @ 3L most of the time. Last Myocardial Infarction Date:: 2005 History of Any Multi-Drug Resistant Organisms: None Reported Past Surgical History: Bowel Resection, Orthopedic Surgery, Pacemaker Additional Past Surgical History / Comment(s): Femoral Popliteal Procedure, ankle surgery, bilateral cataract surgery, lobectomy, colostomy with reversal. Left upper leg stent 08/27/21. Past Anesthesia/Blood Transfusion Reactions: No Reported Reaction Additional Past Anesthesia/Blood Transfusion Reaction / Comment(s): Received blood without reaction X1. Vertigo. Type of Cardiac Device: Permanent Pacemaker Device Placement Date:: UNK Past Psychological History: No Psychological Hx Reported Smoking Status: Smoker, current status unknown Past Alcohol Use History: Daily Additional Past Alcohol Use History / Comment(s): "Has been smoking most of his life, 1/2 -1 PPD". 6 BEERS A DAY. States he used to be a smoker; when questioned when he quit says a couple days ago Past Drug Use History: None Reported - Past Family History Father History Unknown: Yes Family Medical History: Unable to Obtain Mother History Unknown: Yes Family Medical History: Unable to Obtain Sister(s) History Unknown: Yes Family Medical History: Unable to Obtain Brother(s) History Unknown: Yes Family Medical History: Unable to Obtain Medications and Allergies Home Medications Medication Instructions Recorded Confirmed Type Allopurinol [Zyloprim] 300 mg PO HS 07/03/21 12/14/21 History Apixaban [Eliquis] 5 mg PO BID 07/03/21 12/14/21 History Atorvastatin [Lipitor] 40 mg PO HS 07/03/21 12/14/21 History Cyclobenzaprine [Flexeril] 10 mg PO BID PRN 07/03/21 12/14/21 History DULoxetine HCL [Cymbalta] 60 mg PO DAILY@1200 07/03/21 12/14/21 History Gabapentin 300 mg PO TID 07/03/21 12/14/21 History Metoprolol Tartrate 25 mg PO BID 07/03/21 12/14/21 History Nitroglycerin Sl Tabs [Nitrostat] 0.4 mg SL Q5M PRN 07/03/21 12/14/21 History Omeprazole 20 mg PO DAILY@1200 07/03/21 12/14/21 History traMADol HCL 50 mg PO BID PRN 07/03/21 12/14/21 History traZODone HCL [Desyrel] 50 mg PO HS 07/03/21 12/14/21 History Albuterol Nebulized [Ventolin 2.5 mg INHALATION RT-QID PRN 08/12/21 12/14/21 History Nebulized] Furosemide [Lasix] 20 mg PO DAILY 08/12/21 12/14/21 History Ipratropium/Albuterol Sulfate 1 puff INHALATION RT-QID 12/14/21 12/14/21 History [Combivent Respimat Inhaler] lisinopriL [Zestril] 5 mg PO DAILY 12/14/21 12/14/21 History predniSONE 50 mg PO DAILY@1200 12/14/21 12/14/21 History Aspirin 81 mg PO DAILY #30 tab 12/17/21 Rx Allergies Allergy/AdvReac Type Severity Reaction Status Date / Time iron Allergy Rash/Hives Verified 12/14/21 12:04 [email or web address] [From Chantix] Allergy Hallucinati Verified 12/14/21 12:04 ons Physical Exam Vitals: Vital Signs Temp Pulse Pulse Resp BP BP Pulse Ox 12/18/21 12:27 81 12/18/21 12:19 80 12/18/21 08:00 97.4 F L 71 16 101/59 98 12/18/21 03:52 97.4 F L 71 16 104/46 95 12/18/21 00:00 97.6 F 71 15 92/54 95 12/17/21 21:01 80 12/17/21 20:49 76 12/17/21 19:55 97.2 F L 70 22 97/52 98 12/17/21 17:11 96.8 F L 66 20 112/52 Intake and Output 12/17/21 12/18/21 12/18/21 22:59 06:59 14:59 Intake Total 118 Output Total 400 675 Balance -400 -675 118 Intake: Oral 118 Output: Urine 400 675 Other: Voiding Method External Catheter External Catheter Weight 83.5 kg On examination patient is awake comfortable he is not in any acute distress he is mildly short of breath. He is currently maintained on BiPAP. Examination of the heart S1 and S2 Examination lungs bilateral breath sounds are heard Abdomen is soft nontender Examination lower extremity shows no significant edema. DAT[employer]ASE CONSULTANT exam grossly intact. Results - Lab Results Most recent lab results ABG pH 7.35 (7.35-7.45) 12/15/21 10:34 ABG pCO2 60 mmHg (35-45) H 12/15/21 10:34 ABG pO2 276 mmHg (83-108) H 12/15/21 10:34 ABG HCO3 33 mmol/L (21-25) H 12/15/21 10:34 ABG O2 Saturation 99.8 % (94-97) H 12/15/21 10:34 Calcium 8.5 mg/dL (8.4-10.2) 12/18/21 06:38 Magnesium 2.1 mg/dL (1.6-2.3) 12/18/21 06:38 12/18/21 06:38 12/18/21 06:38 Assessment and Plan Assessment: 1. Acute kidney injury mostly ATN hemodynamic associated with hypoperfusion in the setting of use of RAISA inhibitor's as well as secondary to vancomycin toxicity is a vancomycin level was 39 yesterday Currently nonoliguric. Check urine analysis. I will also hold off on the RAISA inhibitor's as blood pressure is low and potassium is elevated. 2. Hyperkalemia associated with acute kidney injury in the setting of use of RAISA inhibitor's. 3. Volume overload seems to have improved since admission. 4. CHF acute on top of chronic systolic with EF of 45-50% with moderate pulmonary hypertension noted on echocardiogram. 5. Chronic A. fib maintained on a liquid's for anticoagulation with history of pacemaker placement 6. Acute hypoxic respiratory failure secondary to pneumonia and possible CHF as well on initial admission currently improved Plan: 1. DC Zestril 2. Hold Lasix for now as volume status has improved. 3. Repeat chest x-ray in a.m. 4. Lokelma 10 g by mouth 1 for hyperkalemia. 5. Repeat labs in a.m. 6. Continue off of vancomycin and avoid any other nephrotoxic agents. Thank you for this consultation we'll continue to follow the patient with you during his hospitalization
[2021-12-18 16:37] LABS: Glucose,Whole Blood 156 mg/dL (75-99)
[2021-12-18 20:12] LABS: Glucose,Whole Blood 107 mg/dL (75-99)
[2021-12-18] MEDS: traZODone HCL 50 MG TAB PO SCH (20:15)
[2021-12-18] MEDS: ATORVASTATIN 40 MG TAB PO SCH (20:16)
[2021-12-18] MEDS: allopurinoL 300 MG TAB PO SCH (20:16)
[2021-12-19] MEDS: methylPREDNISolone SOD SUCCI 40 MG/ML 1 ML VIAL IV SCH ×4 (00:05→23:30)
[2021-12-19] MEDS: CEFEPIME 1 GM in SODIUM CHLORIDE 0.9% 50 ML IVPB SCH ×4 (00:05→23:29)
[2021-12-19 00:48] LABS: Appearance,Urine Clear (Clear); Bilirubin,Urine Negative (Negative); Blood,Urine Negative (Negative); Color,Urine Yellow; Glucose,Urine (UA) Negative (Negative); Ketones,Urine Trace (Negative); Leukocyte Esterase,Urine Negative (Negative); Nitrite,Urine Negative (Negative); PH, Urine 5.5 (5.0-8.0); Protein,Urine Trace (Negative); Specific Gravity,Urine 1.018 (1.001-1.035); Urobilinogen,Urine <2.0 mg/dL (<2.0)
[2021-12-19] MEDS: CYCLOBENZAPRINE 10 MG TAB PO PRN (04:47)
[2021-12-19 06:15] LABS: Glucose,Whole Blood 97 mg/dL (75-99)
[2021-12-19] MEDS: INSULIN ASPART (NovoLOG) 100 UNIT/ML VIAL SQ SCH ×4 (06:15→19:48)
[2021-12-19] MEDS: traMADol 50 MG TAB PO PRN (07:14)
[2021-12-19] MEDS: IPRATROPIUM-ALBUTEROL 3 ML NEB INHALATION SCH ×4 (08:22→20:25)
--- NOTE | 2021-12-19 08:35 | XR ---
EXAMINATION TYPE: XR chest 1V DATE OF EXAM: 12/19/2021 COMPARISON: Chest x-ray 12/16/2021 HISTORY: Congestive heart failure TECHNIQUE: Single frontal view of the chest is obtained. FINDINGS: There is increasing density within the right lower chest. Heart is enlarged. Interstitium is increased. Generator present in the left pectoral region, is a lead in the right ventricle. Surgic al clips are present over the right hilum. No evident pneumothorax. There are overlying artifacts. IMPRESSION: Findings consistent with congestive heart failure, there may be worsening effusion versu s atelectasis or pneumonia in the right lung.
[2021-12-19 09:29] LABS: Calcium 8.4 mg/dL (8.4-10.2); Magnesium 2.2 mg/dL (1.6-2.3); Potassium 5.6 mmol/L (3.5-5.1)
--- NOTE | 2021-12-19 09:43 | P.PN ---
Subjective Progress Note Date: 12/19/21 Pt required FiO2 on BIPAP to be increased yesterday to 65% to maintain saturations above 90%. Pts kidney function worse again today. Overall patient is declining over the last several days. CXR does not appear any better today than priors, in fact worse. Lasix discontinued for the time being due to kidney dysfunction. Daughter was updated regarding patients declining clinical status. Objective - Vital Signs Vital signs: Vital Signs Temp 97.3 F L 12/19/21 03:50 Pulse 88 12/19/21 08:37 Resp 17 12/19/21 03:50 BP 110/54 12/19/21 03:50 Pulse Ox 98 12/19/21 03:50 Intake & Output 12/18/21 12/19/21 12/19/21 18:59 06:59 18:59 Intake Total 358 Output Total 400 350 Balance -42 -350 Intake: Oral 358 Output: Urine 400 350 Other: Voiding Method External Catheter - Exam Gen: awake, alert HEENT: normocephalic, atraumatic, good hearing acuity, moist mucous membranes Resp: good air exchange, breathing comfortably with no accessory muscle use CVS: good distal perfusion x 4, GI: soft, NTTP, ND : no SPT, no CVAT, horn catheter is present MSK: no pitting edema, no clubbing, cyanotic right first toe, amputated right third toe Neuro: non-focal, moving all extremities Psych: cooperative, euthymic mood - Labs CBC & Chem 7: 12/18/21 06:38 12/19/21 08:32 Labs: Abnormal Lab Results - Last 24 Hours (Table) 12/18/21 12/18/21 12/18/21 Range/Units 06:38 11:43 16:36 WBC 12.6 H (3.8-10.6) k/uL RBC 4.12 L (4.30-5.90) m/uL Hgb 9.1 L (13.0-17.5) gm/dL Hct 35.1 L (39.0-53.0) % MCH 22.0 L (25.0-35.0) pg MCHC 25.8 L (31.0-37.0) g/dL RDW 18.9 H (11.5-15.5) % Neutrophils # 11.9 H (1.3-7.7) k/uL Lymphocytes # 0.1 L (1.0-4.8) k/uL Sodium (137-145) mmol/L Potassium (3.5-5.1) mmol/L Chloride (98-107) mmol/L BUN (9-20) mg/dL Creatinine (0.66-1.25) mg/dL Glucose (74-99) mg/dL POC Glucose (mg/dL) 115 H 156 H (75-99) mg/dL Urine Protein (Negative) Urine Ketones (Negative) 12/18/21 12/19/21 12/19/21 Range/Units 20:11 00:15 08:32 WBC (3.8-10.6) k/uL RBC (4.30-5.90) m/uL Hgb (13.0-17.5) gm/dL Hct (39.0-53.0) % MCH (25.0-35.0) pg MCHC (31.0-37.0) g/dL RDW (11.5-15.5) % Neutrophils # (1.3-7.7) k/uL Lymphocytes # (1.0-4.8) k/uL Sodium 130 L (137-145) mmol/L Potassium 5.6 H (3.5-5.1) mmol/L Chloride 96 L (98-107) mmol/L BUN 107 H* (9-20) mg/dL Creatinine 2.50 H (0.66-1.25) mg/dL Glucose 109 H (74-99) mg/dL POC Glucose (mg/dL) 107 H (75-99) mg/dL Urine Protein Trace H (Negative) Urine Ketones Trace H (Negative) Microbiology - Last 24 Hours (Table) 12/15/21 21:53 Blood Culture - Preliminary Blood No Growth after 72 hours 12/15/21 15:04 Blood Culture - Preliminary Blood No Growth after 72 hours 12/14/21 13:20 Blood Culture - Preliminary Blood No Growth after 96 hours 12/14/21 12:52 Blood Culture - Preliminary Blood No Growth after 96 hours Assessment and Plan Assessment: Sepsis with Acute on chronic hypoxemic respiratory failure, home oxygen of 3 L Community acquired pneumonia COPD exacerbation Acute on chronic combined systolic and diastolic heart failure exacerbation, EF 45-50% -Admit to inpatient, telemetry -Pulmonary consult -Oxygen as needed -cefepime continued, vancomycin discontinued 12/17, random vanc level today is pending -Follow up blood cultures = NGTD -DuoNeb 4 times a day, and when necessary -Solu-Medrol 40 mg every 8 -Lasix 40 mg IV daily is now being held -Strict ins and outs, daily weights Acute Kidney Injury with Hyperkalemia -daily BMP, Mg -avoid nephrotoxins as able, renally dose medications -lasix as above -nephrology consulted -daily random vanco level until back under 20 Chronic right lower extremity ischemia History of right fem-pop bypass Peripheral arterial disease -Vascular surgery consult -Patient does not appear to be on an antiplatelet here or at home, will address between cardiology and vascular surgery -will initiate plavix if no intervention planned by vascular surgery during this hospitalization -Continue Lipitor -Continue gabapentin, Flexeril, Cymbalta, tramadol, Tylenol for pain History of atrial fibrillation on Apixiban History of sick sinus syndrome status post permanent pacemaker, V paced -Continue metoprolol -Monitor on telemetry -Continue Apixiban Coronary artery disease Hypertension Hyperlipidemia Gout -Home medications were reviewed and reconciled, changes noted above Patient is full code DVT prophylaxis is covered with Apixiban
[2021-12-19] MEDS: DULoxetine HCL 60 MG CAPSULE.DR PO SCH (09:44)
[2021-12-19] MEDS: CLOPIDOGREL 75 MG TAB PO SCH (09:44)
[2021-12-19] MEDS: METOPROLOL TARTRATE 25 MG TAB PO SCH ×2 (09:44→20:01)
[2021-12-19] MEDS: APIXABAN 5 MG TAB PO SCH ×2 (09:45→20:01)
[2021-12-19] MEDS: GABAPENTIN 300 MG CAP PO SCH ×3 (09:45→20:00)
[2021-12-19] MEDS: PANTOPRAZOLE 40 MG TABLET PO SCH (09:45)
[2021-12-19 09:51] LABS: Anisocytosis Slight; Basophils % (A) 0 %; Eosinophils % (A) 0 %; HCT 31.1 % (39.0-53.0); HGB 8.6 gm/dL (13.0-17.5); Hypochromasia Marked; Lymphocytes # (A) 0.2 k/uL (1.0-4.8); Lymphocytes % (A) 1 %; MCH 21.8 pg (25.0-35.0); MCHC 27.7 g/dL (31.0-37.0); Mean Platelet Volume 9.1; Microcytosis Slight; Monocytes # (A) 0.4 k/uL (0-1.0); Monocytes % (A) 3 %; Neutrophils # (A) 12.8 k/uL (1.3-7.7); Neutrophils % (A) 95 %; Platelet Count 275 k/uL (150-450); Poikilocytosis Slight; RBC 3.94 m/uL (4.30-5.90); RDW 18.4 % (11.5-15.5); WBC 13.5 k/uL (3.8-10.6)
[2021-12-19 09:54] LABS: MCV 78.7 fL (80.0-100.0)
[2021-12-19] MEDS ORDERED: SODIUM ZIRCONIUM CYCLOSILICATE 10 GM PACKET PO ONE (10:00)
[2021-12-19 10:06] LABS: Vancomycin,Random 24.8 ug/mL
[2021-12-19 11:57] LABS: Glucose,Whole Blood 121 mg/dL (75-99)
--- NOTE | 2021-12-19 12:23 | P.PN ---
Subjective Progress Note Date: 12/19/21 HISTORY OF PRESENT ILLNESS: 12/16/2021 Known case of COPD hypertension atrial fibrillation sick sinus syndrome status post permanent pacemaker presented to hospital with progressively worsening shortness of breath and developed severe hypoxemia and is currently on a nonrebreather. We have been consulted for elevated troponin. Patient appears confused and is not responding precautions. Patient has history of atrial fibrillation and has had a permanent pacemaker There is no prior history of coronary artery disease. It as a pressure with history of chronic diastolic heart failure. Patient is doing much better today, sitting in bed alert and orientated able to answer questions. He denies chest pain palpitations dizziness dyspnea edema. Patient remains in atrial fibrillation sometimes he is V paced on the monitor. Continue with eliquis anticoagulation. Patient is on oxygen nasal cannula he does not wear oxygen at. Will continue on IV Lasix. Patient's echocardiogram showed normal LV function with an ejection fraction of 45-50% mild aortic regurgitation, mild mitral valve regurgitation and mild tricuspid regurgitation along with moderate pulmonary hypertension 12/17/2021 Patient examined this morning at the bedside. Patient denies chest pain or press ure. He reports shortness of breath. He is on 6L NC with oxygen saturations greater than 92%. Patient is receiving IV lasix 40mg BID. Creatinine 1.91 today. Telemetry reveals paced rhythm with underlying atrial fibrillation. He remains on Eliquis. 12/18/2021 Patient examined this morning at the bedside. He is currently wearing a bipap. He denies chest pain or pressure. States his breathing is "so-so". His creatinine increased today to 2.27. Potassium 5.7. 12/19/2021 Patient examined this morning at the bedside. He remains on bipap. Denies chest pain or pressure. Continues to have shortness of breath. Patients lasix has been discontinued. Kidney function continues to worsen today. PHYSICAL EXAM: VITAL SIGNS: Reviewed. GENERAL: Well-developed in no acute distress. NECK: Supple. No JVD or thyromegaly LUNGS: Respirations even and unlabored. Lungs diminished to auscultation bilaterally. HEART: Irregular rate and rhythm. S1 and S2 heard. Systolic murmur. EXTREMITIES: Normal range of motion. No lower extremity edema, chronic discoloration to lower extremities ASSESSMENT: Sepsis Pneumonia COPD exacerbation Acute on chronic hypoxic respiratory failure Acute on chronic diastolic congestive heart failure, EF 45-50% Troponin elevation secondary to hypoxia supply demand mismatch type II myocardial infarction Chronic persistent atrial fibrillation Sick sinus syndrome status post permanent pacemaker Peripheral vascular disease with previous fem-pop bypass Hypertension Hyperlipidemia Acute kidney injury Hyperkalemia PLAN: Continue current cardiac medications Monitor kidney function. Lasix held due to JULIANE. Nephrology following. Lisinopril DC due to kidney function Pulmonary following Further recommendations pending patient course Nurse practitioner note has been reviewed by physician. Signing provider agrees with the documented findings, assessment, and plan of care. Objective - Vital Signs Vital signs: Vital Signs Temp 97.3 F L 12/19/21 03:50 Pulse 80 12/19/21 11:55 Resp 21 12/19/21 08:00 BP 102/49 12/19/21 08:00 Pulse Ox 90 L 12/19/21 08:00 Intake & Output 12/18/21 12/19/21 12/19/21 18:59 06:59 18:59 Intake Total 358 Output Total 400 350 Balance -42 -350 Weight 87 kg Intake: Oral 358 Output: Urine 400 350 Other: Voiding Method External Catheter External Catheter - Labs CBC & Chem 7: 12/19/21 08:32 12/19/21 08:32 Labs: Abnormal Lab Results - Last 24 Hours (Table) 12/18/21 12/18/21 12/19/21 Range/Units 16:36 20:11 00:15 WBC (3.8-10.6) k/uL RBC (4.30-5.90) m/uL Hgb (13.0-17.5) gm/dL Hct (39.0-53.0) % MCV (80.0-100.0) fL MCH (25.0-35.0) pg MCHC (31.0-37.0) g/dL RDW (11.5-15.5) % Neutrophils # (1.3-7.7) k/uL Lymphocytes # (1.0-4.8) k/uL Sodium (137-145) mmol/L Potassium (3.5-5.1) mmol/L Chloride (98-107) mmol/L BUN (9-20) mg/dL Creatinine (0.66-1.25) mg/dL Glucose (74-99) mg/dL POC Glucose (mg/dL) 156 H 107 H (75-99) mg/dL Urine Protein Trace H (Negative) Urine Ketones Trace H (Negative) 12/19/21 12/19/21 12/19/21 Range/Units 08:32 08:32 11:50 WBC 13.5 H (3.8-10.6) k/uL RBC 3.94 L (4.30-5.90) m/uL Hgb 8.6 L (13.0-17.5) gm/dL Hct 31.1 L (39.0-53.0) % MCV 78.7 L D (80.0-100.0) fL MCH 21.8 L (25.0-35.0) pg MCHC 27.7 L (31.0-37.0) g/dL RDW 18.4 H (11.5-15.5) % Neutrophils # 12.8 H (1.3-7.7) k/uL Lymphocytes # 0.2 L (1.0-4.8) k/uL Sodium 130 L (137-145) mmol/L Potassium 5.6 H (3.5-5.1) mmol/L Chloride 96 L (98-107) mmol/L BUN 107 H* (9-20) mg/dL Creatinine 2.50 H (0.66-1.25) mg/dL Glucose 109 H (74-99) mg/dL POC Glucose (mg/dL) 121 H (75-99) mg/dL Urine Protein (Negative) Urine Ketones (Negative) Microbiology - Last 24 Hours (Table) 12/15/21 21:53 Blood Culture - Preliminary Blood No Growth after 72 hours 12/15/21 15:04 Blood Culture - Preliminary Blood No Growth after 72 hours 12/14/21 13:20 Blood Culture - Preliminary Blood No Growth after 96 hours 12/14/21 12:52 Blood Culture - Preliminary Blood No Growth after 96 hours
--- NOTE | 2021-12-19 12:27 | US ---
EXAMINATION TYPE: US kidneys/renal and bladder DATE OF EXAM: 12/19/2021 COMPARISON: NONE CLINICAL HISTORY: RF. EXAM MEASUREMENTS: Right Kidney: 8.7 x 4.9 x 4.3 cm Left Kidney: 9.2 x 4.5 x 3.8 cm Difficult exam due to patient immobility INCIDENTAL findings: indeterminant liver lesion measuring 2.3 x 2.1 x 2.5 cm. ; minimal amount of a scites also visualized today, nodular contour of the liver suggests underlying cirrhosis, question ga llbladder wall thickening noted incidentally Right Kidney: No hydronephrosis or masses seen Left Kidney: No hydronephrosis or masses seen; not well visualized due to overlying bowel gas. Bladder: anechoic Bilateral Jets seen: No Right kidney shows normal cortical medullary differentiation IMPRESSION: Cirrhosis with indeterminate liver mass. Limited exam. The kidneys show no hydronephrosis.
--- NOTE | 2021-12-19 12:27 | P.PN ---
Subjective Progress Note Date: 12/19/21 This is a 76-year-old male patient with a known history of chronic obstructive pulmonary disease, chronic congestive heart failure with an ejection fraction of 45-50%, hypertension, hyperlipidemia, atrial fibrillation anticoagulated with Eliquis, single-chamber pacemaker, depression. He presented here to the emergency room yesterday after developing a 2-3 day history of increasing shortness of breath. Chest x-ray reveals evidence of cardiac chronic changes with cardiomegaly and persistent small to moderate right-sided pleural effusion and right mid and lower lung acute infiltrate/atelectasis. The patient had a similar presentation back in June 2021. EKG reveals evidence of atrial fibrillation with ventricular pacing. White count 10.7. Hemoglobin 9.1. Platelets 312. INR 1.2. Sodium 134. Potassium 5.4. Chloride 94. I curb 31. Creatinine 1.11. Glucose 144. Lactic acid 3.5. Troponin 0.038. ProBNP 7560. Pro-calcitonin 0.07. Coronavirus by PCR not detected. He's been initiated and DuoNeb inhalations, IV Solu-Medrol, IV diuretics. He is seen today in consultation on the selective care unit. He has somewhat obtunded. Arousable. Able to state he is in the hospital. He is quite dyspneic with conversation. He has quickly progressed from 4 L to 15 L high flow nasal cannula. Stat blood gases revealed a pO2 of 276, pCO2 of 60 and a pH of 7.35. He was placed on BiPAP 12/6 and 40% FiO2. He was given IV Lasix. He is currently more comfortable. Ultrasound of the chest revealed no significant pleural effusions. He's been initiated on vancomycin and cefepime. On 12/16/2021 patient is seen in follow-up on selective care unit, patient is awake and alert, in no acute distress, currently on 6 L of oxygen his pulse ox is 92%, she did wear BiPAP support overnight. He states his breathing more comfortably since admission, lung sounds reveal diffuse wheezes, and patient has been coughing and bringing up some whitish to yellowish colored phlegm, no hemoptysis. Patient is on a combination of cefepime and vancomycin for possibility of pneumonia, he is also on IV Lasix at 40 mg every 12 hours, he is down 2.6 kg since admission, clinically does not look fluid overloaded, however his elevated proBNP level and his chest x-ray findings were suggestive of acute exacerbation of CHF. His ultrasound and the chest did not find a sizable pocket for thoracentesis, patient continues on medical treatment, in addition his COPD is active, patient has chronic and ongoing history of smoking, currently smoking about a pack a day, he wears oxygen at home at 3 L. He remains on IV Solu- Medrol at 40 mg every 8 hours, clinically seems to be improving, follow-up chest x-ray today has been reviewed showing cardiomegaly, possible right pleural effusion and associated atelectasis. On 12/17/2021 patient seen in follow-up on selective care unit, he is breathing comfortably, is currently on 6 L of oxygen his pulse ox of 98%, FiO2 has been dropped down to 4 L, he normally wears 2 L at home at bedtime only. He is awake and alert, no altered mentation, answering questions appropriately. He did wear BiPAP last night with FiO2 of 50%. Lung sounds reveal diminished breath sounds with some scattered rhonchi, he remains on Lasix at 40 mg twice daily, he remains on empiric antibiotics for possibility of pneumonia. He remains on IV steroids with Solu-Medrol 40 mg every 8 hours and breathing treatments. His blood cultures have shown no growth thus far. Vital signs have been stable, clinically he is breathing easier, denies any worsening dyspnea or cough, no complaints of chest pain. Today's labs have been reviewed white count is improving and is down to 11.8, hemoglobin is 9.0, sodium is 133. Potassium is 5.2, chloride is 97, BUN 77 creatinine is 1.91. There has been worsening in his renal function, and for that reason Lasix will be cut back to once daily. Otherwise he is breathing comfortably, is currently eating lunch, his appetite is fair. The patient is seen today 05/18/2022 in follow-up on the selective care unit. He is currently sitting up in bed. He is awake and alert. He is on BiPAP 12/6 and 50% FiO2. He's been alternating with 8 L high flow nasal cannula. All cultures revealed no growth. White count 12.6. Hemoglobin 9.1. Lymphocytes 0.1. Sodium 1:30. Potassium 5.6. BUN 95. Creatinine 2.27. Glucose 104. He is continued on bronchodilators, IV Solu-Medrol, antibiotics in the form of cefepime. Anticoagulated with Eliquis. The patient is seen today 12/19/2021 in follow-up on the selective care unit. He is currently resting fairly comfortably in bed. He remains on BiPAP 12/6 and 65% FiO2 to maintain O2 saturations in the 90s. Chest x-ray continues to show evidence of congestive heart failure with worsening atelectasis of the right lung. Blood cultures revealed no growth. White count 13.5. Hemoglobin 8.6. Platelets 275. Sodium 1:30. Potassium 5.6. BUN 107. Creatinine 2.50. Glucose 109. He remains on IV Solu-Medrol, DuoNeb inhalations and antibiotics in the form of cefepime. He is anticoagulated with Eliquis. He has received Lokelma for the hyperkalemia. Nephrology is on the case. Ultrasound of the bladder is pending. Objective - Vital Signs Vital signs: Vital Signs Temp 97.3 F L 12/19/21 03:50 Pulse 80 12/19/21 11:55 Resp 21 12/19/21 08:00 BP 102/49 12/19/21 08:00 Pulse Ox 90 L 12/19/21 08:00 Intake & Output 12/18/21 12/19/21 12/19/21 18:59 06:59 18:59 Intake Total 358 Output Total 400 350 Balance -42 -350 Weight 87 kg Intake: Oral 358 Output: Urine 400 350 Other: Voiding Method External Catheter External Catheter - Exam GENERAL EXAM: Alert, very pleasant, 76-year-old male patient, on BiPAP 12/6 and 65% FiO2 alternating with 8 L of oxygen, fairly comfortable in no apparent distress. HEAD: Normocephalic/atraumatic. EYES: Normal reaction of pupils, equal size. Conjunctiva pink, sclera white. NOSE: Clear with pink turbinates. THROAT: No erythema or exudates. NECK: No masses, no JVD, no thyroid enlargement, no adenopathy. CHEST: No chest wall deformity. Symmetrical expansion. LUNGS: Equal air entry with crackles in the bases right greater than left CVS: Regular rate and rhythm, normal S1 and S2, no gallops, no murmurs, no rubs ABDOMEN: Soft, nontender. No hepatosplenomegaly, normal bowel sounds, no guarding or rigidity. EXTREMITIES: No clubbing, no edema, no cyanosis, 2+ pulses and upper and lower extremities. MUSCULOSKELETAL: Muscle strength and tone normal. SPINE: No scoliosis or deformity SKIN: No rashes CENTRAL NERVOUS SYSTEM: No focal deficits, tone is normal in all 4 extremities. PSYCHIATRIC: Alert and oriented -3. Appropriate affect. Intact judgment and insight. - Labs CBC & Chem 7: 12/19/21 08:32 12/19/21 08:32 Labs: Abnormal Lab Results - Last 24 Hours (Table) 12/18/21 12/18/21 12/19/21 Range/Units 16:36 20:11 00:15 WBC (3.8-10.6) k/uL RBC (4.30-5.90) m/uL Hgb (13.0-17.5) gm/dL Hct (39.0-53.0) % MCV (80.0-100.0) fL MCH (25.0-35.0) pg MCHC (31.0-37.0) g/dL RDW (11.5-15.5) % Neutrophils # (1.3-7.7) k/uL Lymphocytes # (1.0-4.8) k/uL Sodium (137-145) mmol/L Potassium (3.5-5.1) mmol/L Chloride (98-107) mmol/L BUN (9-20) mg/dL Creatinine (0.66-1.25) mg/dL Glucose (74-99) mg/dL POC Glucose (mg/dL) 156 H 107 H (75-99) mg/dL Urine Protein Trace H (Negative) Urine Ketones Trace H (Negative) 12/19/21 12/19/21 12/19/21 Range/Units 08:32 08:32 11:50 WBC 13.5 H (3.8-10.6) k/uL RBC 3.94 L (4.30-5.90) m/uL Hgb 8.6 L (13.0-17.5) gm/dL Hct 31.1 L (39.0-53.0) % MCV 78.7 L D (80.0-100.0) fL MCH 21.8 L (25.0-35.0) pg MCHC 27.7 L (31.0-37.0) g/dL RDW 18.4 H (11.5-15.5) % Neutrophils # 12.8 H (1.3-7.7) k/uL Lymphocytes # 0.2 L (1.0-4.8) k/uL Sodium 130 L (137-145) mmol/L Potassium 5.6 H (3.5-5.1) mmol/L Chloride 96 L (98-107) mmol/L BUN 107 H* (9-20) mg/dL Creatinine 2.50 H (0.66-1.25) mg/dL Glucose 109 H (74-99) mg/dL POC Glucose (mg/dL) 121 H (75-99) mg/dL Urine Protein (Negative) Urine Ketones (Negative) Microbiology - Last 24 Hours (Table) 12/15/21 21:53 Blood Culture - Preliminary Blood No Growth after 72 hours 12/15/21 15:04 Blood Culture - Preliminary Blood No Growth after 72 hours 12/14/21 13:20 Blood Culture - Preliminary Blood No Growth after 96 hours 12/14/21 12:52 Blood Culture - Preliminary Blood No Growth after 96 hours Assessment and Plan Assessment: 1 Acute on chronic hypoxemic respiratory failure secondary to suspected multilobar pneumonia, though pro calcitonin 0.07, ultrasound of the chest revealed minimal pleural effusion. Currently remains on cefepime. Requiring BiPAP support alternating with 8 L high flow nasal cannula 2 Lactic acidosis secondary to above, peak lactic acid 6.7 3 Acute exacerbation of systolic congestive heart failure 4 Acute exacerbation of chronic obstructive pulmonary disease, oxygen dependent 5 Chronic tobacco dependence 6 Chronic atrial fibrillation anticoagulated with Eliquis, status post permanent pacemaker implantation 7 Hypertension 8 Hyperlipidemia 9 History of gout 10 Acute renal failure possibly secondary to vancomycin which is discontinued, Zestril discontinued Plan: The patient was seen and evaluated Chest x-ray and labs reviewed Currently off diuretics due to renal failure Ultrasound of the bladder pending Continue IV Solu-Medrol, bronchodilators Anticoagulated with Eliquis Titrate the FiO2 as tolerated Prognosis is guarded We will continue to follow I, the cosigning physician, performed a history & physical examination of the patient. Lungs sounds with bibasilar crackles more so on the right, diminished. Maintaining good O2 saturations in the 90s on BiPAP 12/6 and 65% FiO2 alternating with 8 L high flow nasal cannula. I discussed the assessment and plan of care with my nurse practitioner, Eloina Hummel. I attest to the above note as dictated by her.
--- NOTE | 2021-12-19 12:43 | P.PN ---
Subjective Principal diagnosis: Patient is seen for follow-up for acute kidney injury secondary to hemodynamic ATN and vancomycin toxicity. 24 hour urine output documented at 107 5 mL Patient remains on BiPAP Serum creatinine slightly higher at 2.5 from 2.2 yesterday. Potassium is about the same at 5.6. Patient received a dose of lokelma yesterday. Has been receiving Iv lasix. Objective - Vital Signs Vital signs: Vital Signs Temp 97.3 F L 12/19/21 03:50 Pulse 80 12/19/21 11:55 Resp 21 12/19/21 08:00 BP 102/49 12/19/21 08:00 Pulse Ox 90 L 12/19/21 08:00 Intake & Output 12/18/21 12/19/21 12/19/21 18:59 06:59 18:59 Intake Total 358 Output Total 400 350 Balance -42 -350 Weight 87 kg Intake: Oral 358 Output: Urine 400 350 Other: Voiding Method External Catheter External Catheter - Exam Patient is awake comfortable. He is maintained on BiPAP. Examination of the heart S1 and S2 Examination lungs bilateral breath sounds are heard Abdomen is soft nontender obese Examination lower extremity shows no significant edema. - Labs CBC & Chem 7: 12/19/21 08:32 12/19/21 08:32 Labs: Abnormal Lab Results - Last 24 Hours (Table) 12/18/21 12/18/21 12/19/21 Range/Units 16:36 20:11 00:15 WBC (3.8-10.6) k/uL RBC (4.30-5.90) m/uL Hgb (13.0-17.5) gm/dL Hct (39.0-53.0) % MCV (80.0-100.0) fL MCH (25.0-35.0) pg MCHC (31.0-37.0) g/dL RDW (11.5-15.5) % Neutrophils # (1.3-7.7) k/uL Lymphocytes # (1.0-4.8) k/uL Sodium (137-145) mmol/L Potassium (3.5-5.1) mmol/L Chloride (98-107) mmol/L BUN (9-20) mg/dL Creatinine (0.66-1.25) mg/dL Glucose (74-99) mg/dL POC Glucose (mg/dL) 156 H 107 H (75-99) mg/dL Urine Protein Trace H (Negative) Urine Ketones Trace H (Negative) 12/19/21 12/19/21 12/19/21 Range/Units 08:32 08:32 11:50 WBC 13.5 H (3.8-10.6) k/uL RBC 3.94 L (4.30-5.90) m/uL Hgb 8.6 L (13.0-17.5) gm/dL Hct 31.1 L (39.0-53.0) % MCV 78.7 L D (80.0-100.0) fL MCH 21.8 L (25.0-35.0) pg MCHC 27.7 L (31.0-37.0) g/dL RDW 18.4 H (11.5-15.5) % Neutrophils # 12.8 H (1.3-7.7) k/uL Lymphocytes # 0.2 L (1.0-4.8) k/uL Sodium 130 L (137-145) mmol/L Potassium 5.6 H (3.5-5.1) mmol/L Chloride 96 L (98-107) mmol/L BUN 107 H* (9-20) mg/dL Creatinine 2.50 H (0.66-1.25) mg/dL Glucose 109 H (74-99) mg/dL POC Glucose (mg/dL) 121 H (75-99) mg/dL Urine Protein (Negative) Urine Ketones (Negative) Microbiology - Last 24 Hours (Table) 12/15/21 21:53 Blood Culture - Preliminary Blood No Growth after 72 hours 12/15/21 15:04 Blood Culture - Preliminary Blood No Growth after 72 hours 12/14/21 13:20 Blood Culture - Preliminary Blood No Growth after 96 hours 12/14/21 12:52 Blood Culture - Preliminary Blood No Growth after 96 hours Assessment and Plan Assessment: 1. Acute kidney injury mostly ATN hemodynamic associated with hypoperfusion in the setting of use of RAISA inhibitor's as well as secondary to vancomycin toxicity is a vancomycin level was 39 yesterday Currently nonoliguric. Check urine analysis. I will also hold off on the RAISA inhibitor's as blood pressure is low and potassium is elevated. 2. Hyperkalemia associated with acute kidney injury in the setting of use of RAISA inhibitor's. 3. Volume overload seems to have improved since admission. Chest x-ray however his continues to show pulmonary vascular congestion. 4. CHF acute on top of chronic systolic with EF of 45-50% with moderate pulmonary hypertension noted on echocardiogram. 5. Chronic A. fib maintained on a liquid's for anticoagulation with history of pacemaker placement 6. Acute hypoxic respiratory failure secondary to pneumonia and possible CHF as well on initial admission currently improved Plan: 1. DC Zestril 2. Will resume Lasix as chest x-ray from today continues to show pulmonary vascular congestion 3. Check iron profile for anemia 4. Lokelma 10 g by mouth 1 for hyperkalemia. 5. Repeat labs in a.m. 6. Continue off of vancomycin and avoid any other nephrotoxic agents.
--- NOTE | 2021-12-19 16:12 | CDI ---
Documentation Clarification Form Date: 12/19/2021 03:44:59 PM From: Iliana Burch RN CCDS Admit Date: 12/14/2021 03:51:00 PM Patient Name: Stas Velázquez Visit Number: [id number] Discharge Date: ATTENTION: The Clinical Documentation Specialists (CDI) and [facility] Coding Staff appreciate your assistance in clarifying documentation. Please respond to the clarification below the line at the bottom and electronically sign. The CDI & [facility] Coding staff will review the response and follow-up if needed. Please note: Queries are made part of the Legal Health Record. If you have any questions, please contact the author of this message via ITS. Dr. Jax Tabares Sepsis is documented 12/16 12/19, Medicine progress notes. For each diagnosis, documentation must be clear to determine if the condition was present at the time of the patients inpatient admission or developed during the hospital stay. Additional clarification regarding the Sepsis is requested. History/Risk Factors: 77-year-old male presents to the ED for shortness of breath that has been going on for the last few days and getting worse. Medical History: COPD, CHF and Lung CA. Clinical Indicators: Sepsis with Acute on chronic hypoxemic respiratory failure, home oxygen of 3L, Community acquired pneumonia. 12/16 12/19, Medicine progress notes. VSS: 12/14 B/P 104/61; HR 70; RR 22; SpO2 93% 3L nasal cannula CXR: 12/14 Chronic changes and cardiomegaly with persistent small to moderate right pleural effusion and right mid to lower lung acute infiltrate and /or atelectasis. LABS: 12/14 Wbc 18.2; Neutrophils 16.2; Lactic Acid 3.1; Treatment: Antibiotics: 12/14 Vancomycin 1,500mg IVPB x 1; 12/15 12/17 Vancomycin 1,500mg IVPB Q12H 12/14 Cefepime HCL 1gm IVPB x 1; 12/15 current Cefepime 1gm IVPB Q8HR Definition of Present on Admission (POA): A diagnosis present at the time the order for admission to inpatient status was written. Please clarify if the Sepsis was POA [Y ] Y = Yes, the condition was present at the time of the order for inpatient admission. [ ] N = No, the condition was not present at the time of the order for inpatient admission. [ ] W = Clinically undetermined if the condition was present at the time of the order for inpatient admission. (Template Last Revised: January 2021) [facility]OR
[2021-12-19 16:33] LABS: Glucose,Whole Blood 97 mg/dL (75-99)
[2021-12-19] MEDS: FUROSEMIDE 10 MG/ML 4 ML VIAL IV SCH (16:39)
[2021-12-19 18:45] LABS: % Iron Saturation 4.49 (15.00-50.00)
[2021-12-19 19:38] LABS: Glucose,Whole Blood 114 mg/dL (75-99)
[2021-12-19] MEDS: traZODone HCL 50 MG TAB PO SCH (20:01)
[2021-12-19] MEDS: ATORVASTATIN 40 MG TAB PO SCH (20:01)
[2021-12-19] MEDS: allopurinoL 300 MG TAB PO SCH (20:01)
[2021-12-20 06:04] LABS: Glucose,Whole Blood 104 mg/dL (75-99)
[2021-12-20] MEDS: INSULIN ASPART (NovoLOG) 100 UNIT/ML VIAL SQ SCH ×2 (06:26→12:03)
[2021-12-20] MEDS: IPRATROPIUM-ALBUTEROL 3 ML NEB INHALATION SCH ×4 (07:22→20:31)
[2021-12-20] MEDS: CEFEPIME 1 GM in SODIUM CHLORIDE 0.9% 50 ML IVPB SCH (08:53)
[2021-12-20] MEDS: methylPREDNISolone SOD SUCCI 40 MG/ML 1 ML VIAL IV SCH ×2 (08:54→09:10)
[2021-12-20 08:59] LABS: Anisocytosis Slight; Basophils % (A) 0 %; Eosinophils % (A) 0 %; HCT 29.7 % (39.0-53.0); HGB 8.4 gm/dL (13.0-17.5); Hypochromasia Marked; Lymphocytes # (A) 0.3 k/uL (1.0-4.8); Lymphocytes % (A) 2 %; MCH 22.3 pg (25.0-35.0); MCHC 28.4 g/dL (31.0-37.0); MCV 78.4 fL (80.0-100.0); Mean Platelet Volume 7.3; Microcytosis Slight; Monocytes # (A) 0.4 k/uL (0-1.0); Monocytes % (A) 3 %; Neutrophils % (A) 94 %; Platelet Count 256 k/uL (150-450); Poikilocytosis Slight; RBC 3.79 m/uL (4.30-5.90); RDW 18.8 % (11.5-15.5); WBC 12.8 k/uL (3.8-10.6)
[2021-12-20] MEDS: CLOPIDOGREL 75 MG TAB PO SCH (09:09)
[2021-12-20] MEDS: GABAPENTIN 300 MG CAP PO SCH ×2 (09:09→15:53)
[2021-12-20] MEDS: APIXABAN 5 MG TAB PO SCH ×2 (09:09→20:51)
[2021-12-20] MEDS: PANTOPRAZOLE 40 MG TABLET PO SCH (09:09)
[2021-12-20] MEDS: DULoxetine HCL 60 MG CAPSULE.DR PO SCH (09:09)
[2021-12-20] MEDS: METOPROLOL TARTRATE 25 MG TAB PO SCH (09:09)
[2021-12-20] MEDS: FUROSEMIDE 10 MG/ML 4 ML VIAL IV SCH (09:09)
[2021-12-20 09:15] LABS: Calcium 8.3 mg/dL (8.4-10.2); Magnesium 2.3 mg/dL (1.6-2.3); Potassium 5.7 mmol/L (3.5-5.1)
[2021-12-20] MEDS ORDERED: DEXTROSE 50% SYRINGE 50 ML IVP STA (09:50)
[2021-12-20] MEDS ORDERED: INSULIN REGULAR 100 UNIT/ML VIAL (IV) IV ONE (09:50)
[2021-12-20 11:52] LABS: Glucose,Whole Blood 106 mg/dL (75-99)
--- NOTE | 2021-12-20 11:57 | P.PN ---
Subjective Principal diagnosis: Patient is seen for follow-up for acute kidney injury secondary to hemodynamic ATN and vancomycin toxicity. 24 hour urine output documented at 750 mL. This is lower than a few days before. Patient remains on BiPAP Serum creatinine slightly better at 2.2 milligrams per deciliter Potassium is about the same at 5.7 Patient received a dose of lokelma yesterday. Has been receiving Iv lasix. Objective - Vital Signs Vital signs: Vital Signs Temp 96.6 F L 12/20/21 08:00 Pulse 84 12/20/21 11:31 Resp 33 H 12/20/21 08:00 BP 100/53 12/20/21 08:00 Pulse Ox 97 12/20/21 08:00 Intake & Output 12/19/21 12/20/21 12/20/21 18:59 06:59 18:59 Intake Total 50 Output Total 250 550 Balance -250 -500 Weight 87 kg 86 kg Intake: Oral 50 Output: Urine 250 550 Other: Voiding Method External Catheter External Catheter External Catheter - Labs CBC & Chem 7: 12/20/21 08:15 12/20/21 08:15 Labs: Abnormal Lab Results - Last 24 Hours (Table) 12/19/21 12/19/21 12/19/21 Range/Units 08:32 11:50 19:37 WBC (3.8-10.6) k/uL RBC (4.30-5.90) m/uL Hgb (13.0-17.5) gm/dL Hct (39.0-53.0) % MCV (80.0-100.0) fL MCH (25.0-35.0) pg MCHC (31.0-37.0) g/dL RDW (11.5-15.5) % Neutrophils # (1.3-7.7) k/uL Lymphocytes # (1.0-4.8) k/uL Sodium (137-145) mmol/L Potassium (3.5-5.1) mmol/L Chloride (98-107) mmol/L BUN (9-20) mg/dL Creatinine (0.66-1.25) mg/dL POC Glucose (mg/dL) 121 H 114 H (75-99) mg/dL Calcium (8.4-10.2) mg/dL Iron 16 L (65-175) ug/dL % Saturation 4.49 L (15.00-50.00) 12/20/21 12/20/21 12/20/21 Range/Units 06:03 08:15 08:15 WBC 12.8 H (3.8-10.6) k/uL RBC 3.79 L (4.30-5.90) m/uL Hgb 8.4 L (13.0-17.5) gm/dL Hct 29.7 L (39.0-53.0) % MCV 78.4 L (80.0-100.0) fL MCH 22.3 L (25.0-35.0) pg MCHC 28.4 L (31.0-37.0) g/dL RDW 18.8 H (11.5-15.5) % Neutrophils # 12.0 H (1.3-7.7) k/uL Lymphocytes # 0.3 L (1.0-4.8) k/uL Sodium 131 L (137-145) mmol/L Potassium 5.7 H (3.5-5.1) mmol/L Chloride 97 L (98-107) mmol/L BUN 114 H* (9-20) mg/dL Creatinine 2.23 H (0.66-1.25) mg/dL POC Glucose (mg/dL) 104 H (75-99) mg/dL Calcium 8.3 L (8.4-10.2) mg/dL Iron (65-175) ug/dL % Saturation (15.00-50.00) Microbiology - Last 24 Hours (Table) 12/15/21 21:53 Blood Culture - Preliminary Blood No Growth after 96 hours 12/15/21 15:04 Blood Culture - Preliminary Blood No Growth after 96 hours 12/14/21 13:20 Blood Culture - Preliminary Blood No Growth after 120 hours 12/14/21 12:52 Blood Culture - Preliminary Blood No Growth after 120 hours Assessment and Plan Assessment: 1. Acute kidney injury mostly ATN hemodynamic associated with hypoperfusion in the setting of use of RAISA inhibitor's as well as secondary to vancomycin toxicity is a vancomycin level was 39. Currently nonoliguric. urine analysis is quite benign. I will also hold off on the RAISA inhibitor's as blood pressure is low and potassium is elevated. 2. Hyperkalemia associated with acute kidney injury in the setting of use of RAISA inhibitor's. 3. Volume overload seems to have improved since admission. Chest x-ray however his continues to show pulmonary vascular congestion. 4. CHF acute on top of chronic systolic with EF of 45-50% with moderate pulmonary hypertension noted on echocardiogram. 5. Chronic A. fib maintained on a liquid's for anticoagulation with history of pacemaker placement 6. Acute hypoxic respiratory failure secondary to pneumonia and possible CHF as well on initial admission currently improved 7. Anemia with severe iron deficiency noted. Oh active bleeding noted Plan: 1. DC Zestril 2. Will resume Lasix as chest x-ray from today continues to show pulmonary vascular congestion 3. Check iron profile for anemia 4. Eat hyperkalemia with IV insulin and D50 and continue with the Lasix 5. Repeat labs in a.m. 6. Continue off of vancomycin and avoid any other nephrotoxic agents. 7. Add IV iron
[2021-12-20] MEDS ORDERED: SODIUM FERRIC GLUCONAT-SUCROSE 125 MG in SODIUM CHLORIDE 0.9% 100 ML IVPB SCH (12:30)
--- NOTE | 2021-12-20 13:36 | XR ---
EXAMINATION TYPE: XR chest 1V portable DATE OF EXAM: 12/20/2021 COMPARISON: Chest x-ray 12/19/2021 HISTORY: Shortness of breath TECHNIQUE: Single frontal view of the chest is obtained. FINDINGS: Near complete opacification of the right hemithorax is present. There is prominence of int erstitium, basilar opacity within the left hemithorax similar to prior. No evident pneumothorax. Hear t is obscured but thought likely to be enlarged. Aorta is dense. Generators present in the left pecto ral region, lead in the right ventricle. Surgical clips are present over the right hilum. IMPRESSION: Worsening atelectasis versus pneumonia and associated effusion, correlate for possible c ongestive heart failure
--- NOTE | 2021-12-20 13:40 | P.PN ---
Subjective Progress Note Date: 12/20/21 HISTORY OF PRESENT ILLNESS: 12/16/2021 Known case of COPD hypertension atrial fibrillation sick sinus syndrome status post permanent pacemaker presented to hospital with progressively worsening shortness of breath and developed severe hypoxemia and is currently on a nonrebreather. We have been consulted for elevated troponin. Patient appears confused and is not responding precautions. Patient has history of atrial fibrillation and has had a permanent pacemaker There is no prior history of coronary artery disease. It as a pressure with history of chronic diastolic heart failure. Patient is doing much better today, sitting in bed alert and orientated able to answer questions. He denies chest pain palpitations dizziness dyspnea edema. Patient remains in atrial fibrillation sometimes he is V paced on the monitor. Continue with eliquis anticoagulation. Patient is on oxygen nasal cannula he does not wear oxygen at. Will continue on IV Lasix. Patient's echocardiogram showed normal LV function with an ejection fraction of 45-50% mild aortic regurgitation, mild mitral valve regurgitation and mild tricuspid regurgitation along with moderate pulmonary hypertension 12/17/2021 Patient examined this morning at the bedside. Patient denies chest pain or press ure. He reports shortness of breath. He is on 6L NC with oxygen saturations greater than 92%. Patient is receiving IV lasix 40mg BID. Creatinine 1.91 today. Telemetry reveals paced rhythm with underlying atrial fibrillation. He remains on Eliquis. 12/18/2021 Patient examined this morning at the bedside. He is currently wearing a bipap. He denies chest pain or pressure. States his breathing is "so-so". His creatinine increased today to 2.27. Potassium 5.7. 12/19/2021 Patient examined this morning at the bedside. He remains on bipap. Denies chest pain or pressure. Continues to have shortness of breath. Patients lasix has been discontinued. Kidney function continues to worsen today. 12/20/2021 Patient examined this morning at the bedside. Patient remains on BiPAP. He denies chest pain or pressure. He continues to report shortness of breath. Patient has been resumed on Lasix 40 mg IV daily per nephrology. Patient's creatinine today has improved from 2.50-2.23. PHYSICAL EXAM: VITAL SIGNS: Reviewed. GENERAL: Well-developed in no acute distress. NECK: Supple. No JVD or thyromegaly LUNGS: Respirations even and unlabored. Lungs diminished to auscultation bilat erally. HEART: Irregular rate and rhythm. S1 and S2 heard. Systolic murmur. EXTREMITIES: Normal range of motion. No lower extremity edema, chronic discoloration to lower extremities ASSESSMENT: Sepsis Pneumonia COPD exacerbation Acute on chronic hypoxic respiratory failure Acute on chronic diastolic congestive heart failure, EF 45-50% Troponin elevation secondary to hypoxia supply demand mismatch type II myocardial infarction Chronic persistent atrial fibrillation Sick sinus syndrome status post permanent pacemaker Peripheral vascular disease with previous fem-pop bypass Hypertension Hyperlipidemia Acute kidney injury Hyperkalemia PLAN: Continue current cardiac medications Monitor kidney function. Lasix dosing per nephrology. Lisinopril DC due to kidney function Further recommendations pending patient course Nurse practitioner note has been reviewed by physician. Signing provider agrees with the documented findings, assessment, and plan of care. Objective - Vital Signs Vital signs: Vital Signs Temp 96.6 F L 12/20/21 08:00 Pulse 64 12/20/21 12:00 Resp 24 12/20/21 12:00 BP 84/49 12/20/21 12:00 Pulse Ox 97 12/20/21 08:00 Intake & Output 12/19/21 12/20/21 12/20/21 18:59 06:59 18:59 Intake Total 50 480 Output Total 250 550 Balance -250 -500 480 Weight 87 kg 86 kg Intake: Oral 50 480 Output: Urine 250 550 Other: Voiding Method External Catheter External Catheter External Catheter - Labs CBC & Chem 7: 12/20/21 08:15 12/20/21 08:15 Labs: Abnormal Lab Results - Last 24 Hours (Table) 12/19/21 12/19/21 12/20/21 Range/Units 08:32 19:37 06:03 WBC (3.8-10.6) k/uL RBC (4.30-5.90) m/uL Hgb (13.0-17.5) gm/dL Hct (39.0-53.0) % MCV (80.0-100.0) fL MCH (25.0-35.0) pg MCHC (31.0-37.0) g/dL RDW (11.5-15.5) % Neutrophils # (1.3-7.7) k/uL Lymphocytes # (1.0-4.8) k/uL Sodium (137-145) mmol/L Potassium (3.5-5.1) mmol/L Chloride (98-107) mmol/L BUN (9-20) mg/dL Creatinine (0.66-1.25) mg/dL POC Glucose (mg/dL) 114 H 104 H (75-99) mg/dL Calcium (8.4-10.2) mg/dL Iron 16 L (65-175) ug/dL % Saturation 4.49 L (15.00-50.00) 12/20/21 12/20/21 12/20/21 Range/Units 08:15 08:15 11:43 WBC 12.8 H (3.8-10.6) k/uL RBC 3.79 L (4.30-5.90) m/uL Hgb 8.4 L (13.0-17.5) gm/dL Hct 29.7 L (39.0-53.0) % MCV 78.4 L (80.0-100.0) fL MCH 22.3 L (25.0-35.0) pg MCHC 28.4 L (31.0-37.0) g/dL RDW 18.8 H (11.5-15.5) % Neutrophils # 12.0 H (1.3-7.7) k/uL Lymphocytes # 0.3 L (1.0-4.8) k/uL Sodium 131 L (137-145) mmol/L Potassium 5.7 H (3.5-5.1) mmol/L Chloride 97 L (98-107) mmol/L BUN 114 H* (9-20) mg/dL Creatinine 2.23 H (0.66-1.25) mg/dL POC Glucose (mg/dL) 106 H (75-99) mg/dL Calcium 8.3 L (8.4-10.2) mg/dL Iron (65-175) ug/dL % Saturation (15.00-50.00) Microbiology - Last 24 Hours (Table) 12/15/21 21:53 Blood Culture - Preliminary Blood No Growth after 96 hours 12/15/21 15:04 Blood Culture - Preliminary Blood No Growth after 96 hours 12/14/21 13:20 Blood Culture - Preliminary Blood No Growth after 120 hours 12/14/21 12:52 Blood Culture - Preliminary Blood No Growth after 120 hours
--- NOTE | 2021-12-20 14:01 | US ---
EXAMINATION TYPE: US chest DATE OF EXAM: 12/20/2021 COMPARISON: Prior chest ultrasound 12/15/2021, chest x-ray 12/20/2021 CLINICAL HISTORY: shortness of breath. SOB TECHNIQUE: Targeted ultrasound of the posterior lower bilateral hemithoraces EXAM MEASUREMENTS: Technical limitations, patient needed help to sit forward. breathing heavily. unable to hold still Right Pleural Effusion pocket size: no significant fluid visualized at this time Left Pleural Effusion pocket size: 4.7 cm Left skin surface to fluid distance: 4.0 cm Right side NOT marked for possible thoracentesis outside the dept. Left side marked for possible thoracentesis outside the dept. Pulmonologists are able to review the images in the patient?s EMR. IMPRESSIONS: Left pleural effusion, no sizable right effusion is identified with certainty within the technical limitations of the exam
[2021-12-20] MEDS ORDERED: SODIUM CHLORIDE 0.9% 1,000 ML BAG ONE (14:38)
[2021-12-20] MEDS ORDERED: EPINEPHrine 10 ML SYRINGE (0.1 MG/ML) ONE (14:38)
[2021-12-20] MEDS ORDERED: NOREPINEPHRINE 1 MG/ML 4 ML VIAL IV ONE (14:38)
[2021-12-20] MEDS ORDERED: CALCIUM CHLORIDE 100 MG/ML 10 ML SYRINGE ONE (14:38)
[2021-12-20] MEDS ORDERED: SODIUM BICARB 8.4% 50 ML SYR (1 MEQ/ML) ONE (14:38)
[2021-12-20] MEDS ORDERED: SODIUM CHLORIDE 0.9% 250 ML BAG ONE (14:38)
[2021-12-20 14:50] LABS: Glucose,Whole Blood 111 mg/dL (75-99)
--- NOTE | 2021-12-20 15:29 | XR ---
EXAMINATION TYPE: XR chest 1V portable DATE OF EXAM: 12/20/2021 COMPARISON: Chest x-ray 12/20/2021 at earlier time HISTORY: Intubated TECHNIQUE: Single frontal view of the chest is obtained. FINDINGS: There is been interval placement of an endotracheal tube which is overlying the tracheal a ir column. Kiki is not well seen, patient is rotated. There is interval improved aeration in the ri ght lung. Bilateral interstitial and airspace disease is present. There is extensive pleural thickeni ng along the right hemithorax. Aorta is dense. Surgical clips are present in the right hilar region. The heart is enlarged. There is no pneumothorax. IMPRESSION: Interval intubation and improved aeration, persistent pleural thickening, correlate for pneumonia or edema, underlying interstitial lung disease
--- NOTE | 2021-12-20 15:29 | P.PN ---
Subjective Progress Note Date: 12/20/21 This is a 76-year-old male patient with a known history of chronic obstructive pulmonary disease, chronic congestive heart failure with an ejection fraction of 45-50%, hypertension, hyperlipidemia, atrial fibrillation anticoagulated with Eliquis, single-chamber pacemaker, depression. He presented here to the emergency room yesterday after developing a 2-3 day history of increasing shortness of breath. Chest x-ray reveals evidence of cardiac chronic changes with cardiomegaly and persistent small to moderate right-sided pleural effusion and right mid and lower lung acute infiltrate/atelectasis. The patient had a similar presentation back in June 2021. EKG reveals evidence of atrial fibrillation with ventricular pacing. White count 10.7. Hemoglobin 9.1. Platelets 312. INR 1.2. Sodium 134. Potassium 5.4. Chloride 94. I curb 31. Creatinine 1.11. Glucose 144. Lactic acid 3.5. Troponin 0.038. ProBNP 7560. Pro-calcitonin 0.07. Coronavirus by PCR not detected. He's been initiated and DuoNeb inhalations, IV Solu-Medrol, IV diuretics. He is seen today in consultation on the selective care unit. He has somewhat obtunded. Arousable. Able to state he is in the hospital. He is quite dyspneic with conversation. He has quickly progressed from 4 L to 15 L high flow nasal cannula. Stat blood gases revealed a pO2 of 276, pCO2 of 60 and a pH of 7.35. He was placed on BiPAP 12/6 and 40% FiO2. He was given IV Lasix. He is currently more comfortable. Ultrasound of the chest revealed no significant pleural effusions. He's been initiated on vancomycin and cefepime. On 12/16/2021 patient is seen in follow-up on selective care unit, patient is awake and alert, in no acute distress, currently on 6 L of oxygen his pulse ox is 92%, she did wear BiPAP support overnight. He states his breathing more comfortably since admission, lung sounds reveal diffuse wheezes, and patient has been coughing and bringing up some whitish to yellowish colored phlegm, no hemoptysis. Patient is on a combination of cefepime and vancomycin for possibility of pneumonia, he is also on IV Lasix at 40 mg every 12 hours, he is down 2.6 kg since admission, clinically does not look fluid overloaded, however his elevated proBNP level and his chest x-ray findings were suggestive of acute exacerbation of CHF. His ultrasound and the chest did not find a sizable pocket for thoracentesis, patient continues on medical treatment, in addition his COPD is active, patient has chronic and ongoing history of smoking, currently smoking about a pack a day, he wears oxygen at home at 3 L. He remains on IV Solu- Medrol at 40 mg every 8 hours, clinically seems to be improving, follow-up chest x-ray today has been reviewed showing cardiomegaly, possible right pleural effusion and associated atelectasis. On 12/17/2021 patient seen in follow-up on selective care unit, he is breathing comfortably, is currently on 6 L of oxygen his pulse ox of 98%, FiO2 has been dropped down to 4 L, he normally wears 2 L at home at bedtime only. He is awake and alert, no altered mentation, answering questions appropriately. He did wear BiPAP last night with FiO2 of 50%. Lung sounds reveal diminished breath sounds with some scattered rhonchi, he remains on Lasix at 40 mg twice daily, he remains on empiric antibiotics for possibility of pneumonia. He remains on IV steroids with Solu-Medrol 40 mg every 8 hours and breathing treatments. His blood cultures have shown no growth thus far. Vital signs have been stable, clinically he is breathing easier, denies any worsening dyspnea or cough, no complaints of chest pain. Today's labs have been reviewed white count is improving and is down to 11.8, hemoglobin is 9.0, sodium is 133. Potassium is 5.2, chloride is 97, BUN 77 creatinine is 1.91. There has been worsening in his renal function, and for that reason Lasix will be cut back to once daily. O therwise he is breathing comfortably, is currently eating lunch, his appetite is fair. On 12/20/2021 patient seen in follow-up on selective care unit, he is awake and alert, he is on BiPAP support with pressures of 14 and 6 and FiO2 of 65%, his pulse ox is around 93%. He denies any worsening dyspnea, he is answering some simple questions, no cough, no chest congestion. Patient is trying to dial his cell phone, and trying to eat lunch. Lung sounds reveal extremely diminished breath sounds on the right, continues crackles. His labs have been reviewed, is 12.8, hemoglobin is 8.4, sodium is 131, potassium is 5.7, chloride is 97, BUN was 114, creatinine is 2.23. Remains on Lasix 41 g daily, remains on IV Solu- Medrol breathing treatments, patient has received antibiotics. Blood cultures h ave been negative. Generally patient appears to be very weak, patient has been for the most part bedbound. Chest x-ray has been repeated in view of abnormal lung sounds revealed worsening atelectasis with associated effusion. Ultrasound of the chest has been obtained showing left pleural effusion pocket of 4.7, and right side was not marked. Patient was given a trial on high flow nasal cannula at 8 L however he was desaturating into the 70s, and subsequently he was placed back on BiPAP support. Shortly after my evaluation: Blue was and also her head, and patient apparently was found unresponsive and pulseless. Please refer to the code sheet. He was given necessary ACLS interventions, was intubated, and will be transferred to the intensive care unit for further management. Objective - Vital Signs Vital signs: Vital Signs Temp 96.6 F L 12/20/21 08:00 Pulse 64 12/20/21 12:00 Resp 24 12/20/21 12:00 BP 84/49 12/20/21 12:00 Pulse Ox 97 12/20/21 08:00 Intake & Output 12/19/21 12/20/21 12/20/21 18:59 06:59 18:59 Intake Total 50 480 Output Total 250 550 Balance -250 -500 480 Weight 87 kg 86 kg Intake: Oral 50 480 Output: Urine 250 550 Other: Voiding Method External Catheter External Catheter External Catheter - Exam GENERAL EXAM: Alert, very pleasant, 76-year-old white male on BiPAP support with FiO2 of 65% HEAD: Normocephalic/atraumatic. EYES: Normal reaction of pupils, equal size. Conjunctiva pink, sclera white. NOSE: Clear with pink turbinates. THROAT: No erythema or exudates. NECK: No masses, no JVD, no thyroid enlargement, no adenopathy. CHEST: No chest wall deformity. Symmetrical expansion. LUNGS: Very diminished breath sounds on the right side with mild crackles over left CVS: Regular rate and rhythm, normal S1 and S2, no gallops, no murmurs, no rubs ABDOMEN: Soft, nontender. No hepatosplenomegaly, normal bowel sounds, no guarding or rigidity. EXTREMITIES: No clubbing, no edema, no cyanosis, 2+ pulses and upper and lower extremities. MUSCULOSKELETAL: Muscle strength and tone normal. SPINE: No scoliosis or deformity SKIN: No rashes CENTRAL NERVOUS SYSTEM: Alert and oriented -3. No focal deficits, tone is normal in all 4 extremities. PSYCHIATRIC: Alert and oriented -3. Appropriate affect. Intact judgment and insight. - Labs CBC & Chem 7: 12/20/21 08:15 12/20/21 08:15 Labs: Abnormal Lab Results - Last 24 Hours (Table) 12/19/21 12/19/21 12/20/21 Range/Units 08:32 19:37 06:03 WBC (3.8-10.6) k/uL RBC (4.30-5.90) m/uL Hgb (13.0-17.5) gm/dL Hct (39.0-53.0) % MCV (80.0-100.0) fL MCH (25.0-35.0) pg MCHC (31.0-37.0) g/dL RDW (11.5-15.5) % Neutrophils # (1.3-7.7) k/uL Lymphocytes # (1.0-4.8) k/uL Sodium (137-145) mmol/L Potassium (3.5-5.1) mmol/L Chloride (98-107) mmol/L BUN (9-20) mg/dL Creatinine (0.66-1.25) mg/dL POC Glucose (mg/dL) 114 H 104 H (75-99) mg/dL Calcium (8.4-10.2) mg/dL Iron 16 L (65-175) ug/dL % Saturation 4.49 L (15.00-50.00) 12/20/21 12/20/21 12/20/21 Range/Units 08:15 08:15 11:43 WBC 12.8 H (3.8-10.6) k/uL RBC 3.79 L (4.30-5.90) m/uL Hgb 8.4 L (13.0-17.5) gm/dL Hct 29.7 L (39.0-53.0) % MCV 78.4 L (80.0-100.0) fL MCH 22.3 L (25.0-35.0) pg MCHC 28.4 L (31.0-37.0) g/dL RDW 18.8 H (11.5-15.5) % Neutrophils # 12.0 H (1.3-7.7) k/uL Lymphocytes # 0.3 L (1.0-4.8) k/uL Sodium 131 L (137-145) mmol/L Potassium 5.7 H (3.5-5.1) mmol/L Chloride 97 L (98-107) mmol/L BUN 114 H* (9-20) mg/dL Creatinine 2.23 H (0.66-1.25) mg/dL POC Glucose (mg/dL) 106 H (75-99) mg/dL Calcium 8.3 L (8.4-10.2) mg/dL Iron (65-175) ug/dL % Saturation (15.00-50.00) 12/20/21 Range/Units 14:41 WBC (3.8-10.6) k/uL RBC (4.30-5.90) m/uL Hgb (13.0-17.5) gm/dL Hct (39.0-53.0) % MCV (80.0-100.0) fL MCH (25.0-35.0) pg MCHC (31.0-37.0) g/dL RDW (11.5-15.5) % Neutrophils # (1.3-7.7) k/uL Lymphocytes # (1.0-4.8) k/uL Sodium (137-145) mmol/L Potassium (3.5-5.1) mmol/L Chloride (98-107) mmol/L BUN (9-20) mg/dL Creatinine (0.66-1.25) mg/dL POC Glucose (mg/dL) 111 H (75-99) mg/dL Calcium (8.4-10.2) mg/dL Iron (65-175) ug/dL % Saturation (15.00-50.00) Microbiology - Last 24 Hours (Table) 12/15/21 21:53 Blood Culture - Preliminary Blood No Growth after 96 hours 12/15/21 15:04 Blood Culture - Preliminary Blood No Growth after 96 hours 12/14/21 13:20 Blood Culture - Preliminary Blood No Growth after 120 hours 12/14/21 12:52 Blood Culture - Preliminary Blood No Growth after 120 hours Assessment and Plan Plan: Assessment: #1. Acute cardiac arrest, on 12/20/2021, likely related to severe hypoxia, patient required resuscitation, would return of spontaneous circulation. Was intubated and will be transferred to the intensive care unit #2. Near complete opacification of the right hemithorax, related to atelectasis with associated effusion. Ultrasound of the chest was obtained showing no sizable right-sided pleural effusion pocket and 4.7 cm pleural fluid pocket on the left. #3. Acute on chronic hypoxic respiratory failure related to acute exacerbation of CHF, with systolic dysfunction, acute exacerbation of COPD, and right hemithorax related to atelectasis. COVID-19 PCR was negative #4. Acute exacerbation of COPD #5. Chronic COPD on home oxygen with chronic hypoxic respiratory failure pa tient normally wears 3 L of oxygen on a regular basis #6. Chronic and ongoing history of smoking, currently smokes one pack a day #7. Lactic acidosis possibly related to underlying pneumonia #8. Chronic A. fib on Eliquis, status post permanent pacemaker implantation #9. Hypertension #10. Hyperlipidemia #11. Gout Plan: Patient suffered acute cardiac arrest likely related to worsening hypoxia Return of spontaneous circulation was achieved Patient was intubated and we'll transfer to the intensive care unit Blood gas will be obtained half an hour after intubation We'll review a repeat chest x-ray for placement of ET tube, and patient will require placement of central line and arterial line CT of the chest will be postponed until patient's condition is stabilized Discontinue Lasix for now Utilized to prevent for sedation May require additional fluid boluses Panculture the patient obtain blood cultures, sputum culture, urine culture Earlier as they cefepime had been discontinued after completing a 5 day course No growth on previous blood cultures We'll continue to closely follow in ICU Overall prognosis is extremely poor and guarded Family has been notified and on their way in to see the patient I performed a history & physical examination of the patient and discussed their management with my nurse practitioner, Jennifer Tariq. I reviewed the nurse practitioner's note and agree with the documented findings and plan of care. Lung sounds are positive for dim breath sounds throughout the lung rm. The findings and the impression was discussed with the patient. I attest to the documentation by the nurse practitioner. Time with Patient: Greater than 30
[2021-12-20 15:36] LABS: Glucose,Whole Blood 123 mg/dL (75-99)
[2021-12-20] MEDS ORDERED: CISATRACURIUM 2 MG/ML 5 ML VIAL IV ONE (15:40)
--- NOTE | 2021-12-20 15:48 | P.PN ---
Subjective Principal diagnosis: Patient was examined at bedside today did not complain of any worsening shortness of breath, chest pain or palpitations. She was not very cooperative during my examination spoke with RN present at bedside that states this is his baseline at times. He was on BiPAP with a setting of 10/29 FiO2 65% saturating above 92%. Did not seem to be any distress. Patient was examined at bedside today not complaining of any worsening shortness of breath, chest pain or palpitations. He was answering some questions however seem to be very weak and lethargic. She was currently on BiPAP during my evaluation with the setting of 10/29 with FiO2 of 65%. Case was also discussed with RN that was present at bedside. His vital signs on my examination were within normal limits however increase auction requirements with BiPAP as noted above. During the completion of this documentation a CODE BLUE was called the patient did achieve ROSC and is being transferred to the intensive care unit. Objective - Vital Signs Vital signs: Vital Signs Temp 96.6 F L 12/20/21 08:00 Pulse 64 12/20/21 12:00 Resp 24 12/20/21 12:00 BP 84/49 12/20/21 12:00 Pulse Ox 97 12/20/21 08:00 Intake & Output 12/19/21 12/20/21 12/20/21 18:59 06:59 18:59 Intake Total 50 480 Output Total 250 550 Balance -250 -500 480 Weight 87 kg 86 kg Intake: Oral 50 480 Output: Urine 250 550 Other: Voiding Method External Catheter External Catheter External Catheter - Exam Gen: awake, alert, weak-appearing HEENT: normocephalic, atraumatic, moist mucous membranes Resp: Patient did have some decreased breath sounds/crackles currently on BiPAP did not seem to be in acute respiratory distress during my examination no wheezing appreciated CVS: normal s1/s2 heard. GI: soft, NTTP, ND : no SPT, no CVAT, horn catheter is present MSK: no pitting edema, no clubbing, cyanotic right first toe, amputated right third toe Neuro: non-focal, moving all extremities Psych: Patient was not very cooperative was able to answer very basic questions however not in any distress. Spoke with RN that states this is his baseline from time to time. - Labs CBC & Chem 7: 12/20/21 08:15 12/20/21 08:15 Labs: Abnormal Lab Results - Last 24 Hours (Table) 12/19/21 12/19/21 12/20/21 Range/Units 08:32 19:37 06:03 WBC (3.8-10.6) k/uL RBC (4.30-5.90) m/uL Hgb (13.0-17.5) gm/dL Hct (39.0-53.0) % MCV (80.0-100.0) fL MCH (25.0-35.0) pg MCHC (31.0-37.0) g/dL RDW (11.5-15.5) % Neutrophils # (1.3-7.7) k/uL Lymphocytes # (1.0-4.8) k/uL Sodium (137-145) mmol/L Potassium (3.5-5.1) mmol/L Chloride (98-107) mmol/L BUN (9-20) mg/dL Creatinine (0.66-1.25) mg/dL POC Glucose (mg/dL) 114 H 104 H (75-99) mg/dL Calcium (8.4-10.2) mg/dL Iron 16 L (65-175) ug/dL % Saturation 4.49 L (15.00-50.00) 12/20/21 12/20/21 12/20/21 Range/Units 08:15 08:15 11:43 WBC 12.8 H (3.8-10.6) k/uL RBC 3.79 L (4.30-5.90) m/uL Hgb 8.4 L (13.0-17.5) gm/dL Hct 29.7 L (39.0-53.0) % MCV 78.4 L (80.0-100.0) fL MCH 22.3 L (25.0-35.0) pg MCHC 28.4 L (31.0-37.0) g/dL RDW 18.8 H (11.5-15.5) % Neutrophils # 12.0 H (1.3-7.7) k/uL Lymphocytes # 0.3 L (1.0-4.8) k/uL Sodium 131 L (137-145) mmol/L Potassium 5.7 H (3.5-5.1) mmol/L Chloride 97 L (98-107) mmol/L BUN 114 H* (9-20) mg/dL Creatinine 2.23 H (0.66-1.25) mg/dL POC Glucose (mg/dL) 106 H (75-99) mg/dL Calcium 8.3 L (8.4-10.2) mg/dL Iron (65-175) ug/dL % Saturation (15.00-50.00) 12/20/21 Range/Units 14:41 WBC (3.8-10.6) k/uL RBC (4.30-5.90) m/uL Hgb (13.0-17.5) gm/dL Hct (39.0-53.0) % MCV (80.0-100.0) fL MCH (25.0-35.0) pg MCHC (31.0-37.0) g/dL RDW (11.5-15.5) % Neutrophils # (1.3-7.7) k/uL Lymphocytes # (1.0-4.8) k/uL Sodium (137-145) mmol/L Potassium (3.5-5.1) mmol/L Chloride (98-107) mmol/L BUN (9-20) mg/dL Creatinine (0.66-1.25) mg/dL POC Glucose (mg/dL) 111 H (75-99) mg/dL Calcium (8.4-10.2) mg/dL Iron (65-175) ug/dL % Saturation (15.00-50.00) Microbiology - Last 24 Hours (Table) 12/15/21 21:53 Blood Culture - Preliminary Blood No Growth after 96 hours 12/15/21 15:04 Blood Culture - Preliminary Blood No Growth after 96 hours 12/14/21 13:20 Blood Culture - Preliminary Blood No Growth after 120 hours 12/14/21 12:52 Blood Culture - Preliminary Blood No Growth after 120 hours Assessment and Plan Assessment: Assessment: #1 acute hypoxic respiratory distress #2 community-acquired pneumonia #3 acute on chronic combined heart failure exacerbation EF of 45-50% #4 acute kidney injury #5 chronic right lower extremity ischemia Plan: Assessment: #1 acute on chronic respiratory distress secondary to community acquired pneumonia #2 acute cardiac arrest on 12/20/2021 secondary to severe hypoxia most likely #3 acute kidney injury on CKG #5 atrial fibrillation on anticoagulation #6 sinus syndrome status post pacemaker #7 right pleural effusion on ultrasound Plan: -Patient unfortunately had CODE BLUE and is being transferred to the intensive care unit -Aspiration/fall precaution/H&P 30 -We'll need to obtain central line and arterial line as per ICU protocol -Vent management as per ICU team when intubated -Obtain ABG, chest x-ray and repeat blood work. Blood cultures negative -Also note patient did complete 5 days of cefepime, continue with breathing treatments -Family discussion -Prognosis unfortunately poor
[2021-12-20] MEDS ORDERED: SODIUM CHLORIDE 0.9% 150 ML with VASOPRESSIN 60 UNIT IV SCH ×2 (16:00)
--- NOTE | 2021-12-20 16:36 | XR ---
EXAMINATION TYPE: XR chest 1V confirm line [facility] DATE OF EXAM: 12/20/2021 COMPARISON: Chest x-ray 12/20/2021 at earlier time HISTORY: Status post central venous catheter placement. TECHNIQUE: Single frontal view of the chest is obtained. FINDINGS: Left jugular central venous catheter has been placed in the interval, distal tip is overly ing the cavoatrial junction level. No evident pneumothorax. No significant interval change. IMPRESSION: There is no evident complication status post central venous catheter placement.
[2021-12-20] MEDS ORDERED: SODIUM CHLORIDE 0.9% 1,000 ML IV ONE (16:41)
[2021-12-20] MEDS ORDERED: SODIUM CHLORIDE 0.9% 1,000 ML IV SCH (16:45)
[2021-12-20] MEDS: NOREPINEPHRINE 8 MG in SODIUM CHLORIDE 0.9% 250 ML IV SCH ×2 (16:52→18:35)
--- NOTE | 2021-12-20 17:03 | PCN ---
PROCEDURE NOTE PROCEDURE PERFORMED: Left internal jugular triple-lumen catheter. PREOP DIAGNOSIS: Administration of fluids and pressors. POSTOP DIAGNOSIS: Administration of fluids and pressors. There was universal timeout. OPERATORS: Dr. Dominguez and Dr. Tariq. TRIPLE LUMEN CATHETER PLACEMENT: Indication: Hemodynamic monitoring/Intravenous access. A time-out was completed verifying correct patient, procedure, site, positioning, and implant(s) or special equipment if applicable. The patient was placed in a dependent position appropriate for triple lumen catheter placement based on the vein to be cannulated. The patient's left neck was prepped and draped in sterile fashion. 1% Lidocaine was used to anesthetize the surrounding skin area. A triple lumen 9F Cordis catheter was introduced into the internal jugular vein using Seldinger technique. The catheter was threaded smoothly over the guide wire and appropriate blood return was obtained. Each lumen of the catheter was evacuated of air and flushed with sterile saline. The catheter was then sutured in place to the skin and a sterile dressing applied. Perfusion to the extremity distal to the point of catheter insertion was checked and found to be adequate. There was no immediate complication. The patient tolerated the procedure well. We used the left internal jugular vein. We went via the posterior approach. There was good blood return from all 3 ports. The tip of the catheter was seen in the junction between superior vena cava and right atrium. A chest x-ray was done. The catheter was sutured in place and a sterile dressing was applied by the nurse. There was no immediate complication. The patient tolerated the procedure very well. MMODL / IJN: [id number] /
--- NOTE | 2021-12-20 17:03 | PCN ---
PROCEDURE NOTE PROCEDURE PERFORMED: Right brachial art line. PREOP DIAGNOSIS: Frequent blood draws and blood gas monitoring. POSTOP DIAGNOSIS: Frequent blood draws and blood gas monitoring. OPERATORS: Dr. Dominguez and Dr. Tariq. ARTERIAL LINE PLACEMENT: Indications: Hemodynamic monitoring. A time-out was completed verifying correct patient, procedure, site, positioning, and implant(s) or special equipment if applicable. Fabián's test was performed to ensure adequate perfusion. The patient's right arm was prepped and draped in sterile fashion. 1% Lidocaine was used to anesthetize the area. An 18G Arrow arterial line was introduced into the brachial artery. The catheter was threaded over the guide wire and the needle was removed with appropriate pulsatile blood return. Blood loss was minimal. The catheter was then sutured in place to the skin and a sterile dressing applied. Perfusion to the extremity distal to the point of catheter insertion was checked and found to be adequate. The patient tolerated the procedure well and there were no complications. There was universal timeout. We used the right brachial artery. There was good blood return and waveform. The catheter was sutured in place. A sterile dressing was applied by the nurse. There was no immediate complication and the patient tolerated the procedure well. MMODL / IJN: [id number] /
[2021-12-20 17:06] LABS: ABG Base Excess -16.5 mmol/L; ABG HCO3 16 mmol/L (21-25); ABG Oxygen Saturation 92.7 % (94-97); ABG PCO2 69 mmHg (35-45); ABG PO2 105 mmHg (83-108); ABG TCO2 18 mmol/L (19-24)
[2021-12-20 17:07] LABS: ABG PH 6.96 (7.35-7.45); Allen Test Performed? no
--- NOTE | 2021-12-20 17:12 | P.PN ---
Progress Note - Text Progress Note Date: 12/20/21 SIMON Miguel A was called on the patient for asystole cardiac arrest. After multiple rounds of epinephrine and CPR patient had a weak pulse. The code lasted for almost 15min. After code patient did not have any meaningful neurologic activity. Patient was transferred to ICU. I signed out to Dr. Dominguez. Family was called and they said they are on their way to hospital.
[2021-12-20 17:42] VITALS: BP 136/49; TEMP 96.1
[2021-12-20] MEDS ORDERED: DEXTROSE 5% IN WATER 1,000 ML with SODIUM BICARB (1 MEQ/ML) 150 ML IV SCH (17:45)
[2021-12-20 17:47] LABS: Glucose,Whole Blood 107 mg/dL (75-99)
[2021-12-20] MEDS ORDERED: methylPREDNISolone SOD SUCCI 125 MG/2 ML VIAL IV SCH (18:00)
[2021-12-20] MEDS ORDERED: INSULIN ASPART (NovoLOG) 100 UNIT/ML VIAL SQ SCH (18:00)
[2021-12-20 18:11] LABS: Appearance,Urine Cloudy (Clear); Bacteria,Urine Rare /hpf; Bilirubin,Urine Negative (Negative); Blood,Urine Trace (Negative); Color,Urine Yellow; Glucose,Urine (UA) Negative (Negative); Ketones,Urine Negative (Negative); Leukocyte Esterase,Urine Negative (Negative); Mucus,Urine Rare /hpf; Nitrite,Urine Negative (Negative); PH, Urine 5.5 (5.0-8.0); Protein,Urine 1+ (Negative); RBC,Urine 2 /hpf (0-5); Specific Gravity,Urine 1.017 (1.001-1.035); Squamous Epithelial Cell,Urine <1 /hpf (0-4); Urobilinogen,Urine <2.0 mg/dL (<2.0); WBC,Urine 4 /hpf (0-5)
[2021-12-20 18:30] VITALS: PULSE 70
[2021-12-20 19:36] VITALS: RESP 22
[2021-12-20] MEDS ORDERED: ATROPINE OPHTH SOLN 1% 5ML BTL SUBLINGUAL PRN (20:11)
[2021-12-20] MEDS ORDERED: MORPHINE SULFATE 4 MG/ML SYRINGE IV PRN (20:11)
[2021-12-20] MEDS ORDERED: ONDANSETRON 4 MG/2 ML VIAL IVP PRN (20:11)
[2021-12-20] MEDS ORDERED: MORPHINE SULFATE 2 MG/ML SYRINGE IV PRN (20:11)
[2021-12-20] MEDS ORDERED: MORPHINE SULFATE (100 MG/2 ML) 100 MG in SODIUM CHLORIDE 0.9% 100 ML IV SCH (20:15)
[2021-12-20] MEDS: ATORVASTATIN 40 MG TAB PO SCH (20:51)
[2021-12-20] MEDS ORDERED: CHLORHEXIDINE GLUCONATE 15 ML CUP MUCOUS MEM SCH (21:00)
[2021-12-21] MEDS ORDERED: predniSONE 20 MG TAB PO SCH (09:00)
[2021-12-21] MEDS ORDERED: PANTOPRAZOLE 40 MG/10 ML VIAL IVP SCH (09:00)
--- NOTE | 2021-12-21 16:35 | P.DS ---
Providers Date of admission: 12/14/21 15:51 Expected date of discharge: 12/20/21 Attending physician: Minnie Prater MD Consults: 12/14/21 15:51 Consult Physician Routine Consulting Provider: Bunny Rhodes Consult Reason/Comments: pneumonia Do you want consulting provider notified?: Yes Consult Physician Urgent Consulting Provider: Gilberto Alvarez Consult Reason/Comments: nstemi, heart failure Do you want consulting provider notified?: Yes 12/18/21 09:42 Consult Physician Routine Consulting Provider: Sabiha Billings Consult Reason/Comments: JULIANE with hyperkalemia Do you want consulting provider notified?: Yes Primary care physician: Catalino Yanes Hospital Course: Patient was a 76-year-old male with a past medical history significant for congestive heart failure with ejection fraction of 45-50%, right lower extremity ischemia, peripheral arterial disease, atrial fibrillation on anticoagulant coronary disease, sick sinus syndrome status post pacemaker the present to the hospital secondary to shortness of breath. Patient was found to have COPD exacerbation with possibly superimposed bacterial pneumonia. Patient was evaluated by pulmonary team was started on appropriate antimicrobials broad spectrum and breathing treatments around the clock with steroids. Patient also received some Lasix to help with respiratory distress. During the hospital stay the patient was very weak/lethargic given his severe comorbidities and was on BiPAP yesterday. During that time he was stable but unfortunately throughout the day he started to slowly decompensate and became hypoxic and most likely coded as a result of that. Please refer to CODE BLUE documentation for further information. Patient was transferred to the intensive care unit and subsequently . Patient Condition at Discharge: Undetermined Plan - Discharge Summary Discharge Rx Participant: Yes New Discharge Prescriptions: Discontinued Allopurinol [Zyloprim] 300 mg PO HS Apixaban [Eliquis] 5 mg PO BID Atorvastatin [Lipitor] 40 mg PO HS traMADol HCL 50 mg PO BID PRN PRN Reason: Pain Albuterol Nebulized [Ventolin Nebulized] 2.5 mg INHALATION RT-QID PRN PRN Reason: Shortness Of Breath Furosemide [Lasix] 20 mg PO DAILY Ipratropium/Albuterol Sulfate [Combivent Respimat Inhaler] 1 puff INHALATION RT-QID lisinopriL [Zestril] 5 mg PO DAILY predniSONE 50 mg PO DAILY@1200 Cyclobenzaprine [Flexeril] 10 mg PO BID PRN PRN Reason: Muscle Spasm DULoxetine HCL [Cymbalta] 60 mg PO DAILY@1200 Gabapentin 300 mg PO TID Metoprolol Tartrate 25 mg PO BID Nitroglycerin Sl Tabs [Nitrostat] 0.4 mg SL Q5M PRN PRN Reason: Chest Pain Omeprazole 20 mg PO DAILY@1200 traZODone HCL [Desyrel] 50 mg PO HS Follow up Appointment(s)/Referral(s): Catalino Yanes MD [Primary Care Provider] - 1-2 days Stas Tolbert DO [Doctor of Osteopathic Medicine] - 2 Weeks [facility], [NON-STAFF] - Care,[facility] [NON-STAFF] - Discharge Disposition: - Preliminary Cause of Preliminary Cause of : acute hypoxic respiratory distress.
== END 2021-12-20 23:30 | disposition expired | DRG 871 ==
LOC: EC 11:59 → 3SCARD 15:51 → 2SICU 12-20 15:32
PROVIDERS: ADMIT Internal Medicine; ATTEND Internal Medicine
PROC: 5A12012 Performance of Cardiac Output, Single, Manual (ICD-10-PCS; 2021-12-20)
PROC: 05HF33Z Insertion of Infusion Device into Left Cephalic Vein, Percutaneous Approach (ICD-10-PCS; 2021-12-20)
PROC: 5A09557 Assistance with Respiratory Ventilation, Greater than 96 Consecutive Hours, Continuous Positive Airway Pressure (ICD-10-PCS; 2021-12-20)
PROC: 5A09459 Assistance with Respiratory Ventilation, 24-96 Consecutive Hours, Continuous Negative Airway Pressure (ICD-10-PCS; 2021-12-20)
PROC: 3E043XZ Introduction of Vasopressor into Central Vein, Percutaneous Approach (ICD-10-PCS; 2021-12-20)
PROC: 4A133B1 Monitoring of Arterial Pressure, Peripheral, Percutaneous Approach (ICD-10-PCS; principal; 2021-12-20 07:30)
PROC: 5A1935Z Respiratory Ventilation, Less than 24 Consecutive Hours (ICD-10-PCS; principal; 2021-12-20 07:30)
PROC: 0D9670Z Drainage of Stomach with Drainage Device, Via Natural or Artificial Opening (ICD-10-PCS; principal; 2021-12-20 07:30)
PROC: 02HV33Z Insertion of Infusion Device into Superior Vena Cava, Percutaneous Approach (ICD-10-PCS; principal; 2021-12-20 07:30)
PROC: 4A133J1 Monitoring of Arterial Pulse, Peripheral, Percutaneous Approach (ICD-10-PCS; principal; 2021-12-20 07:30)
PROC: 03HY32Z Insertion of Monitoring Device into Upper Artery, Percutaneous Approach (ICD-10-PCS; principal; 2021-12-20 07:30)
PROC: 0BH17EZ Insertion of Endotracheal Airway into Trachea, Via Natural or Artificial Opening (ICD-10-PCS; 2021-12-20 07:30)
DX: A41.9 Sepsis, unspecified organism (principal); J18.9 Pneumonia, unspecified organism; J96.21 Acute and chronic respiratory failure with hypoxia; N17.0 Acute kidney failure with tubular necrosis; I50.43 Acute on chronic combined systolic (congestive) and diastolic (congestive) heart failure; I21.A1 Myocardial infarction type 2; E87.2 Acidosis; J44.1 Chronic obstructive pulmonary disease with (acute) exacerbation; J44.0 Chronic obstructive pulmonary disease with (acute) lower respiratory infection; I48.19 Other persistent atrial fibrillation; J98.11 Atelectasis; I27.20 Pulmonary hypertension, unspecified; I70.221 Atherosclerosis of native arteries of extremities with rest pain, right leg; I49.5 Sick sinus syndrome; I11.0 Hypertensive heart disease with heart failure; I70.222 Atherosclerosis of native arteries of extremities with rest pain, left leg; Z89.421 Acquired absence of other right toe(s); I46.8 Cardiac arrest due to other underlying condition; Z66 Do not resuscitate; Z51.5 Encounter for palliative care; Z20.822 Contact with and (suspected) exposure to COVID-19; E87.5 Hyperkalemia; D50.9 Iron deficiency anemia, unspecified; F17.210 Nicotine dependence, cigarettes, uncomplicated; E78.5 Hyperlipidemia, unspecified; T36.8X5A Adverse effect of other systemic antibiotics, initial encounter; I08.3 Combined rheumatic disorders of mitral, aortic and tricuspid valves; N40.0 Benign prostatic hyperplasia without lower urinary tract symptoms; S42.91XD Fracture of right shoulder girdle, part unspecified, subsequent encounter for fracture with routine healing; F32.A Depression, unspecified; M10.9 Gout, unspecified; I25.10 Atherosclerotic heart disease of native coronary artery without angina pectoris; I25.2 Old myocardial infarction; I83.90 Asymptomatic varicose veins of unspecified lower extremity; Z99.81 Dependence on supplemental oxygen; Z79.01 Long term (current) use of anticoagulants; Z79.899 Other long term (current) drug therapy; Z74.01 Bed confinement status; Z85.118 Personal history of other malignant neoplasm of bronchus and lung; Z95.0 Presence of cardiac pacemaker; Z98.42 Cataract extraction status, left eye; Z90.49 Acquired absence of other specified parts of digestive tract; Z98.41 Cataract extraction status, right eye; Z90.2 Acquired absence of lung [part of]; Z95.820 Peripheral vascular angioplasty status with implants and grafts; Z95.828 Presence of other vascular implants and grafts; Z98.890 Other specified postprocedural states; Z88.8 Allergy status to other drugs, medicaments and biological substances; Z91.048 Other nonmedicinal substance allergy status
CPT/HCPCS: 36410; 36415; 36600; 71045; 76604; 76770; 76937; 80048; 80053; 80202; 81001; 81003; 82805; 83540; 83550; 83605; 83735; 83880; 84145; 84484; 85025; 85610; 85730; 87040; 87635; 92950; 93005; 93306; 94002; 94640; 94660; 99285